=== PATIENT | female | born 1945 | race Caucasian/White ===

== ENCOUNTER 2017-01-17 14:53 | Outpatient (CLI) | payer MEDICARE, MEDICAID ==
--- NOTE | 2017-01-18 09:22 | XRAY Report ---
THREE VIEW LEFT FIFTH FINGER: 01/17/2017 CLINICAL INDICATION: Pain. FINDINGS: AP, lateral, and oblique views of the left 5th finger demonstrate mild degenerative change s of the interphalangeal joints. There is no evidence of acute fracture or dislocation. No radiopaque foreign body is seen in the soft tissues. IMPRESSION: OSTEOARTHRITIS. NO EVIDENCE OF ACUTE FRACTURE. JOB #: [id number] EXT JOB #:[id number]
== END 2017-01-17 14:54 | disposition home or self-care (01) ==
LOC: DI.S 14:53
PROVIDERS: ATTEND Nurse Practitioner Family
DX: M79.645 Pain in left finger(s) (principal); S69.92XA Unspecified injury of left wrist, hand and finger(s), initial encounter; M19.042 Primary osteoarthritis, left hand
CPT/HCPCS: 73140

== ENCOUNTER 2017-01-29 13:33 | Outpatient (CLI) | payer MEDICARE, MEDICAID ==
[2017-01-29 18:28] LABS: BASOPHILS # (AUTO) 0.1 10^3/uL (0.0-0.1); BASOPHILS % (AUTO) 0.8 %; EOSINOPHILS # (AUTO) 0.1 10^3/uL (0.0-0.7); EOSINOPHILS % (AUTO) 0.9 %; HCT - HEMATOCRIT 42.6 % (37.0-47.0); HGB - HEMOGLOBIN 14.2 g/dL (12.0-16.0); LYMPHOCYTES # (AUTO) 1.7 10^3/uL (1.5-3.5); LYMPHOCYTES % (AUTO) 27.4 %; MEAN CORPUSCULAR HEMOGLOBIN 30.2 pg (27.0-31.0); MEAN CORPUSCULAR HGB CONC 33.3 g/dL (32.0-36.0); MEAN CORPUSCULAR VOLUME 90.5 fL (81.0-99.0); MEAN PLATELET VOLUME 9.9 fL (7.9-10.8); MONOCYTES # (AUTO) 0.4 10^3/uL (0.0-1.0); MONOCYTES % (AUTO) 6.4 %; NEUTROPHILS % (AUTO) 64.5 %; RED CELL DISTRIBUTION WIDTH 14.2 % (12.0-15.0); UNCORRECTED WHITE BLOOD COUNT 6.2 x10^3/uL; WHITE BLOOD COUNT 6.2 x10^3/uL (4.8-10.8)
[2017-01-29 19:02] LABS: ALBUMIN/GLOBULIN RATIO 1.3 (1.0-2.2); BILIRUBIN,TOTAL 0.6 mg/dL (0.2-1.0); BUN - BLOOD UREA NITROGEN 26 mg/dL (6-20); CARBON DIOXIDE - CO2 26 mmol/L (21-32); CHLORIDE 105 mmol/L (101-111); GFR - MDRD 55 (>89); GLUCOSE 69 mg/dL (70-100); POTASSIUM 4.3 mmol/L (3.5-5.0); SODIUM 138 mmol/L (135-145); TOTAL PROTEIN 7.4 g/dL (6.7-8.2); URIC ACID 4.6 mg/dL (2.6-7.2)
[2017-01-31 14:32] LABS: ANA SCREEN NEGATIVE (NEGATIVE)
== END 2017-01-29 13:34 | disposition home or self-care (01) ==
LOC: LAB.S 13:33
PROVIDERS: ATTEND Nurse Practitioner Family
DX: M19.90 Unspecified osteoarthritis, unspecified site (principal); I10 Essential (primary) hypertension
CPT/HCPCS: 36415; 80053; 84550; 85025; 85651; 86038; 86140; 86200; 86430

== ENCOUNTER 2017-02-09 11:31 | Outpatient (CLI) | payer MEDICARE, MEDICAID ==
--- NOTE | 2017-02-09 15:13 | XRAY Report ---
LEFT HIP AND PELVIS: 02/09/2017 CLINICAL INDICATION: Leg pain. FINDINGS: Frontal view of the hips and pelvis and frogleg lateral view of the left hip demonstrate m inimal osteoarthritis. There is no evidence of fracture or dislocation. No foreign body is seen in the soft tissues. IMPRESSION: MINIMAL OSTEOARTHRITIS. JOB #: [id number] EXT JOB #:[id number]
--- NOTE | 2017-02-09 16:15 | XRAY Report ---
THREE-VIEW LEFT KNEE: 02/09/2017 CLINICAL INDICATION: Leg pain. FINDINGS: AP, lateral, sunrise views of the left knee demonstrate no evidence of fracture or disloca tion. The joint spaces are preserved. No effusion is present. IMPRESSION: NORMAL LEFT KNEE. JOB #: [id number] EXT JOB #:[id number]
== END 2017-02-09 11:32 | disposition home or self-care (01) ==
LOC: DI.S 11:31
PROVIDERS: ATTEND Nurse Practitioner Family
DX: M16.12 Unilateral primary osteoarthritis, left hip (principal)

== ENCOUNTER 2018-01-14 16:21 | Outpatient (CLI) | payer MEDICARE, MEDICAID ==
--- NOTE | 2018-01-15 09:55 | XRAY Report ---
Reason: EVAL FOR DJD AND LUMBAR RADICULOPATHY Procedure Date: 01/14/2018 Accession Number: [id number] / [id number] Procedure: XRS - Lumbar Spine 2 View CPT Code: FULL RESULT: EXAM: LUMBOSACRAL SPINE RADIOGRAPHY EXAM DATE: 01/14/2018 04:43 PM. CLINICAL HISTORY: EVAL FOR DJD AND LUMBAR RADICULOPATHY. COMPARISONS: 09/18/2006. TECHNIQUE: 5 views. FINDINGS: Alignment: There is minimal grade 1 degenerative spondylolisthesis of L3 on L4. The remaining lumbar segments are normally aligned. Bones: Five [id number] lumbar vertebral bodies are present. No fractures or bone lesions. Disks: There is slight loss of intervertebral disk space height at L2-L3. Minimal anterior marginal spurring is seen at this level as well as L3-L4 and L4-L5. Facets: Facet arthropathy is seen bilaterally at L3-L4 and L4-L5. Sacroiliac Joints: Unremarkable. Soft Tissues: Moderate colonic stool burden is present suggesting constipation. IMPRESSION: 1. Minimal grade 1 degenerative spondylolisthesis of L3 on L4 without significant change. 2. Mild multilevel lumbar spondylosis. 3. No evidence of acute osseous abnormality in the lumbar spine. 4. Possible constipation. RADIA
== END 2018-01-14 16:22 | disposition home or self-care (01) ==
LOC: DI.S 16:21
PROVIDERS: ATTEND Physical Medicine & Rehabilitation Hospice and Palliative Medicine
DX: Z51.5 Encounter for palliative care (principal); G89.4 Chronic pain syndrome; M43.16 Spondylolisthesis, lumbar region; M47.816 Spondylosis without myelopathy or radiculopathy, lumbar region
CPT/HCPCS: 72110

== ENCOUNTER 2018-05-20 08:00 | Outpatient (CLI) | payer MEDICARE, MEDICAID ==
[2018-05-20 18:11] LABS: BASOPHILS # (AUTO) 0.1 10^3/uL (0.0-0.1); EOSINOPHILS # (AUTO) 0.1 10^3/uL (0.0-0.7); EOSINOPHILS % (AUTO) 2.6 %; HGB - HEMOGLOBIN 14.7 g/dL (12.0-16.0); LYMPHOCYTES # (AUTO) 1.7 10^3/uL (1.5-3.5); LYMPHOCYTES % (AUTO) 29.9 %; MEAN CORPUSCULAR HEMOGLOBIN 29.5 pg (27.0-31.0); MEAN CORPUSCULAR HGB CONC 32.4 g/dL (32.0-36.0); MEAN CORPUSCULAR VOLUME 90.9 fL (81.0-99.0); MEAN PLATELET VOLUME 10.2 fL (7.9-10.8); MONOCYTES # (AUTO) 0.4 10^3/uL (0.0-1.0); MONOCYTES % (AUTO) 7.1 %; NEUTROPHILS # (AUTO) 3.3 10^3/uL (1.5-6.6); NEUTROPHILS % (AUTO) 59.4 %; PLT - PLATELET COUNT 235 10^3/uL (130-450); WHITE BLOOD COUNT 5.6 x10^3/uL (4.8-10.8)
[2018-05-20 18:27] LABS: HB2 TOTAL 15.5 g/dL; HEMOGLOBIN A1C 0.53 g/dL; HEMOGLOBIN A1C % 5.3 % (4.6-6.2)
[2018-05-20 18:55] LABS: ALBUMIN 4.2 g/dL (3.2-5.5); ALBUMIN/GLOBULIN RATIO 1.5 (1.0-2.2); ALKALINE PHOSPHATASE 61 IU/L (42-121); ALT ALANINE AMINOTRANSFERASE 22 IU/L (10-60); AST ASPARTATE AMINOTRANSFERASE 23 IU/L (10-42); BILIRUBIN,TOTAL 0.6 mg/dL (0.2-1.0); BUN - BLOOD UREA NITROGEN 14 mg/dL (6-20); CALCIUM 9.9 mg/dL (8.5-10.3); CARBON DIOXIDE - CO2 27 mmol/L (21-32); CHLORIDE 107 mmol/L (101-111); CHOL/HDL RATIO 6.8 (<4.4); CHOLESTEROL 314 mg/dL; CREATININE 0.9 mg/dL (0.4-1.0); GFR - MDRD 62 (>89); GLUCOSE 91 mg/dL (70-100); HDL CHOLESTEROL 46 mg/dL; LDL CHOLESTEROL,CALCULATED 227 mg/dL; LDL/HDL RATIO 4.9 (<4.4); SODIUM 140 mmol/L (135-145); VLDL CHOLESTEROL 41 mg/dL
== END 2018-05-20 23:59 | disposition home or self-care (01) ==
LOC: LAB.S 08:00
PROVIDERS: ATTEND Nurse Practitioner
DX: I10 Essential (primary) hypertension (principal); Z13.9 Encounter for screening, unspecified
CPT/HCPCS: 36415; 80053; 80061; 83036; 83721; 84443; 85025

== ENCOUNTER 2018-11-08 13:30 | Outpatient (CLI) | payer MEDICARE, MEDICAID ==
--- NOTE | 2018-11-08 16:56 | Ultrasound Report ---
Reason: UNSPECIFIED OVARIAN CYST,LEFT SIDE,ABDOMINAL PAIN, Procedure Date: 11/08/2018 Accession Number: [id number] / [id number] Procedure: US - Pelvic w/Transvaginal CPT Code: FULL RESULT: EXAM: PELVIC ULTRASOUND EXAM DATE: 11/08/2018 03:21 PM. CLINICAL HISTORY: Follow-up OVARIAN Cyst, left Side, abdominal PAIN. COMPARISON: None available. TECHNIQUE: Realtime transabdominal pelvic scan performed to identify the uterus and adnexa and as an overview of other pelvic structures, followed by transvaginal scan to provide greater detail of the uterus and adnexa, with static image documentation. FINDINGS: Uterus: 4.7 x 1.4 x 2.9 cm, volume 10 cc. Anteverted position. Normal overall size and echotexture. Masses: None. Endometrium: 1.8 mm. Normal. Cervix: Small nabothian cyst.. Right Ovary: Not seen. No adnexal masses. Left Ovary: 3.9 x 2.4 x 2.7 cm, volume 13.2 cc. 2.2 x 2.1 x 2.1 cm simple left ovarian cyst with an adjacent smaller 1.8 x 1.6 x 1.5 cm cyst. cc. Normal echotexture and blood flow. Free Fluid: None. Other: None. IMPRESSION: Two simple left ovarian cysts, the larger 2.2 x 2.1 x 2.1 cm. Otherwise negative postmenopausal pelvic ultrasound. Consider follow-up pelvic ultrasound 10-12 weeks to assess for cyst resolution.. RADIA
== END 2018-11-08 13:31 | disposition home or self-care (01) ==
LOC: DI 13:30
PROVIDERS: ATTEND Nurse Practitioner
DX: N83.292 Other ovarian cyst, left side (principal); N88.8 Other specified noninflammatory disorders of cervix uteri
CPT/HCPCS: 76830; 76856

== ENCOUNTER 2018-12-11 15:15 | Emergency (ER) | payer MEDICARE, MEDICAID ==
[2018-12-11] MEDS ORDERED: TETANUS/DIPHTHERIA/PERTUSSIS 0.5 ML SYRINGE IM ONE (16:25)
[2018-12-11] MEDS ORDERED: ROPIVACAINE 0.5% PF 20 ML VIAL SUBQ STA (16:48)
[2018-12-11] MEDS ORDERED: LIDOCAINE 1% 2 ML VIAL ONE (17:14)
--- NOTE | 2018-12-11 17:14 | ED Physician Documentation ---
PD HPI UPPER EXT INJURY - Stated complaint Stated Complaint: R MID FINGER LAC - Chief complaint Chief Complaint: Laceration - History obtained from History obtained from: Patient - History of Present Illness Location: Right, Finger (mid) Where injury occurred: Home Timing - onset: Today Timing - duration: Days (1) Timing - details: Abrupt onset Pain level max: 4 Pain level now: 3 Improved by: Rest Worsened by: Moving, Palpating Associated symptoms: No: Weakness, Numbness, Tingling, Swelling Contributing factors: No: Anticoagulated Recently seen: Not recently seen - Additonal information Additional information: cut R mid finger on broken glass. unknown last td Review of Systems Neurologic: denies: Focal weakness, Numbness PD PAST MEDICAL HISTORY - Past Medical History Cardiovascular: Hypertension, High cholesterol Respiratory: None Endocrine/Autoimmune: None GI: GERD, Chronic constipation, Other : None HEENT: Other Psych: None Musculoskeletal: Other Derm: None - Past Surgical History General: Appendectomy, Colonoscopy HEENT: Other - Present Medications Home Medications: Ambulatory Orders Medication Instructions Recorded Confirmed Ascorbic Acid [Vitamin C] 1 tab PO DAILY 12/21/15 05/29/18 Calcium Carbonate 1 tab PO DAILY 12/21/15 12/21/15 Multivitamin [Multivitamins] 1 tab PO DAILY 12/21/15 05/29/18 Niacin 1 tab PO DAILY 12/21/15 12/21/15 Zolpidem [Ambien] 2.5 mg PO DAILY 12/21/15 05/29/18 Aspirin [Aspirin EC] 1 each PO DAILY 05/29/18 05/29/18 B-Complex with Vitamin C [Super B 1 each PO DAILY 05/29/18 05/29/18 Complex-Vitamin C] Cholecalciferol (Vitamin D3) 1 cap PO DAILY 05/29/18 05/29/18 [Vitamin D3] Digestive 8/L.acidoph/Pectin 1 each PO BID 05/29/18 05/29/18 [Digestive Enzymes Tablet] Janessa Root 1 cap PO DAILY 05/29/18 05/29/18 Glycerin Adult Supp 1 supp.rect VT ONCE 05/29/18 05/29/18 L.acid/L.casei/B.bif/B.wicho/Fos 1 cap PO BID 05/29/18 05/29/18 [Probiotic Blend Capsule] Malic Acid 1 each PO DAILY 05/29/18 Melatonin/5Htp/Valer/FA/Diet28 1 each PO BID 05/29/18 05/29/18 [Hypnosom Tablet] Nutmeg 1 applic PO DAILY 05/29/18 [place]-3/Dha/Epa/Fish Oil [Fish Oil 1 cap PO DAILY 05/29/18 05/29/18 500 mg Softgel] Turmeric Root Extract [Turmeric] 500 mg PO BID 05/29/18 05/29/18 Whole Plant Cannibis 1 applic PO DAILY PM 05/29/18 05/29/18 - Allergies Allergies/Adverse Reactions: Allergies Allergy/AdvReac Type Severity Reaction Status Date / Time Penicillins Allergy Unknown Verified 12/11/18 15:30 - Social History Does the pt smoke?: No Smoking Status: Never smoker PD ED PE NORMAL - Vitals Vital signs reviewed: Yes - General General: Alert and oriented X 3, No acute distress - Derm Derm: Warm and dry - Extremities Extremities: Other (R middle finger - 1cm linear laceration distal tip. NVI. Subcutaneous) - Neuro Neuro: Alert and oriented X 3 - Psych Psych: Normal mood, Normal affect Results - Vitals Vitals: Oxygen O2 Source Room air Procedures - Laceration (location) R 3rd finger Length in cm: 1 Wound type: Linear, Into subcut fat, Clean Neurovascular status: Sensory intact, Motor intact, Vascular intact Tendon involvement: Tendon intact Anesthesia: Lidocaine 1% (transthecal block) Wound Preparation: Irrigated copiously NS Skin layer closure: Dermabond Other: Patient tolerated well, No complications, Neurovascular intact, Dressing applied (finger cage), Tetanus booster given (tdap) Complexity: Simple PD MEDICAL DECISION MAKING - ED course Complexity details: re-evaluated patient, considered differential, d/w patient ED course: Fingertip laceration repaired with Dermabond. Neurovascularly intact. No indication for x-ray. Discussed closure options including sutures versus Dermabond. Patient is comfortable with Dermabond. Finger splint applied to protect the area. Warnings of infection and instructions on wound care given at bedside. Also counseled on how to minimize scarring. Patient counseled regarding signs and symptoms for which I believe and urgent re-evaluation would be necessary. Patient with good understanding of and agreement to plan and is comfortable going home at this time This document was made in part using voice recognition software. While efforts are made to proofread this document, sound alike and grammatical errors may occur. Departure - Departure Disposition: 01 Home, Self Care Clinical Impression: Finger laceration Qualifiers: Encounter type: initial encounter Finger: middle finger Damage to nail status: without damage Foreign body presence: without foreign body Laterality: right Qualified Code(s): S61.212A - Laceration without foreign body of right middle finger without damage to nail, initial encounter Condition: Good Instructions: ED Laceration Ext Skin Glue Follow-Up: your,doctor in 1 week [Other] Comments: Return if you worsen. keep the wound clean. Return if you notice redness, swelling, or drainage from wound Discharge Date/Time: 12/11/18 17:48
[2018-12-11 17:49] VITALS: BP 161/72
== END 2018-12-11 17:48 | disposition home or self-care (01) ==
LOC: ED 15:15
DX: S61.212A Laceration without foreign body of right middle finger without damage to nail, initial encounter (principal); W25.XXXA Contact with sharp glass, initial encounter; Y92.009 Unspecified place in unspecified non-institutional (private) residence as the place of occurrence of the external cause; I10 Essential (primary) hypertension
CPT/HCPCS: 12001; 90471

== ENCOUNTER 2019-01-17 13:11 | Outpatient (CLI) | payer MEDICARE, MEDICAID ==
--- NOTE | 2019-01-20 10:17 | Ultrasound Report ---
Reason: UNSPECIFIED OVARIAN CYST, LEFT SIDE Procedure Date: 01/17/2019 Accession Number: [id number] / [id number] Procedure: US - Pelvic w/Transvaginal CPT Code: FULL RESULT: EXAM: PELVIC ULTRASOUND EXAM DATE: 01/17/2019 03:04 PM. CLINICAL HISTORY: UNSPECIFIED OVARIAN CYST, LEFT SIDE. COMPARISON: PELVIC W/TRANSVAGINAL 11/08/2018 2:14 PM. TECHNIQUE: Realtime transabdominal pelvic scan performed to identify the uterus and adnexa and as an overview of other pelvic structures, followed by transvaginal scan to provide greater detail of the uterus and adnexa, with static image documentation. FINDINGS: Uterus: 4.7 x 1.3 x 2.5 cm, volume 7.8 cc. Anteverted position. Normal overall size and echotexture. Masses: None. Endometrium: 2.4 mm. Normal. Cervix: Small nabothian cyst 5 x 6 x 4 mm. Right Ovary: Not seen. No adnexal mass. Left Ovary: 3.7 x 2.7 x 3.4 cm, volume 17.7 cc. Persistent septated cyst versus 2 adjacent cysts, composite measurement 3.3 x 2.6 x 3.2 cm. Individual measurements 2.4 x 1.8 x 1.7 cm, previously 2.2 x 2.1 x 2.1 cm and 1.9 x 1.4 x 1.2 cm, previously 1.8 x 1.6 x 1.5 cm. Free Fluid: None. Other: None. IMPRESSION: 2 simple adjacent versus one septated left ovarian cyst, stable in appearance compared with 11/08/2018. Otherwise negative pelvic ultrasound. Suggest follow-up pelvic ultrasound in 1 year. RADIA
== END 2019-01-17 13:12 | disposition home or self-care (01) ==
LOC: DI 13:11
PROVIDERS: ATTEND Family Medicine
DX: N83.202 Unspecified ovarian cyst, left side (principal)
CPT/HCPCS: 76830; 76856

== ENCOUNTER 2019-05-06 14:00 | Outpatient (CLI) | payer MEDICARE, MEDICAID ==
--- NOTE | 2019-05-06 16:00 | XRAY Report ---
Reason: COUGH Procedure Date: 05/06/2019 Accession Number: [id number] / [id number] Procedure: XRS - Chest 2 View X-Ray CPT Code: 53144 Final Report FULL RESULT: EXAM: CHEST RADIOGRAPHY. EXAM DATE: 05/06/2019 02:12 PM. CLINICAL HISTORY: Cough. COMPARISON: 10/23/2007 11:26 AM. TECHNIQUE: 2 views. FINDINGS: Lungs/Pleura: No focal opacities evident. No pleural effusion. No pneumothorax. Normal volumes. Mediastinum: Heart and mediastinal contours are unremarkable. Other: None. IMPRESSION: No acute cardiopulmonary abnormality. RADIA
== END 2019-05-06 14:01 | disposition home or self-care (01) ==
LOC: DI.S 14:00
PROVIDERS: ATTEND Registered Nurse
DX: R05 Cough (principal)
CPT/HCPCS: 71046

== ENCOUNTER 2020-09-12 08:32 | Outpatient (CLI) | payer MEDICARE, MEDICAID | END 2020-09-12 08:33 | disposition critical access hospital (66) | LOC: EMS 08:32 | DX: R42 Dizziness and giddiness (principal) | CPT/HCPCS: A0425; A0429 ==

== ENCOUNTER 2020-09-12 09:07 | Observation (INO) | payer MEDICARE, MEDICAID ==
[2020-09-12] MEDS ORDERED: MECLIZINE 12.5 MG TABLET PO STA (09:27)
[2020-09-12] MEDS ORDERED: SODIUM CHLORIDE 0.9% 1,000 ML IV STA (09:28)
[2020-09-12] MEDS ORDERED: IOPAMIDOL-300 100 ML VIAL ONE (09:32)
[2020-09-12 09:38] LABS: MUDS CUTOFF CONCENTRATIONS CUTOFF CONC BELOW:
[2020-09-12 09:39] LABS: BASOPHILS # (AUTO) 0.1 10^3/uL (0.0-0.1); BASOPHILS % (AUTO) 0.7 %; EOSINOPHILS # (AUTO) 0.1 10^3/uL (0.0-0.7); EOSINOPHILS % (AUTO) 0.6 %; HCT - HEMATOCRIT 49.6 % (37.0-47.0); LYMPHOCYTES # (AUTO) 2.1 10^3/uL (1.5-3.5); LYMPHOCYTES % (AUTO) 26.3 %; MEAN CORPUSCULAR HEMOGLOBIN 29.5 pg (27.0-31.0); MEAN CORPUSCULAR HGB CONC 32.3 g/dL (32.0-36.0); MEAN CORPUSCULAR VOLUME 91.5 fL (81.0-99.0); MEAN PLATELET VOLUME 10.6 fL (7.9-10.8); MONOCYTES # (AUTO) 0.4 10^3/uL (0.0-1.0); MONOCYTES % (AUTO) 4.8 %; NEUTROPHILS # (AUTO) 5.5 10^3/uL (1.5-6.6); NEUTROPHILS % (AUTO) 67.2 %; PLT - PLATELET COUNT 238 10^3/uL (130-450); RED BLOOD COUNT 5.42 10^6/uL (4.20-5.40); RED CELL DISTRIBUTION WIDTH 13.5 % (12.0-15.0); WHITE BLOOD COUNT 8.1 x10^3/uL (4.8-10.8)
[2020-09-12 09:40] LABS: BILIRUBIN,URINE NEGATIVE (NEGATIVE); GLUCOSE, URINE (UA) NEGATIVE (NEGATIVE); KETONES,URINE (UA) NEGATIVE (NEGATIVE); LEUKOCYTE ESTERASE, URINE MODERATE (NEGATIVE); NITRITE,URINE NEGATIVE (NEGATIVE); OCCULT BLOOD,URINE TRACE-INTA (NEGATIVE); PH,URINE 5.5 PH (5.0-7.5); PROTEIN,URINE NEGATIVE (NEGATIVE); UROBILINOGEN,URINE 0.2 (NORMAL) E.U./dL (NORMAL)
[2020-09-12 09:44] LABS: CLARITY,URINE HAZY (CLEAR)
[2020-09-12 09:52] LABS: AMPHETAMINE SCREEN,URINE NEGATIVE (NEGATIVE); BARBITURATE SCREEN,UR NEGATIVE (NEGATIVE); BENZODIAZEPINES SCREEN, URINE NEGATIVE (NEGATIVE); COCAINE SCREEN URINE NEGATIVE (NEGATIVE); METHADONE SCREEN, URINE NEGATIVE (NEGATIVE); METHAMPHETAMINES SCREEN, URINE NEGATIVE (NEGATIVE); OPIATE SCREEN, URINE NEGATIVE (NEGATIVE); OXYCODONE SCREEN, URINE NEGATIVE (NEGATIVE); PROPOXYPHENE SCREEN, URINE NEGATIVE (NEGATIVE); THC CANNABINOID SCREEN, URINE NEGATIVE (NEGATIVE); TRICYCLIC ANTIDEPRESSANT,URINE NEGATIVE (NEGATIVE)
[2020-09-12 09:53] LABS: ALBUMIN 4.9 g/dL (3.2-5.5); ALBUMIN/GLOBULIN RATIO 1.5 (1.0-2.2); ALKALINE PHOSPHATASE 70 IU/L (42-121); ALT ALANINE AMINOTRANSFERASE 26 IU/L (10-60); AST ASPARTATE AMINOTRANSFERASE 26 IU/L (10-42); BILIRUBIN,TOTAL 0.7 mg/dL (0.2-1.0); BUN - BLOOD UREA NITROGEN 17 mg/dL (6-20); CALCIUM 10.1 mg/dL (8.5-10.3); CARBON DIOXIDE - CO2 27 mmol/L (21-32); CHLORIDE 103 mmol/L (101-111); CREATININE 0.8 mg/dL (0.4-1.0); ETOH - ETHANOL < 5.0 mg/dL; GFR - MDRD 71 (>89); GLUCOSE 119 mg/dL (70-100); LIPASE 22 U/L (22-51); SODIUM 141 mmol/L (135-145); TOTAL PROTEIN 8.1 g/dL (6.7-8.2)
[2020-09-12 09:57] LABS: BACTERIA,URINE Few /HPF (None Seen); RBC,URINE 0-5 /HPF (0-5); SQUAMOUS EPITHELIAL CELL,UR MOD Squamous (<= Few)
--- NOTE | 2020-09-12 10:44 | XRAY Report ---
PROCEDURE: Chest 1 View X-Ray INDICATIONS: Chest pain TECHNIQUE: One view of the chest was acquired. COMPARISON: None FINDINGS: Surgical changes and devices: None. Lungs and pleura: No pleural effusions or pneumothorax. Lungs are clear. Mediastinum: Mediastinal contours appear normal. Heart size is normal. Bones and chest wall: No suspicious bony lesions. Overlying soft tissues appear unremarkable. IMPRESSION: No acute cardiopulmonary process demonstrated radiographically. Reviewed by: David Blakely MD on 09/12/2020 10:43 AM PDT Approved by: David Blakely MD on 09/12/2020 10:43 AM PDT Station ID: [id number]
--- NOTE | 2020-09-12 10:48 | CT Report ---
PROCEDURE: ANGIO NECK W INDICATIONS: Dizziness upon waking this morning CONTRAST: IV CONTRAST: Isovue 300 ml: 80 PO CONTRAST: *NO PO CONTRAST TECHNIQUE: After the administration of intravenous contrast, 1.5 mm axial sections acquired from the aortic arch to the [place] of [place]. Coronal 3-D maximum intensity projection (MIP) and/or volume rendering ref ormats were then performed. For radiation dose reduction, the following was used: automated exposur e control, adjustment of mA and/or kV according to patient size. COMPARISON: None. FINDINGS: Image quality: Excellent. Carotid system: The great vessels demonstrate a conventional anatomy as they arise from the aortic a [facility]. The origins of the common carotid arteries appear patent. The common carotid arteries demonstr ate normal calibers and courses. The bifurcation regions appear normal bilaterally. The internal ca rotid arteries demonstrate normal caliber and course. Posterior circulation: The origins of the vertebral arteries appear patent. The more superior porti ons of the vertebral arteries demonstrate normal course and caliber. They join to form a normal appe aring basilar artery. Soft tissues: Visualized neck soft tissues demonstrate no suspicious abnormalities. The thyroid gla nd is normal in size. Bones: No suspicious bony lesions. Visualized cervical spine appears normally aligned. IMPRESSION: No hemodynamically significant stenosis of the major extracranial arterial circulation. The estimate of stenosis included in the report of the imaging study was calculated using the NASCET method Reviewed by: David Blakely MD on 09/12/2020 10:47 AM PDT Approved by: David Blakely MD on 09/12/2020 10:47 AM PDT Station ID: [id number]
[2020-09-12 10:52] LABS: B. PARAPERTUSSIS- RESP PCR PAN NOT DETECTED; B. PERTUSSIS- RESP PCR PANEL NOT DETECTED; C. PNEUMONIAE- RESP PCR PANEL NOT DETECTED; CORONAVIRUS 229E-RESP PCR NOT DETECTED; CORONAVIRUS HKU1-RESP PCR NOT DETECTED; CORONAVIRUS NL63-RESP PCR NOT DETECTED; CORONAVIRUS OC43-RESP PCR NOT DETECTED; HUMAN METAPNEUMOVIRUS NOT DETECTED; INFLUENZA A- RESP PCR PANEL NOT DETECTED; INFLUENZA B - RESP PCR PANEL NOT DETECTED; M. PNEUMONIAE- RESP PCR PANEL NOT DETECTED; PARAINFLUENZA VIRUS 1 NOT DETECTED; PARAINFLUENZA VIRUS 2 NOT DETECTED; PARAINFLUENZA VIRUS 3 NOT DETECTED; PARAINFLUENZA VIRUS 4 NOT DETECTED; RHINOVIRUS/ENTEROVIRUS NOT DETECTED; RSV- RESP PCR PANEL NOT DETECTED; SARS-CoV-2 -RESP PCR PANEL NOT DETECTED
--- NOTE | 2020-09-12 10:52 | CT Report ---
PROCEDURE: ANGIO HEAD W/WO INDICATIONS: Dizziness upon waking this morning CONTRAST: IV CONTRAST: Isovue 300 ml: 80 PO CONTRAST: *NO PO CONTRAST TECHNIQUE: Precontrast 4.5 mm thick angled axial sections acquired from the foramen magnum to the vertex. Afte r the administration of intravenous contrast, 1 mm thick sections acquired through the [place] of [place] is. Postcontrast 4.5 mm thick sections then re-acquired from the foramen magnum to the vertex. 3-di mensional qysntfw-mezwelmjd-yhozwiikna (MIP) and/or volume rendering reformats were acquired of the c entral intracranial vasculature. For radiation dose reduction, the following was used: automated ex posure control, adjustment of mA and/or kV according to patient size. COMPARISON: None. FINDINGS: Image quality: Excellent. Anterior circulation: Intracranial internal carotid arteries are normal in size and flow. The flow within the paired anterior cerebral arteries is normal and symmetric. The flow within the middle cer ebral arteries is normal and symmetric. The anterior communicating artery is seen. No aneurysms are seen. Posterior circulation: Visualized portions of the vertebral arteries demonstrate normal caliber, and join to form a normal appearing basilar artery. Flow within the posterior cerebral arteries is norm al and symmetric. No aneurysms are seen. CSF spaces: Ventricles are normal in size and shape. Basal cisterns are patent. No extra-axial flu id collections. Brain: No midline shift. No intracranial bleeds or masses. Walsh-white matter interface appears int act. Skull and face: Calvarium and facial bones appear intact, without suspicious lesions. Sinuses: Visualized sinuses and mastoids are clear. IMPRESSION: No branch occlusion or hemodynamically significant stenosis of the major intracranial arterial circul ation. Reviewed by: David Blakely MD on 09/12/2020 10:50 AM PDT Approved by: David Blakely MD on 09/12/2020 10:50 AM PDT Station ID: [id number]
--- NOTE | 2020-09-12 10:59 | ED Physician Documentation ---
History of Present Illness - Stated complaint Stated Complaint: DIZZINESS - Chief complaint Chief Complaint: Neuro - History obtained from History obtained from: Patient - Additonal information Additional information: 74-year-old woman with past medical history of anxiety, insomnia, intermittent high blood pressure not on medications presents with sensation of dizziness waking her from sleep this morning. She called a neighbor for help and they called 911. Patient states that she tried to get out of bed but had a drunken feeling and was extremely dizzy. The dizziness comes in waves and is worse when she tries to move. Patient notes that she had her Covid vaccine 2 weeks ago and is concerned that this is related. She denies nausea or vomiting, no other focal neurological deficits. No focal weakness or numbness. NIHSS 0. Woke with symptoms therefore no stroke code was called. Review of Systems Ten Systems: 10 systems reviewed and negative Constitutional: denies: Fever, Chills Cardiac: denies: Chest pain / pressure Respiratory: denies: Dyspnea Neurologic: reports: Generalized weakness, Other (dizziness) PD PAST MEDICAL HISTORY - Past Medical History Past Medical History: Yes Cardiovascular: Hypertension, High cholesterol Respiratory: None Endocrine/Autoimmune: None GI: GERD, Chronic constipation, Other : None HEENT: Other Psych: None Musculoskeletal: Other Derm: None Other Past Medical History: HCL marker - Past Surgical History Past Surgical History: Yes General: Appendectomy, Colonoscopy HEENT: Other - Present Medications Home Medications: Ambulatory Orders Medication Instructions Recorded Confirmed Ascorbic Acid [Vitamin C] 1 tab PO DAILY 12/21/15 09/12/20 Calcium Carbonate 1 tab PO DAILY 12/21/15 09/12/20 Multivitamin [Multivitamins] 1 tab PO DAILY 12/21/15 09/12/20 Zolpidem [Ambien] 2.5 mg PO DAILY 12/21/15 09/12/20 B-Complex with Vitamin C [Super B 1 each PO DAILY 05/29/18 09/12/20 Complex-Vitamin C] Cholecalciferol (Vitamin D3) 1 cap PO DAILY 05/29/18 09/12/20 [Vitamin D3] Digestive 8/L.acidoph/Pectin 1 each PO BID 05/29/18 09/12/20 [Digestive Enzymes Tablet] L.acid/L.casei/B.bif/B.wicho/Fos 1 cap PO BID 05/29/18 09/12/20 [Probiotic Blend Capsule] Malic Acid 1 each PO DAILY 05/29/18 09/12/20 Melatonin/5Htp/Valer/FA/Diet28 1 each PO BID 05/29/18 09/12/20 [Hypnosom Tablet] [place]-3/Dha/Epa/Fish Oil [Fish Oil 1 cap PO DAILY 05/29/18 09/12/20 500 mg Softgel] Turmeric Root Extract [Turmeric] 500 mg PO DAILY 05/29/18 09/12/20 - Allergies Allergies/Adverse Reactions: Allergies Allergy/AdvReac Type Severity Reaction Status Date / Time Penicillins Allergy Unknown Verified 09/12/20 09:16 - Social History Does the pt smoke?: No Smoking Status: Never smoker Does the pt drink ETOH?: No Does the pt have substance abuse?: No - Immunizations Immunizations are current?: Yes - POLST Patient has POLST: No PD ED PE NORMAL - Vitals Vital signs reviewed: Yes - General General: Alert and oriented X 3, No acute distress, Well developed/nourished - HEENT HEENT: Atraumatic, PERRL, EOMI - Neck Neck: Supple, no meningeal sign - Cardiac Cardiac: RRR - Respiratory Respiratory: No respiratory distress, Clear bilaterally - Abdomen Abdomen: Non tender, Non distended - Derm Derm: Normal color - Extremities Extremities: No deformity - Neuro Neuro: Alert and oriented X 3, finisher polisher 2-12 intact, No motor deficit, No sensory deficit, Normal speech, Other (unable to sit up in bed without severe dizziness. ) - Psych Psych: Normal mood, Normal affect Results - Vitals Vitals: Vital Signs - 24 hr 09/12/20 09/12/20 09/12/20 09:13 09:36 10:00 Temperature 36.8 C Heart Rate 66 60 64 Respiratory 20 18 17 Rate Blood Pressure 191/81 H 176/71 H 154/82 H O2 Saturation 99 98 97 09/12/20 10:48 Temperature Heart Rate 68 Respiratory 17 Rate Blood Pressure 176/74 H O2 Saturation 97 Oxygen O2 Source Room air - Labs Labs: Laboratory Tests 09/12/20 09/12/20 09/12/20 09:33 09:33 09:33 WBC 8.1 RBC 5.42 H Hgb 16.0 Hct 49.6 H MCV 91.5 MCH 29.5 MCHC 32.3 RDW 13.5 Plt Count 238 MPV 10.6 Neut # (Auto) 5.5 Lymph # (Auto) 2.1 Sharp # (Auto) 0.4 Eos # (Auto) 0.1 Baso # (Auto) 0.1 Absolute Nucleated RBC 0.00 Nucleated RBC % 0.0 Sodium 141 Potassium 4.0 Chloride 103 Carbon Dioxide 27 Anion Gap 11.0 BUN 17 Creatinine 0.8 Estimated GFR (MDRD) 71 L Glucose 119 H Calcium 10.1 Total Bilirubin 0.7 AST 26 ALT 26 Alkaline Phosphatase 70 Troponin I High Sens 6.0 Total Protein 8.1 Albumin 4.9 Globulin 3.2 Albumin/Globulin Ratio 1.5 Lipase 22 Urine Color Urine Clarity Urine pH Ur Specific [place] Urine Protein Urine Glucose (UA) Urine Ketones Urine Occult Blood Urine Nitrite Urine Bilirubin Urine Urobilinogen Ur Leukocyte Esterase Urine RBC Urine WBC Ur Squamous Epith Cells Urine Bacteria Ur Microscopic Review Urine Culture Comments Nasal Adenovirus (PCR) Nasal B. parapertussis DNA (PCR) Nasal Coronavir 229E PCR Nasal Coronavir HKU1 PCR Nasal Coronavir NL63 PCR Nasal Coronavir OC43 PCR Nasal Enterovir/Rhinovir PCR Nasal Influenza B PCR Nasal Influenza A PCR Nasal Parainfluen 1 PCR Nasal Parainfluen 2 PCR Nasal Parainfluen 3 PCR Nasal Parainfluen 4 PCR Nasal RSV (PCR) Nasal B.pertussis DNA PCR Nasal C.pneumoniae (PCR) Eros Human Metapneumo PCR Nasal M.pneumoniae (PCR) Nasal SARS-CoV-2 (PCR) Urine Opiates Screen Ur Oxycodone Screen Urine Methadone Screen Ur Propoxyphene Screen Ur Barbiturates Screen Ur Tricyclics Screen Ur Phencyclidine Scrn Ur Amphetamine Screen U Methamphetamines Scrn U Benzodiazepines Scrn Urine Cocaine Screen U Cannabinoids Screen Ethyl Alcohol < 5.0 09/12/20 09/12/20 09:33 09:56 WBC RBC Hgb Hct MCV MCH MCHC RDW Plt Count MPV Neut # (Auto) Lymph # (Auto) Sharp # (Auto) Eos # (Auto) Baso # (Auto) Absolute Nucleated RBC Nucleated RBC % Sodium Potassium Chloride Carbon Dioxide Anion Gap BUN Creatinine Estimated GFR (MDRD) Glucose Calcium Total Bilirubin AST ALT Alkaline Phosphatase Troponin I High Sens Total Protein Albumin Globulin Albumin/Globulin Ratio Lipase Urine Color YELLOW Urine Clarity HAZY Urine pH 5.5 Ur Specific [place] 1.025 Urine Protein NEGATIVE Urine Glucose (UA) NEGATIVE Urine Ketones NEGATIVE Urine Occult Blood TRACE-INTA Urine Nitrite NEGATIVE Urine Bilirubin NEGATIVE Urine Urobilinogen 0.2 (NORMAL) Ur Leukocyte Esterase MODERATE H Urine RBC 0-5 Urine WBC 11-25 H Ur Squamous Epith Cells MOD Squamous H Urine Bacteria Few Ur Microscopic Review INDICATED Urine Culture Comments NOT INDICATED Nasal Adenovirus (PCR) NOT DETECTED Nasal B. parapertussis DNA (PCR) NOT DETECTED Nasal Coronavir 229E PCR NOT DETECTED Nasal Coronavir HKU1 PCR NOT DETECTED Nasal Coronavir NL63 PCR NOT DETECTED Nasal Coronavir OC43 PCR NOT DETECTED Nasal Enterovir/Rhinovir PCR NOT DETECTED Nasal Influenza B PCR NOT DETECTED Nasal Influenza A PCR NOT DETECTED Nasal Parainfluen 1 PCR NOT DETECTED Nasal Parainfluen 2 PCR NOT DETECTED Nasal Parainfluen 3 PCR NOT DETECTED Nasal Parainfluen 4 PCR NOT DETECTED Nasal RSV (PCR) NOT DETECTED Nasal B.pertussis DNA PCR NOT DETECTED Nasal C.pneumoniae (PCR) NOT DETECTED Eros Human Metapneumo PCR NOT DETECTED Nasal M.pneumoniae (PCR) NOT DETECTED Nasal SARS-CoV-2 (PCR) NOT DETECTED Urine Opiates Screen NEGATIVE Ur Oxycodone Screen NEGATIVE Urine Methadone Screen NEGATIVE Ur Propoxyphene Screen NEGATIVE Ur Barbiturates Screen NEGATIVE Ur Tricyclics Screen NEGATIVE Ur Phencyclidine Scrn NEGATIVE Ur Amphetamine Screen NEGATIVE U Methamphetamines Scrn NEGATIVE U Benzodiazepines Scrn NEGATIVE Urine Cocaine Screen NEGATIVE U Cannabinoids Screen NEGATIVE Ethyl Alcohol PD MEDICAL DECISION MAKING - ED course ED course: 74-year-old woman presented with acute onset dizziness waking her from sleep this morning. CTA head and neck noncontributory. Will admit to observation for MRI tomorrow. Departure - Departure Disposition: ED Place in Observation Clinical Impression: Dizziness, Hypertension Condition: Stable
[2020-09-12] MEDS ORDERED: ASPIRIN 325 MG TABLET PO STA (11:11)
[2020-09-12] MEDS ORDERED: SODIUM CHLORIDE FLUSH 0.9% 10 ML SYRINGE IVP PRN (11:11)
[2020-09-12] MEDS ORDERED: IOPAMIDOL-300 100 ML VIAL IVP ONE (11:12)
--- NOTE | 2020-09-12 11:15 | HISTORY & PHYSICAL EXAMINATION ---
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 She attempted to sit up and then started to blackout. She describes that her whole body went limp/numb and she fell back on the bed. She called her neighbor who then called 911. The symptoms happened again when EMS tried to get her up and again in the emergency department. She denied headaches, vision change, slurred speech or weakness in any of her extremities. She also denied chest pain, dyspnea, nausea, vomiting, abdominal pain, fever or chills. On a separate note the patient expresses concern that her symptoms may be related to the Covid vaccine she received 2-1/2 weeks ago. She was presented for admission for further work-up and treatment. History - Past Medical History Cardiovascular: reports: Hypertension, High cholesterol Respiratory: reports: None Endocrine/Autoimmune: reports: None GI: reports: GERD, Chronic constipation, Other : reports: None HEENT: reports: Other Psych: reports: None Musculoskeletal: reports: Other (Chronic Pain, Cervical Impinged nerve,) Derm: reports: None MRSA Hx?: No Other Past Medical History: HCL marker - Past Surgical History General: reports: Appendectomy, Colonoscopy HEENT: reports: Other (postnasal polyp removal) - Family & Social History Family History Comment/Other: Father: Hyperlipidemia, Alcoholism, COPD Social History Notes: She lives alone and is independent of activities of daily living. She does not use tobacco products, consume alcohol or use recreational substances - POLST Patient has POLST: No POLST Status: Full Code Meds/Allgy - Home Medications Home Medications: Ambulatory Orders Medication Instructions Recorded Confirmed Ascorbic Acid [Vitamin C] 1 tab PO DAILY 12/21/15 09/12/20 Calcium Carbonate 1 tab PO DAILY 12/21/15 09/12/20 Multivitamin [Multivitamins] 1 tab PO DAILY 12/21/15 09/12/20 Zolpidem [Ambien] 2.5 mg PO DAILY 12/21/15 09/12/20 B-Complex with Vitamin C [Super B 1 each PO DAILY 05/29/18 09/12/20 Complex-Vitamin C] Cholecalciferol (Vitamin D3) 1 cap PO DAILY 05/29/18 09/12/20 [Vitamin D3] Digestive 8/L.acidoph/Pectin 1 each PO BID 05/29/18 09/12/20 [Digestive Enzymes Tablet] L.acid/L.casei/B.bif/B.wicho/Fos 1 cap PO BID 05/29/18 09/12/20 [Probiotic Blend Capsule] Malic Acid 1 each PO DAILY 05/29/18 09/12/20 Melatonin/5Htp/Valer/FA/Diet28 1 each PO BID 05/29/18 09/12/20 [Hypnosom Tablet] [place]-3/Dha/Epa/Fish Oil [Fish Oil 1 cap PO DAILY 05/29/18 09/12/20 500 mg Softgel] Turmeric Root Extract [Turmeric] 500 mg PO DAILY 05/29/18 09/12/20 - Allergies Allergies/Adverse Reactions: Allergies Allergy/AdvReac Type Severity Reaction Status Date / Time Penicillins Allergy Unknown Verified 09/12/20 09:16 Review of Systems - Constitutional Constitutional: denies: Fatigue, Fever, Chills, Weakness, Poor appetite, Diaphoresis - Eyes Eyes: denies: Pain, Blurred vision, Field loss, Vision loss, Dipolpia - Ears, Nose & Throat Ears, Nose & Throat: reports: Vertigo. denies: Nasal pain, Nasal discharge, Sore throat - Cardiovascular Cariovascular: reports: Lightheadedness. denies: Irregular heart rate, Palpitations, Chest pain, Edema, Syncope, Exertional dyspnea, Decr. exercise tolerance - Respiratory Respiratory: denies: Cough, Sputum production, Wheezing, SOB at rest, SOB with exertion - Gastrointestinal Gastrointestinal: denies: Abdominal pain, Abdominal distention, Constipation, Diarrhea, Nausea, Vomiting, Coffee grounds emesis - Genitourinary Genitourinary: denies: Dysuria, Frequency, Urgency, Hematuria, Incontinence, Flank pain - Musculoskeletal Musculoskeletal: denies: Muscle pain, Back pain, Muscle aches, Limited range of motion, Muscle weakness - Integumentary Integumentary: denies: Rash, Pruritis, Lesions - Neurological Neurological: reports: Headache, Dizziness. denies: General weakness, Focal weakness, Numbness - Psychiatric Psychiatric: denies: Depression, Anxiety - Endocrine Endocrine: denies: Polyuria, Polydypsia - Hematologic/Lymphatic Hematologic/Lymphatic: denies: Anemia, Bruising Prior Level of Functionality: She lives alone and is independent of activities of daily living Exam - Vital Signs Vital Signs: Vital Signs x48h Temp Pulse Resp BP Pulse Ox 09/12/20 10:48 68 17 176/74 H 97 09/12/20 10:00 64 17 154/82 H 97 09/12/20 09:36 60 18 176/71 H 98 09/12/20 09:13 36.8 C 66 20 191/81 H 99 - Physical Exam General Appearance: positive: No acute distress, Alert, Anxious Eyes Bilateral: positive: PERRL, EOMI ENT: positive: No signs of dehydration Neck: positive: No JVD, Trachea midline Respiratory: positive: Chest non-tender, No respiratory distress, Breath sounds nml. negative: Wheezes, Rales, Rhonchi Cardiovascular: positive: Regular rate & rhythm, No murmur Abdomen: positive: Non-tender, No organomegaly, Nml bowel sounds, No distention. negative: Guarding, Rebound Back: positive: Nml inspection Skin: positive: Color nml, No rash, Warm, Dry Extremities: positive: Non-tender, Full ROM, Nml appearance, No pedal edema Neurologic/Psychiatric: positive: Oriented x3, CN's nml (2-12), Motor nml. negative: Weakness, Facial droop, Slurred/abnml speech Conclusion/Plan - Problem List (1) Benign paroxysmal positional vertigo Conclusion/Plan: Patient symptoms worsen with movement of her head from left to right. CT brain, CT angio head and neck were negative for any acute findings. Patient declined taking meclizine. MRI brain ordered for the morning to rule out any severe processes to include CVA Patient's orthostatics are positive. We will continue gentle IV hydration with normal saline at 100ml/hr - Lab Results Fish Bones: 09/13/20 05:35 09/13/20 05:35 Core Measures - Anticipated LOS I expect patient to be DC'd or transferred within 96 hours.: Yes - DVT/VTE - Prophylaxis VTE/DVT Device ordered at admit?: Yes VTE/DVT Prophylaxis med ordered at admit?: Yes
[2020-09-12] MEDS: SODIUM CHLORIDE 0.9% 1,000 ML IV SCH ×2 (12:17→21:09)
[2020-09-12] MEDS: SODIUM CHLORIDE FLUSH 0.9% 10 ML SYRINGE IVP SCH (16:00)
[2020-09-12] MEDS: ACETAMINOPHEN 325 MG TABLET PO PRN (17:45)
[2020-09-13] MEDS: SODIUM CHLORIDE FLUSH 0.9% 10 ML SYRINGE IVP SCH ×3 (00:14→17:55)
[2020-09-13] MEDS ORDERED: PROMETHAZINE INJ 25 MG in SODIUM CHLORIDE 0.9% 50 ML IV PRN (00:51)
[2020-09-13] MEDS ORDERED: diphenhydrAMINE 25 MG CAPSULE PO PRN (00:52)
[2020-09-13] MEDS: KETOROLAC 30 MG/ML VIAL IVP PRN ×2 (01:11→07:06)
[2020-09-13] MEDS: ACETAMINOPHEN 325 MG TABLET PO PRN (04:59)
[2020-09-13 05:49] LABS: BASOPHILS % (AUTO) 0.6 %; EOSINOPHILS # (AUTO) 0.1 10^3/uL (0.0-0.7); HCT - HEMATOCRIT 44.3 % (37.0-47.0); HGB - HEMOGLOBIN 14.2 g/dL (12.0-16.0); LYMPHOCYTES # (AUTO) 2.1 10^3/uL (1.5-3.5); LYMPHOCYTES % (AUTO) 29.3 %; MEAN CORPUSCULAR HEMOGLOBIN 29.3 pg (27.0-31.0); MEAN CORPUSCULAR HGB CONC 32.1 g/dL (32.0-36.0); MEAN CORPUSCULAR VOLUME 91.3 fL (81.0-99.0); MEAN PLATELET VOLUME 10.8 fL (7.9-10.8); MONOCYTES # (AUTO) 0.5 10^3/uL (0.0-1.0); NEUTROPHILS # (AUTO) 4.4 10^3/uL (1.5-6.6); NEUTROPHILS % (AUTO) 61.5 %; PLT - PLATELET COUNT 225 10^3/uL (130-450); RED BLOOD COUNT 4.85 10^6/uL (4.20-5.40); RED CELL DISTRIBUTION WIDTH 13.3 % (12.0-15.0); WHITE BLOOD COUNT 7.1 x10^3/uL (4.8-10.8)
[2020-09-13 05:55] LABS: CALCIUM 9.3 mg/dL (8.5-10.3); CREATININE 0.7 mg/dL (0.4-1.0); POTASSIUM 3.9 mmol/L (3.5-5.0)
[2020-09-13] MEDS: SODIUM CHLORIDE 0.9% 1,000 ML IV SCH ×2 (07:06→17:54)
--- NOTE | 2020-09-13 12:40 | MRI Report ---
PROCEDURE: Brain W/O INDICATIONS: dizziness, unsteady gait TECHNIQUE: Noncontrast axial T1 spin echo, axial T2 fast spin echo, sagittal and axial FLAIR, coronal T2 fast sp in echo, axial gradient echo, axial diffusion and ADC through the brain. COMPARISON: CT angiography examination dated 09/12/2020 FINDINGS: Image quality: Excellent. CSF Spaces: Basal cisterns are patent. No extra-axial fluid collections. Ventricles are normal in size and shape. Brain: No intracranial masses or hemorrhage. Mild diffuse cerebral volume loss. Mild degree of patch y high FLAIR signal within the periventricular and subcortical white matter. Small chronic infarct wi thin the left frontal periventricular white matter. Walsh/white matter interface is normal. Brainstem appears normal. Diffusion-weighted images demonstrate no acute ischemic insult. No chronic ischemi c insults. Normal intravascular flow voids are present. Skull and face: Calvarium has normal marrow signal. Orbits appear normal. Sinuses: Sinuses and mastoids are clear. IMPRESSION: 1. Volume loss and small vessel disease. 2. Small chronic left frontal lobe infarct. 3. No acute process. No recent infarct. Reviewed by: Everton Zamarripa MD on 09/13/2020 12:38 PM PDT Approved by: Everton Zamarripa MD on 09/13/2020 12:38 PM PDT Station ID: [id number]
[2020-09-13] MEDS ORDERED: HYDROcod/ACETAM 5/325 MG TABLET PO PRN (14:45)
--- NOTE | 2020-09-13 14:46 | PROVIDER PROGRESS NOTE ---
Assessment/Plan - Problem List (1) Benign paroxysmal positional vertigo Assessment/Plan: MRI of the brain was negative for any acute infarct. It showed a small old frontal infarct IV fluids were discontinued. We will get a 2D echocardiogram tomorrow to rule out the chance that patient's symptom is cardiac related. If this is negative, no further work-up would be warranted. Patient was advised that vertigo symptoms resolve over time. She declined taking meclizine to see if it would help with her symptoms She has also raised the concern for temporal arteritis. Patient's ESR is normal. The patient is not experiencing any vision loss or temporal pain (2) Hypertension Assessment/Plan: Will order hydralazine 10 mg IV every 4 hours as needed for systolic greater than 160 - Current Meds Current Meds: Current Medications Generic Name Dose Route Start Last Admin Trade Name Freq PRN Reason Stop Dose Admin Acetaminophen 650 mg 09/12/20 17:17 09/13/20 04:59 Acetaminophen 325 Mg Tablet PO 650 mg Q6HR PRN Administration Pain or Fever > 38C (100.4F) Sodium Chloride 1,000 mls @ 100 mls/hr 09/12/20 12:00 09/13/20 07:06 Normal Saline 0.9% IV 100 mls/hr .Q10H GLEN Administration Ketorolac Tromethamine 30 mg 09/13/20 00:48 09/13/20 07:06 Ketorolac 30 Mg/Ml Vial IVP 09/18/20 00:47 30 mg Q6HR PRN Administration HEADACHE Sodium Chloride 10 ml 09/12/20 11:11 09/12/20 12:17 Sodium Chloride Flush 0.9% 10 Ml Syringe IVP 10 ml PRN PRN Administration NEEDED PER PROVIDER ORDERS Sodium Chloride 10 ml 09/12/20 17:00 09/13/20 09:22 Sodium Chloride Flush 0.9% 10 Ml Syringe IVP Not Given 0100,0900,1700 GLEN - Lab Result Fish Bone Diagrams: 09/13/20 05:35 09/13/20 05:35 - Additional Planning My Orders: My Active Orders 09/12/20 17:00 Sodium Chloride Flush 0.9% [Normal Saline Flush 0.9%] 10 ml IVP 0100,0900,1700 09/12/20 17:17 Acetaminophen [Tylenol] 650 mg PO Q6HR PRN 05/10/21 07:00 Evaluate and Treat PT [PT] Routine 09/13/20 14:45 HYDROcod/ACETAM 5/325 [[place] 5/325] 1 tab PO Q4HR PRN 09/14/20 05:00 BMP - BASIC METABOLIC PANEL [CHEM] DAILYLAB CBC - COMP BLD CT W/AUTO DIFF [HEME] DAILYLAB 09/15/20 05:00 BMP - BASIC METABOLIC PANEL [CHEM] DAILYLAB CBC - COMP BLD CT W/AUTO DIFF [HEME] DAILYLAB Subjective - Subjective Patient Reports: Other (Patient is very anxious and would not get out of bed for concern of being dizzy or passing out. She also complains of headaches She does not have any chest pain, dyspnea, abdominal pain, nausea or vomiting) Objective Vital Signs: Vital Signs - 24 hr 09/12/20 09/12/20 09/12/20 15:44 20:04 23:24 Temperature 36.9 C 36.3 C L 36.9 C Heart Rate [ 70 68 64 Brachial] Respiratory 18 20 20 Rate Blood Pressure 152/60 H 152/67 H 154/69 H [Left Brachial artery] O2 Saturation 96 97 96 09/13/20 09/13/20 09/13/20 04:47 09:00 12:54 Temperature 36.5 C 37.0 C 37.1 C Heart Rate [ 58 L 56 L 58 L Brachial] Respiratory 17 16 18 Rate Blood Pressure 160/53 H 159/61 H 139/67 H [Left Brachial artery] O2 Saturation 96 98 96 Oxygen O2 Source Room air I&O (Last 24 Hrs): Intake and Output Totals x24h 09/11/20 09/12/20 09/13/20 23:59 23:59 23:59 Intake Total 2186.667 1475 Output Total 1100 1350 Balance 1086.667 125 General: Alert, Oriented x3, No acute distress HEENT: Atraumatic, PERRLA, EOMI Neck: Supple, No JVD Neuro: Alert, Non Focal, Oriented Times 3 Cardiovascular: Regular rate Respiratory: Chest non-tender, No respiratory distress, Breath sounds nml Abdomen: Normal bowel sounds, Soft Extremities: No clubbing, No cyanosis, No edema, No tenderness/swelling - Results Results: Laboratory Results WBC 7.1 x10^3/uL (4.8-10.8) 09/13/20 05:35 RBC 4.85 10^6/uL (4.20-5.40) 09/13/20 05:35 Hgb 14.2 g/dL (12.0-16.0) 09/13/20 05:35 Hct 44.3 % (37.0-47.0) 09/13/20 05:35 MCV 91.3 fL (81.0-99.0) 09/13/20 05:35 MCH 29.3 pg (27.0-31.0) 09/13/20 05:35 MCHC 32.1 g/dL (32.0-36.0) 09/13/20 05:35 RDW 13.3 % (12.0-15.0) 09/13/20 05:35 Plt Count 225 10^3/uL (130-450) 09/13/20 05:35 MPV 10.8 fL (7.9-10.8) 09/13/20 05:35 Neut # (Auto) 4.4 10^3/uL (1.5-6.6) 09/13/20 05:35 Lymph # (Auto) 2.1 10^3/uL (1.5-3.5) 09/13/20 05:35 [place] # (Auto) 0.5 10^3/uL (0.0-1.0) 09/13/20 05:35 Eos # (Auto) 0.1 10^3/uL (0.0-0.7) 09/13/20 05:35 Baso # (Auto) 0.0 10^3/uL (0.0-0.1) 09/13/20 05:35 Absolute Nucleated RBC 0.00 x10^3/uL 09/13/20 05:35 Nucleated RBC % 0.0 /100WBC 09/13/20 05:35 ESR 9 mm/Hr (0-30) 09/13/20 05:35 Sodium 141 mmol/L (135-145) 09/13/20 05:35 Potassium 3.9 mmol/L (3.5-5.0) 09/13/20 05:35 Chloride 107 mmol/L (101-111) 09/13/20 05:35 Carbon Dioxide 25 mmol/L (21-32) 09/13/20 05:35 Anion Gap 9.0 (6-13) 09/13/20 05:35 BUN 13 mg/dL (6-20) 09/13/20 05:35 Creatinine 0.7 mg/dL (0.4-1.0) 09/13/20 05:35 Estimated GFR (MDRD) 82 (>89) L 09/13/20 05:35 Glucose 91 mg/dL (70-100) 09/13/20 05:35 Calcium 9.3 mg/dL (8.5-10.3) 09/13/20 05:35 Total Bilirubin 0.7 mg/dL (0.2-1.0) 09/12/20 09:33 AST 26 IU/L (10-42) 09/12/20 09:33 ALT 26 IU/L (10-60) 09/12/20 09:33 Alkaline Phosphatase 70 IU/L (42-121) 09/12/20 09:33 Troponin I High Sens 6.0 ng/L (2.3-14.8) 09/12/20 09:33 C-Reactive Protein < 1.0 mg/dL (0-1.0) 09/13/20 05:35 Total Protein 8.1 g/dL (6.7-8.2) 09/12/20 09:33 Albumin 4.9 g/dL (3.2-5.5) 09/12/20 09:33 Globulin 3.2 g/dL (2.1-4.2) 09/12/20 09:33 Albumin/Globulin Ratio 1.5 (1.0-2.2) 09/12/20 09:33 Lipase 22 U/L (22-51) 09/12/20 09:33 Urine Color YELLOW 09/12/20 09:33 Urine Clarity HAZY (CLEAR) 09/12/20 09:33 Urine pH 5.5 PH (5.0-7.5) 09/12/20 09:33 Ur Specific [place] 1.025 (1.002-1.030) 09/12/20 09:33 Urine Protein NEGATIVE mg/dL (NEGATIVE) 09/12/20 09:33 Urine Glucose (UA) NEGATIVE mg/dL (NEGATIVE) 09/12/20 09:33 Urine Ketones NEGATIVE mg/dL (NEGATIVE) 09/12/20 09:33 Urine Occult Blood TRACE-INTA (NEGATIVE) 09/12/20 09:33 Urine Nitrite NEGATIVE (NEGATIVE) 09/12/20 09:33 Urine Bilirubin NEGATIVE (NEGATIVE) 09/12/20 09:33 Urine Urobilinogen 0.2 (NORMAL) E.U./dL (NORMAL) 09/12/20 09:33 Ur Leukocyte Esterase MODERATE (NEGATIVE) H 09/12/20 09:33 Urine RBC 0-5 /HPF (0-5) 09/12/20 09:33 Urine WBC 11-25 /HPF (0-5) H 09/12/20 09:33 Ur Squamous Epith Cells MOD Squamous (<= Few) H 09/12/20 09:33 Urine Bacteria Few /HPF (None Seen) 09/12/20 09:33 Ur Microscopic Review INDICATED 09/12/20 09:33 Urine Culture Comments NOT INDICATED 09/12/20 09:33 Nasal Adenovirus (PCR) NOT DETECTED 09/12/20 09:56 Nasal B. parapertussis DNA (PCR) NOT DETECTED 09/12/20 09:56 Nasal Coronavir 229E PCR NOT DETECTED 09/12/20 09:56 Nasal Coronavir HKU1 PCR NOT DETECTED 09/12/20 09:56 Nasal Coronavir NL63 PCR NOT DETECTED 09/12/20 09:56 Nasal Coronavir OC43 PCR NOT DETECTED 09/12/20 09:56 Nasal Enterovir/Rhinovir PCR NOT DETECTED 09/12/20 09:56 Nasal Influenza B PCR NOT DETECTED 09/12/20 09:56 Nasal Influenza A PCR NOT DETECTED 09/12/20 09:56 Nasal Parainfluen 1 PCR NOT DETECTED 09/12/20 09:56 Nasal Parainfluen 2 PCR NOT DETECTED 09/12/20 09:56 Nasal Parainfluen 3 PCR NOT DETECTED 09/12/20 09:56 Nasal Parainfluen 4 PCR NOT DETECTED 09/12/20 09:56 Nasal RSV (PCR) NOT DETECTED 09/12/20 09:56 Nasal B.pertussis DNA PCR NOT DETECTED 09/12/20 09:56 Nasal C.pneumoniae (PCR) NOT DETECTED 09/12/20 09:56 Eros Human Metapneumo PCR NOT DETECTED 09/12/20 09:56 Nasal M.pneumoniae (PCR) NOT DETECTED 09/12/20 09:56 Nasal SARS-CoV-2 (PCR) NOT DETECTED 09/12/20 09:56 Urine Opiates Screen NEGATIVE (NEGATIVE) 09/12/20 09:33 Ur Oxycodone Screen NEGATIVE (NEGATIVE) 09/12/20 09:33 Urine Methadone Screen NEGATIVE (NEGATIVE) 09/12/20 09:33 Ur Propoxyphene Screen NEGATIVE (NEGATIVE) 09/12/20 09:33 Ur Barbiturates Screen NEGATIVE (NEGATIVE) 09/12/20 09:33 Ur Tricyclics Screen NEGATIVE (NEGATIVE) 09/12/20 09:33 Ur Phencyclidine Scrn NEGATIVE (NEGATIVE) 09/12/20 09:33 Ur Amphetamine Screen NEGATIVE (NEGATIVE) 09/12/20 09:33 U Methamphetamines Scrn NEGATIVE (NEGATIVE) 09/12/20 09:33 U Benzodiazepines Scrn NEGATIVE (NEGATIVE) 09/12/20 09:33 Urine Cocaine Screen NEGATIVE (NEGATIVE) 09/12/20 09:33 U Cannabinoids Screen NEGATIVE (NEGATIVE) 09/12/20 09:33 Ethyl Alcohol < 5.0 mg/dL 09/12/20 09:33 - Procedures Procedures: Procedures EXCISION OF CECUM, ENDO (12/22/15) ABX Reporting Has patient been on IV antibiotics over the past 48 hours?: No
[2020-09-14] MEDS: SODIUM CHLORIDE FLUSH 0.9% 10 ML SYRINGE IVP SCH ×4 (00:22→23:32)
[2020-09-14 05:43] LABS: BASOPHILS # (AUTO) 0.1 10^3/uL (0.0-0.1); BASOPHILS % (AUTO) 0.8 %; EOSINOPHILS # (AUTO) 0.1 10^3/uL (0.0-0.7); EOSINOPHILS % (AUTO) 1.4 %; HCT - HEMATOCRIT 45.1 % (37.0-47.0); HGB - HEMOGLOBIN 14.8 g/dL (12.0-16.0); LYMPHOCYTES # (AUTO) 2.2 10^3/uL (1.5-3.5); LYMPHOCYTES % (AUTO) 34.4 %; MEAN CORPUSCULAR HEMOGLOBIN 29.7 pg (27.0-31.0); MEAN CORPUSCULAR HGB CONC 32.8 g/dL (32.0-36.0); MEAN CORPUSCULAR VOLUME 90.6 fL (81.0-99.0); MEAN PLATELET VOLUME 10.8 fL (7.9-10.8); MONOCYTES # (AUTO) 0.5 10^3/uL (0.0-1.0); MONOCYTES % (AUTO) 7.4 %; NEUTROPHILS # (AUTO) 3.5 10^3/uL (1.5-6.6); NEUTROPHILS % (AUTO) 55.7 %; PLT - PLATELET COUNT 214 10^3/uL (130-450); RED BLOOD COUNT 4.98 10^6/uL (4.20-5.40); RED CELL DISTRIBUTION WIDTH 13.2 % (12.0-15.0); WHITE BLOOD COUNT 6.3 x10^3/uL (4.8-10.8)
[2020-09-14 05:53] LABS: CALCIUM 9.4 mg/dL (8.5-10.3); CREATININE 0.9 mg/dL (0.4-1.0); POTASSIUM 3.9 mmol/L (3.5-5.0)
[2020-09-14] MEDS ORDERED: amLODIPine 5 MG TABLET PO SCH (09:00)
[2020-09-14 09:48] LABS: CORTISOL 11.4 ug/dL; THYROID STIMULATING HORMONE 2.77 uIU/mL (0.34-5.60)
[2020-09-14] MEDS ORDERED: MECLIZINE 12.5 MG TABLET PO STA ×2 (10:29→12:51)
--- NOTE | 2020-09-14 15:30 | PROVIDER PROGRESS NOTE ---
Subjective - Prog Note Date Prog Note Date: 09/14/20 - Subjective Subjective: She continues to complain of feeling dizzy. She did not feel comfortable getting out of bed this morning. Any little movement to side or leaning forward brings on her symptoms. She denies any focal deficits. She initially was hesitant to take meclizine due to an adverse reaction to Benadryl many years ago. Current Medications - Current Medications Current Medications: Active Medications Acetaminophen (Acetaminophen 325 Mg Tablet) 650 mg PO Q6HR PRN PRN Reason: Pain or Fever > 38C (100.4F) Last Admin: 09/13/20 04:59 Dose: 650 mg Documented by: Hydrocodone Bitart/Acetaminophen (Hydrocod/Acetam 5/325 Mg Tablet) 1 tab PO Q4HR PRN PRN Reason: PAIN Diphenhydramine HCl (Diphenhydramine 25 Mg Capsule) 25 mg PO QPM PRN PRN Reason: Insomnia Promethazine HCl 25 mg/ Sodium (Chloride) 51 mls @ 100 mls/hr IV Q6H PRN PRN Reason: MIGRAINE Ketorolac Tromethamine (Ketorolac 30 Mg/Ml Vial) 30 mg IVP Q6HR PRN PRN Reason: HEADACHE Stop: 09/18/20 00:47 Last Admin: 09/13/20 07:06 Dose: 30 mg Documented by: Sodium Chloride (Sodium Chloride Flush 0.9% 10 Ml Syringe) 10 ml IVP PRN PRN PRN Reason: NEEDED PER PROVIDER ORDERS Last Admin: 09/12/20 12:17 Dose: 10 ml Documented by: Sodium Chloride (Sodium Chloride Flush 0.9% 10 Ml Syringe) 10 ml IVP 0100,0900,1700 GLEN Last Admin: 09/14/20 10:38 Dose: 10 ml Documented by: Ascorbic Acid [Vitamin C] 1 tab PO DAILY 12/21/15 Calcium Carbonate 1 tab PO DAILY 12/21/15 Multivitamin [Multivitamins] 1 tab PO DAILY 12/21/15 Zolpidem [Ambien] 2.5 mg PO DAILY 12/21/15 B-Complex with Vitamin C [Super B Complex-Vitamin C] 1 each PO DAILY 05/29/18 Cholecalciferol (Vitamin D3) [Vitamin D3] 1 cap PO DAILY 05/29/18 Digestive 8/L.acidoph/Pectin [Digestive Enzymes Tablet] 1 each PO BID 05/29/18 L.acid/L.casei/B.bif/B.wicho/Fos [Probiotic Blend Capsule] 1 cap PO BID 05/29/18 Malic Acid 1 each PO DAILY 05/29/18 Melatonin/5Htp/Valer/FA/Diet28 [Hypnosom Tablet] 1 each PO BID 05/29/18 Plain-3/Dha/Epa/Fish Oil [Fish Oil 500 mg Softgel] 1 cap PO DAILY 05/29/18 Turmeric Root Extract [Turmeric] 500 mg PO DAILY 05/29/18 Objective - Vital Signs/Intake & Output Reviewed Vital Signs: Yes Vital Signs: Vital Signs x48h Temp Pulse Resp BP Pulse Ox 09/14/20 13:00 36.9 C 62 20 157/65 H 96 09/14/20 08:15 36.9 C 63 23 174/62 H 98 Intake & Output: Intake & Output 09/11/20 09/12/20 09/13/20 09/14/20 23:59 23:59 23:59 23:59 Intake Total 2186.667 3625 200 Output Total 1100 1940 1100 Balance 2692.050 8899 -900 - Objective General Appearance: positive: No acute distress, Alert Eyes Bilateral: positive: Normal inspection, EOMI, Conjunctivae nml, Other (No nystagmus.) ENT: positive: ENT inspection nml Neck: positive: Nml inspection Respiratory: positive: No respiratory distress. negative: Wheezes, Rales Cardiovascular: positive: Regular rate & rhythm, No murmur. negative: Tachycardia Abdomen: positive: Non-tender, No distention. negative: Tenderness, Guarding, Rebound Skin: positive: Warm, Dry Extremities: positive: Full ROM, No pedal edema Neurologic/Psychiatric: positive: Oriented x3, Motor nml, Sensation nml. negative: Disoriented to person, Disoriented to place, Disoriented to time, Weakness, Facial droop, Slurred/abnml speech - Lab Results Fish Bones: 09/14/20 05:36 09/14/20 05:36 Other Labs: Lab Results x24hrs 09/14/20 09/14/20 09/14/20 Range/Units 05:36 05:36 05:36 WBC 6.3 (4.8-10.8) x10^3/uL RBC 4.98 (4.20-5.40) 10^6/uL Hgb 14.8 (12.0-16.0) g/dL Hct 45.1 (37.0-47.0) % MCV 90.6 (81.0-99.0) fL MCH 29.7 (27.0-31.0) pg MCHC 32.8 (32.0-36.0) g/dL RDW 13.2 (12.0-15.0) % Plt Count 214 (130-450) 10^3/uL MPV 10.8 (7.9-10.8) fL Neut # (Auto) 3.5 (1.5-6.6) 10^3/uL Lymph # (Auto) 2.2 (1.5-3.5) 10^3/uL [place] # (Auto) 0.5 (0.0-1.0) 10^3/uL Eos # (Auto) 0.1 (0.0-0.7) 10^3/uL Baso # (Auto) 0.1 (0.0-0.1) 10^3/uL Absolute Nucleated RBC 0.00 x10^3/uL Nucleated RBC % 0.0 /100WBC Sodium 140 (135-145) mmol/L Potassium 3.9 (3.5-5.0) mmol/L Chloride 108 (101-111) mmol/L Carbon Dioxide 24 (21-32) mmol/L Anion Gap 8.0 (6-13) BUN 23 H (6-20) mg/dL Creatinine 0.9 (0.4-1.0) mg/dL Estimated GFR (MDRD) 62 L (>89) Glucose 89 (70-100) mg/dL Calcium 9.4 (8.5-10.3) mg/dL TSH 2.77 (0.34-5.60) uIU/mL Cortisol 11.4 ug/dL ABX Reporting Has patient been on IV antibiotics over the past 48 hours?: No Assessment/Plan - Problem List (1) Benign paroxysmal positional vertigo Impression: MRI head revealed no acute infarct. She has evidence of a small chronic left frontal lobe infarct. She continues to have ongoing symptoms and after initially declining meclizine, she was finally agreeable to this. She does have improvement in her symptoms after meclizine. She was able to ambulate slightly with a walker today while working with physical therapy which was a significant improvement compared to before. She still does not feel close to her baseline and we are still concerned she might not be a safe discharge home given she lives alone but I am hopeful that she will continue make progress and will be ready for discharge tomorrow with a front wheel walker. We will continue meclizine as needed. Appreciate PT input. She will need outpatient follow-up with physical therapy. (2) Orthostatic hypotension Impression: Her orthostatics were positive today. I do not believe that this is contributing to her symptoms as she had the symptoms just with moving her head left and right and not going from lying to seated or standing position. We did check a TSH and cortisol which within normal limits. We will continue to monitor orthostatics every shift. If her vertigo symptoms improve despite her being orthostatic then we will not treat her orthostasis as she would be asymptomatic. (3) Hypertension Impression: We will hold off on starting antihypertensives for the time being given the orthostasis. She reports her blood pressure has been quite labile in the past but she did have a blood pressure cuff at home and she is agreeable to checking her blood pressure once discharged. We have agreed to holding off on antihypertensive for the time being and to have her follow-up with her primary care provider once discharged if her blood pressure remains elevated at home.
[2020-09-14] MEDS: MECLIZINE 12.5 MG TABLET PO PRN (21:21)
[2020-09-15 05:10] LABS: BASOPHILS % (AUTO) 0.7 %; EOSINOPHILS # (AUTO) 0.1 10^3/uL (0.0-0.7); EOSINOPHILS % (AUTO) 1.7 %; HCT - HEMATOCRIT 43.7 % (37.0-47.0); HGB - HEMOGLOBIN 14.3 g/dL (12.0-16.0); LYMPHOCYTES % (AUTO) 34.2 %; MEAN CORPUSCULAR HEMOGLOBIN 29.5 pg (27.0-31.0); MEAN CORPUSCULAR HGB CONC 32.7 g/dL (32.0-36.0); MEAN CORPUSCULAR VOLUME 90.1 fL (81.0-99.0); MEAN PLATELET VOLUME 11.1 fL (7.9-10.8); MONOCYTES # (AUTO) 0.5 10^3/uL (0.0-1.0); MONOCYTES % (AUTO) 8.4 %; NEUTROPHILS # (AUTO) 3.2 10^3/uL (1.5-6.6); NEUTROPHILS % (AUTO) 54.7 %; PLT - PLATELET COUNT 224 10^3/uL (130-450); RED BLOOD COUNT 4.85 10^6/uL (4.20-5.40); RED CELL DISTRIBUTION WIDTH 13.3 % (12.0-15.0); WHITE BLOOD COUNT 5.8 x10^3/uL (4.8-10.8)
[2020-09-15 05:12] LABS: CALCIUM 9.5 mg/dL (8.5-10.3); CREATININE 0.9 mg/dL (0.4-1.0)
[2020-09-15] MEDS: MECLIZINE 12.5 MG TABLET PO PRN ×2 (07:41→14:50)
[2020-09-15] MEDS: SODIUM CHLORIDE FLUSH 0.9% 10 ML SYRINGE IVP SCH (07:42)
--- NOTE | 2020-09-15 07:53 | Discharge Plan ---
Discharge Plan Problem Reviewed?: Yes Disposition: Home, Self Care Condition: Stable Prescriptions: Meclizine HCl [Antivert] 1 tablet PO Q6H PRN #30 tab PRN Reason: Vertigo Diet: Regular Activity Restrictions: Activity as Tolerated Driving Restrictions: Yes (Do not drive while taking meclizine.) Assistance Devices: Walker Instruction Topics: Meclizine tablets or capsules, Vertigo Paroxysmal Positional Health Concerns: You were seen in the hospital because of dizziness which is felt to be likely due to vertigo. You had MRI of your brain which showed no stroke although there was evidence of an old stroke in the past. This would not explain your symptoms. You were given meclizine to help treat your symptoms with improvement. You were seen by physical therapy and they recommend a front wheel walker for the time being as your symptoms improve. It is also recommended that you see physical therapy on an outpatient basis for the possible need for vestibular therapy if your symptoms persist. Plan of Treatment: You may take meclizine 25 mg every 6 hours as needed. This is to help treat your symptoms of dizziness. Please take aspirin 81 mg once a day. Please follow-up with your primary care provider to discuss the use of statin in the future as well as the potential need for blood pressure medications. Please follow-up with physical therapy on an outpatient basis. Please do not drive for the time being while you are taking meclizine. Care Goals: The goal is to treat the underlying symptoms and cause of your vertigo. Assessment: The patient expressed understanding of the treatment plan. Additional Instructions or Follow Up instructions: Please follow-up with your primary care provider in 1 week. Please return to the emergency department if you develop worsening symptoms, weakness or any neurologic deficits. Follow-Up Care: Outpatient Rehab - PT No Smoking: If you smoke, Please STOP! Call for help. Follow-up with: Mansi Krause MD [Primary Care Provider] -
--- NOTE | 2020-09-15 10:56 | DISCHARGE SUMMARY ---
"Discharge Summary Admit Date: 09/12/20 Discharge Date: 09/15/20 Discharging Provider: Derek Baig Primary Care Provider: Mansi Krause Code Status: Attempt Resuscitation Condition at Discharge: Stable Discharge Disposition: 01 Home, Self Care - DIAGNOSES Admission Diagnoses: Benign paroxysmal positional vertigo Discharge Diagnoses with Status of Each Condition: Benign paroxysmal positional vertigo - improved. Hypertension - stable. Orthostatic hypotension - resolved. - HPI History of Present Illness: H&P per Dr. 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 She attempted to sit up and then started to blackout. She describes that her whole body went limp/numb and she fell back on the bed. She called her neighbor who then called 911. The symptoms happened again when EMS tried to get her up and again in the emergency department. She denied headaches, vision change, slurred speech or weakness in any of her extremities. She also denied chest pain, dyspnea, nausea, vomiting, abdominal pain, fever or chills. On a separate note the patient expresses concern that her symptoms may be related to the Covid vaccine she received 2-1/2 weeks ago. She was presented for admission for further work-up and treatment. - CONSULTS | PROCEDURES Consultations: PT Procedures: Preliminary echocardiogram report reveals an ejection fraction of 70 to 75%. Normal diastology. No regional wall motion of normalities. No significant valvular disease. - HOSPITAL COURSE Hospital Course: She was placed in observation for suspected BPPV. CT of the head as well as CT angiogram were unremarkable. She initially declined meclizine due to concern with a reaction she had when she took Benadryl many years ago. She continued to have symptoms with minimal movement and so she had MRI of the brain which showed no acute stroke. 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 Her orthostatics were positive but it was felt that this was likely not contributing to her symptoms. She was treated with IV fluids with resolution of the orthostasis. Cortisol and TSH were checked and these were within normal limits. After further discussion, she was finally agreeable to meclizine. After missing the first dose, she did have improvement in her symptoms although they were still present. She was seen by physical therapy and a front wheel walker was recommended. It was felt that she was still not quite safe to be discharged home due to the severity of her symptoms and she was observed another night. She continued to have improvement in her symptoms and she was able to ambulate with a walker. She will be seeing physical therapy on an outpatient basis the following day for vestibular therapy. She is provided with a prescription for meclizine to take as needed. She has a close friend visiting from [facility] who will be staying with her for a few days. We did discuss antihypertensive treatment for her blood pressure but she prefers to hold off on this for the time being as her blood pressures have been quite labile in the past. I have encouraged her to follow-up with her primary care provider to monitor her blood pressure. We also discussed the potential use of aspirin and statin given her MRI showed an old infarct. She is agreeable to aspirin at this time but will prefer to hold off on a statin until she follows up with her primary care provider. - ALLERGIES Allergies/Adverse Reactions: Allergies Allergy/AdvReac Type Severity Reaction Status Date / Time Penicillins Allergy Unknown Verified 09/12/20 09:16 - MEDICATIONS Home Medications: Ambulatory Orders Medication Instructions Recorded Confirmed Ascorbic Acid [Vitamin C] 1 tab PO DAILY 12/21/15 09/12/20 Calcium Carbonate 1 tab PO DAILY 12/21/15 09/12/20 Multivitamin [Multivitamins] 1 tab PO DAILY 12/21/15 09/12/20 Zolpidem [Ambien] 2.5 mg PO DAILY 12/21/15 09/12/20 B-Complex with Vitamin C [Super B 1 each PO DAILY 05/29/18 09/12/20 Complex-Vitamin C] Cholecalciferol (Vitamin D3) 1 cap PO DAILY 05/29/18 09/12/20 [Vitamin D3] Digestive 8/L.acidoph/Pectin 1 each PO BID 05/29/18 09/12/20 [Digestive Enzymes Tablet] L.acid/L.casei/B.bif/B.wicho/Fos 1 cap PO BID 05/29/18 09/12/20 [Probiotic Blend Capsule] Malic Acid 1 each PO DAILY 05/29/18 09/12/20 Melatonin/5Htp/Valer/FA/Diet28 1 each PO BID 05/29/18 09/12/20 [Hypnosom Tablet] [place]-3/Dha/Epa/Fish Oil [Fish Oil 1 cap PO DAILY 05/29/18 09/12/20 500 mg Softgel] Turmeric Root Extract [Turmeric] 500 mg PO DAILY 05/29/18 09/12/20 Meclizine HCl [Antivert] 1 tablet PO Q6H PRN #30 tab 09/15/20 - PHYSICAL EXAM AT DISCHARGE General Appearance: positive: No acute distress, Alert Eyes Bilateral: positive: Normal inspection, Conjunctivae nml ENT: positive: ENT inspection nml Neck: positive: Nml inspection Respiratory: positive: No respiratory distress. negative: Wheezes, Rales Cardiovascular: positive: Regular rate & rhythm, No murmur. negative: Tachycardia, Systolic murmur Abdomen: positive: Non-tender, No distention. negative: Tenderness Skin: positive: Warm, Dry Extremities: positive: Full ROM, No pedal edema Neurologic/Psychiatric: positive: Motor nml, Sensation nml. negative: Disoriented to person, Disoriented to place, Facial droop, Slurred/abnml speech Physical Exam Other/Comments: Vital Signs - 24 hr 09/14/20 09/14/20 09/15/20 21:00 23:31 04:49 Temperature 36.9 C 36.8 C 36.8 C Heart Rate [ 64 57 L 63 Brachial] Respiratory 18 18 16 Rate Blood Pressure 148/65 H 132/68 H 156/54 H [Left Brachial artery] O2 Saturation 95 95 97 09/15/20 09/15/20 07:37 15:22 Temperature 36.9 C 36.8 C Heart Rate [ 63 61 Brachial] Respiratory 17 18 Rate Blood Pressure 147/63 H 164/63 H [Left Brachial artery] O2 Saturation 94 99 Oxygen O2 Source Room air - LABS Result Diagrams: 09/15/20 04:40 09/15/20 04:40 - DIAGNOSTIC IMAGING Diagnostic Imaging Results: Final report reviewed Diagnostic Imaging Results Comments: Brain MRI without contrast on September 13 showed volume loss and small vessel disease. Small chronic left frontal lobe infarct. No acute process. No recent infarct. - FOLLOW UP Follow Up: She will be following up with physical therapy tomorrow. I have asked her to follow-up with her primary care provider in 1 week. - TIME SPENT Time Spent in Discharge (Minutes): 32"
[2020-09-15 15:23] VITALS: BP 164/63
== END 2020-09-15 16:15 | disposition home or self-care (01) ==
LOC: EDUNIT# → ED 09:07 → MS2 11:11
PROVIDERS: ADMIT Internal Medicine; ATTEND Internal Medicine
DX: H81.10 Benign paroxysmal vertigo, unspecified ear (principal); I95.1 Orthostatic hypotension; I10 Essential (primary) hypertension; E78.5 Hyperlipidemia, unspecified; G47.00 Insomnia, unspecified; G89.29 Other chronic pain; G58.8 Other specified mononeuropathies; K21.9 Gastro-esophageal reflux disease without esophagitis; K59.09 Other constipation; Z20.822 Contact with and (suspected) exposure to COVID-19; Z79.899 Other long term (current) drug therapy; Z86.73 Personal history of transient ischemic attack (TIA), and cerebral infarction without residual deficits; Z91.81 History of falling
CPT/HCPCS: 36415; 70496; 70498; 70551; 71045; 80048; 80053; 80306; 81001; 82533; 83690; 84443; 84484; 85025; 85651; 86140; 87631; 93005; 93306; 96374; 96376; 97116; 97163; 97530; 99284; 99285; A9270; G0378; G0480; Q9967; 0202U; 80320; 81003; 87086

== ENCOUNTER 2020-10-15 10:46 | Outpatient (CLI) | payer MEDICARE, MEDICAID ==
[2020-10-15 15:25] LABS: CHOLESTEROL 346 mg/dL; HDL CHOLESTEROL 58 mg/dL; LDL CHOLESTEROL,CALCULATED 250 mg/dL; LDL/HDL RATIO 4.3 (<4.4); TRIGLYCERIDES 192 mg/dL; VLDL CHOLESTEROL 38 mg/dL
== END 2020-10-15 10:47 | disposition home or self-care (01) ==
LOC: LAB.S 10:46
PROVIDERS: ATTEND Internal Medicine
DX: Z01.84 Encounter for antibody response examination (principal); I63.9 Cerebral infarction, unspecified; Z79.899 Other long term (current) drug therapy; H81.10 Benign paroxysmal vertigo, unspecified ear; I10 Essential (primary) hypertension; I95.1 Orthostatic hypotension
CPT/HCPCS: 36415; 80061; 83721; 84443; 86769

== ENCOUNTER 2020-11-19 12:28 | Outpatient (CLI) | payer MEDICARE, MEDICAID ==
[2020-11-19 14:27] LABS: BILIRUBIN,URINE NEGATIVE (NEGATIVE); GLUCOSE, URINE (UA) NEGATIVE (NEGATIVE); KETONES,URINE (UA) NEGATIVE (NEGATIVE); LEUKOCYTE ESTERASE, URINE MODERATE (NEGATIVE); NITRITE,URINE POSITIVE (NEGATIVE); OCCULT BLOOD,URINE LARGE (NEGATIVE); PROTEIN,URINE 100 mg/dL (NEGATIVE); UROBILINOGEN,URINE 0.2 (NORMAL) E.U./dL (NORMAL)
[2020-11-19 14:29] LABS: CLARITY,URINE CLOUDY (CLEAR)
[2020-11-19 14:37] LABS: SQUAMOUS EPITHELIAL CELL,UR RARE Squamous (<= Few); WBC,URINE >25 /HPF (0-5)
[2020-11-19 14:38] LABS: BACTERIA,URINE Moderate /HPF (None Seen)
== END 2020-11-19 12:29 | disposition home or self-care (01) ==
LOC: LAB.S 12:28
PROVIDERS: ATTEND Internal Medicine
DX: R35.0 Frequency of micturition (principal)
CPT/HCPCS: 81001; 81003; 87086; 87181

== ENCOUNTER 2020-11-28 08:00 | Outpatient (CLI) | payer MEDICARE, MEDICAID ==
--- NOTE | 2020-11-28 13:13 | XRAY Report ---
PROCEDURE: Hand 3 View RT INDICATIONS: PAIN IN RIGHT HAND TECHNIQUE: 3 views of the hand(s) acquired. COMPARISON: None FINDINGS: Bones: No fractures or dislocations. No suspicious bony lesions. Age-appropriate degenerative jauregui ges are seen, which are worst involving the first carpometacarpal joint. Note is made of negative ul rachel variance. Soft tissues: There is mild generalized soft tissue swelling seen. IMPRESSION: Generalized soft tissue swelling and age-appropriate degenerative change, without an acute, focal abn ormality seen by plain film. Reviewed by: Francisco Rose MD on 11/28/2020 12:12 PM LINO Approved by: Francisco Rose MD on 11/28/2020 12:12 PM LINO Station ID: [id number]
== END 2020-11-28 23:59 | disposition home or self-care (01) ==
LOC: DI.S 08:00
PROVIDERS: ATTEND Physician Assistant Medical
DX: M79.641 Pain in right hand (principal); M19.041 Primary osteoarthritis, right hand

== ENCOUNTER 2020-11-28 08:00 | Outpatient (CLI) | payer MEDICARE, MEDICAID ==
[2020-11-28 19:30] LABS: BASOPHILS % (AUTO) 0.2 %; HCT - HEMATOCRIT 42.5 % (37.0-47.0); HGB - HEMOGLOBIN 13.2 g/dL (12.0-16.0); LYMPHOCYTES # (AUTO) 0.7 10^3/uL (1.5-3.5); MEAN CORPUSCULAR HEMOGLOBIN 29.7 pg (27.0-31.0); MEAN CORPUSCULAR HGB CONC 31.1 g/dL (32.0-36.0); MEAN CORPUSCULAR VOLUME 95.5 fL (81.0-99.0); MEAN PLATELET VOLUME 10.8 fL (7.9-10.8); MONOCYTES # (AUTO) 0.2 10^3/uL (0.0-1.0); MONOCYTES % (AUTO) 1.4 %; NEUTROPHILS # (AUTO) 12.4 10^3/uL (1.5-6.6); NEUTROPHILS % (AUTO) 92.8 %; PLT - PLATELET COUNT 331 10^3/uL (130-450); RED BLOOD COUNT 4.45 10^6/uL (4.20-5.40); RED CELL DISTRIBUTION WIDTH 13.5 % (12.0-15.0); WHITE BLOOD COUNT 13.3 x10^3/uL (4.8-10.8)
== END 2020-11-28 23:59 | disposition home or self-care (01) ==
LOC: LAB.S 08:00
PROVIDERS: ATTEND Physician Assistant Medical
DX: M02.9 Reactive arthropathy, unspecified (principal)
CPT/HCPCS: 36415; 85025; 85651; 86140

== ENCOUNTER 2020-11-30 21:15 | Emergency (ER) | payer MEDICARE, MEDICAID ==
[2020-11-30] MEDS ORDERED: oxyCODONE/ACET 5/325 Prepack 4 PO STA (22:17)
--- NOTE | 2020-11-30 22:17 | ED Physician Documentation ---
History of Present Illness - Stated complaint Stated Complaint: R HAND SWELLING - Chief complaint Chief Complaint: Ext Problem - History obtained from History obtained from: Patient - Additonal information Additional information: 75-year-old woman with history of rheumatologic autoimmune disease with migratory arthritides presents with right hand and wrist swelling for the past week, currently on steroids, Percocet, and meloxicam with some improvement. Patient has been seen at multiple walk-in clinics over the past week and has an appoint with a grain manager at the end of December. She presents today because she was called by her doctor who did blood work on Sunday and told to come to the emergency department for evaluation for infection since she had elevated inflammatory markers. Patient denies fever and states that her pain right now is a 5 out of 10 after meloxicam, improved from 10 out of 10. Her swelling is reduced at the moment but she says that "it will come back". Review of Systems Constitutional: denies: Fever, Chills Skin: denies: Lesions, Abrasion (s) Musculoskeletal: reports: Extremity pain, Joint pain Neurologic: denies: Focal weakness, Numbness PD PAST MEDICAL HISTORY - Past Medical History Past Medical History: Yes Cardiovascular: Hypertension, High cholesterol Respiratory: None Endocrine/Autoimmune: None GI: GERD, Chronic constipation, Other : None HEENT: Other Psych: None Musculoskeletal: Other Derm: None - Past Surgical History Past Surgical History: Yes General: Appendectomy, Colonoscopy HEENT: Other - Present Medications Home Medications: Ambulatory Orders Medication Instructions Recorded Confirmed Ascorbic Acid [Vitamin C] 1 tab PO DAILY 12/21/15 09/12/20 Calcium Carbonate 1 tab PO DAILY 12/21/15 09/12/20 Multivitamin [Multivitamins] 1 tab PO DAILY 12/21/15 09/12/20 Zolpidem [Ambien] 2.5 mg PO DAILY 12/21/15 09/12/20 B-Complex with Vitamin C [Super B 1 each PO DAILY 05/29/18 09/12/20 Complex-Vitamin C] Cholecalciferol (Vitamin D3) 1 cap PO DAILY 05/29/18 09/12/20 [Vitamin D3] Digestive 8/L.acidoph/Pectin 1 each PO BID 05/29/18 09/12/20 [Digestive Enzymes Tablet] L.acid/L.casei/B.bif/B.wicho/Fos 1 cap PO BID 05/29/18 09/12/20 [Probiotic Blend Capsule] Malic Acid 1 each PO DAILY 05/29/18 09/12/20 Melatonin/5Htp/Valer/FA/Diet28 1 each PO BID 05/29/18 09/12/20 [Hypnosom Tablet] [place]-3/Dha/Epa/Fish Oil [Fish Oil 1 cap PO DAILY 05/29/18 09/12/20 500 mg Softgel] Turmeric Root Extract [Turmeric] 500 mg PO DAILY 05/29/18 09/12/20 Meclizine HCl [Antivert] 1 tablet PO Q6H PRN #30 tab 09/15/20 Oxycodone HCl/Acetaminophen 1 each PO Q4H PRN #10 tablet 11/30/20 [Percocet 10-325 mg Tablet] - Allergies Allergies/Adverse Reactions: Allergies Allergy/AdvReac Type Severity Reaction Status Date / Time Penicillins Allergy Unknown Verified 11/30/20 21:22 - Social History Does the pt smoke?: No Smoking Status: Never smoker Does the pt drink ETOH?: No Does the pt have substance abuse?: No - Immunizations Immunizations are current?: Yes - POLST Patient has POLST: No POLST Status: Full Code PD ED PE NORMAL - Vitals Vital signs reviewed: Yes - General General: Alert and oriented X 3, No acute distress, Well developed/nourished - HEENT HEENT: Atraumatic, PERRL, EOMI - Derm Derm: Normal color, Warm and dry - Extremities Extremities: No deformity, No tenderness to palpate, Other (discomfort but with FROM of R wrist. 2+ radial pulse, good cap refill and sensation. minimal swelling to dorsum of hand. no calor or rubor) Results - Vitals Vitals: Vital Signs - 24 hr 11/30/20 11/30/20 21:22 22:23 Temperature 36.5 C 36.9 C Heart Rate 65 60 Respiratory 16 Rate Blood Pressure 159/77 H 149/69 H O2 Saturation 96 100 Oxygen O2 Source Room air PD MEDICAL DECISION MAKING - ED course ED course: 75-year-old woman presents for evaluation after being found to have elevated white blood cell count and ESR and CRP from lab work on Sunday. I have low suspicion for a joint space infection at this time. Strict return precautions discussed with the patient. She stated that she is almost out of her pain medication and I agreed to give her a brief refill. Advised her to take MiraLAX and senna/docusate daily, not to operate heavy machinery and to dispose of unused pills at the [facility]'s office. Patient will follow up outpatient rheumatology. Departure - Departure Disposition: Home, Self Care Clinical Impression: Wrist pain Condition: Good Instructions: ED RICE Prescriptions: Oxycodone HCl/Acetaminophen [Percocet 10-325 mg Tablet] 1 each PO Q4H PRN #10 tablet PRN Reason: Pain Comments: You are seen in the emergency department for evaluation for wrist infection. I have low suspicion for infection at this time given your physical exam and history of rheumatologic disease. Please return to the emergency department if you have any new or worsening symptoms or any of the red flags we discussed or other concerns. Please follow-up with your grain manager. Discharge Date/Time: 11/30/20 22:34
[2020-11-30 22:24] VITALS: BP 149/69
== END 2020-11-30 22:34 | disposition home or self-care (01) ==
LOC: ED 21:15
DX: M25.531 Pain in right wrist (principal); M79.641 Pain in right hand; M35.89 Other specified systemic involvement of connective tissue; Z79.52 Long term (current) use of systemic steroids; I10 Essential (primary) hypertension
CPT/HCPCS: 99282; 99283

== ENCOUNTER 2020-12-06 13:44 | Outpatient (CLI) | payer MEDICARE, MEDICAID ==
[2020-12-06 14:12] LABS: BASOPHILS % (AUTO) 0.2 %; HGB - HEMOGLOBIN 13.6 g/dL (12.0-16.0); LYMPHOCYTES % (AUTO) 7.9 %; MEAN CORPUSCULAR HEMOGLOBIN 28.7 pg (27.0-31.0); MEAN CORPUSCULAR HGB CONC 30.9 g/dL (32.0-36.0); MEAN CORPUSCULAR VOLUME 92.8 fL (81.0-99.0); MONOCYTES # (AUTO) 0.4 10^3/uL (0.0-1.0); MONOCYTES % (AUTO) 3.3 %; NEUTROPHILS % (AUTO) 87.6 %; PLT - PLATELET COUNT 395 10^3/uL (130-450); RED BLOOD COUNT 4.74 10^6/uL (4.20-5.40); RED CELL DISTRIBUTION WIDTH 13.2 % (12.0-15.0); WHITE BLOOD COUNT 12.5 x10^3/uL (4.8-10.8)
[2020-12-06 14:14] LABS: BILIRUBIN,URINE NEGATIVE (NEGATIVE); GLUCOSE, URINE (UA) NEGATIVE (NEGATIVE); KETONES,URINE (UA) NEGATIVE (NEGATIVE); LEUKOCYTE ESTERASE, URINE SMALL (NEGATIVE); NITRITE,URINE NEGATIVE (NEGATIVE); OCCULT BLOOD,URINE TRACE-INTA (NEGATIVE); PH,URINE 6.5 PH (5.0-7.5); PROTEIN,URINE NEGATIVE (NEGATIVE); UROBILINOGEN,URINE 0.2 (NORMAL) E.U./dL (NORMAL)
[2020-12-06 14:17] LABS: CLARITY,URINE CLEAR (CLEAR)
[2020-12-06 14:28] LABS: ALBUMIN 4.2 g/dL (3.2-5.5); ALBUMIN/GLOBULIN RATIO 1.1 (1.0-2.2); BILIRUBIN,TOTAL 0.8 mg/dL (0.2-1.0); CALCIUM 9.9 mg/dL (8.5-10.3); CREATININE 1.1 mg/dL (0.4-1.0); CRP - C-REACTIVE PROTEIN 4.3 mg/dL (0-1.0); POTASSIUM 4.5 mmol/L (3.5-5.0); TOTAL PROTEIN 7.9 g/dL (6.7-8.2)
[2020-12-06 14:29] LABS: RHEUMATOID FACTOR NEGATIVE (Negative)
[2020-12-06 14:36] LABS: BACTERIA,URINE Few /HPF (None Seen); RBC,URINE 0-5 /HPF (0-5); SQUAMOUS EPITHELIAL CELL,UR FEW Squamous (<= Few)
[2020-12-08 12:47] LABS: ANA SCREEN NEGATIVE (NEGATIVE)
== END 2020-12-06 13:45 | disposition home or self-care (01) ==
LOC: LAB 13:44
PROVIDERS: ATTEND Internal Medicine
DX: M25.539 Pain in unspecified wrist (principal); M25.439 Effusion, unspecified wrist; G89.29 Other chronic pain
CPT/HCPCS: 36415; 80053; 81001; 85025; 85651; 86038; 86140; 86430; 87086

== ENCOUNTER 2020-12-06 13:53 | Outpatient (CLI) | payer MEDICARE, MEDICAID ==
[2020-12-06] MEDS ORDERED: IOPAMIDOL-300 100 ML VIAL ONE (14:39)
[2020-12-06] MEDS ORDERED: IOPAMIDOL-300 100 ML VIAL IVP ONE (15:38)
--- NOTE | 2020-12-06 16:47 | CT Report ---
PROCEDURE: UPPER EXTREMITY W - RT INDICATIONS: R/O SPETIC JOINT-right wrist/hand CONTRAST: IV CONTRAST: Isovue 300: 100ml; PO CONTRAST: *NO PO CONTRAST TECHNIQUE: After the administration of intravenous contrast, 1 mm axial sections acquired of the right wrist and hand, with coronal and sagittal reformats. COMPARISON: 3 view hand x-ray 11/28/2020. FINDINGS: Image quality: Excellent. Bones: No osseous erosive changes. No periosteal reaction identified. No fracture or dislocation. No suspicious osseous lesions. And celebrator first [facility] joint osteoarthritis. Soft tissues: Stranding is noted in the subcutaneous fat of the dorsal-lateral distal forearm and wr ist. There is heterogeneous postcontrast enhancement surrounding the distal ulna and in the distal ra dioulnar joint. There is a small peripherally enhancing fluid collection in the anterior lateral soft tissues of the wrist that measures approximately 6 x 9 mm and appears to communicate with the trique tral-pisiform joint. Peripherally enhancing curvilinear fluid collection noted dorsal to the proximal and distal carpal bones. IMPRESSION: 1. No radha evidence of osteomyelitis. Please note CT imaging can be insensitive to changes of osteom yelitis in the initial 15 days of the disease process and if there is clinical concern for osteomyeli tis MRI with and without contrast or three-phase nuclear bone scan should be considered for further e valuation. 2. Enhancement adjacent to the distal ulna extending into the distal radioulnar joint. Septic joint i s not excluded. 3. Small peripherally enhancing fluid collection in the anterolateral soft tissues of the wrist which appears to communicate with the triquetral pisiform joint. Lesion could represent small abscess/sept ic joint or ganglion cyst. 4. Peripherally enhancing fluid collection tracking along the dorsal margin of the proximal and dista l carpal bones which could represent abscess or septic intercarpal joints. Reviewed by: Sangeetha Lamar MD, PhD on 12/06/2020 4:46 PM PDT Approved by: Sangeetha Lamar MD, PhD on 12/06/2020 4:46 PM PDT Station ID: [id number]
== END 2020-12-06 13:54 | disposition home or self-care (01) ==
LOC: DI 13:53
PROVIDERS: ATTEND Physician Assistant
DX: R93.6 Abnormal findings on diagnostic imaging of limbs (principal); R93.89 Abnormal findings on diagnostic imaging of other specified body structures
CPT/HCPCS: 73201; Q9967

== ENCOUNTER 2020-12-06 18:34 | Inpatient (IN) | payer MEDICARE, MEDICAID ==
[2020-12-06 19:58] LABS: BASOPHILS % (AUTO) 0.2 %; EOSINOPHILS % (AUTO) 0.1 %; HCT - HEMATOCRIT 40.7 % (37.0-47.0); HGB - HEMOGLOBIN 12.8 g/dL (12.0-16.0); LYMPHOCYTES # (AUTO) 2.2 10^3/uL (1.5-3.5); LYMPHOCYTES % (AUTO) 15.6 %; MEAN CORPUSCULAR HEMOGLOBIN 29.3 pg (27.0-31.0); MEAN CORPUSCULAR HGB CONC 31.4 g/dL (32.0-36.0); MEAN CORPUSCULAR VOLUME 93.1 fL (81.0-99.0); MEAN PLATELET VOLUME 9.9 fL (7.9-10.8); MONOCYTES # (AUTO) 0.9 10^3/uL (0.0-1.0); MONOCYTES % (AUTO) 6.6 %; NEUTROPHILS # (AUTO) 10.7 10^3/uL (1.5-6.6); NEUTROPHILS % (AUTO) 76.5 %; PLT - PLATELET COUNT 352 10^3/uL (130-450); RED BLOOD COUNT 4.37 10^6/uL (4.20-5.40); RED CELL DISTRIBUTION WIDTH 13.2 % (12.0-15.0)
[2020-12-06 20:15] LABS: ALBUMIN 3.6 g/dL (3.2-5.5); ALBUMIN/GLOBULIN RATIO 0.9 (1.0-2.2); BILIRUBIN,TOTAL 0.5 mg/dL (0.2-1.0); CALCIUM 9.1 mg/dL (8.5-10.3); CREATININE 1.2 mg/dL (0.4-1.0); CRP - C-REACTIVE PROTEIN 4.2 mg/dL (0-1.0); POTASSIUM 4.1 mmol/L (3.5-5.0); TOTAL PROTEIN 7.4 g/dL (6.7-8.2)
[2020-12-06] MEDS ORDERED: HYDROmorphone 1 MG/ML CARPUJECT IVP STA (22:01)
[2020-12-06] MEDS ORDERED: KETOROLAC 15 MG/ML VIAL IVP STA (22:01)
--- NOTE | 2020-12-06 22:03 | ED Physician Documentation ---
History of Present Illness - Stated complaint Stated Complaint: ABNORMAL CT - Chief complaint Chief Complaint: Ext Problem - History obtained from History obtained from: Patient - Additonal information Additional information: 75-year-old woman with history of autoimmune disease presents with right wrist pain over the past 2 half weeks, progressively worsening, intermittently erythematous, painful to move. She has been seen by multiple doctors including myself and JOE Montoya today in clinic did a CT of the hand that showed possible septic arthritis. Patient is currently on a prednisone taper, day 14. today is last 20mg pill. also taking percoset and meloxicam at home with some relief. has appointment with rheumatology at end of the month and they called her today with last minute opening but she couldn't get there in time. denies fevers. Review of Systems Constitutional: denies: Fever Skin: denies: Rash, Lesions, Abrasion (s), Laceration (s) Musculoskeletal: reports: Joint pain PD PAST MEDICAL HISTORY - Past Medical History Past Medical History: Yes Cardiovascular: Hypertension, High cholesterol Respiratory: None Endocrine/Autoimmune: None GI: GERD, Chronic constipation, Other : None HEENT: Other Psych: None Musculoskeletal: Other Derm: None - Past Surgical History Past Surgical History: Yes General: Appendectomy, Colonoscopy HEENT: Other - Present Medications Home Medications: Ambulatory Orders Medication Instructions Recorded Confirmed Ascorbic Acid [Vitamin C] 1 tab PO DAILY 12/21/15 09/12/20 Calcium Carbonate 1 tab PO DAILY 12/21/15 09/12/20 Multivitamin [Multivitamins] 1 tab PO DAILY 12/21/15 09/12/20 Zolpidem [Ambien] 2.5 mg PO DAILY 12/21/15 09/12/20 B-Complex with Vitamin C [Super B 1 each PO DAILY 05/29/18 09/12/20 Complex-Vitamin C] Cholecalciferol (Vitamin D3) 1 cap PO DAILY 05/29/18 09/12/20 [Vitamin D3] Digestive 8/L.acidoph/Pectin 1 each PO BID 05/29/18 09/12/20 [Digestive Enzymes Tablet] L.acid/L.casei/B.bif/B.wicho/Fos 1 cap PO BID 05/29/18 09/12/20 [Probiotic Blend Capsule] Malic Acid 1 each PO DAILY 05/29/18 09/12/20 Melatonin/5Htp/Valer/FA/Diet28 1 each PO BID 05/29/18 09/12/20 [Hypnosom Tablet] [place]-3/Dha/Epa/Fish Oil [Fish Oil 1 cap PO DAILY 05/29/18 09/12/20 500 mg Softgel] Turmeric Root Extract [Turmeric] 500 mg PO DAILY 05/29/18 09/12/20 Meclizine HCl [Antivert] 1 tablet PO Q6H PRN #30 tab 09/15/20 Oxycodone HCl/Acetaminophen 1 each PO Q4H PRN #10 tablet 11/30/20 [Percocet 10-325 mg Tablet] - Allergies Allergies/Adverse Reactions: Allergies Allergy/AdvReac Type Severity Reaction Status Date / Time Penicillins Allergy Unknown Verified 12/06/20 18:45 - Social History Does the pt smoke?: No Smoking Status: Never smoker Does the pt drink ETOH?: No Does the pt have substance abuse?: No - Immunizations Immunizations are current?: Yes - POLST Patient has POLST: No POLST Status: Full Code PD ED PE NORMAL - Vitals Vital signs reviewed: Yes - General General: Alert and oriented X 3, No acute distress, Well developed/nourished - HEENT HEENT: Atraumatic, PERRL, EOMI - Derm Derm: Normal color, Warm and dry - Extremities Extremities: No deformity, Other (patient with 10/10 pain when wrist is gently touched. extremely tender with any rom. 2+ radial pulse to RUE. normal capillary refill, sensation and movement) - Neuro Neuro: No motor deficit, No sensory deficit Results - Vitals Vitals: Vital Signs - 24 hr 12/06/20 12/06/20 18:45 20:40 Temperature 36.5 C 36.5 C Heart Rate 90 90 Respiratory 16 16 Rate Blood Pressure 149/71 H 149/71 H O2 Saturation 94 94 Oxygen O2 Source Room air - Labs Labs: Laboratory Tests 12/06/20 12/06/20 12/06/20 19:52 19:52 19:52 WBC 14.0 H RBC 4.37 Hgb 12.8 Hct 40.7 MCV 93.1 MCH 29.3 MCHC 31.4 L RDW 13.2 Plt Count 352 MPV 9.9 Neut # (Auto) 10.7 H Lymph # (Auto) 2.2 [place] # (Auto) 0.9 Eos # (Auto) 0.0 Baso # (Auto) 0.0 Absolute Nucleated RBC 0.00 Nucleated RBC % 0.0 ESR 64 H Sodium 137 Potassium 4.1 Chloride 99 L Carbon Dioxide 29 Anion Gap 9.0 BUN 31 H Creatinine 1.2 H Estimated GFR (MDRD) 44 L Glucose 159 H Calcium 9.1 Total Bilirubin 0.5 AST 14 ALT 20 Alkaline Phosphatase 66 C-Reactive Protein 4.2 H Total Protein 7.4 Albumin 3.6 Globulin 3.8 Albumin/Globulin Ratio 0.9 L PD MEDICAL DECISION MAKING - ED course ED course: Patient without erythema, warmth in wrist on exam. difficult to examine because she experiences intense 10/10 pain even when wrist is gently touched. Requested Dr. Farmer come to the ED to evaluate and he is recommending she be admitted for medical management and he will consult in the morning. d/w Dr. El who will admit. Patient agreeable. Departure - Departure Disposition: [facility] DC/Xfer Clinical Impression: Wrist effusion, Wrist pain Condition: Good
[2020-12-06] MEDS ORDERED: ZOLPIDEM 5 MG TABLET PO PRN (22:16)
[2020-12-06] MEDS ORDERED: ACETAMINOPHEN 325 MG TABLET PO PRN (22:16)
[2020-12-06] MEDS ORDERED: SODIUM CHLORIDE FLUSH 0.9% 10 ML SYRINGE IVP PRN (22:16)
[2020-12-06] MEDS ORDERED: ONDANSETRON 4 MG/2 ML VIAL IVP PRN (22:16)
--- NOTE | 2020-12-06 22:29 | HISTORY & PHYSICAL EXAMINATION ---
Chief Complaint - Chief Complaint Chief Complaint: R wrist pain and swelling History of Present Illness - Admitted From Admitted From:: ED - History Obtained From Records Reviewed: yes History obtained from: ED provider and patient - History of Present Illness HPI Comment/Other: This is a 75-year-old white female who was admitted here 3 months ago for dizziness and found to have benign positional vertigo. Head CT then showed an old stroke. She was advised to have better blood pressure and lipid control. She was taking essentially no prescription medicines, except prn Meclizine and prn Ambien but is on many vitamins and supplements. Two and half weeks ago she started to get right wrist pain, and has been to several clinics and seen many providers including the ED for the pain. She has an appointment with Rheumatology at the end of Dec. She has had elevated sed rate and CRP. She is now on a prednisone tapering down schedule (today is day 14 and her last day of 20 mg, tomorrow 10 mg daily would begin). She also takes Percocet and meloxicam for pain. Since on Prednisone, her wrist redness and pain improved and ESR went from 43 down to 31, CRP also slightly improved and white count went from 13 to 12. Today she was seen by a provider and also had CT w/ contrast of the wrist which was read as having possible septic arthritis, fluid in the joint, cannot R/O abscess or osteomyelitis. The fluid collection is also seen spreading to her proximal and distal carpal joints. She was sent to the ED. Today in the ED, labs show worsening sed rate, rising up to 64, CRP back up to 4.2, white count increased up to 14. The ED provider called the on- call Orthopedist who advised that the patient be admitted for IV antibiotics, pain control and an orthopedic consult will be done tomorrow. History - Past Medical History Cardiovascular: reports: Hypertension, High cholesterol Respiratory: reports: None Endocrine/Autoimmune: reports: None GI: reports: GERD, Chronic constipation, Other : reports: None HEENT: reports: Other Psych: reports: None Musculoskeletal: reports: Other Derm: reports: None MRSA Hx?: No - Past Surgical History General: reports: Appendectomy, Colonoscopy HEENT: reports: Other - Family & Social History Family History Comment/Other: Father: Hyperlipidemia, Alcoholism, COPD Living arrangement: At home Social History Notes: She lives alone and is independent of activities of daily living. She does not use tobacco products, consume alcohol or use recreational substances - Substance History Abuse: Recurrent use of substance despite neg consequences: Opioid (The records indicate she had a Controlled Substance Agreemantfor narcotic use, signed in 2015.) - POLST Patient has POLST: No POLST Status: Full Code Meds/Allgy - Home Medications Home Medications: Ambulatory Orders Medication Instructions Recorded Confirmed Ascorbic Acid [Vitamin C] 1 tab PO DAILY 12/21/15 12/06/20 Calcium Carbonate 1 tab PO DAILY 12/21/15 12/06/20 Multivitamin [Multivitamins] 1 tab PO DAILY 12/21/15 12/06/20 Zolpidem [Ambien] 2.5 mg PO DAILY 12/21/15 12/06/20 B-Complex with Vitamin C [Super B 1 each PO DAILY 05/29/18 12/06/20 Complex-Vitamin C] Cholecalciferol (Vitamin D3) 1 cap PO DAILY 05/29/18 12/06/20 [Vitamin D3] Digestive 8/L.acidoph/Pectin 1 each PO BID 05/29/18 12/06/20 [Digestive Enzymes Tablet] L.acid/L.casei/B.bif/B.wicho/Fos 1 cap PO BID 05/29/18 12/06/20 [Probiotic Blend Capsule] Malic Acid 1 each PO DAILY 05/29/18 12/06/20 Melatonin/5Htp/Valer/FA/Diet28 1 each PO BID 05/29/18 12/06/20 [Hypnosom Tablet] [place]-3/Dha/Epa/Fish Oil [Fish Oil 1 cap PO DAILY 05/29/18 12/06/20 500 mg Softgel] Turmeric Root Extract [Turmeric] 500 mg PO DAILY 05/29/18 12/06/20 Meclizine HCl [Antivert] 1 tablet PO Q6H PRN #30 tab 09/15/20 12/06/20 Oxycodone HCl/Acetaminophen 1 each PO Q4H PRN #10 tablet 11/30/20 12/06/20 [Percocet 10-325 mg Tablet] - Allergies Allergies/Adverse Reactions: Allergies Allergy/AdvReac Type Severity Reaction Status Date / Time Penicillins Allergy Unknown Verified 12/06/20 18:45 Review of Systems - Musculoskeletal Musculoskeletal: reports: Limited range of motion, Joint pain, Joint swelling - All Other Systems All Other Systems: reports: Reviewed and negative Exam - Vital Signs Vital Signs: Vital Signs x48h Temp Pulse Resp BP Pulse Ox 12/06/20 20:40 36.5 C 90 16 149/71 H 94 12/06/20 18:45 36.5 C 90 16 149/71 H 94 - Physical Exam General Appearance: positive: No acute distress Eyes Bilateral: positive: Normal inspection, EOMI ENT: positive: ENT inspection nml, No signs of dehydration Neck: positive: Nml inspection, No JVD Respiratory: positive: No respiratory distress, Breath sounds nml Cardiovascular: positive: Regular rate & rhythm, No murmur Abdomen: positive: Non-tender, Nml bowel sounds, No distention Extremities: positive: No pedal edema, Joint swelling (mild of R wrist, with limited ROM. Slightly warm, not red.) Neurologic/Psychiatric: positive: Oriented x3 (Non-focal) Conclusion/Plan - Problem List (1) Septic arthritis Conclusion/Plan: Blood cultures were drawn in the ED. Await results. We will continue her Prednisone at the current 20 mg dose and await further recommendations for management and for steroid dosing from orthopedics. Orthopedic consult will be ordered officially. Continue with Dilaudid iv and Ketolorac iv for pain control. Will not begin empiric IV antibiotics tonight, until Orthopedics examines her wrist and probably aspirates the wrist fluid, in order to have a positive culture to tailor antibiotics to. Follow CBC, ESR and CRP daily Qualifiers: Septic arthritis location: wrist Laterality: right (2) FELIPE (acute kidney injury) Conclusion/Plan: Today her BUN/creatinine is 31/1.2. Her usual is creat of 1.0. We will begin gentle IV hydration. Avoid nephrotoxins. Follow BMP daily (3) Hyperlipidemia Conclusion/Plan: After her September 2020 hospitalization, she had outpatient labs done on 10/15/2020 that showed total cholesterol 346, LDL 250, triglycerides 192. It is unclear if she is on any cholesterol medicines. Will await for a reconciled med list. - Lab Results Lab results reviewed: Yes Fish Bones: 12/06/20 19:52 12/06/20 19:52
[2020-12-06] MEDS ORDERED: SODIUM CHLORIDE 0.9% 1,000 ML IV SCH ×2 (23:00)
[2020-12-07 00:14] LABS: B. PARAPERTUSSIS- RESP PCR PAN NOT DETECTED; B. PERTUSSIS- RESP PCR PANEL NOT DETECTED; C. PNEUMONIAE- RESP PCR PANEL NOT DETECTED; CORONAVIRUS 229E-RESP PCR NOT DETECTED; CORONAVIRUS HKU1-RESP PCR NOT DETECTED; CORONAVIRUS NL63-RESP PCR NOT DETECTED; CORONAVIRUS OC43-RESP PCR NOT DETECTED; HUMAN METAPNEUMOVIRUS NOT DETECTED; INFLUENZA A- RESP PCR PANEL NOT DETECTED; INFLUENZA B - RESP PCR PANEL NOT DETECTED; M. PNEUMONIAE- RESP PCR PANEL NOT DETECTED; PARAINFLUENZA VIRUS 1 NOT DETECTED; PARAINFLUENZA VIRUS 2 NOT DETECTED; PARAINFLUENZA VIRUS 3 NOT DETECTED; PARAINFLUENZA VIRUS 4 NOT DETECTED; RHINOVIRUS/ENTEROVIRUS NOT DETECTED; RSV- RESP PCR PANEL NOT DETECTED; SARS-CoV-2 -RESP PCR PANEL NOT DETECTED
[2020-12-07] MEDS ORDERED: KETOROLAC 30 MG/ML VIAL IVP PRN ×2 (00:19→03:06)
[2020-12-07] MEDS ORDERED: FAMOTIDINE 20 MG TABLET PO PRN (00:23)
[2020-12-07] MEDS: SODIUM CHLORIDE FLUSH 0.9% 10 ML SYRINGE IVP SCH ×3 (00:58→17:30)
[2020-12-07] MEDS: HYDROmorphone 0.5 MG/0.5 ML SYRINGE IVP PRN ×3 (05:14→16:53)
[2020-12-07 05:25] LABS: BASOPHILS # (AUTO) 0.1 10^3/uL (0.0-0.1); BASOPHILS % (AUTO) 0.4 %; EOSINOPHILS # (AUTO) 0.1 10^3/uL (0.0-0.7); EOSINOPHILS % (AUTO) 0.8 %; HCT - HEMATOCRIT 37.2 % (37.0-47.0); HGB - HEMOGLOBIN 11.8 g/dL (12.0-16.0); LYMPHOCYTES # (AUTO) 2.6 10^3/uL (1.5-3.5); LYMPHOCYTES % (AUTO) 20.8 %; MEAN CORPUSCULAR HEMOGLOBIN 29.3 pg (27.0-31.0); MEAN CORPUSCULAR HGB CONC 31.7 g/dL (32.0-36.0); MEAN CORPUSCULAR VOLUME 92.3 fL (81.0-99.0); MEAN PLATELET VOLUME 9.7 fL (7.9-10.8); MONOCYTES # (AUTO) 0.9 10^3/uL (0.0-1.0); MONOCYTES % (AUTO) 6.8 %; NEUTROPHILS # (AUTO) 8.9 10^3/uL (1.5-6.6); NEUTROPHILS % (AUTO) 70.3 %; PLT - PLATELET COUNT 309 10^3/uL (130-450); RED BLOOD COUNT 4.03 10^6/uL (4.20-5.40); RED CELL DISTRIBUTION WIDTH 13.2 % (12.0-15.0); WHITE BLOOD COUNT 12.6 x10^3/uL (4.8-10.8)
[2020-12-07 05:43] LABS: CALCIUM 9.1 mg/dL (8.5-10.3); CREATININE 0.9 mg/dL (0.4-1.0); CRP - C-REACTIVE PROTEIN 3.1 mg/dL (0-1.0); POTASSIUM 4.1 mmol/L (3.5-5.0)
[2020-12-07] MEDS ORDERED: predniSONE 20 MG TABLET PO SCH (08:00)
[2020-12-07] MEDS: OMEGA-3 ACID ETHYL ESTERS 1 GM CAPSULE PO SCH (08:45)
[2020-12-07] MEDS: ASCORBIC ACID 500 MG TABLET PO SCH (08:45)
[2020-12-07] MEDS: MULTIVITAMIN TABLET PO SCH (08:45)
[2020-12-07] MEDS: CHOLECALCIFEROL 25 MCG TABLET PO SCH (08:46)
[2020-12-07] MEDS ORDERED: [UNRECOGNIZED DRUG - OTHER] PO SCH (09:00)
[2020-12-07] MEDS ORDERED: ZOLPIDEM 5 MG TABLET PO SCH (09:00)
[2020-12-07] MEDS ORDERED: DIGESTIVE PO SCH (09:00)
[2020-12-07] MEDS ORDERED: CALCIUM CARBONATE 300 MG PO SCH (09:00)
[2020-12-07] MEDS ORDERED: B COMPLEX WITH VITAMIN C PO SCH (09:00)
--- NOTE | 2020-12-07 12:50 | CONSULTATION NOTE ---
Referring Provider Name of Referring Provider:: Jovanni Harrington Consult Date: 12/07/20 Chief Complaint - Chief Complaint Chief Complaint: Pain and swelling right wrist History of Present Illness - Admitted From Admitted From:: Emergency room - History Obtained From History obtained from: Patient - History of Present Illness HPI Comment/Other: This is a 75-year-old woman who is admitted under observation because of a 2- week history of right wrist pain and swelling that spontaneously occurred. She noted the onset of symptoms just after the last day of antibiotic treatment of a urinary tract infection. She denies previous problems the right wrist. She had an episode of pain and swelling to her left foot in 2016 That was felt to be a reactive arthritis. She was positively tested for the HLA-B27 antigen. She has been seen by primary care, initially felt to have a reactive arthritis and was placed on tapering dose of prednisone, meloxicam and an oral narcotic but no wrist brace. She denies any injury or precipitating activity. She denies numbness or tingling. She states over the past 2 weeks her symptoms have not changed. However, this morning she tells me she is not having any pain but she did earlier this morning. Now her pain is much improved but she states the pain does fluctuate being the worst in the morning. She denies fever or chills. She denies red streaks. She denies any insect bites or tick bites. She had an appointment to see a legal paraprofessional end of this month. Besides the walk-in clinic in [place], she went to the walk-in clinic off [facility] because she thought she could see her legal paraprofessional quicker but there was no legal paraprofessional [employer] for the [place] walk-in clinic. She now feels that hospital to hospital transfer might help her see a legal paraprofessional quicker. She feels that between now and her rheumatologic appointment end of the month, that she will worsen considerably and does not want to wait until the end of the month but cannot get a earlier appointment. She was sent to the emergency room yesterday by her primary care physician who had ordered a CT scan of the right wrist.After the results of the CT scan were obtained by the primary care physician, patient was instructed to go to the emergency room. The CT report suggested the possibility in the differential diagnosis of septic joint ,abscess or ganglion cyst. The patient's pain to her right wrist is generalized from radial to ulnar across the dorsum of the wrist. She is able to move her fingers well.Aspiration of the right wrist Was postponed per [place] until she discussed possible transfer availability.After she learned, transfer eligibility Not available, she is in agreement to wrist arthrocentesis right wrist History - Past Medical History Cardiovascular: reports: Hypertension, High cholesterol Respiratory: reports: None Neuro: reports: Other Endocrine/Autoimmune: reports: None GI: reports: GERD, Chronic constipation, Other : reports: None HEENT: reports: Other Psych: reports: None Musculoskeletal: reports: Other Derm: reports: None MRSA Hx?: No Other Past Medical History: vertigo, blepharitis - Past Surgical History General: reports: Appendectomy, Colonoscopy HEENT: reports: Other - Family & Social History Family History Comment/Other: Father: Hyperlipidemia, Alcoholism, COPD Living arrangement: At home Social History Notes: She lives alone and is independent of activities of daily living. She does not use tobacco products, consume alcohol or use recreational substances - Substance History Abuse: Recurrent use of substance despite neg consequences: Opioid (The records indicate she had a Controlled Substance Agreemantfor narcotic use, signed in 2015.) - POLST Patient has POLST: No POLST Status: Full Code Meds/Allgy - Home Medications Home Medications: Ambulatory Orders Medication Instructions Recorded Confirmed Ascorbic Acid [Vitamin C] 1 tab PO DAILY 12/21/15 12/06/20 Multivitamin [Multivitamins] 1 tab PO DAILY 12/21/15 12/06/20 Zolpidem [Ambien] 5 mg PO QPM PRN 12/21/15 12/07/20 B-Complex with Vitamin C [Super B 1 each PO DAILY 05/29/18 12/06/20 Complex-Vitamin C] Cholecalciferol (Vitamin D3) 1 cap PO DAILY 05/29/18 12/06/20 [Vitamin D3] Digestive 8/L.acidoph/Pectin 1 each PO BID 05/29/18 12/06/20 [Digestive Enzymes Tablet] L.acid/L.casei/B.bif/B.wicho/Fos 1 cap PO BID 05/29/18 12/06/20 [Probiotic Blend Capsule] Malic Acid 1 each PO DAILY 05/29/18 12/06/20 [place]-3/Dha/Epa/Fish Oil [Fish Oil 1 cap PO DAILY 05/29/18 12/06/20 500 mg Softgel] Turmeric Root Extract [Turmeric] 500 mg PO DAILY 05/29/18 12/06/20 Oxycodone HCl/Acetaminophen 1 each PO Q4H PRN #10 tablet 11/30/20 12/06/20 [Percocet 10-325 mg Tablet] Aspirin [Aspirin EC] 81 mg PO DAILY 12/07/20 12/07/20 Atorvastatin [Lipitor] 10 mg PO DAILY 12/07/20 12/07/20 Meloxicam [Mobic] 15 mg PO DAILY PRN 12/07/20 12/07/20 - Allergies Allergies/Adverse Reactions: Allergies Allergy/AdvReac Type Severity Reaction Status Date / Time Penicillins Allergy Unknown Verified 12/06/20 18:45 Exam - Vital Signs Vital Signs: Vital Signs x48h Temp Pulse Resp BP Pulse Ox 12/07/20 07:49 36.9 C 64 18 146/84 H 96 - Physical Exam General Appearance: positive: No acute distress Respiratory: positive: No respiratory distress Peripheral Pulses: positive: 2+ Skin: positive: Color nml, No rash, Warm, Dry Neurologic/Psychiatric: positive: Oriented x3, Motor nml, Sensation nml Comments/Other: Extremities: Right wrist has minimal pain with 40 degrees dorsiflexion, 30 degrees of palmar flexion, full supination and pronation. Color, motion sensation intact to fingers right hand. Tendon function intact right hand. There is mild swelling over the dorsum of the wrist and dorsum of right hand.There is mild generalized tenderness about the wrist and hand, no focal tenderness and no focal pockets of fluid collection. Conclusion and Plan - Lab Results Laboratory Results 12/07/20 05:05: Sodium 142, Potassium 4.1, Chloride 106, Carbon Dioxide 27, Anion Gap 9.0, BUN 27 H, Creatinine 0.9, Estimated GFR (MDRD) 61 L, Glucose 82, Calcium 9.1, C-Reactive Protein 3.1 H 12/07/20 05:05: ESR 30 12/07/20 05:05: WBC 12.6 H, RBC 4.03 L, Hgb 11.8 L, Hct 37.2, MCV 92.3, MCH 29.3, MCHC 31.7 L, RDW 13.2, Plt Count 309, MPV 9.7, Neut # (Auto) 8.9 H, Lymph # (Auto) 2.6, [place] # (Auto) 0.9, Eos # (Auto) 0.1, Baso # (Auto) 0.1, Absolute Nucleated RBC 0.00, Nucleated RBC % 0.0 12/07/20 02:31: Lactic Acid 0.6 12/06/20 23:29: Nasal Adenovirus (PCR) NOT DETECTED, Nasal B. parapertussis DNA (PCR) NOT DETECTED, Nasal Coronavir 229E PCR NOT DETECTED, Nasal Coronavir HKU1 PCR NOT DETECTED, Nasal Coronavir NL63 PCR NOT DETECTED, Nasal Coronavir OC43 PCR NOT DETECTED, Nasal Enterovir/Rhinovir PCR NOT DETECTED, Nasal Influenza B PCR NOT DETECTED, Nasal Influenza A PCR NOT DETECTED, Nasal Parainfluen 1 PCR NOT DETECTED, Nasal Parainfluen 2 PCR NOT DETECTED, Nasal Parainfluen 3 PCR NOT DETECTED, Nasal Parainfluen 4 PCR NOT DETECTED, Nasal RSV (PCR) NOT DETECTED, Nasal B.pertussis DNA PCR NOT DETECTED, Nasal C.pneumoniae (PCR) NOT DETECTED, Eros Human Metapneumo PCR NOT DETECTED, Nasal M.pneumoniae (PCR) NOT DETECTED, Nasal SARS-CoV-2 (PCR) NOT DETECTED 12/06/20 19:52: Sodium 137, Potassium 4.1, Chloride 99 L, Carbon Dioxide 29, Anion Gap 9.0, BUN 31 H, Creatinine 1.2 H, Estimated GFR (MDRD) 44 L, Glucose 159 H, Calcium 9.1, Total Bilirubin 0.5, AST 14, ALT 20, Alkaline Phosphatase 66, C-Reactive Protein 4.2 H, Total Protein 7.4, Albumin 3.6, Globulin 3.8, Albumin/Globulin Ratio 0.9 L 12/06/20 19:52: ESR 64 H 12/06/20 19:52: WBC 14.0 H, RBC 4.37, Hgb 12.8, Hct 40.7, MCV 93.1, MCH 29.3, MCHC 31.4 L, RDW 13.2, Plt Count 352, MPV 9.9, Neut # (Auto) 10.7 H, Lymph # (Auto) 2.2, [place] # (Auto) 0.9, Eos # (Auto) 0.0, Baso # (Auto) 0.0, Absolute Nucleated RBC 0.00, Nucleated RBC % 0.0 - Diagnostic Imaging Results Diagnostic Imaging Results: positive: Read independently - Diagnosis Diagnosis: Reactive arthritis right wrist - Plan Plan: Recommended an arthrocentesis of the right wrist to help exclude septic arthritis. My suspicion for septic arthritis is low for her right wrist. Patient refused to have the aspiration done because she wanted to see if she could be transferred to [facility] where a legal paraprofessional would be [employer]. She had a rheumatologic consultation at 2:45 PM today and she has a rheumatologic appointment on December 31. She feels that she cannot wait until December 31. Because I had clinic I could not wait for her decision but I did talk to Dr. Baig who indicates the patient is not a transferable patient to [facility]. Therefore, patient is in agreement to the aspiration which will be done after clinic today since she passed up the opportunity earlier. I returned at approximately 5:00, again, patient reports similar complaints as documented and is now giving verbal consent to have right wrist arthrocentesis. Using aseptic technique, a alcohol prep, radiocarpal joint entered between 2 and 4 extensor compartments. There was no fluid encountered in the joint, dry tap. She tolerated the procedure well. Sterile dressing applied. She was given half a milligram of Dilaudid by her nurse prior to the aspiration. Is my opinion that symptoms and signs are most consistent with a reactive arthritis which can be treated with anti-inflammatory medication, ice, elevation and a removable wrist brace until she has time to see rheumatology. A cortisone injection to the wrist joint could be entertained if she does not improve and this could be given as outpatient in the orthopedic clinic later this week or next week.I discussed my findings with Dr. Baig
--- NOTE | 2020-12-07 12:59 | PHARMACY PROGRESS NOTE ---
- Best Possible Medication History Admit Date and Time: 12/06/20 6203 Processed by: Pharmacy Medication History completed: Yes Patient Interview: Completed Secondary Source(s): Pharmacy records, Insurance records Patient interview completed by sterile instrument technician. As the person ultimately responsible for medication therapy, providers are able to order a medication from an existing home medication list in [facility] via the "Reconcile Routine" prior to Confirmation of that medication by end user support specialist. Such practice is discouraged except when the physician, in their clinical judgment, deems that a medical need exists for a medication without regard to previous use.
--- NOTE | 2020-12-07 16:01 | PROVIDER PROGRESS NOTE ---
Subjective - Prog Note Date Prog Note Date: 12/07/20 - Subjective Subjective: She still reports significant pain in her right wrist which is about a 6 out of 10. She is concerned about going home and that her pain is not adequately controlled. The pain is present at all times and is not made worse with activity. She finds the most relief with the prednisone. Current Medications - Current Medications Current Medications: Active Medications Acetaminophen (Acetaminophen 500 Mg Tablet) 1,000 mg PO TID [facility] Ascorbic Acid (Ascorbic Acid 500 Mg Tablet) 500 mg PO DAILY [facility] Last Admin: 12/07/20 08:45 Dose: 500 mg Documented by: Cholecalciferol (Cholecalciferol 25 Mcg Tablet) 25 mcg PO DAILY [facility] Last Admin: 12/07/20 08:46 Dose: 25 mcg Documented by: Famotidine (Famotidine 20 Mg Tablet) 20 mg PO BID PRN PRN Reason: Heartburn Hydromorphone HCl (Hydromorphone 0.5 Mg/0.5 Ml Syringe) 0.5 mg IVP Q2H PRN PRN Reason: Pain 8 to 10 Last Admin: 12/07/20 16:53 Dose: 0.5 mg Documented by: Ibuprofen (Ibuprofen 800 Mg Tablet) 800 mg PO BID PRN PRN Reason: PAIN Last Admin: 12/07/20 17:30 Dose: 800 mg Documented by: Multivitamins (Multivitamin Tablet) 1 tab PO DAILYWM [facility] Last Admin: 12/07/20 08:45 Dose: 1 tab Documented by: Aehob-[id number]-Hugu Ethyl Esters ([place]-3 Acid Ethyl Esters 1 Gm Capsule) 1 gm PO DAILY [facility] Last Admin: 12/07/20 08:45 Dose: 1 gm Documented by: Ondansetron HCl (Ondansetron 4 Mg/2 Ml Vial) 4 mg IVP Q6HR PRN PRN Reason: Nausea / Vomiting Oxycodone HCl (Oxycodone 5 Mg Tablet) 5 mg PO Q4HR PRN PRN Reason: PAIN Prednisone (Prednisone 20 Mg Tablet) 20 mg PO DAILYWM [facility] Last Admin: 12/07/20 08:45 Dose: 20 mg Documented by: Saccharomyces Boulardii (Saccharomyces Boulardii 250 Mg Capsule) 250 mg PO BIDWM [facility] Last Admin: 12/07/20 17:30 Dose: 250 mg Documented by: Sodium Chloride (Sodium Chloride Flush 0.9% 10 Ml Syringe) 10 ml IVP PRN PRN PRN Reason: NEEDED PER PROVIDER ORDERS Sodium Chloride (Sodium Chloride Flush 0.9% 10 Ml Syringe) 10 ml IVP 0100,0900,1700 GLEN Last Admin: 12/07/20 17:30 Dose: 10 ml Documented by: Zolpidem Tartrate (Zolpidem 5 Mg Tablet) 5 mg PO QPM PRN PRN Reason: Insomnia Ascorbic Acid [Vitamin C] 1 tab PO DAILY 12/21/15 Multivitamin [Multivitamins] 1 tab PO DAILY 12/21/15 Zolpidem [Ambien] 5 mg PO QPM PRN 12/21/15 B-Complex with Vitamin C [Super B Complex-Vitamin C] 1 each PO DAILY 05/29/18 Cholecalciferol (Vitamin D3) [Vitamin D3] 1 cap PO DAILY 05/29/18 Digestive 8/L.acidoph/Pectin [Digestive Enzymes Tablet] 1 each PO BID 05/29/18 L.acid/L.casei/B.bif/B.wicho/Fos [Probiotic Blend Capsule] 1 cap PO BID 05/29/18 Malic Acid 1 each PO DAILY 05/29/18 [place]-3/Dha/Epa/Fish Oil [Fish Oil 500 mg Softgel] 1 cap PO DAILY 05/29/18 Turmeric Root Extract [Turmeric] 500 mg PO DAILY 05/29/18 Aspirin [Aspirin EC] 81 mg PO DAILY 12/07/20 Atorvastatin [Lipitor] 10 mg PO DAILY 12/07/20 Meloxicam [Mobic] 15 mg PO DAILY PRN 12/07/20 Objective - Vital Signs/Intake & Output Reviewed Vital Signs: Yes Intake & Output: Intake & Output 12/04/20 12/05/20 12/06/20 12/07/20 23:59 23:59 23:59 23:59 Intake Total 640 Balance 640 - Objective General Appearance: positive: No acute distress, Alert Eyes Bilateral: positive: Normal inspection, Conjunctivae nml ENT: positive: ENT inspection nml Neck: positive: Nml inspection Respiratory: positive: No respiratory distress Extremities: positive: Other (The right wrist is without erythema or warmth. There is mild edema over the dorsum of the wrist and right hand. Sensation is intact throughout. There is no obvious effusion.) - Lab Results Fish Bones: 12/07/20 05:05 12/07/20 05:05 Other Labs: Lab Results x24hrs 12/07/20 12/07/20 12/07/20 Range/Units 05:05 05:05 05:05 WBC 12.6 H (4.8-10.8) x10^3/uL RBC 4.03 L (4.20-5.40) 10^6/uL Hgb 11.8 L (12.0-16.0) g/dL Hct 37.2 (37.0-47.0) % MCV 92.3 (81.0-99.0) fL MCH 29.3 (27.0-31.0) pg MCHC 31.7 L (32.0-36.0) g/dL RDW 13.2 (12.0-15.0) % Plt Count 309 (130-450) 10^3/uL MPV 9.7 (7.9-10.8) fL Neut # (Auto) 8.9 H (1.5-6.6) 10^3/uL Lymph # (Auto) 2.6 (1.5-3.5) 10^3/uL [place] # (Auto) 0.9 (0.0-1.0) 10^3/uL Eos # (Auto) 0.1 (0.0-0.7) 10^3/uL Baso # (Auto) 0.1 (0.0-0.1) 10^3/uL Absolute Nucleated RBC 0.00 x10^3/uL Nucleated RBC % 0.0 /100WBC ESR 30 (0-30) mm/Hr Sodium 142 (135-145) mmol/L Potassium 4.1 (3.5-5.0) mmol/L Chloride 106 (101-111) mmol/L Carbon Dioxide 27 (21-32) mmol/L Anion Gap 9.0 (6-13) BUN 27 H (6-20) mg/dL Creatinine 0.9 (0.4-1.0) mg/dL Estimated GFR (MDRD) 61 L (>89) Glucose 82 (70-100) mg/dL Lactic Acid (0.5-2.2) mmol/L Calcium 9.1 (8.5-10.3) mg/dL Total Bilirubin (0.2-1.0) mg/dL AST (10-42) IU/L ALT (10-60) IU/L Alkaline Phosphatase (42-121) IU/L C-Reactive Protein 3.1 H (0-1.0) mg/dL Total Protein (6.7-8.2) g/dL Albumin (3.2-5.5) g/dL Globulin (2.1-4.2) g/dL Albumin/Globulin Ratio (1.0-2.2) Nasal Adenovirus (PCR) Nasal B. parapertussis DNA (PCR) Nasal Coronavir 229E PCR Nasal Coronavir HKU1 PCR Nasal Coronavir NL63 PCR Nasal Coronavir OC43 PCR Nasal Enterovir/Rhinovir PCR Nasal Influenza B PCR Nasal Influenza A PCR Nasal Parainfluen 1 PCR Nasal Parainfluen 2 PCR Nasal Parainfluen 3 PCR Nasal Parainfluen 4 PCR Nasal RSV (PCR) Nasal B.pertussis DNA PCR Nasal C.pneumoniae (PCR) Eros Human Metapneumo PCR Nasal M.pneumoniae (PCR) Nasal SARS-CoV-2 (PCR) 12/07/20 12/06/20 12/06/20 Range/Units 02:31 23:29 19:52 WBC (4.8-10.8) x10^3/uL RBC (4.20-5.40) 10^6/uL Hgb (12.0-16.0) g/dL Hct (37.0-47.0) % MCV (81.0-99.0) fL MCH (27.0-31.0) pg MCHC (32.0-36.0) g/dL RDW (12.0-15.0) % Plt Count (130-450) 10^3/uL MPV (7.9-10.8) fL Neut # (Auto) (1.5-6.6) 10^3/uL Lymph # (Auto) (1.5-3.5) 10^3/uL [place] # (Auto) (0.0-1.0) 10^3/uL Eos # (Auto) (0.0-0.7) 10^3/uL Baso # (Auto) (0.0-0.1) 10^3/uL Absolute Nucleated RBC x10^3/uL Nucleated RBC % /100WBC ESR (0-30) mm/Hr Sodium 137 (135-145) mmol/L Potassium 4.1 (3.5-5.0) mmol/L Chloride 99 L (101-111) mmol/L Carbon Dioxide 29 (21-32) mmol/L Anion Gap 9.0 (6-13) BUN 31 H (6-20) mg/dL Creatinine 1.2 H (0.4-1.0) mg/dL Estimated GFR (MDRD) 44 L (>89) Glucose 159 H (70-100) mg/dL Lactic Acid 0.6 (0.5-2.2) mmol/L Calcium 9.1 (8.5-10.3) mg/dL Total Bilirubin 0.5 (0.2-1.0) mg/dL AST 14 (10-42) IU/L ALT 20 (10-60) IU/L Alkaline Phosphatase 66 (42-121) IU/L C-Reactive Protein 4.2 H (0-1.0) mg/dL Total Protein 7.4 (6.7-8.2) g/dL Albumin 3.6 (3.2-5.5) g/dL Globulin 3.8 (2.1-4.2) g/dL Albumin/Globulin Ratio 0.9 L (1.0-2.2) Nasal Adenovirus (PCR) NOT DETECTED Nasal B. parapertussis DNA (PCR) NOT DETECTED Nasal Coronavir 229E PCR NOT DETECTED Nasal Coronavir HKU1 PCR NOT DETECTED Nasal Coronavir NL63 PCR NOT DETECTED Nasal Coronavir OC43 PCR NOT DETECTED Nasal Enterovir/Rhinovir PCR NOT DETECTED Nasal Influenza B PCR NOT DETECTED Nasal Influenza A PCR NOT DETECTED Nasal Parainfluen 1 PCR NOT DETECTED Nasal Parainfluen 2 PCR NOT DETECTED Nasal Parainfluen 3 PCR NOT DETECTED Nasal Parainfluen 4 PCR NOT DETECTED Nasal RSV (PCR) NOT DETECTED Nasal B.pertussis DNA PCR NOT DETECTED Nasal C.pneumoniae (PCR) NOT DETECTED Eros Human Metapneumo PCR NOT DETECTED Nasal M.pneumoniae (PCR) NOT DETECTED Nasal SARS-CoV-2 (PCR) NOT DETECTED 12/06/20 12/06/20 Range/Units 19:52 19:52 WBC 14.0 H (4.8-10.8) x10^3/uL RBC 4.37 (4.20-5.40) 10^6/uL Hgb 12.8 (12.0-16.0) g/dL Hct 40.7 (37.0-47.0) % MCV 93.1 (81.0-99.0) fL MCH 29.3 (27.0-31.0) pg MCHC 31.4 L (32.0-36.0) g/dL RDW 13.2 (12.0-15.0) % Plt Count 352 (130-450) 10^3/uL MPV 9.9 (7.9-10.8) fL Neut # (Auto) 10.7 H (1.5-6.6) 10^3/uL Lymph # (Auto) 2.2 (1.5-3.5) 10^3/uL [place] # (Auto) 0.9 (0.0-1.0) 10^3/uL Eos # (Auto) 0.0 (0.0-0.7) 10^3/uL Baso # (Auto) 0.0 (0.0-0.1) 10^3/uL Absolute Nucleated RBC 0.00 x10^3/uL Nucleated RBC % 0.0 /100WBC ESR 64 H (0-30) mm/Hr Sodium (135-145) mmol/L Potassium (3.5-5.0) mmol/L Chloride (101-111) mmol/L Carbon Dioxide (21-32) mmol/L Anion Gap (6-13) BUN (6-20) mg/dL Creatinine (0.4-1.0) mg/dL Estimated GFR (MDRD) (>89) Glucose (70-100) mg/dL Lactic Acid (0.5-2.2) mmol/L Calcium (8.5-10.3) mg/dL Total Bilirubin (0.2-1.0) mg/dL AST (10-42) IU/L ALT (10-60) IU/L Alkaline Phosphatase (42-121) IU/L C-Reactive Protein (0-1.0) mg/dL Total Protein (6.7-8.2) g/dL Albumin (3.2-5.5) g/dL Globulin (2.1-4.2) g/dL Albumin/Globulin Ratio (1.0-2.2) Nasal Adenovirus (PCR) Nasal B. parapertussis DNA (PCR) Nasal Coronavir 229E PCR Nasal Coronavir HKU1 PCR Nasal Coronavir NL63 PCR Nasal Coronavir OC43 PCR Nasal Enterovir/Rhinovir PCR Nasal Influenza B PCR Nasal Influenza A PCR Nasal Parainfluen 1 PCR Nasal Parainfluen 2 PCR Nasal Parainfluen 3 PCR Nasal Parainfluen 4 PCR Nasal RSV (PCR) Nasal B.pertussis DNA PCR Nasal C.pneumoniae (PCR) Eros Human Metapneumo PCR Nasal M.pneumoniae (PCR) Nasal SARS-CoV-2 (PCR) ABX Reporting Has patient been on IV antibiotics over the past 48 hours?: No Assessment/Plan - Problem List (1) Reactive arthritis of right wrist Impression: Clinically, there appear to be low suspicion for septic arthritis. CT performed on outpatient basis cannot rule out a septic joint or potential abscess and that is why she was admitted for orthopedics evaluation and potential need for IV antibiotics. She was seen by orthopedic surgery today and a joint aspiration was attempted but there was no fluid obtained which is not surprising given she had very minimal edema and no obvious effusion on exam. Her ESR and CRP are trending down without antibiotics. She finds most relief with prednisone and at this point in time, I do not believe she has septic arthritis and her pain is likely due to reactive arthritis which she has a history of it. Given she has found most relief with prednisone but feels that it wears off earlier on in the afternoon, we will switch it to 10 mg twice daily instead of 20 mg daily. We will also start her on Tylenol 1 g 3 times daily. Will also started on Ibuprofen 800mg PO BID. We'll continue with oxycodone as needed. We will look to limit the use of IV Dilaudid. The plan will be to discharge her tomorrow morning as we get her pain better controlled. She can follow-up with orthopedic surgery for consideration of a glucocorticoid injection. She will also be attempting to follow-up with rheumatology as soon as possible at the [facility]. (2) Hyperlipidemia Impression: Stable. We have continued her home atorvastatin.
[2020-12-07] MEDS: IBUPROFEN 800 MG TABLET PO PRN (17:30)
[2020-12-07] MEDS: SACCHAROMYCES BOULARDII 250 MG CAPSULE PO SCH (17:30)
[2020-12-07] MEDS: ACETAMINOPHEN 500 MG TABLET PO SCH (21:43)
[2020-12-07] MEDS: predniSONE 10 MG TABLET PO SCH (21:44)
[2020-12-08] MEDS: SODIUM CHLORIDE FLUSH 0.9% 10 ML SYRINGE IVP SCH ×2 (01:21→08:23)
[2020-12-08] MEDS: oxyCODONE 5 MG TABLET PO PRN ×2 (01:37→09:29)
[2020-12-08] MEDS: ACETAMINOPHEN 500 MG TABLET PO SCH ×2 (05:37→13:14)
[2020-12-08 06:07] LABS: BASOPHILS % (AUTO) 0.3 %; EOSINOPHILS % (AUTO) 0.1 %; HCT - HEMATOCRIT 40.5 % (37.0-47.0); HGB - HEMOGLOBIN 12.6 g/dL (12.0-16.0); LYMPHOCYTES # (AUTO) 1.1 10^3/uL (1.5-3.5); MEAN CORPUSCULAR HEMOGLOBIN 28.9 pg (27.0-31.0); MEAN CORPUSCULAR HGB CONC 31.1 g/dL (32.0-36.0); MEAN CORPUSCULAR VOLUME 92.9 fL (81.0-99.0); MEAN PLATELET VOLUME 10.3 fL (7.9-10.8); MONOCYTES # (AUTO) 0.5 10^3/uL (0.0-1.0); MONOCYTES % (AUTO) 3.4 %; NEUTROPHILS # (AUTO) 12.5 10^3/uL (1.5-6.6); NEUTROPHILS % (AUTO) 87.5 %; PLT - PLATELET COUNT 319 10^3/uL (130-450); RED BLOOD COUNT 4.36 10^6/uL (4.20-5.40); RED CELL DISTRIBUTION WIDTH 13.1 % (12.0-15.0); WHITE BLOOD COUNT 14.3 x10^3/uL (4.8-10.8)
[2020-12-08 06:19] LABS: CALCIUM 9.1 mg/dL (8.5-10.3); CREATININE 0.8 mg/dL (0.4-1.0); CRP - C-REACTIVE PROTEIN 4.7 mg/dL (0-1.0); POTASSIUM 4.7 mmol/L (3.5-5.0)
--- NOTE | 2020-12-08 07:22 | Discharge Plan ---
Discharge Plan Problem Reviewed?: Yes Disposition: Home, Self Care Condition: Good Prescriptions: predniSONE [Deltasone] 10 mg PO BID #20 tablet Ibuprofen [Motrin] 800 mg PO BID PRN #30 tablet PRN Reason: Pain Diet: Regular Activity Restrictions: Activity as Tolerated Health Concerns: You were admitted to the hospital because there was concern that your right wrist may have been infected. The surgeon attempted to aspirate fluid from the joint but there was minimal fluid present and we do not believe that this is infected. We suspect this is related to reactive arthritis. We recommend continuing the prednisone and following up with orthopedic surgery as well as rheumatology. Plan of Treatment: Please take prednisone 10 mg twice a day to help with the arthritis given you have found the most relief with this. If you find that the 10 mg twice daily does not work as well as the 20 mg once a day then you can go back to the once a day dosing. You may also take ibuprofen 800 mg twice a day. Please take 650 mg of Tylenol 3 times a day. You may continue to take the oxycodone as needed. You may follow-up with your orthopedic surgery clinic early next week for consideration of a steroid injection if you continue to have symptoms. It is encouraged that you follow-up with a sales support representative as soon as possible. Care Goals: The goal is to treat your underlying arthritis and to help control your pain. Assessment: The patient expressed understanding of the treatment plan. Additional Instructions or Follow Up instructions: Please follow-up with your primary care provider in 1 week. Please also see orthopedic surgery ([phone]) early next week for consideration of a steroid injection. Please also follow-up with rheumatology as soon as possible. No Smoking: If you smoke, Please STOP! Call for help. Follow-up with: Mansi Krause MD [Primary Care Provider] -
--- NOTE | 2020-12-08 07:27 | DISCHARGE SUMMARY ---
"Discharge Summary Admit Date: 12/06/20 Discharge Date: 12/08/20 Discharging Provider: Derek Baig Primary Care Provider: Mansi Krause Code Status: Attempt Resuscitation Condition at Discharge: Good Discharge Disposition: 01 Home, Self Care - DIAGNOSES Admission Diagnoses: Septic arthritis Acute kidney injury Hyperlipidemia Discharge Diagnoses with Status of Each Condition: Reactive arthritis - improved. Hyperlipidemia - stable. - HPI History of Present Illness: H&P per Dr. Love: This is a 75-year-old white female who was admitted here 3 months ago for dizziness and found to have benign positional vertigo. Head CT then showed an old stroke. She was advised to have better blood pressure and lipid control. She was taking essentially no prescription medicines, except prn Meclizine and prn Ambien but is on many vitamins and supplements. Two and half weeks ago she started to get right wrist pain, and has been to several clinics and seen many providers including the ED for the pain. She has an appointment with Rheumatology at the end of Dec. She has had elevated sed r ate and CRP. She is now on a prednisone tapering down schedule (today is day 14 and her last day of 20 mg, tomorrow 10 mg daily would begin). She also takes Percocet and meloxicam for pain. Since on Prednisone, her wrist redness and pain improved and ESR went from 43 down to 31, CRP also slightly improved and white count went from 13 to 12. Today she was seen by a provider and also had CT w/ contrast of the wrist which was read as having possible septic arthritis, fluid in the joint, cannot R/O abscess or osteomyelitis. The fluid collection is also seen spreading to her proximal and distal carpal joints. She was sent to the ED. Today in the ED, labs show worsening sed rate, rising up to 64, CRP back up to 4.2, white count increased up to 14. The ED provider called the on- call Orthopedist who advised that the patient be admitted for IV antibiotics, pain control and an orthopedic consult will be done tomorrow. - CONSULTS | PROCEDURES Consultations: Orthopedic Surgery Procedures: Joint aspiration was attempted by orthopedic surgery on December 07 - Using aseptic technique, a alcohol prep, radiocarpal joint entered between 2 and 4 extensor compartments. There was no fluid encountered in the joint, dry tap. She tolerated the procedure well. Sterile dressing applied. - HOSPITAL COURSE Hospital Course: She was admitted for suspected septic arthritis but was not started on antibiotics until she was evaluated by orthopedic surgeon. The following morn ing her ESR and CRP had decreased this by receiving the IV antibiotics. There was low suspicion for septic arthritis based off initial orthopedic surgery evaluation given she had decent range of motion and there is no obvious effusion. Nonetheless after discussion with the patient, joint aspiration was attempted but there was no fluid that was able to be aspirated. It was felt that this point to her pain is loculated to reactive arthritis rather than septic arthritis. Her pain was difficult to manage and so she remained hospitalized for more night to receive IV Dilaudid as we adjusted her p.o. medications. She is now improved and ready for discharge. I have asked her to take prednisone 10 mg twice daily but if she finds no relief with this then she can go back to 20 mg daily as she previously was taking them. I have also asked her to take ibuprofen 100 mg twice a day as needed as well as Tylenol 3 times a day and to continue the Percocet that was prescribed for her on an outpatient basis. We did ask her to use a wrist brace and to contact the orthopedic surgery clinic for evaluation early next week if she still has ongoing pain for consideration of a glucocorticoid injection. She will also be attempting to see rheumatology as soon as possible. - ALLERGIES Allergies/Adverse Reactions: Allergies Allergy/AdvReac Type Severity Reaction Status Date / Time Penicillins Allergy Unknown Verified 12/06/20 18:45 - MEDICATIONS Home Medications: Ambulatory Orders Medication Instructions Recorded Confirmed Ascorbic Acid [Vitamin C] 1 tab PO DAILY 12/21/15 12/06/20 Multivitamin [Multivitamins] 1 tab PO DAILY 12/21/15 12/06/20 Zolpidem [Ambien] 5 mg PO QPM PRN 12/21/15 12/07/20 B-Complex with Vitamin C [Super B 1 each PO DAILY 05/29/18 12/06/20 Complex-Vitamin C] Cholecalciferol (Vitamin D3) 1 cap PO DAILY 05/29/18 12/06/20 [Vitamin D3] Digestive 8/L.acidoph/Pectin 1 each PO BID 05/29/18 12/06/20 [Digestive Enzymes Tablet] L.acid/L.casei/B.bif/B.wicho/Fos 1 cap PO BID 05/29/18 12/06/20 [Probiotic Blend Capsule] Malic Acid 1 each PO DAILY 05/29/18 12/06/20 [place]-3/Dha/Epa/Fish Oil [Fish Oil 1 cap PO DAILY 05/29/18 12/06/20 500 mg Softgel] Turmeric Root Extract [Turmeric] 500 mg PO DAILY 05/29/18 12/06/20 Oxycodone HCl/Acetaminophen 1 each PO Q4H PRN #10 tablet 11/30/20 12/06/20 [Percocet 10-325 mg Tablet] Aspirin [Aspirin EC] 81 mg PO DAILY 12/07/20 12/07/20 Atorvastatin [Lipitor] 10 mg PO DAILY 12/07/20 12/07/20 predniSONE [Deltasone] 10 - 20 mg PO DAILY 12/07/20 12/07/20 Ibuprofen [Motrin] 800 mg PO BID PRN #30 tablet 12/08/20 predniSONE [Deltasone] 10 mg PO BID #20 tablet 12/08/20 - PHYSICAL EXAM AT DISCHARGE General Appearance: positive: No acute distress, Alert Eyes Bilateral: positive: Normal inspection, Conjunctivae nml ENT: positive: ENT inspection nml Neck: positive: Nml inspection Respiratory: positive: No respiratory distress. negative: Wheezes, Rales Cardiovascular: positive: Regular rate & rhythm, No murmur. negative: T achycardia Abdomen: positive: Non-tender, No distention. negative: Tenderness Skin: positive: Warm, Dry Extremities: positive: No pedal edema, Other (The right wrist is without erythema or warmth. There is mild edema over the dorsum of the wrist and right hand. Sensation is intact throughout. She is tender over the medial and lateral aspect of the wrist. No obvious effusion. Dorseiflexion and palmar flexion is possible with mild pain.) Physical Exam Other/Comments: Vital Signs - 24 hr 12/07/20 12/07/20 12/08/20 16:00 23:36 06:01 Temperature 37 C 36.7 C 36.5 C Heart Rate [ 69 63 51 L Brachial] Respiratory 18 18 16 Rate Blood Pressure 129/61 151/54 H 151/84 H [Left Brachial artery] O2 Saturation 96 97 96 12/08/20 08:00 Temperature 36.7 C Heart Rate [ 63 Brachial] Respiratory 18 Rate Blood Pressure 146/61 H [Left Brachial artery] O2 Saturation 95 Oxygen O2 Source Room air - LABS Result Diagrams: 12/08/20 05:34 12/08/20 05:34 - FOLLOW UP Follow Up: She was asked to follow-up with her primary care provider in 1 week. She was also asked to see orthopedic surgery next week for consideration of a glucocorticoid injection. She will also be seeing rheumatology as soon as possible. - TIME SPENT Time Spent in Discharge (Minutes): 32"
[2020-12-08] MEDS: predniSONE 10 MG TABLET PO SCH (08:17)
[2020-12-08] MEDS: IBUPROFEN 800 MG TABLET PO PRN (08:18)
[2020-12-08] MEDS: MULTIVITAMIN TABLET PO SCH (08:18)
[2020-12-08] MEDS: SACCHAROMYCES BOULARDII 250 MG CAPSULE PO SCH (08:18)
[2020-12-08] MEDS: ASCORBIC ACID 500 MG TABLET PO SCH (08:19)
[2020-12-08] MEDS: CHOLECALCIFEROL 25 MCG TABLET PO SCH (08:19)
[2020-12-08] MEDS: OMEGA-3 ACID ETHYL ESTERS 1 GM CAPSULE PO SCH (08:19)
[2020-12-08 08:34] VITALS: BP 146/61
[2020-12-08] MEDS ORDERED: ASPIRIN EC 81 MG TABLET PO SCH (09:00)
[2020-12-08] MEDS ORDERED: ATORVASTATIN 10 MG TABLET PO SCH (09:00)
[2020-12-08] MEDS ORDERED: DOCUSATE SODIUM 250 MG CAPSULE PO SCH (09:00)
== END 2020-12-08 14:46 | disposition home or self-care (01) | DRG 546 ==
LOC: ED 18:34 → MS3 22:16
PROVIDERS: ADMIT Internal Medicine; ATTEND Internal Medicine
DX: M25.531 Pain in right wrist (principal); M25.431 Effusion, right wrist; M02.331 Reiter's disease, right wrist; Z20.822 Contact with and (suspected) exposure to COVID-19; N17.9 Acute kidney failure, unspecified; E78.5 Hyperlipidemia, unspecified; I10 Essential (primary) hypertension; F11.10 Opioid abuse, uncomplicated; Z87.440 Personal history of urinary (tract) infections
CPT/HCPCS: 36415; 80048; 80053; 83605; 85025; 85651; 86140; 87040; 87631; 99284; 99285; A9270; J1170; J7512; 0202U

== ENCOUNTER 2020-12-27 09:32 | Outpatient (CLI) | payer MEDICARE, MEDICAID ==
[2020-12-27 14:49] LABS: BASOPHILS % (AUTO) 0.3 %; EOSINOPHILS % (AUTO) 0.1 %; HCT - HEMATOCRIT 33.9 % (37.0-47.0); HGB - HEMOGLOBIN 10.4 g/dL (12.0-16.0); LYMPHOCYTES # (AUTO) 1.5 10^3/uL (1.5-3.5); LYMPHOCYTES % (AUTO) 18.4 %; MEAN CORPUSCULAR HEMOGLOBIN 29.5 pg (27.0-31.0); MEAN CORPUSCULAR HGB CONC 30.7 g/dL (32.0-36.0); MEAN PLATELET VOLUME 10.3 fL (7.9-10.8); MONOCYTES # (AUTO) 0.5 10^3/uL (0.0-1.0); MONOCYTES % (AUTO) 6.1 %; NEUTROPHILS # (AUTO) 5.9 10^3/uL (1.5-6.6); NEUTROPHILS % (AUTO) 74.3 %; PLT - PLATELET COUNT 380 10^3/uL (130-450); RED BLOOD COUNT 3.53 10^6/uL (4.20-5.40); RED CELL DISTRIBUTION WIDTH 15.7 % (12.0-15.0); WHITE BLOOD COUNT 7.9 x10^3/uL (4.8-10.8)
[2020-12-27 15:34] LABS: ALBUMIN 3.8 g/dL (3.2-5.5); ALBUMIN/GLOBULIN RATIO 1.4 (1.0-2.2); ALKALINE PHOSPHATASE 56 IU/L (42-121); ALT ALANINE AMINOTRANSFERASE 27 IU/L (10-60); AST ASPARTATE AMINOTRANSFERASE 23 IU/L (10-42); BILIRUBIN,TOTAL 0.8 mg/dL (0.2-1.0); BUN - BLOOD UREA NITROGEN 31 mg/dL (6-20); CALCIUM 9.5 mg/dL (8.5-10.3); CARBON DIOXIDE - CO2 26 mmol/L (21-32); CHLORIDE 106 mmol/L (101-111); CHOL/HDL RATIO 2.7 (<4.4); CHOLESTEROL 214 mg/dL; CK- CREATINE KINASE 70 IU/L (22-269); CREATININE 0.9 mg/dL (0.4-1.0); GFR - MDRD 61 (>89); GLUCOSE 92 mg/dL (70-100); HDL CHOLESTEROL 78 mg/dL; LDL CHOLESTEROL,CALCULATED 115 mg/dL; LDL/HDL RATIO 1.5 (<4.4); SODIUM 141 mmol/L (135-145); TOTAL PROTEIN 6.6 g/dL (6.7-8.2); TRIGLYCERIDES 103 mg/dL; URIC ACID 4.6 mg/dL (2.6-7.2); VLDL CHOLESTEROL 21 mg/dL
[2020-12-27 15:48] LABS: RHEUMATOID FACTOR NEGATIVE (Negative)
[2020-12-27 15:50] LABS: CRP - C-REACTIVE PROTEIN < 1.0 mg/dL (0-1.0)
== END 2020-12-27 09:33 | disposition home or self-care (01) ==
LOC: LAB.S 09:32
PROVIDERS: ATTEND Internal Medicine
DX: E78.5 Hyperlipidemia, unspecified (principal); Z13.6 Encounter for screening for cardiovascular disorders; Z79.899 Other long term (current) drug therapy; R03.0 Elevated blood-pressure reading, without diagnosis of hypertension
CPT/HCPCS: 36415; 80053; 80061; 82550; 83721; 84443; 84550; 85025; 85651; 86140; 86200; 86430

== ENCOUNTER 2021-01-26 07:22 | Outpatient (CLI) | payer MEDICARE, MEDICAID ==
[2021-01-26 14:35] LABS: CORTISOL 16.2 ug/dL
[2021-01-26 14:39] LABS: THYROID STIMULATING HORMONE 3.18 uIU/mL (0.34-5.60)
== END 2021-01-26 07:23 | disposition home or self-care (01) ==
LOC: LAB.S 07:22
PROVIDERS: ATTEND Internal Medicine Rheumatology
DX: R42 Dizziness and giddiness (principal)
CPT/HCPCS: 36415; 82533; 84443

== ENCOUNTER 2021-01-30 12:03 | Outpatient (CLI) | payer MEDICARE, MEDICAID ==
[2021-01-30 19:37] LABS: BILIRUBIN,URINE NEGATIVE (NEGATIVE); GLUCOSE, URINE (UA) NEGATIVE (NEGATIVE); KETONES,URINE (UA) NEGATIVE (NEGATIVE); LEUKOCYTE ESTERASE, URINE NEGATIVE (NEGATIVE); NITRITE,URINE NEGATIVE (NEGATIVE); OCCULT BLOOD,URINE NEGATIVE (NEGATIVE); PROTEIN,URINE NEGATIVE (NEGATIVE); UROBILINOGEN,URINE 0.2 (NORMAL) E.U./dL (NORMAL)
[2021-01-30 19:38] LABS: CLARITY,URINE CLEAR (CLEAR)
== END 2021-01-30 12:04 | disposition home or self-care (01) ==
LOC: LAB.S 12:03
PROVIDERS: ATTEND Internal Medicine
DX: M02.30 Reiter's disease, unspecified site (principal)
CPT/HCPCS: 81001; 81003; 87086

== ENCOUNTER 2021-03-04 05:19 | Outpatient (CLI) | payer MEDICARE, MEDICAID | END 2021-03-04 05:20 | disposition critical access hospital (66) | LOC: EMS 05:19 | DX: I10 Essential (primary) hypertension (principal) | CPT/HCPCS: A0425; A0429 ==

== ENCOUNTER 2021-03-04 05:51 | Emergency (ER) | payer MEDICARE, MEDICAID ==
--- NOTE | 2021-03-04 06:08 | ED Physician Documentation ---
PD HPI CHEST PAIN - Stated complaint Stated Complaint: HIGH BP/ ELBOW PX - Chief complaint Chief Complaint: Cardiac - History obtained from History obtained from: Patient, EMS - History of Present Illness Timing - onset: How many days ago (she takes her BP every few days or so and it has been a bit higher the past few weeks. Some readings still good though. Today was feeling a pressure feeling frontal head and took BP, that was quite elevated. No chest pain. Has ongoing elbow pain and is being treated for it.) Timing - duration: Days Timing - details: Gradual onset Quality: No: Pressure, Tightness Worsened by: No: Exertion Associated symptoms: No: Shortness of air, Nausea, Feeling faint / dizzy, General Weakness, Palpitations Similar symptoms before: Diagnosis (history of HTN but not currently on meds for it.) Review of Systems Constitutional: reports: Myalgias (currently on steroids for immune condition, is taperd to 10 mg daily now.). denies: Fever, Chills Nose: denies: Rhinorrhea / runny nose, Congestion Throat: denies: Sore throat Respiratory: denies: Cough GI: denies: Abdominal Pain, Nausea, Vomiting, Diarrhea, Bloody / black stool Musculoskeletal: reports: Extremity swelling (mild edema in legs and some in hands for past few weeks.) Neurologic: denies: Generalized weakness, Focal weakness, Numbness PD PAST MEDICAL HISTORY - Past Medical History Cardiovascular: Hypertension, High cholesterol Respiratory: None Neuro: Other Endocrine/Autoimmune: None GI: GERD, Chronic constipation, Other : None HEENT: Other Psych: None Musculoskeletal: Other Derm: None - Past Surgical History Past Surgical History: Yes General: Appendectomy, Colonoscopy HEENT: Other - Present Medications Home Medications: Ambulatory Orders Medication Instructions Recorded Confirmed Ascorbic Acid [Vitamin C] 1 tab PO DAILY 12/21/15 12/06/20 Multivitamin [Multivitamins] 1 tab PO DAILY 12/21/15 12/06/20 Zolpidem [Ambien] 5 mg PO QPM PRN 12/21/15 12/07/20 B-Complex with Vitamin C [Super B 1 each PO DAILY 05/29/18 12/06/20 Complex-Vitamin C] Cholecalciferol (Vitamin D3) 1 cap PO DAILY 05/29/18 12/06/20 [Vitamin D3] Digestive 8/L.acidoph/Pectin 1 each PO BID 05/29/18 12/06/20 [Digestive Enzymes Tablet] L.acid/L.casei/B.bif/B.wicho/Fos 1 cap PO BID 05/29/18 12/06/20 [Probiotic Blend Capsule] Malic Acid 1 each PO DAILY 05/29/18 12/06/20 [place]-3/Dha/Epa/Fish Oil [Fish Oil 1 cap PO DAILY 05/29/18 12/06/20 500 mg Softgel] Turmeric Root Extract [Turmeric] 500 mg PO DAILY 05/29/18 12/06/20 Oxycodone HCl/Acetaminophen 1 each PO Q4H PRN #10 tablet 11/30/20 12/06/20 [Percocet 10-325 mg Tablet] Aspirin [Aspirin EC] 81 mg PO DAILY 12/07/20 12/07/20 Atorvastatin [Lipitor] 10 mg PO DAILY 12/07/20 12/07/20 predniSONE [Deltasone] 10 - 20 mg PO DAILY 12/07/20 12/07/20 Ibuprofen [Motrin] 800 mg PO BID PRN #30 tablet 12/08/20 predniSONE [Deltasone] 10 mg PO BID #20 tablet 12/08/20 hydroCHLOROthiazide [Hydrodiuril] 25 mg PO DAILY 30 Days #30 tablet 03/04/21 - Allergies Allergies/Adverse Reactions: Allergies Allergy/AdvReac Type Severity Reaction Status Date / Time Penicillins Allergy Unknown Verified 03/06/21 20:13 - Living Situation Living Situation: reports: Alone Living Arrangement: reports: At home - Social History Does the pt smoke?: No Smoking Status: Former smoker Does the pt drink ETOH?: No Does the pt have substance abuse?: No - Immunizations Immunizations are current?: Yes - POLST Patient has POLST: No POLST Status: Full Code PD ED PE NORMAL - Vitals Vital signs reviewed: Yes - General General: Alert and oriented X 3, Well developed/nourished - HEENT HEENT: Pharynx benign - Neck Neck: Supple, no meningeal sign, No adenopathy - Cardiac Cardiac: RRR, No murmur - Respiratory Respiratory: No respiratory distress, Clear bilaterally - Abdomen Abdomen: Normal bowel sounds, Soft, Non tender - Extremities Extremities: No calf tenderness / cord, Other (minimal edema both lower legs and ankles. ) Results - Vitals Vitals: Oxygen O2 Source Room air - EKG (time done) 06:40 Rhythm: NSR [place]: Normal Intervals: Normal DC, RBBB QRS: Normal Ischemia: Normal ST segments, ST elevation c/w repol. No: ST elevation c/w ischemia Compare to prior EKG: Unchanged from prior EKG (September 2020) - Labs Labs: Laboratory Tests 03/04/21 03/04/21 03/04/21 07:07 07:07 07:07 WBC 8.0 RBC 4.88 Hgb 14.5 Hct 45.1 MCV 92.4 MCH 29.7 MCHC 32.2 RDW 16.2 H Plt Count 242 MPV 10.6 Neut # (Auto) 5.4 Lymph # (Auto) 1.8 [place] # (Auto) 0.7 Eos # (Auto) 0.0 Baso # (Auto) 0.1 Absolute Nucleated RBC 0.00 Nucleated RBC % 0.0 Sodium 144 Potassium 3.6 Chloride 103 Carbon Dioxide 31 Anion Gap 10.0 BUN 18 Creatinine 0.9 Estimated GFR (MDRD) 61 L Glucose 85 Calcium 9.9 Total Bilirubin 0.7 AST 24 ALT 25 Alkaline Phosphatase 68 Troponin I High Sens 5.7 B-Natriuretic Peptide Total Protein 7.0 Albumin 4.3 Globulin 2.7 Albumin/Globulin Ratio 1.6 Lipase 31 03/04/21 07:07 WBC RBC Hgb Hct MCV MCH MCHC RDW Plt Count MPV Neut # (Auto) Lymph # (Auto) [place] # (Auto) Eos # (Auto) Baso # (Auto) Absolute Nucleated RBC Nucleated RBC % Sodium Potassium Chloride Carbon Dioxide Anion Gap BUN Creatinine Estimated GFR (MDRD) Glucose Calcium Total Bilirubin AST ALT Alkaline Phosphatase Troponin I High Sens B-Natriuretic Peptide 34 Total Protein Albumin Globulin Albumin/Globulin Ratio Lipase PD MEDICAL DECISION MAKING - ED course Complexity details: considered differential (she has been having some edema in legs, and noted BP elevated some recently, more today. So initial BP med could be HCTZ and is common initial BP med anyway. ), d/w patient Departure - Departure Disposition: 01 Home, Self Care Clinical Impression: Elevated blood pressure reading, Body fluid retention Condition: Stable Record reviewed to determine appropriate education?: Yes Instructions: ED Hypertension New Begin Tx Follow-Up: Mansi Krause MD [Primary Care Provider] - Symone Payton MD [Physician No Access] - Prescriptions: hydroCHLOROthiazide [Hydrodiuril] 25 mg PO DAILY 30 Days #30 tablet Comments: Your blood pressure was elevated at home and here but has improved to reasonably mildly elevated on its own. We typically do not treat these to aggressively as we do not wanted to go too low overall. However given the degree to which it was elevated coupled with your fluid retention presumed related to the steroids, it is reasonable to start a low-dose of a blood pressure medicine with the diuretic. Your EKG does not show any acute changes compared to your prior ones. Your blood count, electrolytes, blood sugar and kidney function are good. No signs of heart attack or heart failure based on your blood tests here. I wrote a prescription for hydrochlorothiazide 25 mg daily. Check your blood pressure once or twice daily for the next few days and then once daily over the next week or 2. Write down the numbers so you can present Dr. Krause with the trend of the numbers. Continue usual medicines otherwise and follow-up with Dr. Krause in the next week/week and a half. Call for an appointment. I transmitted your prescription to [facility] in [place]. Discharge Date/Time: 03/04/21 08:28
[2021-03-04] MEDS ORDERED: ACETAMINOPHEN 325 MG TABLET PO STA (06:30)
[2021-03-04 07:38] LABS: ALBUMIN 4.3 g/dL (3.2-5.5); ALBUMIN/GLOBULIN RATIO 1.6 (1.0-2.2); BILIRUBIN,TOTAL 0.7 mg/dL (0.2-1.0); CALCIUM 9.9 mg/dL (8.5-10.3); CREATININE 0.9 mg/dL (0.4-1.0); POTASSIUM 3.6 mmol/L (3.5-5.0)
[2021-03-04 07:47] VITALS: BP 161/77
[2021-03-04 07:50] LABS: BASOPHILS # (AUTO) 0.1 10^3/uL (0.0-0.1); BASOPHILS % (AUTO) 0.8 %; EOSINOPHILS % (AUTO) 0.5 %; HCT - HEMATOCRIT 45.1 % (37.0-47.0); HGB - HEMOGLOBIN 14.5 g/dL (12.0-16.0); LYMPHOCYTES # (AUTO) 1.8 10^3/uL (1.5-3.5); LYMPHOCYTES % (AUTO) 22.4 %; MEAN CORPUSCULAR HEMOGLOBIN 29.7 pg (27.0-31.0); MEAN CORPUSCULAR HGB CONC 32.2 g/dL (32.0-36.0); MEAN CORPUSCULAR VOLUME 92.4 fL (81.0-99.0); MEAN PLATELET VOLUME 10.6 fL (7.9-10.8); MONOCYTES # (AUTO) 0.7 10^3/uL (0.0-1.0); MONOCYTES % (AUTO) 8.3 %; NEUTROPHILS # (AUTO) 5.4 10^3/uL (1.5-6.6); NEUTROPHILS % (AUTO) 67.4 %; PLT - PLATELET COUNT 242 10^3/uL (130-450); RED BLOOD COUNT 4.88 10^6/uL (4.20-5.40); RED CELL DISTRIBUTION WIDTH 16.2 % (12.0-15.0)
[2021-03-04] MEDS ORDERED: hydroCHLOROthiazide 25 MG TABLET PO STA (08:01)
--- NOTE | 2021-03-04 08:39 | XRAY Report ---
PROCEDURE: Chest 1 View X-Ray INDICATIONS: Chest Pain TECHNIQUE: One view of the chest was acquired. COMPARISON: Chest x-ray 09/12/2020 FINDINGS: Surgical changes and devices: None. Lungs and pleura: No pleural effusions or pneumothorax. Lungs are clear. Mediastinum: Mediastinal contours appear normal. Heart size is normal. Bones and chest wall: No suspicious bony lesions. Overlying soft tissues appear unremarkable. IMPRESSION: No acute pulmonary process. The above findings are concordant with preliminary report. Reviewed by: Eloisa Grant MD on 03/04/2021 8:38 AM PDT Approved by: Eloisa Grant MD on 03/04/2021 8:38 AM PDT Station ID: [id number]
== END 2021-03-04 08:28 | disposition home or self-care (01) ==
LOC: EDUNIT# → SUPCPDRO 05:51 → ED 05:51
DX: I10 Essential (primary) hypertension (principal); R60.0 Localized edema; M25.529 Pain in unspecified elbow; I45.10 Unspecified right bundle-branch block; Z87.891 Personal history of nicotine dependence; Z79.82 Long term (current) use of aspirin
CPT/HCPCS: 36415; 71045; 80053; 83690; 83880; 84484; 85025; 93005; 99284; A9270

== ENCOUNTER 2021-03-06 19:26 | Outpatient (CLI) | payer MEDICARE, MEDICAID | END 2021-03-06 19:27 | disposition critical access hospital (66) | LOC: EMS 19:26 | DX: R42 Dizziness and giddiness (principal); I10 Essential (primary) hypertension; H53.8 Other visual disturbances | CPT/HCPCS: A0425; A0429 ==

== ENCOUNTER 2021-03-06 20:01 | Emergency (ER) | payer MEDICARE, MEDICAID ==
[2021-03-06] MEDS ORDERED: METOPROLOL TARTRATE 50 MG TABLET PO STA (20:31)
[2021-03-06] MEDS ORDERED: SODIUM CHLORIDE 0.9% 1,000 ML IV STA (20:31)
--- NOTE | 2021-03-06 20:37 | ED Physician Documentation ---
History of Present Illness - Stated complaint Stated Complaint: DIZZY/BLURRED VISION - Chief complaint Chief Complaint: Neuro - History obtained from History obtained from: Patient - Additonal information Additional information: Patient comes emergency department chief complaint of feeling "high". She states that the feeling began today and that she feels somewhat "dizzy" and has a vague sense of blurred vision. No focal deficits neurologically otherwise. Patient states that she has not been feeling "right" since being put on sulfasalazine by her metal mold dresser in the last couple of months. 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 Her metal mold dresser doubled the dose of the sulfasalazine. Patient states that 3 days ago, she came to the emergency department after feeling a throbbing sensation in her temples and her elbows. She took her blood pressure at home and found her systolic to be 221. Patient states that she had been told by her primary care physician that she most likely has hypertension and that her primary care physician was going to start her on an antihypertensive, but held off because of the rheumatology issues and the new medication addition to sulfasalazine. Patient states that she was started on hydrochlorothiazide 25 mg on her last visit here. She states the throbbing sensation did go away and has not come back since; however, she has continued to feel as though the sulfasalazine is affecting her negatively. She states she has had positional vertigo before and that it was very strong and the "dizzy" feeling was for more intense than what she is going to be out. She states again that she just feels "drugged". No other complaints at this time. No other medication adjustments. Patient is not on any sedating medication. Review of Systems Ten Systems: 10 systems reviewed and negative Constitutional: reports: Reviewed and negative Eyes: reports: Reviewed and negative Ears: reports: Reviewed and negative Nose: reports: Reviewed and negative Throat: reports: Reviewed and negative Cardiac: reports: Reviewed and negative Respiratory: reports: Reviewed and negative GI: reports: Reviewed and negative. denies: Nausea, Vomiting, Diarrhea : reports: Reviewed and negative Skin: reports: Reviewed and negative Musculoskeletal: reports: Reviewed and negative Neurologic: reports: Reviewed and negative Psychiatric: reports: Reviewed and negative Endocrine: reports: Reviewed and negative Immunocompromised: reports: Reviewed and negative PD PAST MEDICAL HISTORY - Past Medical History Past Medical History: Yes Cardiovascular: Hypertension, High cholesterol Respiratory: None Neuro: Other Endocrine/Autoimmune: None GI: GERD, Chronic constipation, Other : None HEENT: Other Psych: None Musculoskeletal: Other Derm: None - Past Surgical History Past Surgical History: Yes General: Appendectomy, Colonoscopy HEENT: Other - Present Medications Home Medications: Ambulatory Orders Medication Instructions Recorded Confirmed Ascorbic Acid [Vitamin C] 1 tab PO DAILY 12/21/15 12/06/20 Multivitamin [Multivitamins] 1 tab PO DAILY 12/21/15 12/06/20 Zolpidem [Ambien] 5 mg PO QPM PRN 12/21/15 12/07/20 B-Complex with Vitamin C [Super B 1 each PO DAILY 05/29/18 12/06/20 Complex-Vitamin C] Cholecalciferol (Vitamin D3) 1 cap PO DAILY 05/29/18 12/06/20 [Vitamin D3] Digestive 8/L.acidoph/Pectin 1 each PO BID 05/29/18 12/06/20 [Digestive Enzymes Tablet] L.acid/L.casei/B.bif/B.wicho/Fos 1 cap PO BID 05/29/18 12/06/20 [Probiotic Blend Capsule] Malic Acid 1 each PO DAILY 05/29/18 12/06/20 [place]-3/Dha/Epa/Fish Oil [Fish Oil 1 cap PO DAILY 05/29/18 12/06/20 500 mg Softgel] Turmeric Root Extract [Turmeric] 500 mg PO DAILY 05/29/18 12/06/20 Oxycodone HCl/Acetaminophen 1 each PO Q4H PRN #10 tablet 11/30/20 12/06/20 [Percocet 10-325 mg Tablet] Aspirin [Aspirin EC] 81 mg PO DAILY 12/07/20 12/07/20 Atorvastatin [Lipitor] 10 mg PO DAILY 12/07/20 12/07/20 predniSONE [Deltasone] 10 - 20 mg PO DAILY 12/07/20 12/07/20 Ibuprofen [Motrin] 800 mg PO BID PRN #30 tablet 12/08/20 predniSONE [Deltasone] 10 mg PO BID #20 tablet 12/08/20 hydroCHLOROthiazide [Hydrodiuril] 25 mg PO DAILY 30 Days #30 tablet 03/04/21 - Allergies Allergies/Adverse Reactions: Allergies Allergy/AdvReac Type Severity Reaction Status Date / Time Penicillins Allergy Unknown Verified 03/06/21 20:13 - Social History Does the pt smoke?: No Smoking Status: Never smoker Does the pt drink ETOH?: No Does the pt have substance abuse?: No - Immunizations Immunizations are current?: Yes - POLST Patient has POLST: No POLST Status: Full Code PD ED PE NORMAL - Vitals Vital signs reviewed: Yes - General General: Alert and oriented X 3, No acute distress, Well developed/nourished - HEENT HEENT: Atraumatic, PERRL, EOMI, Moist mucous membranes - Neck Neck: Supple, no meningeal sign - Cardiac Cardiac: RRR, No murmur, Strong equal pulses - Respiratory Respiratory: No respiratory distress, Clear bilaterally - Abdomen Abdomen: Soft, Non tender, Non distended - Derm Derm: Normal color, Warm and dry, No rash - Extremities Extremities: No deformity, No edema, No calf tenderness / cord - Neuro Neuro: Alert and oriented X 3 - Psych Psych: Normal mood, Normal affect Results - Vitals Vitals: Vital Signs - 24 hr 03/06/21 03/06/21 03/06/21 20:05 22:09 23:50 Temperature 36.2 C L 36.5 C 35.7 C L Heart Rate 62 58 L 53 L Respiratory 15 16 18 Rate Blood Pressure 206/72 H 166/72 H 173/79 H O2 Saturation 97 96 96 Oxygen O2 Source Room air - Labs Labs: Laboratory Tests 03/06/21 03/06/21 20:45 20:45 WBC 7.1 RBC 4.70 Hgb 13.1 Hct 42.7 MCV 90.9 MCH 27.9 MCHC 30.7 L RDW 15.9 H Plt Count 219 MPV 10.3 Neut # (Auto) 5.3 Lymph # (Auto) 1.2 L [place] # (Auto) 0.5 Eos # (Auto) 0.0 Baso # (Auto) 0.1 Absolute Nucleated RBC 0.00 Nucleated RBC % 0.0 Sodium 139 Potassium 3.9 Chloride 101 Carbon Dioxide 27 Anion Gap 11.0 BUN 22 H Creatinine 0.9 Estimated GFR (MDRD) 61 L Glucose 131 H Calcium 9.7 Total Bilirubin 0.9 AST 25 ALT 24 Alkaline Phosphatase 66 Total Protein 6.7 Albumin 4.4 Globulin 2.3 Albumin/Globulin Ratio 1.9 Lipase 28 PD MEDICAL DECISION MAKING - ED course Complexity details: reviewed results, re-evaluated patient, considered differential, d/w patient ED course: The patient's blood pressure here in the emergency department was 206/72 1 I examined her. The patient was not in hypertensive emergency, but given that she has been struggling to keep her blood pressure down and obviously had uncontrolled hypertension, I did feel that she would benefit from a dose of medication in the emergency department while she was awaiting her other aspects of treatment and work-up. She was given 1 L bolus point and normal saline. Laboratory studies were obtained. She was also given an oral dose of metoprolol. I discussed with her the importance of calling both her primary doctor's office and her metal mold dresser first thing tomorrow morning, as tonight is Sunday. She was told today by both her primary doctor's office and rheumatology to come to the emergency department; however I have explained to her that ultimately, her primary and her metal mold dresser are going to need to review her medications and figure out a good long-term plan for her comprehensive treatment of all of her medical issues. Work-up was unremarkable. The patient's blood pressure did come down to the 150s over 70s in the emergency department though it did pop up a bit to the 170s over 70s. At this point in time, it is very important that the patient talks to her primary doctor about getting on a plan to control her blood pressure. She also agrees to call her metal mold dresser first thing this morning to determine whether she should continue on sulfasalazine or not. We have discussed the usual indications for return. Departure - Departure Disposition: 01 Home, Self Care Clinical Impression: Poorly-controlled hypertension Adverse effects of medication Qualifiers: Encounter type: initial encounter Qualified Code(s): T50.905A - Adverse effect of unspecified drugs, medicaments and biological substances, initial encounter Condition: Stable Instructions: ED Drug React Adverse Other, ED Hypertension Conf Out Of Control Comments: Your labs, as well as your head CT, look good. There is no emergent cause found for your symptoms today. Your blood pressure is running high, but it sounds like you have already been suspected to have high blood pressure and have needed to be on medication for this for some time. While we have started you on medication from the emergency department, it is very important that you follow up with your primary doctor to determine whether the dose needs to be adjusted upward, or whether a different medication is preferable. It is also extremely important that you talk to your metal mold dresser about the sulfasalazine and whether you can should continue to be on this, considering that your symptoms of feeling "off" have been worsening since having the dose increased. Please call both of these offices first thing in the morning and let them know that you have been seen in the emergency department twice in the last week and need to follow up urgently. You may continue to take the hydrochlorothiazide for now. As for the sulfasalazine, it is up to you whether you want to continue taking this medication or not. You may make your own decision or discuss with the metal mold dresser the pros and cons first. If you develop chest pain or shortness of breath, please return to the emergency department Discharge Date/Time: 03/06/21 23:55
[2021-03-06 20:53] LABS: BASOPHILS # (AUTO) 0.1 10^3/uL (0.0-0.1); BASOPHILS % (AUTO) 0.7 %; EOSINOPHILS % (AUTO) 0.1 %; HCT - HEMATOCRIT 42.7 % (37.0-47.0); HGB - HEMOGLOBIN 13.1 g/dL (12.0-16.0); LYMPHOCYTES # (AUTO) 1.2 10^3/uL (1.5-3.5); LYMPHOCYTES % (AUTO) 17.5 %; MEAN CORPUSCULAR HEMOGLOBIN 27.9 pg (27.0-31.0); MEAN CORPUSCULAR HGB CONC 30.7 g/dL (32.0-36.0); MEAN CORPUSCULAR VOLUME 90.9 fL (81.0-99.0); MEAN PLATELET VOLUME 10.3 fL (7.9-10.8); MONOCYTES # (AUTO) 0.5 10^3/uL (0.0-1.0); MONOCYTES % (AUTO) 6.6 %; NEUTROPHILS # (AUTO) 5.3 10^3/uL (1.5-6.6); NEUTROPHILS % (AUTO) 74.5 %; PLT - PLATELET COUNT 219 10^3/uL (130-450); RED CELL DISTRIBUTION WIDTH 15.9 % (12.0-15.0); WHITE BLOOD COUNT 7.1 x10^3/uL (4.8-10.8)
[2021-03-06 21:10] LABS: ALBUMIN 4.4 g/dL (3.2-5.5); ALBUMIN/GLOBULIN RATIO 1.9 (1.0-2.2); BILIRUBIN,TOTAL 0.9 mg/dL (0.2-1.0); CALCIUM 9.7 mg/dL (8.5-10.3); CREATININE 0.9 mg/dL (0.4-1.0); POTASSIUM 3.9 mmol/L (3.5-5.0); TOTAL PROTEIN 6.7 g/dL (6.7-8.2)
[2021-03-06] MEDS ORDERED: KETOROLAC 30 MG/ML VIAL IVP STA (22:23)
--- NOTE | 2021-03-06 22:55 | CT Report ---
PROCEDURE: HEAD WO INDICATIONS: dizzy TECHNIQUE: Noncontrast 4.5 mm thick angled axial sections acquired from the foramen magnum to the vertex. For r adiation dose reduction, the following was used: automated exposure control, adjustment of mA and/or kV according to patient size. COMPARISON: CT angiogram head 09/12/2020 FINDINGS: Image quality: Excellent. CSF spaces: Basal cisterns are patent. No extra-axial fluid collections. Ventricles are normal in size and shape. Brain: No midline shift. No intracranial masses or hemorrhage. Subcortical and periventricular hypo densities are consistent with microvascular ischemic disease. Microvascular ischemic disease and age- related cerebral volume loss. Walsh-white matter interface is normal. Skull and face: Calvarium and visualized facial bones are intact, without suspicious lesions. Sinuses: Visualized sinuses and mastoids are clear. IMPRESSION: 1. No acute intracranial abnormality. 2. Microvascular ischemic disease and age-related cerebral volume loss. Reviewed by: Marcelo Doyle on 03/06/2021 10:53 PM PDT Approved by: Marcelo Doyle on 03/06/2021 10:53 PM PDT Station ID: [id number]
[2021-03-06 23:54] VITALS: BP 173/79
== END 2021-03-06 23:55 | disposition home or self-care (01) ==
LOC: EDUNIT# → ED 20:01
DX: I10 Essential (primary) hypertension (principal); R53.81 Other malaise; T37.0X5A Adverse effect of sulfonamides, initial encounter
CPT/HCPCS: 36415; 70450; 80053; 83690; 85025; 96374; 99284; A9270

== ENCOUNTER 2021-04-06 12:09 | Emergency (ER) | payer MEDICARE, MEDICAID ==
[2021-04-06 12:17] VITALS: BP 179/79
[2021-04-06 12:50] LABS: BASOPHILS # (AUTO) 0.1 10^3/uL (0.0-0.1); BASOPHILS % (AUTO) 0.6 %; EOSINOPHILS % (AUTO) 0.2 %; HCT - HEMATOCRIT 43.8 % (37.0-47.0); LYMPHOCYTES # (AUTO) 1.3 10^3/uL (1.5-3.5); LYMPHOCYTES % (AUTO) 13.4 %; MEAN CORPUSCULAR VOLUME 87.6 fL (81.0-99.0); MEAN PLATELET VOLUME 10.1 fL (7.9-10.8); MONOCYTES # (AUTO) 0.7 10^3/uL (0.0-1.0); MONOCYTES % (AUTO) 6.9 %; NEUTROPHILS # (AUTO) 7.4 10^3/uL (1.5-6.6); NEUTROPHILS % (AUTO) 78.5 %; PLT - PLATELET COUNT 220 10^3/uL (130-450); RED CELL DISTRIBUTION WIDTH 15.4 % (12.0-15.0); WHITE BLOOD COUNT 9.5 x10^3/uL (4.8-10.8)
[2021-04-06] MEDS ORDERED: SODIUM CHLORIDE 0.9% 1,000 ML IV STA (12:53)
[2021-04-06] MEDS ORDERED: PANTOPRAZOLE 40 MG VIAL IVP STA (12:54)
--- NOTE | 2021-04-06 12:57 | ED Physician Documentation ---
History of Present Illness - Stated complaint Stated Complaint: ABD PX/DIZZINESS - Chief complaint Chief Complaint: Abd Pain - History obtained from History obtained from: Patient - History of Present Illness Timing: How many weeks ago Pain level max: 6 Pain level now: 1 - Additonal information Additional information: Patient is a 75-year-old female who comes into the emergency department today complaining of epigastric abdominal pain when she eats or drinks. Worse with taking her prednisone and iron. This been going on for the past several weeks. She had been on Prilosec twice a day but decreased this. No abdominal pain now. States she has had dark stools for the past several days as well. She is scheduled for an endoscopy and colonoscopy in May. She states that she felt lightheaded and dizzy this morning when walking. She states that she talk to her mammography tech who recommended she come here for evaluation. Patient is currently asymptomatic. Patient states that since her prednisone is decreased her hands have begun swelling again as well. Has an appointment with her mammography tech about this tomorrow. Worse with eating and drinking, nothing makes it better. Review of Systems Ten Systems: 10 systems reviewed and negative Constitutional: denies: Fever, Chills Cardiac: denies: Chest pain / pressure Respiratory: denies: Dyspnea, Cough GI: reports: Abdominal Pain (crampy), Bloody / black stool. denies: Nausea, Vomiting, Diarrhea, Hematemesis : denies: Dysuria Skin: denies: Rash Musculoskeletal: denies: Back pain Neurologic: denies: Headache PD PAST MEDICAL HISTORY - Past Medical History Cardiovascular: Hypertension, High cholesterol Respiratory: None Neuro: Other Endocrine/Autoimmune: None GI: GERD, Chronic constipation, Other : None HEENT: Other Psych: None Musculoskeletal: Other Derm: None - Past Surgical History Past Surgical History: Yes General: Appendectomy, Colonoscopy HEENT: Other - Present Medications Home Medications: Ambulatory Orders Medication Instructions Recorded Confirmed Ascorbic Acid [Vitamin C] 1 tab PO DAILY 12/21/15 12/06/20 Multivitamin [Multivitamins] 1 tab PO DAILY 12/21/15 12/06/20 Zolpidem [Ambien] 5 mg PO QPM PRN 12/21/15 12/07/20 B-Complex with Vitamin C [Super B 1 each PO DAILY 05/29/18 12/06/20 Complex-Vitamin C] Cholecalciferol (Vitamin D3) 1 cap PO DAILY 05/29/18 12/06/20 [Vitamin D3] Digestive 8/L.acidoph/Pectin 1 each PO BID 05/29/18 12/06/20 [Digestive Enzymes Tablet] L.acid/L.casei/B.bif/B.wicho/Fos 1 cap PO BID 05/29/18 12/06/20 [Probiotic Blend Capsule] Malic Acid 1 each PO DAILY 05/29/18 12/06/20 [place]-3/Dha/Epa/Fish Oil [Fish Oil 1 cap PO DAILY 05/29/18 12/06/20 500 mg Softgel] Turmeric Root Extract [Turmeric] 500 mg PO DAILY 05/29/18 12/06/20 Oxycodone HCl/Acetaminophen 1 each PO Q4H PRN #10 tablet 11/30/20 12/06/20 [Percocet 10-325 mg Tablet] Aspirin [Aspirin EC] 81 mg PO DAILY 12/07/20 12/07/20 Atorvastatin [Lipitor] 10 mg PO DAILY 12/07/20 12/07/20 predniSONE [Deltasone] 10 - 20 mg PO DAILY 12/07/20 12/07/20 Ibuprofen [Motrin] 800 mg PO BID PRN #30 tablet 12/08/20 predniSONE [Deltasone] 10 mg PO BID #20 tablet 12/08/20 hydroCHLOROthiazide [Hydrodiuril] 25 mg PO DAILY 30 Days #30 tablet 03/04/21 - Allergies Allergies/Adverse Reactions: Allergies Allergy/AdvReac Type Severity Reaction Status Date / Time Penicillins Allergy Unknown Verified 03/06/21 20:13 - Social History Does the pt smoke?: No Smoking Status: Never smoker Does the pt drink ETOH?: No Does the pt have substance abuse?: No - Immunizations Immunizations are current?: Yes - POLST Patient has POLST: No POLST Status: Full Code PD ED PE NORMAL - Vitals Vital signs reviewed: Yes - General General: Alert and oriented X 3, No acute distress, Well developed/nourished - HEENT HEENT: PERRL, Moist mucous membranes, Pharynx benign, Other (Normal conjunctiva) - Neck Neck: Supple, no meningeal sign - Cardiac Cardiac: RRR - Respiratory Respiratory: No respiratory distress, Clear bilaterally - Abdomen Abdomen: Normal bowel sounds, Soft, Non tender, Non distended - Back Back: No spinal TTP - Derm Derm: Warm and dry - Extremities Extremities: No edema - Neuro Neuro: Alert and oriented X 3 - Psych Psych: Normal mood, Normal affect Results - Vitals Vitals: Vital Signs - 24 hr 04/06/21 12:14 Temperature 36.7 C Heart Rate 80 Respiratory 18 Rate Blood Pressure 179/79 H O2 Saturation 97 Oxygen O2 Source Room air - Labs Labs: Laboratory Tests 04/06/21 04/06/21 04/06/21 12:44 12:44 12:44 WBC 9.5 RBC 5.00 Hgb 14.0 Hct 43.8 MCV 87.6 MCH 28.0 MCHC 32.0 RDW 15.4 H Plt Count 220 MPV 10.1 Neut # (Auto) 7.4 H Lymph # (Auto) 1.3 L Dewitt # (Auto) 0.7 Eos # (Auto) 0.0 Baso # (Auto) 0.1 Absolute Nucleated RBC 0.00 Nucleated RBC % 0.0 PT 12.5 INR 1.1 APTT 31.2 Sodium 139 Potassium 3.2 L Chloride 100 L Carbon Dioxide 29 Anion Gap 10.0 BUN 20 Creatinine 0.9 Estimated GFR (MDRD) 61 L Glucose 167 H Calcium 9.4 Total Bilirubin 0.6 AST 43 H ALT 74 H Alkaline Phosphatase 98 Total Protein 6.7 Albumin 3.9 Globulin 2.8 Albumin/Globulin Ratio 1.4 Lipase 31 PD MEDICAL DECISION MAKING - ED course Complexity details: reviewed results, re-evaluated patient, considered differential, d/w patient ED course: Patient is a 75-year-old female concerned about potential GI bleed. Stool not tested due to her iron ingestion. Hemoglobin normal. Vital signs are normal. We will increase her Prilosec from once a day to twice a day. We will also try increasing her steroids from 5 mg p.o. daily to 7.5 mg p.o. daily. Her dizziness seems to occur when the prednisone was decreased. She will follow up with her mammography tech tomorrow. Abdomen is soft, nontender nondistended on serial exam. No evidence of infection. No indication for CT scan. Patient counseled regarding signs and symptoms for which I believe and urgent re- evaluation would be necessary. Patient with good understanding of and agreement to plan and is comfortable going home at this time This document was made in part using voice recognition software. While efforts are made to proofread this document, sound alike and grammatical errors may occur. Departure - Departure Disposition: 01 Home, Self Care Clinical Impression: Gastritis Qualifiers: Gastritis type: unspecified gastritis Chronicity: acute Gastritis bleeding: without bleeding Qualified Code(s): K29.00 - Acute gastritis without bleeding Condition: Good Instructions: ED Gastritis Follow-Up: Mansi Krause MD [Primary Care Provider] - Within 1 week Comments: Please increase your prednisone to 7.5 mg daily. Increase your Prilosec to twice daily. Follow-up with your mammography tech tomorrow as scheduled. Return if you worsen. Your blood counts are normal today. Discharge Date/Time: 04/06/21 15:02
[2021-04-06 12:58] LABS: INR 1.1 (0.8-1.2); PT - PROTHROMBIN TIME 12.5 secs (9.9-12.6)
[2021-04-06 13:03] LABS: ALBUMIN 3.9 g/dL (3.2-5.5); ALBUMIN/GLOBULIN RATIO 1.4 (1.0-2.2); BILIRUBIN,TOTAL 0.6 mg/dL (0.2-1.0); CALCIUM 9.4 mg/dL (8.5-10.3); CREATININE 0.9 mg/dL (0.4-1.0); POTASSIUM 3.2 mmol/L (3.5-5.0); TOTAL PROTEIN 6.7 g/dL (6.7-8.2)
[2021-04-06 13:05] LABS: PARTIAL THROMBOPLASTIN TIME 31.2 secs (24.9-33.3)
[2021-04-06] MEDS ORDERED: predniSONE 5 MG TABLET PO STA (13:38)
[2021-04-06] MEDS ORDERED: ONDANSETRON 4 MG/2 ML VIAL IVP STA (13:45)
== END 2021-04-06 15:02 | disposition home or self-care (01) ==
LOC: ED 12:09
DX: K29.00 Acute gastritis without bleeding (principal); R19.5 Other fecal abnormalities; R42 Dizziness and giddiness; I10 Essential (primary) hypertension; Z79.82 Long term (current) use of aspirin
CPT/HCPCS: 36415; 80053; 83690; 85025; 85610; 85730; 96374; 99282; 99283; J7512

== ENCOUNTER 2021-05-04 11:07 | Outpatient (CLI) | payer MEDICARE, MEDICAID | END 2021-05-04 23:59 | disposition home or self-care (01) | LOC: LAB.R 11:07 | PROVIDERS: ATTEND Internal Medicine | DX: H81.10 Benign paroxysmal vertigo, unspecified ear (principal); R03.0 Elevated blood-pressure reading, without diagnosis of hypertension; I10 Essential (primary) hypertension; I95.1 Orthostatic hypotension | CPT/HCPCS: 36415; 81599 ==

== ENCOUNTER 2021-05-24 13:28 | Outpatient (CLI) | payer MEDICARE, MEDICAID ==
[2021-05-24 20:43] LABS: ESTIMATED AVERAGE GLUCOSE 143 mg/dL (70-100); HEMOGLOBIN A1c% 6.6 % (4.27-6.07)
== END 2021-05-24 23:59 | disposition home or self-care (01) ==
LOC: LAB 13:28 → LAB.R 16:36 → LAB 23:59
PROVIDERS: ATTEND Internal Medicine
DX: Z00.00 Encounter for general adult medical examination without abnormal findings (principal); M25.50 Pain in unspecified joint; H81.10 Benign paroxysmal vertigo, unspecified ear; I63.9 Cerebral infarction, unspecified; K59.09 Other constipation; G89.29 Other chronic pain; Z86.010 Personal history of colon polyps; Z86.73 Personal history of transient ischemic attack (TIA), and cerebral infarction without residual deficits; R73.9 Hyperglycemia, unspecified; E78.5 Hyperlipidemia, unspecified; I10 Essential (primary) hypertension; G47.00 Insomnia, unspecified; K92.1 Melena; S19.9XXS Unspecified injury of neck, sequela; I95.1 Orthostatic hypotension; L82.1 Other seborrheic keratosis
CPT/HCPCS: 83036; 86769

== ENCOUNTER 2021-06-03 14:03 | Day surgery (SDC) | payer MEDICARE, MEDICAID ==
[2021-06-03] MEDS ORDERED: LACTATED RINGERS 1,000 ML IV ONE (14:26)
[2021-06-03] MEDS ORDERED: PROPOFOL 200 MG/20 ML VIAL IVP ONE (14:47)
--- NOTE | 2021-06-03 14:53 | HISTORY & PHYSICAL EXAMINATION ---
Chief Complaint - Chief Complaint Chief Complaint: hystory colon polyp History of Present Illness - History Obtained From Records Reviewed: yes History obtained from: pt Exam Limitations: none - History of Present Illness HPI Comment/Other: history of colon polyp 2016. here for surveillance colonoscopy. History - Past Medical History Cardiovascular: reports: Hypertension, High cholesterol Respiratory: reports: None Neuro: reports: Other Endocrine/Autoimmune: reports: None GI: reports: GERD, Chronic constipation, Other : reports: None HEENT: reports: Other Psych: reports: None Musculoskeletal: reports: Other Derm: reports: None MRSA Hx?: No - Past Surgical History General: reports: Appendectomy, Colonoscopy HEENT: reports: Other - Family & Social History Family History Comment/Other: Father: Hyperlipidemia, Alcoholism, COPD Social History Notes: She lives alone and is independent of activities of daily living. She does not use tobacco products, consume alcohol or use recreational substances - POLST Patient has POLST: No POLST Status: Full Code Meds/Allgy - Home Medications Home Medications: Ambulatory Orders Medication Instructions Recorded Confirmed Ascorbic Acid [Vitamin C] 1 tab PO DAILY 12/21/15 06/02/21 Multivitamin [Multivitamins] 1 tab PO DAILY 12/21/15 06/02/21 Zolpidem [Ambien] 2.5 mg PO QPM PRN 12/21/15 06/02/21 B-Complex with Vitamin C [Super B 1 each PO DAILY 05/29/18 06/02/21 Complex-Vitamin C] Cholecalciferol (Vitamin D3) 1 cap PO DAILY 05/29/18 06/02/21 [Vitamin D3] Digestive 8/L.acidoph/Pectin 1 each PO BID 05/29/18 06/02/21 [Digestive Enzymes Tablet] L.acid/L.casei/B.bif/B.wicho/Fos 1 cap PO BID 05/29/18 06/02/21 [Probiotic Blend Capsule] Malic Acid 1 each PO DAILY 05/29/18 06/02/21 [place]-3/Dha/Epa/Fish Oil [Fish Oil 1 cap PO DAILY 05/29/18 06/02/21 500 mg Softgel] Turmeric Root Extract [Turmeric] 500 mg PO DAILY 05/29/18 06/02/21 Aspirin [Aspirin EC] 81 mg PO DAILY 12/07/20 06/02/21 Atorvastatin [Lipitor] 10 mg PO DAILY 12/07/20 06/02/21 Ibuprofen [Motrin] 800 mg PO BID PRN #30 tablet 12/08/20 06/02/21 hydroCHLOROthiazide [Hydrodiuril] 25 mg PO DAILY 30 Days #30 tablet 03/04/21 06/02/21 Calcium Carbonate [Calcium] 600 mg PO DAILY 06/02/21 06/02/21 Ferrous Sulfate 65 mg PO DAILY 06/02/21 06/02/21 Hydroxychloroquine [Plaquenil] 200 mg PO DAILY 06/02/21 06/02/21 Losartan [Cozaar] 50 mg PO BID 06/02/21 06/02/21 Melatonin 3 mg PO DAILY 06/02/21 06/02/21 Omeprazole Magnesium 20 mg PO BID 06/02/21 06/03/21 Ubidecarenone [Co Q-10] 10 mg PO DAILY 06/02/21 06/02/21 amLODIPine [Norvasc] 5 mg PO DAILY 06/02/21 06/02/21 predniSONE [Deltasone] 5 mg PO DAILY 06/02/21 06/02/21 - Allergies Allergies/Adverse Reactions: Allergies Allergy/AdvReac Type Severity Reaction Status Date / Time Penicillins Allergy Unknown Verified 03/06/21 20:13 Review of Systems - Other Findings Other Findings: 10 pt ros as above otherwise unremarkable Exam - Vital Signs Reviewed Vital Signs: Yes - Physical Exam General Appearance: positive: No acute distress, Alert Eyes Bilateral: positive: PERRL, EOMI ENT: positive: No signs of dehydration Neck: positive: No JVD Respiratory: positive: No respiratory distress, Breath sounds nml Cardiovascular: positive: Regular rate & rhythm Abdomen: positive: Non-tender, No distention Neurologic/Psychiatric: positive: Oriented x3 Conclusion/Plan - Problem List (1) Hx of adenomatous polyp of colon Conclusion/Plan: plan colonoscopy. parq held and consent obtained
--- NOTE | 2021-06-03 14:58 | ANESTHESIA ---
Pre-Anesthesia VS, & Labs - Diagnosis hx of polyps - Procedure colonoscopy Height: 5 ft 3 in Weight (kg): 73 kg Body Mass Index: 28.5 BMI Classification: Overweight - NPO >8 hours - Is Patient ?: No Home Medications and Allergies Home Medications: Ambulatory Orders Calcium Carbonate [Calcium] 600 mg PO DAILY 06/02/21 Ferrous Sulfate 65 mg PO DAILY 06/02/21 Hydroxychloroquine [Plaquenil] 200 mg PO DAILY 06/02/21 Losartan [Cozaar] 50 mg PO BID 06/02/21 Melatonin 3 mg PO DAILY 06/02/21 Omeprazole Magnesium 20 mg PO BID 06/02/21 Ubidecarenone [Co Q-10] 10 mg PO DAILY 06/02/21 amLODIPine [Norvasc] 5 mg PO DAILY 06/02/21 predniSONE [Deltasone] 5 mg PO DAILY 06/02/21 Ascorbic Acid [Vitamin C] 1 tab PO DAILY 12/21/15 Multivitamin [Multivitamins] 1 tab PO DAILY 12/21/15 Zolpidem [Ambien] 2.5 mg PO QPM PRN 12/21/15 B-Complex with Vitamin C [Super B Complex-Vitamin C] 1 each PO DAILY 05/29/18 Cholecalciferol (Vitamin D3) [Vitamin D3] 1 cap PO DAILY 05/29/18 Digestive 8/L.acidoph/Pectin [Digestive Enzymes Tablet] 1 each PO BID 05/29/18 L.acid/L.casei/B.bif/B.wicho/Fos [Probiotic Blend Capsule] 1 cap PO BID 05/29/18 Malic Acid 1 each PO DAILY 05/29/18 [place]-3/Dha/Epa/Fish Oil [Fish Oil 500 mg Softgel] 1 cap PO DAILY 05/29/18 Turmeric Root Extract [Turmeric] 500 mg PO DAILY 05/29/18 Aspirin [Aspirin EC] 81 mg PO DAILY 12/07/20 Atorvastatin [Lipitor] 10 mg PO DAILY 12/07/20 Calcium Carbonate [Calcium] 600 mg PO DAILY 06/02/21 Ferrous Sulfate 65 mg PO DAILY 06/02/21 Hydroxychloroquine [Plaquenil] 200 mg PO DAILY 06/02/21 Losartan [Cozaar] 50 mg PO BID 06/02/21 Melatonin 3 mg PO DAILY 06/02/21 Omeprazole Magnesium 20 mg PO BID 06/02/21 Ubidecarenone [Co Q-10] 10 mg PO DAILY 06/02/21 amLODIPine [Norvasc] 5 mg PO DAILY 06/02/21 predniSONE [Deltasone] 5 mg PO DAILY 06/02/21 Allergies/Adverse Reactions: Allergies Allergy/AdvReac Type Severity Reaction Status Date / Time Penicillins Allergy Unknown Verified 03/06/21 20:13 Anes History & Medical History - Anesthetic History Anesthesia Complications: reports: No previous complications Family history of Anesthesia Complications: Denies Family history of Malignant Hyperthermia: Denies - Medical History Cardiovascular: reports: Hypertension, High cholesterol Pulmonary: reports: None Gastrointestinal: reports: GERD, Chronic constipation, Other Urinary: reports: None Neuro: reports: Other Musculoskeletal: reports: Other Endocrine/Autoimmune: reports: None Blood Disorders: reports: None Skin: reports: None Smoking Status: Never smoker - Surgical History General: reports: Appendectomy, Colonoscopy Eyes Ears Nose Throat (EENT): reports: Other Exam General: Alert, Oriented x3, Cooperative Dental: WNL Mouth Openin Fingerbreadth Neck Mobility: Normal Mallampati classification: II Thyromental Distance: 4-6 cm Respiratory: Lungs clear Cardiovascular: Regular rate Plan Anesthesia Type: Total IV Consent for Procedure(s) Verified and Reviewed: Yes Code Status: Attempt Resuscitation ASA classification: 2-Mild systemic disease Is this case an emergency?: No
[2021-06-03 16:44] VITALS: BP 130/62
--- NOTE | 2021-06-03 16:52 | ANESTHESIA POST OP EVALUATION ---
Anesthesia Post Eval - Post Anesthesia Eval Vitals: Last Vital Signs Temp 36.5 C 06/03/21 16:43 Pulse 82 06/03/21 16:43 Resp 16 06/03/21 16:43 BP 130/62 06/03/21 16:43 Pulse Ox 100 06/03/21 16:43 CV Function Including HR & BP: Stable Pain Control: Satisfactory Nausea & Vomiting: Negative Mental Status: Baseline Respiratory Status: Airway Patent Hydration Status: Satisfactory Anesthesia Complications: None
== END 2021-06-03 14:04 | disposition home or self-care (01) ==
LOC: SDS 14:03
PROVIDERS: ATTEND Surgery
PROC: 0DBL8ZX Excision of Transverse Colon, Via Natural or Artificial Opening Endoscopic, Diagnostic (ICD-10-PCS; 2021-06-03)
PROC: 0DBK8ZX Excision of Ascending Colon, Via Natural or Artificial Opening Endoscopic, Diagnostic (ICD-10-PCS; principal; 2021-06-03 15:30)
DX: Z12.11 Encounter for screening for malignant neoplasm of colon (principal); K51.40 Inflammatory polyps of colon without complications; K59.09 Other constipation; I10 Essential (primary) hypertension; Z79.899 Other long term (current) drug therapy; Z86.010 Personal history of colon polyps; Z87.891 Personal history of nicotine dependence
CPT/HCPCS: 45380; J7120

== ENCOUNTER 2021-06-14 15:39 | Outpatient (CLI) | payer MEDICARE, MEDICAID ==
--- NOTE | 2021-06-15 21:38 | Ultrasound Report ---
PROCEDURE: Arterial Visceral Complete INDICATIONS: HTN TECHNIQUE: Real time scanning was performed of both kidneys, followed by Color and pulsed Doppler in terrogation of the renal vessels. COMPARISON: Ultrasound abdomen 01/03/2012 FINDINGS: Aortic peak systolic velocity: 107 cm/s. Right side: Walsh-scale imaging: Kidney is 9.6 cm long; renal cortical thickness is 1.3 cm. No hydronephrosis. P unctate echogenic focus. Renal cortex is normal in echogenicity. No suspicious solid renal masses. Proximal renal artery peak systolic velocity: 190 cm/s. Mid renal artery peak systolic velocity: 142 cm/s. Distal renal artery peak systolic velocity: 209 cm/s. Renal vein: Patent, without thrombus. Peak renal/aortic ratio (RAR): 2.0. Left side: Walsh-scale imaging: Kidney is 10.0 cm long; renal cortical thickness is 1.2 cm. No hydronephrosis. No punctate echogenic focus. Renal cortex is normal in echogenicity. No suspicious solid renal mass es. Proximal renal artery peak systolic velocity: 99 cm/s. Mid-renal artery peak systolic velocity: 93 cm/s. Distal renal artery peak systolic velocity: 101 cm/s. Renal vein: Patent, without thrombus. Peak renal/aortic ratio (RAR): 0.9. IMPRESSION: 1. No evidence of renal artery stenosis. Reviewed by: Eloisa Grant MD on 06/15/2021 9:37 PM PST Approved by: Eloisa Grant MD on 06/15/2021 9:37 PM PST Station ID: [id number]
== END 2021-06-14 15:40 | disposition home or self-care (01) ==
LOC: DI 15:39
PROVIDERS: ATTEND Internal Medicine
DX: I10 Essential (primary) hypertension (principal)
CPT/HCPCS: 93975

== ENCOUNTER 2021-07-01 14:56 | Outpatient (CLI) | payer MEDICARE, MEDICAID ==
--- NOTE | 2021-07-01 16:37 | Ultrasound Report ---
PROCEDURE: Pelvic w/Transvaginal INDICATIONS: OVARIAN CYST VS MASS TECHNIQUE: Real-time scanning was performed of the pelvic organs, with image documentation. Additional endovagi nal scanning was necessary due to incomplete visualization of the adnexal and endometrial structures by transabdominal scanning. COMPARISON: None. FINDINGS: No pathologic free abdominal or pelvic fluid. Uterus: Uterus is normal in size at 4.4 x 1.4 x 2.3 cm. The endometrium measures 7.5 mm in combined thickness. Ovaries: The left ovary demonstrates 2 cysts, measuring 27 mm each. Right ovary is within normal hinojosa its. IMPRESSION: 1. Left ovarian cysts. Gynecological consultation recommended. Reviewed by: Everton Zamarripa MD on 07/01/2021 4:35 PM PST Approved by: Everton Zamarripa MD on 07/01/2021 4:35 PM PST Station ID: [id number]
== END 2021-07-01 14:57 | disposition home or self-care (01) ==
LOC: DI 14:56
PROVIDERS: ATTEND Internal Medicine
DX: N83.202 Unspecified ovarian cyst, left side (principal)

== ENCOUNTER 2021-07-10 12:20 | Outpatient (CLI) | payer MEDICARE, MEDICAID ==
[2021-07-10 20:40] LABS: ESTIMATED AVERAGE GLUCOSE 114 mg/dL (70-100); HEMOGLOBIN A1c% 5.6 % (4.27-6.07)
== END 2021-07-10 23:59 | disposition home or self-care (01) ==
LOC: LAB.S 12:20
PROVIDERS: ATTEND Internal Medicine
DX: I10 Essential (primary) hypertension (principal); R73.9 Hyperglycemia, unspecified
CPT/HCPCS: 36415; 82088; 82947; 83036; 83835; 84244

== ENCOUNTER 2021-09-12 12:43 | Outpatient (CLI) | payer MEDICARE, MEDICAID ==
--- NOTE | 2021-09-13 16:06 | Mammography Report ---
BILATERAL DIGITAL SCREENING MAMMOGRAM 3D/2D: 09/12/2021 CLINICAL: Routine screening. Comparison is made to exams dated: 07/12/2015 mammogram and 01/07/2014 mammogram - [facility]. The tissue of both breasts is predominantly fatty. No significant masses, calcifications, or other findings are seen in either breast. There has been no significant interval change. IMPRESSION: NEGATIVE There is no mammographic evidence of malignancy. A 1 year screening mammogram is recommended. This exam was interpreted at Station ID: [id number]. NOTE: For mammograms, a report in lay terms will be sent to the patient. Approximately 15% of breast malignancies will not be visualized mammographically. In the management of a palpable breast mass, a negative mammogram must not discourage biopsy of a clinically suspicious lesion. Electronically Signed By: Marcelo Doyle acr/penrad:09/12/2021 14:06:19 ACR BI-RADS Category 1: Negative 3341F PARENCHYMAL PATTERN: (F) - The breast(s) demonstrate(s) diffuse fatty replacement. BI-RADS CATEGORY: (1) - 1 RECOMMENDATION: (ANNUAL) - Recommend routine annual screening mammography. [id number] 1 year screening LATERALITY: (B)
== END 2021-09-12 12:44 | disposition home or self-care (01) ==
LOC: DI.S 12:43
PROVIDERS: ATTEND Internal Medicine
DX: Z12.31 Encounter for screening mammogram for malignant neoplasm of breast (principal)

== ENCOUNTER 2021-10-03 09:04 | Outpatient (CLI) | payer MEDICARE, MEDICAID ==
[2021-10-03 14:45] LABS: BASOPHILS # (AUTO) 0.1 10^3/uL (0.0-0.1); EOSINOPHILS # (AUTO) 0.1 10^3/uL (0.0-0.7); EOSINOPHILS % (AUTO) 0.7 %; HGB - HEMOGLOBIN 13.6 g/dL (12.0-16.0); LYMPHOCYTES # (AUTO) 2.4 10^3/uL (1.5-3.5); MEAN CORPUSCULAR HEMOGLOBIN 28.7 pg (27.0-31.0); MEAN CORPUSCULAR HGB CONC 30.9 g/dL (32.0-36.0); MEAN CORPUSCULAR VOLUME 92.8 fL (81.0-99.0); MEAN PLATELET VOLUME 11.8 fL (7.9-10.8); MONOCYTES # (AUTO) 0.7 10^3/uL (0.0-1.0); MONOCYTES % (AUTO) 9.4 %; NEUTROPHILS # (AUTO) 4.2 10^3/uL (1.5-6.6); NEUTROPHILS % (AUTO) 56.6 %; PLT - PLATELET COUNT 251 10^3/uL (130-450); RED BLOOD COUNT 4.74 10^6/uL (4.20-5.40); WHITE BLOOD COUNT 7.3 x10^3/uL (4.8-10.8)
[2021-10-03 15:11] LABS: BILIRUBIN,URINE NEGATIVE (NEGATIVE); GLUCOSE, URINE (UA) NEGATIVE (NEGATIVE); KETONES,URINE (UA) NEGATIVE (NEGATIVE); LEUKOCYTE ESTERASE, URINE SMALL (NEGATIVE); NITRITE,URINE NEGATIVE (NEGATIVE); OCCULT BLOOD,URINE NEGATIVE (NEGATIVE); PH,URINE 7.5 PH (5.0-7.5); PROTEIN,URINE NEGATIVE (NEGATIVE); UROBILINOGEN,URINE 0.2 (NORMAL) E.U./dL (NORMAL)
[2021-10-03 15:14] LABS: CLARITY,URINE CLEAR (CLEAR)
[2021-10-03 15:24] LABS: BACTERIA,URINE Few /HPF (None Seen); RBC,URINE 0-5 /HPF (0-5); SQUAMOUS EPITHELIAL CELL,UR MOD Squamous (<= Few)
[2021-10-03 15:31] LABS: ALBUMIN 4.4 g/dL (3.2-5.5); ALBUMIN/GLOBULIN RATIO 1.3 (1.0-2.2); ALKALINE PHOSPHATASE 49 IU/L (42-121); ALT ALANINE AMINOTRANSFERASE 26 IU/L (10-60); AST ASPARTATE AMINOTRANSFERASE 28 IU/L (10-42); BILIRUBIN,TOTAL 0.6 mg/dL (0.2-1.0); BUN - BLOOD UREA NITROGEN 24 mg/dL (6-20); CALCIUM 9.8 mg/dL (8.5-10.3); CARBON DIOXIDE - CO2 30 mmol/L (21-32); CHLORIDE 100 mmol/L (101-111); GFR - MDRD 54 (>89); GLUCOSE 84 mg/dL (70-100); POTASSIUM 3.8 mmol/L (3.5-5.0); SODIUM 141 mmol/L (135-145); TOTAL PROTEIN 7.7 g/dL (6.7-8.2)
[2021-10-03 15:46] LABS: CRP - C-REACTIVE PROTEIN < 1.0 mg/dL (0-1.0)
== END 2021-10-03 09:05 | disposition home or self-care (01) ==
LOC: LAB.S 09:04
PROVIDERS: ATTEND Internal Medicine Rheumatology
DX: M02.30 Reiter's disease, unspecified site (principal)
CPT/HCPCS: 36415; 80053; 81001; 81003; 85025; 85651; 86140; 87086

== ENCOUNTER 2022-01-24 18:51 | Outpatient (CLI) | payer MEDICARE, MEDICAID | END 2022-01-24 18:52 | disposition EMS.NT | LOC: EMS 18:51 | DX: I95.9 Hypotension, unspecified (principal) ==

== ENCOUNTER 2022-02-09 07:28 | Outpatient (CLI) | payer MEDICARE ==
[2022-02-09 14:13] LABS: BASOPHILS # (AUTO) 0.1 10^3/uL (0.0-0.1); BASOPHILS % (AUTO) 1.4 %; EOSINOPHILS # (AUTO) 0.4 10^3/uL (0.0-0.7); EOSINOPHILS % (AUTO) 5.9 %; HCT - HEMATOCRIT 43.3 % (37.0-47.0); HGB - HEMOGLOBIN 13.7 g/dL (12.0-16.0); LYMPHOCYTES # (AUTO) 2.4 10^3/uL (1.5-3.5); MEAN CORPUSCULAR HEMOGLOBIN 29.5 pg (27.0-31.0); MEAN CORPUSCULAR HGB CONC 31.6 g/dL (32.0-36.0); MEAN CORPUSCULAR VOLUME 93.3 fL (81.0-99.0); MEAN PLATELET VOLUME 12.2 fL (7.9-10.8); MONOCYTES # (AUTO) 0.6 10^3/uL (0.0-1.0); MONOCYTES % (AUTO) 8.9 %; NEUTROPHILS # (AUTO) 3.1 10^3/uL (1.5-6.6); NEUTROPHILS % (AUTO) 46.5 %; PLT - PLATELET COUNT 233 10^3/uL (130-450); RED BLOOD COUNT 4.64 10^6/uL (4.20-5.40); RED CELL DISTRIBUTION WIDTH 14.2 % (12.0-15.0); WHITE BLOOD COUNT 6.6 x10^3/uL (4.8-10.8)
[2022-02-09 14:18] LABS: BILIRUBIN,URINE NEGATIVE (NEGATIVE); GLUCOSE, URINE (UA) NEGATIVE (NEGATIVE); KETONES,URINE (UA) NEGATIVE (NEGATIVE); LEUKOCYTE ESTERASE, URINE SMALL (NEGATIVE); NITRITE,URINE NEGATIVE (NEGATIVE); OCCULT BLOOD,URINE NEGATIVE (NEGATIVE); PROTEIN,URINE NEGATIVE (NEGATIVE); UROBILINOGEN,URINE 0.2 (NORMAL) E.U./dL (NORMAL)
[2022-02-09 14:27] LABS: BACTERIA,URINE Few /HPF (None Seen); CLARITY,URINE HAZY (CLEAR); RBC,URINE 0-5 /HPF (0-5); SQUAMOUS EPITHELIAL CELL,UR MOD Squamous (<= Few)
[2022-02-09 14:31] LABS: ALBUMIN 4.1 g/dL (3.2-5.5); ALBUMIN/GLOBULIN RATIO 1.4 (1.0-2.2); ALKALINE PHOSPHATASE 58 IU/L (42-121); ALT ALANINE AMINOTRANSFERASE 18 IU/L (10-60); AST ASPARTATE AMINOTRANSFERASE 23 IU/L (10-42); BILIRUBIN,TOTAL 0.5 mg/dL (0.2-1.0); BUN - BLOOD UREA NITROGEN 24 mg/dL (6-20); CALCIUM 9.6 mg/dL (8.5-10.3); CARBON DIOXIDE - CO2 27 mmol/L (21-32); CHLORIDE 106 mmol/L (101-111); GFR - MDRD 54 (>89); GLUCOSE 91 mg/dL (70-100); POTASSIUM 4.4 mmol/L (3.5-5.0); SODIUM 138 mmol/L (135-145)
[2022-02-09 15:56] LABS: CRP - C-REACTIVE PROTEIN < 1.0 mg/dL (0-1.0)
== END 2022-02-09 07:29 | disposition home or self-care (01) ==
LOC: LAB.S 07:28
PROVIDERS: ATTEND Internal Medicine Rheumatology
DX: M02.30 Reiter's disease, unspecified site (principal); Z79.52 Long term (current) use of systemic steroids; R77.8 Other specified abnormalities of plasma proteins
CPT/HCPCS: 36415; 80053; 81001; 85025; 85651; 86140

== ENCOUNTER 2022-02-13 08:00 | Outpatient (CLI) | payer MEDICARE, MEDICAID ==
[2022-02-13 15:42] LABS: CHOL/HDL RATIO 3.3 (<4.4); CHOLESTEROL 186 mg/dL; CK- CREATINE KINASE 77 IU/L (22-269); HDL CHOLESTEROL 57 mg/dL; LDL CHOLESTEROL,CALCULATED 109 mg/dL; LDL/HDL RATIO 1.9 (<4.4); TRIGLYCERIDES 100 mg/dL; VLDL CHOLESTEROL 20 mg/dL
[2022-02-13 21:40] LABS: ESTIMATED AVERAGE GLUCOSE 111 mg/dL (70-100); HEMOGLOBIN A1c% 5.5 % (4.27-6.07)
== END 2022-02-13 23:59 | disposition home or self-care (01) ==
LOC: LAB.R 08:00
PROVIDERS: ATTEND Internal Medicine
DX: Z00.00 Encounter for general adult medical examination without abnormal findings (principal); I63.9 Cerebral infarction, unspecified; R73.9 Hyperglycemia, unspecified; E78.5 Hyperlipidemia, unspecified; I10 Essential (primary) hypertension; M19.90 Unspecified osteoarthritis, unspecified site; G47.00 Insomnia, unspecified; Z86.010 Personal history of colon polyps
CPT/HCPCS: 80061; 82550; 83036; 83721

== ENCOUNTER 2022-04-17 07:12 | Outpatient (CLI) | payer MEDICARE, MEDICAID ==
[2022-04-17 15:39] LABS: T3 UPTAKE 40.7 % (32.0-48.4)
[2022-04-17 15:40] LABS: T4 (THYROXINE) 8.43 ug/dL (6.09-12.23)
[2022-04-17 15:43] LABS: THYROID STIMULATING HORMONE 3.67 uIU/mL (0.34-5.60)
[2022-04-17 15:48] LABS: % IRON SATURATION 17 % (20-50); IRON 65 ug/dL (28-170); TOTAL IRON BINDING CAPACITY 386 ug/dL (250-450); TRANSFERRIN 276 mg/dL (192-382)
[2022-04-18 06:09] LABS: VITAMIN D 25-HYDROXY 56.3 ng/mL (30.0-100.0)
== END 2022-04-17 07:13 | disposition home or self-care (01) ==
LOC: LAB.S 07:12
PROVIDERS: ATTEND Nutritionist
DX: N17.8 Other acute kidney failure (principal); I10 Essential (primary) hypertension; R53.83 Other fatigue; E88.49 Other mitochondrial metabolism disorders
CPT/HCPCS: 36415; 81599; 82172; 82306; 82607; 82746; 83090; 83540; 84436; 84443; 84466; 84479

== ENCOUNTER 2022-06-15 07:00 | Outpatient (CLI) | payer MEDICARE, MEDICAID ==
[2022-06-15 14:30] LABS: BILIRUBIN,URINE NEGATIVE (NEGATIVE); GLUCOSE, URINE (UA) NEGATIVE (NEGATIVE); KETONES,URINE (UA) NEGATIVE (NEGATIVE); LEUKOCYTE ESTERASE, URINE LARGE (NEGATIVE); NITRITE,URINE NEGATIVE (NEGATIVE); OCCULT BLOOD,URINE NEGATIVE (NEGATIVE); PH,URINE 6.5 PH (5.0-7.5); PROTEIN,URINE NEGATIVE (NEGATIVE); UROBILINOGEN,URINE 0.2 (NORMAL) E.U./dL (NORMAL)
[2022-06-15 14:39] LABS: BACTERIA,URINE Moderate /HPF (None Seen); CLARITY,URINE CLEAR (CLEAR); RBC,URINE 0-5 /HPF (0-5); SQUAMOUS EPITHELIAL CELL,UR MOD Squamous (<= Few); WBC,URINE >25 /HPF (0-5)
[2022-06-15 15:10] LABS: % IRON SATURATION 21 % (20-50); ALBUMIN/GLOBULIN RATIO 1.2 (1.0-2.2); ALKALINE PHOSPHATASE 68 IU/L (42-121); ALT ALANINE AMINOTRANSFERASE 20 IU/L (10-60); AST ASPARTATE AMINOTRANSFERASE 25 IU/L (10-42); BILIRUBIN,TOTAL 0.8 mg/dL (0.2-1.0); BUN - BLOOD UREA NITROGEN 26 mg/dL (6-20); CALCIUM 10.4 mg/dL (8.5-10.3); CARBON DIOXIDE - CO2 28 mmol/L (21-32); CHLORIDE 103 mmol/L (101-111); CHOL/HDL RATIO 4.1 (<4.4); CHOLESTEROL 286 mg/dL; GFR - MDRD 54 (>89); GLUCOSE 88 mg/dL (70-100); HDL CHOLESTEROL 69 mg/dL; IRON 77 ug/dL (28-170); LDL CHOLESTEROL,CALCULATED 195 mg/dL; LDL/HDL RATIO 2.8 (<4.4); SODIUM 140 mmol/L (135-145); TOTAL IRON BINDING CAPACITY 364 ug/dL (250-450); TOTAL PROTEIN 7.4 g/dL (6.7-8.2); TRANSFERRIN 260 mg/dL (192-382); TRIGLYCERIDES 109 mg/dL; VLDL CHOLESTEROL 22 mg/dL
[2022-06-15 15:14] LABS: CRP HIGH SENSITIVITY < 0.5 mg/L
[2022-06-15 15:24] LABS: FERRITIN 20.8 ng/mL (11.0-306.8)
[2022-06-15 20:54] LABS: ESTIMATED AVERAGE GLUCOSE 117 mg/dL (70-100); HEMOGLOBIN A1c% 5.7 % (4.27-6.07)
[2022-06-19 08:08] LABS: LYME TOTAL AB CIA Negative (Negative)
== END 2022-06-15 07:01 | disposition home or self-care (01) ==
LOC: LAB.S 07:00
PROVIDERS: ATTEND Nutritionist
DX: N17.8 Other acute kidney failure (principal); R53.83 Other fatigue; E88.49 Other mitochondrial metabolism disorders; I10 Essential (primary) hypertension; R73.09 Other abnormal glucose; M06.4 Inflammatory polyarthropathy; N39.0 Urinary tract infection, site not specified
CPT/HCPCS: 36415; 80053; 80061; 81001; 82607; 82728; 82746; 83036; 83525; 83540; 83721; 84466; 85651; 86141; 86618

== ENCOUNTER 2022-07-31 16:25 | Outpatient (CLI) | payer MEDICARE, MEDICAID | END 2022-07-31 16:26 | disposition critical access hospital (66) | LOC: EMS 16:25 | DX: I10 Essential (primary) hypertension (principal); R53.83 Other fatigue | CPT/HCPCS: A0425; A0427 ==

== ENCOUNTER 2022-07-31 17:05 | Emergency (ER) | payer MEDICARE, MEDICAID ==
[2022-07-31] MEDS ORDERED: METOPROLOL SUCCINATE 50 MG TABLET PO STA (17:18)
[2022-07-31 17:23] VITALS: BP 184/75
[2022-07-31 17:35] LABS: BASOPHILS % (AUTO) 0.9 %; EOSINOPHILS # (AUTO) 0.1 10^3/uL (0.0-0.7); EOSINOPHILS % (AUTO) 1.1 %; HCT - HEMATOCRIT 42.5 % (37.0-47.0); HGB - HEMOGLOBIN 13.5 g/dL (12.0-16.0); LYMPHOCYTES # (AUTO) 1.6 10^3/uL (1.5-3.5); LYMPHOCYTES % (AUTO) 34.9 %; MEAN CORPUSCULAR HEMOGLOBIN 28.5 pg (27.0-31.0); MEAN CORPUSCULAR HGB CONC 31.8 g/dL (32.0-36.0); MEAN CORPUSCULAR VOLUME 89.9 fL (81.0-99.0); MEAN PLATELET VOLUME 10.9 fL (7.9-10.8); MONOCYTES # (AUTO) 0.4 10^3/uL (0.0-1.0); MONOCYTES % (AUTO) 8.1 %; NEUTROPHILS # (AUTO) 2.5 10^3/uL (1.5-6.6); NEUTROPHILS % (AUTO) 54.8 %; PLT - PLATELET COUNT 232 10^3/uL (130-450); RED BLOOD COUNT 4.73 10^6/uL (4.20-5.40); RED CELL DISTRIBUTION WIDTH 13.5 % (12.0-15.0); WHITE BLOOD COUNT 4.6 x10^3/uL (4.8-10.8)
[2022-07-31 17:48] LABS: ALBUMIN 3.8 g/dL (3.2-5.5); ALBUMIN/GLOBULIN RATIO 1.3 (1.0-2.2); BILIRUBIN,TOTAL 0.3 mg/dL (0.2-1.0); CALCIUM 9.4 mg/dL (8.5-10.3); CREATININE 0.9 mg/dL (0.4-1.0); POTASSIUM 3.6 mmol/L (3.5-5.0); TOTAL PROTEIN 6.7 g/dL (6.7-8.2)
--- NOTE | 2022-07-31 18:10 | ED Physician Documentation ---
History of Present Illness - Stated complaint Stated Complaint: NOT FEELING WELL - Chief complaint Chief Complaint: General - History obtained from History obtained from: Patient - Additonal information Additional information: The pt comes to the ED with CC of "high blood pressure" and "feeling off". The pt states she has a h/o HTN and about a week ago, had her Losartan regimen halved from 50mg BID to 50mg qPM. She has been doing fine on this until today, when she took her blood pressure and found it to be over 200 systolic. She took it again and got the same number. The pt states she had no acute sx, including no SOB, CP, or focal neurologic deficits, but based on the number, was afraid she might have a bad outcome, so called EMS. They advised her to be transported, though they do report that their numbers were a little lower (180's). The pt states she has been feeling "off" for a few weeks, and that her doctor is working her up. She states she gets very fatigued in the evenings, and has also been having an intermittent tingling sensation across the skin of her low abdomen. She has also occasionally felt a tightness in her chest. She is not experiencing any of these things at this time. PD PAST MEDICAL HISTORY - Past Medical History Cardiovascular: Hypertension, High cholesterol Respiratory: None Neuro: Other Endocrine/Autoimmune: None GI: GERD, Chronic constipation, Other : None HEENT: Other Psych: None Musculoskeletal: Other Derm: None - Past Surgical History Past Surgical History: Yes General: Appendectomy, Colonoscopy HEENT: Other - Present Medications Home Medications: Ambulatory Orders Medication Instructions Recorded Confirmed Ascorbic Acid [Vitamin C] 1 tab PO DAILY 12/21/15 06/02/21 Multivitamin [Multivitamins] 1 tab PO DAILY 12/21/15 06/02/21 Zolpidem [Ambien] 2.5 mg PO QPM PRN 12/21/15 06/02/21 B-Complex with Vitamin C [Super B 1 each PO DAILY 05/29/18 06/02/21 Complex-Vitamin C] Cholecalciferol (Vitamin D3) 1 cap PO DAILY 05/29/18 06/02/21 [Vitamin D3] Digestive 8/L.acidoph/Pectin 1 each PO BID 05/29/18 06/02/21 [Digestive Enzymes Tablet] L.acid/L.casei/B.bif/B.wicho/Fos 1 cap PO BID 05/29/18 06/02/21 [Probiotic Blend Capsule] Malic Acid 1 each PO DAILY 05/29/18 06/02/21 [place]-3/Dha/Epa/Fish Oil [Fish Oil 1 cap PO DAILY 05/29/18 06/02/21 500 mg Softgel] Turmeric Root Extract [Turmeric] 500 mg PO DAILY 05/29/18 06/02/21 Aspirin [Aspirin EC] 81 mg PO DAILY 12/07/20 06/02/21 Atorvastatin [Lipitor] 10 mg PO DAILY 12/07/20 06/02/21 Ibuprofen [Motrin] 800 mg PO BID PRN #30 tablet 12/08/20 06/02/21 hydroCHLOROthiazide [Hydrodiuril] 25 mg PO DAILY 30 Days #30 tablet 03/04/21 06/02/21 Calcium Carbonate [Calcium] 600 mg PO DAILY 06/02/21 06/02/21 Ferrous Sulfate 65 mg PO DAILY 06/02/21 06/02/21 Hydroxychloroquine [Plaquenil] 200 mg PO DAILY 06/02/21 06/02/21 Losartan [Cozaar] 50 mg PO BID 06/02/21 06/02/21 Melatonin 3 mg PO DAILY 06/02/21 06/02/21 Omeprazole Magnesium 20 mg PO BID 06/02/21 06/03/21 Ubidecarenone [Co Q-10] 10 mg PO DAILY 06/02/21 06/02/21 amLODIPine [Norvasc] 5 mg PO DAILY 06/02/21 06/02/21 predniSONE [Deltasone] 5 mg PO DAILY 06/02/21 06/02/21 - Allergies Allergies/Adverse Reactions: Allergies Allergy/AdvReac Type Severity Reaction Status Date / Time Penicillins Allergy Unknown Verified 03/06/21 20:13 - Social History Does the pt smoke?: No Smoking Status: Never smoker Does the pt drink ETOH?: No Does the pt have substance abuse?: No - Immunizations Immunizations are current?: Yes - POLST Patient has POLST: No POLST Status: Full Code PD ED PE NORMAL - Vitals Vital signs reviewed: Yes - General General: Alert and oriented X 3, No acute distress, Well developed/nourished - HEENT HEENT: Atraumatic, PERRL, EOMI, Moist mucous membranes - Neck Neck: Supple, no meningeal sign - Cardiac Cardiac: RRR, No murmur, Strong equal pulses - Respiratory Respiratory: No respiratory distress, Clear bilaterally - Abdomen Abdomen: Soft, Non tender, Non distended - Derm Derm: Normal color, Warm and dry, No rash - Extremities Extremities: No deformity - Neuro Neuro: Alert and oriented X 3 - Psych Psych: Normal mood, Normal affect Results - Vitals Vitals: Vital Signs - 24 hr 07/31/22 17:21 Temperature 36.7 C Heart Rate 57 L Respiratory 17 Rate Blood Pressure 184/75 H O2 Saturation 97 Oxygen O2 Source Room air - EKG (time done) 7979 EKG releavant findings:: EKG personally interpreted by author of this note. Relevant findings are: Rate: Rate (enter#) (57) Rhythm: NSR [place]: Normal Intervals: Normal [place] QRS: Normal Ischemia: Normal ST segments Compare to prior EKG: Old EKG unavailable Computer interpretation: Agree with computer - Labs Labs: Laboratory Tests 07/31/22 07/31/22 17:28 17:28 WBC 4.6 L RBC 4.73 Hgb 13.5 Hct 42.5 MCV 89.9 MCH 28.5 MCHC 31.8 L RDW 13.5 Plt Count 232 MPV 10.9 H Neut # (Auto) 2.5 Lymph # (Auto) 1.6 [place] # (Auto) 0.4 Eos # (Auto) 0.1 Baso # (Auto) 0.0 Absolute Nucleated RBC 0.00 Nucleated RBC % 0.0 Sodium 139 Potassium 3.6 Chloride 103 Carbon Dioxide 30 Anion Gap 6.0 BUN 11 Creatinine 0.9 Estimated GFR (MDRD) 61 L Glucose 107 H Calcium 9.4 Total Bilirubin 0.3 AST 21 ALT 17 Alkaline Phosphatase 68 Total Protein 6.7 Albumin 3.8 Globulin 2.9 Albumin/Globulin Ratio 1.3 Lipase 31 PD Medical Decision Making - ED course Complexity details: reviewed results, re-evaluated patient, considered differential, d/w patient ED course: The pt was well-appearing, and was not in hypertensive emergency. I have discussed with her that we do not focus on numbers in and of themselves, but rather, the symptoms. The pt's EKG and labs (CBC/ER abd panel ordered reviewed by me) are unremarkable. The pt has been given a dose of metoprolol in the ED and BP is improving. We have discussed taking her Losartan as usual tonight, and then seeing how her BP is in the morning. If SBP is >160, she should take the morning dose as she had previously done. If she finds she is needing a morning dose every day, in addition to the evening dose, she will discuss this with her PCP, whom she will see in 4 days. We have discussed the sx of hypertensive emergency, which should prompt immediate return to the ED. Departure - Departure Disposition: 01 Home, Self Care Clinical Impression: Hypertension Qualifiers: Hypertension type: unspecified Qualified Code(s): I10 - Essential (primary) hypertension Condition: Stable Instructions: ED HTN Established Comments: Your blood pressure has been high today and it is not clear exactly what caused it to spike up. However, you do not have any of the emergent signs or symptoms that would prompt concern for the need to immediately bring your blood pressure down. Your labs and EKG also look good. You have been given an extra dose of blood pressure medicine here in the emergency department, which has brought your blood pressure down some. You should also plan to take the losartan tonight. As such, the most important thing is to determine whether the new dosing regimen for your blood pressure medicine is working or not. At this point in time, you should continue your losartan in the evenings, But check your blood pressure in the morning also to see if it is in the target range. If you find that your blood pressure is running above 160 systolic, then you should take a morning dose of losartan. If your blood pressure is less than 160 for the top number, then just plan to take your evening dose unless you begin to have symptoms. As we have discussed, a high blood pressure number is not concerning per se as long as you are not having symptoms of stroke, heart failure, or heart attack. However, if you begin to feel very unwell and especially, if you develop chest pain, shortness of breath, or loss of use of your face, or one of your arms or legs or one side, then you should return to the emergency department immediately. Please plan to see your primary care provider as soon as possible to determine whether this current medication regimen is appropriate for you. Discharge Date/Time: 07/31/22 18:21
--- OUTSIDE RECORDS SUMMARY | 2022-07-31 18:37 | EXTERNAL MEDICAL SUMMARY RPT | Continuity of Care Document ---
:1945 Author Organization [facility] Address [address] [place] [address] Phone Care Team Providers Name Role Phone Unavailable Unavailable Unavailable Janis Patient Registrar, Ofelia Unavailable Unava luther Krause Md, Mansi Unavailable Unavailable Penny, Provider Unavailable Unavailable Allergies No information. Encounters No information. Functional Status No information. Immunizations No information. Medications date description facility 2022-06-14 00:00 [facility]one [facility] 2022-06-14 00:00 prednisone [facility] 2022-06-15 00:00 prednisone [facility] 2022-06-16 00:00 prednisone [facility] 2022-06-19 00:00 prednisone [facility] 2022-06-21 00:00 prednisone [facility] 2022-07-07 00:00 prednisone [facility] 2022-06-14 00:00 hydrochlorothiazide [facility] 2022-06-14 00:00 hydrochlorothiazide [facility] 2022-06-15 00:00 hydrochlorothiazide [facility] 2022-06-16 00:00 hydrochlorothiazide [facility] 2022-06-19 00:00 hydrochlorothiazide [facility] 2022-06-21 00:00 hydrochlorothiazide [facility] 2022-07-07 00:00 hydrochlorothiazide [facility] 2022-06-14 00:00 hydroxychloroquine [facility] 2022-06-14 00:00 hydroxychloroquine [facility] 2022-06-15 00:00 hydroxychloroquine [facility] 2022-06-16 00:00 hydroxychloroquine [facility] 2022-06-19 00:00 hydroxychloroquine [facility] 2022-06-21 00:00 hydroxychloroquine [facility] 2022-07-07 00:00 hydroxychloroquine [facility] 2022-06-14 00:00 oxycodone-acetaminophen [facility] 2022-06-14 00:00 oxycodone-acetaminophen [facility] 2022-06-15 00:00 oxycodone-acetaminophen [facility] 2022-06-16 00:00 oxycodone-acetaminophen [facility] 2022-06-19 00:00 oxycodone-acetaminophen [facility] 2022-06-21 00:00 oxycodone-acetaminophen [facility] 2022-07-07 00:00 oxycodone-acetaminophen [facility] 2022-06-14 00:00 oxycodone-acetaminophen [facility] 2022-06-14 00:00 oxycodone-acetaminophen [facility] 2022-06-15 00:00 oxycodone-acetaminophen [facility] 2022-06-16 00:00 oxycodone-acetaminophen [facility] 2022-06-19 00:00 oxycodone-acetaminophen [facility] 2022-06-21 00:00 oxycodone-acetaminophen [facility] 2022-07-07 00:00 oxycodone-acetaminophen [facility] 2022-06-14 00:00 methotrexate sodium [facility] 2022-06-14 00:00 methotrexate sodium [facility] 2022-06-15 00:00 methotrexate sodium [facility] 2022-06-16 00:00 methotrexate sodium [facility] 2022-06-19 00:00 methotrexate sodium [facility] 2022-06-21 00:00 methotrexate sodium [facility] 2022-07-07 00:00 methotrexate sodium [facility] 2022-06-14 00:00 prednisone [facility] 2022-06-14 00:00 prednisone [facility] 2022-06-15 00:00 prednisone [facility] 2022-06-16 00:00 prednisone [facility] 2022-06-19 00:00 prednisone [facility] 2022-06-21 00:00 prednisone [facility] 2022-07-07 00:00 prednisone [facility] 2022-06-14 00:00 hydrochlorothiazide [facility] 2022-06-14 00:00 hydrochlorothiazide [facility] 2022-06-15 00:00 hydrochlorothiazide [facility] 2022-06-16 00:00 hydrochlorothiazide [facility] 2022-06-19 00:00 hydrochlorothiazide [facility] 2022-06-21 00:00 hydrochlorothiazide [facility] 2022-07-07 00:00 hydrochlorothiazide [facility] 2022-06-14 00:00 oxycodone-acetaminophen [facility] 2022-06-14 00:00 oxycodone-acetaminophen [facility] 2022-06-15 00:00 oxycodone-acetaminophen [facility] 2022-06-16 00:00 oxycodone-acetaminophen [facility] 2022-06-19 00:00 oxycodone-acetaminophen [facility] 2022-06-21 00:00 oxycodone-acetaminophen [facility] 2022-07-07 00:00 oxycodone-acetaminophen [facility] 2022-06-14 00:00 oxycodone-acetaminophen [facility] 2022-06-14 00:00 oxycodone-acetaminophen [facility] 2022-06-15 00:00 oxycodone-acetaminophen [facility] 2022-06-16 00:00 oxycodone-acetaminophen [facility] 2022-06-19 00:00 oxycodone-acetaminophen [facility] 2022-06-21 00:00 oxycodone-acetaminophen [facility] 2022-07-07 00:00 oxycodone-acetaminophen [facility] 2022-06-14 00:00 ibuprofen [facility] 2022-06-14 00:00 ibuprofen [facility] 2022-06-15 00:00 ibuprofen [facility] 2022-06-16 00:00 ibuprofen [facility] 2022-06-19 00:00 ibuprofen [facility] 2022-06-21 00:00 ibuprofen [facility] 2022-07-07 00:00 ibuprofen [facility] 2022-06-14 00:00 methotrexate sodium [facility] 2022-06-14 00:00 methotrexate sodium [facility] 2022-06-15 00:00 methotrexate sodium [facility] 2022-06-16 00:00 methotrexate sodium [facility] 2022-06-19 00:00 methotrexate sodium [facility] 2022-06-21 00:00 methotrexate sodium [facility] 2022-07-07 00:00 methotrexate sodium [facility] 2022-06-14 00:00 hydroxychloroquine [facility] 2022-06-14 00:00 hydroxychloroquine [facility] 2022-06-15 00:00 hydroxychloroquine [facility] 2022-06-16 00:00 hydroxychloroquine [facility] 2022-06-19 00:00 hydroxychloroquine [facility] 2022-06-21 00:00 hydroxychloroquine [facility] 2022-07-07 00:00 hydroxychloroquine [facility] 2022-06-14 00:00 methotrexate sodium [facility] 2022-06-14 00:00 methotrexate sodium [facility] 2022-06-15 00:00 methotrexate sodium [facility] 2022-06-16 00:00 methotrexate sodium [facility] 2022-06-19 00:00 methotrexate sodium [facility] 2022-06-21 00:00 methotrexate sodium [facility] 2022-07-07 00:00 methotrexate sodium [facility] 2022-06-14 00:00 oxycodone-acetaminophen [facility] 2022-06-14 00:00 oxycodone-acetaminophen [facility] 2022-06-15 00:00 oxycodone-acetaminophen [facility] 2022-06-16 00:00 oxycodone-acetaminophen [facility] 2022-06-19 00:00 oxycodone-acetaminophen [facility] 2022-06-21 00:00 oxycodone-acetaminophen [facility] 2022-07-07 00:00 oxycodone-acetaminophen [facility] 2022-06-14 00:00 prednisone [facility] 2022-06-14 00:00 prednisone [facility] 2022-06-15 00:00 prednisone [facility] 2022-06-16 00:00 prednisone [facility] 2022-06-19 00:00 prednisone [facility] 2022-06-21 00:00 prednisone [facility] 2022-07-07 00:00 prednisone [facility] 2022-06-14 00:00 prednisone [facility] 2022-06-14 00:00 prednisone [facility] 2022-06-15 00:00 prednisone [facility] 2022-06-16 00:00 prednisone [facility] 2022-06-19 00:00 prednisone [facility] 2022-06-21 00:00 prednisone [facility] 2022-07-07 00:00 prednisone [facility] 2022-06-14 00:00 ibuprofen [facility] 2022-06-14 00:00 ibuprofen [facility] 2022-06-15 00:00 ibuprofen [facility] 2022-06-16 00:00 ibuprofen [facility] 2022-06-19 00:00 ibuprofen [facility] 2022-06-21 00:00 ibuprofen [facility] 2022-07-07 00:00 ibuprofen [facility] 2022-06-14 00:00 omeprazole [facility] 2022-06-14 00:00 omeprazole [facility] 2022-06-15 00:00 omeprazole [facility] 2022-06-16 00:00 omeprazole [facility] 2022-06-19 00:00 omeprazole [facility] 2022-06-21 00:00 omeprazole [facility] 2022-07-07 00:00 omeprazole [facility] 2022-06-14 00:00 prednisone [facility] 2022-06-14 00:00 prednisone [facility] 2022-06-15 00:00 prednisone [facility] 2022-06-16 00:00 prednisone [facility] 2022-06-19 00:00 prednisone [facility] 2022-06-21 00:00 prednisone [facility] 2022-07-07 00:00 prednisone [facility] 2022-06-14 00:00 celecoxib [facility] 2022-06-14 00:00 celecoxib [facility] 2022-06-15 00:00 celecoxib [facility] 2022-06-16 00:00 celecoxib [facility] 2022-06-19 00:00 celecoxib [facility] 2022-06-21 00:00 celecoxib [facility] 2022-07-07 00:00 celecoxib [facility] 2022-06-14 00:00 methotrexate sodium [facility] 2022-06-14 00:00 methotrexate sodium [facility] 2022-06-15 00:00 methotrexate sodium [facility] 2022-06-16 00:00 methotrexate sodium [facility] 2022-06-19 00:00 methotrexate sodium [facility] 2022-06-21 00:00 methotrexate sodium [facility] 2022-07-07 00:00 methotrexate sodium [facility] 2022-06-14 00:00 prednisone [facility] 2022-06-14 00:00 prednisone [facility] 2022-06-15 00:00 prednisone [facility] 2022-06-16 00:00 prednisone [facility] 2022-06-19 00:00 prednisone [facility] 2022-06-21 00:00 prednisone [facility] 2022-07-07 00:00 prednisone [facility] 2022-06-14 00:00 prednisone [facility] 2022-06-14 00:00 prednisone [facility] 2022-06-15 00:00 prednisone [facility] 2022-06-16 00:00 prednisone [facility] 2022-06-19 00:00 prednisone [facility] 2022-06-21 00:00 prednisone [facility] 2022-07-07 00:00 prednisone [facility] 2022-06-14 00:00 amlodipine [facility] 2022-06-14 00:00 amlodipine [facility] 2022-06-15 00:00 amlodipine [facility] 2022-06-16 00:00 amlodipine [facility] 2022-06-19 00:00 amlodipine [facility] 2022-06-21 00:00 amlodipine [facility] 2022-07-07 00:00 amlodipine [facility] 2022-06-14 00:00 amlodipine [facility] 2022-06-14 00:00 amlodipine [facility] 2022-06-15 00:00 amlodipine [facility] 2022-06-16 00:00 amlodipine [facility] 2022-06-19 00:00 amlodipine [facility] 2022-06-21 00:00 amlodipine [facility] 2022-07-07 00:00 amlodipine [facility] 2022-06-14 00:00 hydroxychloroquine [facility] 2022-06-14 00:00 hydroxychloroquine [facility] 2022-06-15 00:00 hydroxychloroquine [facility] 2022-06-16 00:00 hydroxychloroquine [facility] 2022-06-19 00:00 hydroxychloroquine [facility] 2022-06-21 00:00 hydroxychloroquine [facility] 2022-07-07 00:00 hydroxychloroquine [facility] 2022-06-14 00:00 amlodipine [facility] 2022-06-14 00:00 amlodipine [facility] 2022-06-15 00:00 amlodipine [facility] 2022-06-16 00:00 amlodipine [facility] 2022-06-19 00:00 amlodipine [facility] 2022-06-21 00:00 amlodipine [facility] 2022-07-07 00:00 amlodipine [facility] 2022-06-14 00:00 amlodipine [facility] 2022-06-14 00:00 amlodipine [facility] 2022-06-15 00:00 amlodipine [facility] 2022-06-16 00:00 amlodipine [facility] 2022-06-19 00:00 amlodipine [facility] 2022-06-21 00:00 amlodipine [facility] 2022-07-07 00:00 amlodipine [facility] 2022-06-14 00:00 hydrochlorothiazide [facility] 2022-06-14 00:00 hydrochlorothiazide [facility] 2022-06-15 00:00 hydrochlorothiazide [facility] 2022-06-16 00:00 hydrochlorothiazide [facility] 2022-06-19 00:00 hydrochlorothiazide [facility] 2022-06-21 00:00 hydrochlorothiazide [facility] 2022-07-07 00:00 hydrochlorothiazide [facility] 2022-06-14 00:00 prednisone [facility] 2022-06-14 00:00 prednisone [facility] 2022-06-15 00:00 prednisone [facility] 2022-06-16 00:00 prednisone [facility] 2022-06-19 00:00 prednisone [facility] 2022-06-21 00:00 prednisone [facility] 2022-07-07 00:00 prednisone [facility] 2022-06-14 00:00 meclizine [facility] 2022-06-14 00:00 meclizine [facility] 2022-06-15 00:00 meclizine [facility] 2022-06-16 00:00 meclizine [facility] 2022-06-19 00:00 meclizine [facility] 2022-06-21 00:00 meclizine [facility] 2022-07-07 00:00 meclizine [facility] 2022-06-14 00:00 amlodipine [facility] 2022-06-14 00:00 amlodipine [facility] 2022-06-15 00:00 amlodipine [facility] 2022-06-16 00:00 amlodipine [facility] 2022-06-19 00:00 amlodipine [facility] 2022-06-21 00:00 amlodipine [facility] 2022-07-07 00:00 amlodipine [facility] 2022-06-14 00:00 amlodipine [facility] 2022-06-14 00:00 amlodipine [facility] 2022-06-15 00:00 amlodipine [facility] 2022-06-16 00:00 amlodipine [facility] 2022-06-19 00:00 amlodipine [facility] 2022-06-21 00:00 amlodipine [facility] 2022-07-07 00:00 amlodipine [facility] 2022-06-14 00:00 losartan [facility] 2022-06-14 00:00 losartan [facility] 2022-06-15 00:00 losartan [facility] 2022-06-16 00:00 losartan [facility] 2022-06-19 00:00 losartan [facility] 2022-06-21 00:00 losartan [facility] 2022-07-07 00:00 losartan [facility] 2022-06-14 00:00 losartan [facility] 2022-06-14 00:00 losartan [facility] 2022-06-15 00:00 losartan [facility] 2022-06-16 00:00 losartan [facility] 2022-06-19 00:00 losartan [facility] 2022-06-21 00:00 losartan [facility] 2022-07-07 00:00 losartan [facility] Services Marcel 2022-06-14 00:00 hydrochlorothiazide [facility] 2022-06-14 00:00 hydrochlorothiazide [facility] 2022-06-15 00:00 hydrochlorothiazide [facility] 2022-06-16 00:00 hydrochlorothiazide [facility] 2022-06-19 00:00 hydrochlorothiazide [facility] 2022-06-21 00:00 hydrochlorothiazide [facility] 2022-07-07 00:00 hydrochlorothiazide [facility] 2022-06-14 00:00 atorvastatin [facility] Marcel 2022-06-14 00:00 atorvastatin [facility] Marcel 2022-06-15 00:00 atorvastatin [facility] Marcel 2022-06-16 00:00 atorvastatin [facility] Marcel 2022-06-19 00:00 atorvastatin [facility] Marcel 2022-06-21 00:00 atorvastatin [facility] Marcel 2022-07-07 00:00 atorvastatin [facility] Marcel 2022-06-14 00:00 losartan [facility] Marcel 2022-06-14 00:00 losartan [facility] Marcel 2022-06-15 00:00 losartan [facility] Marcel 2022-06-16 00:00 losartan [facility] Marcel 2022-06-19 00:00 losartan [facility] Marcel 2022-06-21 00:00 losartan [facility] Marcel 2022-07-07 00:00 losartan [facility] Marcel 2022-06-14 00:00 losartan [facility] Marcel 2022-06-14 00:00 losartan [facility] Marcel 2022-06-15 00:00 losartan [facility] Marcel 2022-06-16 00:00 losartan [facility] Marcel 2022-06-19 00:00 losartan [facility] Marcel 2022-06-21 00:00 losartan [facility] Marcel 2022-07-07 00:00 losartan [facility] Marcel 2022-06-14 00:00 atorvastatin [facility] Marcel 2022-06-14 00:00 atorvastatin [facility] Marcel 2022-06-15 00:00 atorvastatin [facility] Marcel 2022-06-16 00:00 atorvastatin [facility] Marcel 2022-06-19 00:00 atorvastatin [facility] Marcel 2022-06-21 00:00 atorvastatin [facility] Marcel 2022-07-07 00:00 atorvastatin [facility] Marcel 2022-06-14 00:00 omeprazole [facility] Marcel 2022-06-14 00:00 omeprazole [facility] Marcel 2022-06-15 00:00 omeprazole [facility] Marcel 2022-06-16 00:00 omeprazole [facility] Marcel 2022-06-19 00:00 omeprazole [facility] 2022-06-21 00:00 omeprazole [facility] Marcel 2022-07-07 00:00 omeprazole [facility] Marcel 2022-06-14 00:00 meclizine [facility] Marcel 2022-06-14 00:00 meclizine [facility] Marcel 2022-06-15 00:00 meclizine [facility] Marcel 2022-06-16 00:00 meclizine [facility] Marcel 2022-06-19 00:00 meclizine [facility] Marcel 2022-06-21 00:00 meclizine [facility] Marcel 2022-07-07 00:00 meclizine [facility] Marcel 2022-06-14 00:00 celecoxib [facility] Marcel 2022-06-14 00:00 celecoxib [facility] Marcel 2022-06-15 00:00 celecoxib [facility] Marcel 2022-06-16 00:00 celecoxib [facility] Marcel 2022-06-19 00:00 celecoxib [facility] Marcel 2022-06-21 00:00 celecoxib [facility] 2022-07-07 00:00 celecoxib [facility] 2022-06-14 00:00 meclizine [facility] Marcel 2022-06-14 00:00 meclizine [facility] 2022-06-15 00:00 meclizine [facility] 2022-06-16 00:00 meclizine [facility] 2022-06-19 00:00 meclizine [facility] 2022-06-21 00:00 meclizine [facility] 2022-07-07 00:00 meclizine [facility] Marcel 2022-06-14 00:00 celecoxib [facility] 2022-06-14 00:00 celecoxib [facility] 2022-06-15 00:00 celecoxib [facility] Marcel 2022-06-16 00:00 celecoxib [facility] Marcel 2022-06-19 00:00 celecoxib [facility] 2022-06-21 00:00 celecoxib [facility] 2022-07-07 00:00 celecoxib [facility] Marcel 2022-06-14 00:00 amlodipine [facility] Marcel 2022-06-14 00:00 amlodipine [facility] 2022-06-15 00:00 amlodipine [facility] Marcel 2022-06-16 00:00 amlodipine [facility] Marcel 2022-06-19 00:00 amlodipine [facility] 2022-06-21 00:00 amlodipine [facility] 2022-07-07 00:00 amlodipine [facility] Marcel 2022-06-14 00:00 amlodipine [facility] Marcel 2022-06-14 00:00 amlodipine [facility] 2022-06-15 00:00 amlodipine [facility] 2022-06-16 00:00 amlodipine [facility] 2022-06-19 00:00 amlodipine [facility] 2022-06-21 00:00 amlodipine [facility] 2022-07-07 00:00 amlodipine [facility] 2022-06-14 00:00 atorvastatin [facility] 2022-06-14 00:00 atorvastatin [facility] 2022-06-15 00:00 atorvastatin [facility] 2022-06-16 00:00 atorvastatin [facility] 2022-06-19 00:00 atorvastatin [facility] 2022-06-21 00:00 atorvastatin [facility] 2022-07-07 00:00 atorvastatin [facility] 2022-06-14 00:00 omeprazole [facility] 2022-06-14 00:00 omeprazole [facility] Marcel 2022-06-15 00:00 omeprazole [facility] 2022-06-16 00:00 omeprazole [facility] Marcel 2022-06-19 00:00 omeprazole [facility] Marcel 2022-06-21 00:00 omeprazole [facility] Marcel 2022-07-07 00:00 omeprazole [facility] 2022-06-14 00:00 atorvastatin [facility] 2022-06-14 00:00 atorvastatin [facility] 2022-06-15 00:00 atorvastatin [facility] 2022-06-16 00:00 atorvastatin [facility] 2022-06-19 00:00 atorvastatin [facility] 2022-06-21 00:00 atorvastatin [facility] 2022-07-07 00:00 atorvastatin [facility] 2022-06-14 00:00 omeprazole [facility] Marcel 2022-06-14 00:00 omeprazole [facility] Marcel 2022-06-15 00:00 omeprazole [facility] 2022-06-16 00:00 omeprazole [facility] 2022-06-19 00:00 omeprazole [facility] Marcel 2022-06-21 00:00 omeprazole [facility] Marcel 2022-07-07 00:00 omeprazole [facility] 2022-06-14 00:00 ibuprofen [facility] 2022-06-14 00:00 ibuprofen [facility] 2022-06-15 00:00 ibuprofen [facility] 2022-06-16 00:00 ibuprofen [facility] Marcel 2022-06-19 00:00 ibuprofen [facility] 2022-06-21 00:00 ibuprofen [facility] 2022-07-07 00:00 ibuprofen [facility] 2022-06-14 00:00 oxycodone-acetaminophen [facility] 2022-06-14 00:00 oxycodone-acetaminophen [facility] Marcel 2022-06-15 00:00 oxycodone-acetaminophen [facility] 2022-06-16 00:00 oxycodone-acetaminophen [facility] Marcel 2022-06-19 00:00 oxycodone-acetaminophen [facility] Marcel 2022-06-21 00:00 oxycodone-acetaminophen [facility] Marcel 2022-07-07 00:00 oxycodone-acetaminophen [facility] Marcel 2022-06-14 00:00 oxycodone-acetaminophen [facility] Marcel 2022-06-14 00:00 oxycodone-acetaminophen [facility] 2022-06-15 00:00 oxycodone-acetaminophen [facility] Marcel 2022-06-16 00:00 oxycodone-acetaminophen [facility] Marcel 2022-06-19 00:00 oxycodone-acetaminophen [facility] 2022-06-21 00:00 oxycodone-acetaminophen [facility] Marcel 2022-07-07 00:00 oxycodone-acetaminophen [facility] 2022-06-14 00:00 ibuprofen [facility] Marcel 2022-06-14 00:00 ibuprofen [facility] Marcel 2022-06-15 00:00 ibuprofen [facility] Marcel 2022-06-16 00:00 ibuprofen [facility] Marcel 2022-06-19 00:00 ibuprofen [facility] Marcel 2022-06-21 00:00 ibuprofen [facility] Marcel 2022-07-07 00:00 ibuprofen [facility] Marcel 2022-06-14 00:00 celecoxib [facility] Marcel 2022-06-14 00:00 celecoxib [facility] Marcel 2022-06-15 00:00 celecoxib [facility] Marcel 2022-06-16 00:00 celecoxib [facility] Marcel 2022-06-19 00:00 celecoxib [facility] Marcel 2022-06-21 00:00 celecoxib [facility] Marcel 2022-07-07 00:00 celecoxib [facility] Marcel 2022-06-14 00:00 losartan [facility] Marcel 2022-06-14 00:00 losartan [facility] Marcel 2022-06-15 00:00 losartan [facility] Marcel 2022-06-16 00:00 losartan [facility] Marcel 2022-06-19 00:00 losartan [facility] Marcel 2022-06-21 00:00 losartan [facility] Marcel 2022-07-07 00:00 losartan [facility] Marcel 2022-06-14 00:00 losartan [facility] Marcel 2022-06-14 00:00 losartan [facility] Marcel 2022-06-15 00:00 losartan [facility] Marcel 2022-06-16 00:00 losartan [facility] Marcel 2022-06-19 00:00 losartan [facility] Marcel 2022-06-21 00:00 losartan [facility] Marcel 2022-07-07 00:00 losartan [facility] Marcel 2022-06-14 00:00 oxycodone-acetaminophen [facility] Marcel 2022-06-14 00:00 oxycodone-acetaminophen [facility] Marcel 2022-06-15 00:00 oxycodone-acetaminophen [facility] Marcel 2022-06-16 00:00 oxycodone-acetaminophen [facility] Marcel 2022-06-19 00:00 oxycodone-acetaminophen [facility] Marcel 2022-06-21 00:00 oxycodone-acetaminophen [facility] Marcel 2022-07-07 00:00 oxycodone-acetaminophen [facility] Marcle 2022-06-14 00:00 hydroxychloroquine [facility] Marcel 2022-06-14 00:00 hydroxychloroquine [facility] Marcel 2022-06-15 00:00 hydroxychloroquine [facility] Marcel 2022-06-16 00:00 hydroxychloroquine [facility] Marcel 2022-06-19 00:00 hydroxychloroquine [facility] Marcel 2022-06-21 00:00 hydroxychloroquine [facility] Marcel 2022-07-07 00:00 hydroxychloroquine [facility] Marcel 2022-06-14 00:00 losartan [facility] Marcel 2022-06-14 00:00 losartan [facility] Marcel 2022-06-15 00:00 losartan [facility] Marcel 2022-06-16 00:00 losartan [facility] Marcel 2022-06-19 00:00 losartan [facility] Marcel 2022-06-21 00:00 losartan [facility] Marcel 2022-07-07 00:00 losartan [facility] Marcel 2022-06-14 00:00 losartan [facility] Marcel 2022-06-14 00:00 losartan [facility] Marcel 2022-06-15 00:00 losartan [facility] Marcel 2022-06-16 00:00 losartan [facility] Marcel 2022-06-19 00:00 losartan [facility] Marcel 2022-06-21 00:00 losartan [facility] Marcel 2022-07-07 00:00 losartan [facility] Marcel 2022-06-14 00:00 meclizine [facility] Marcel 2022-06-14 00:00 meclizine [facility] Marcel 2022-06-15 00:00 meclizine [facility] Marcel 2022-06-16 00:00 meclizine [facility] Marcel 2022-06-19 00:00 meclizine [facility] Marcel 2022-06-21 00:00 meclizine [facility] Marcel 2022-07-07 00:00 meclizine [facility] Marcel 2022-06-14 00:00 acetaminophen [facility] Marcel 2022-06-14 00:00 acetaminophen [facility] Mracel 2022-06-15 00:00 acetaminophen [facility] Marcel 2022-06-16 00:00 acetaminophen [facility] Marcel 2022-06-19 00:00 acetaminophen [facility] Marcel 2022-06-21 00:00 acetaminophen [facility] Marcel 2022-07-07 00:00 acetaminophen [facility] Marcel Problems date description facility 2022-06-14 00:00 Metabolic syndrome X [facility] Radha carreno 2022-06-14 00:00 Metabolic syndrome X [facility] Radha carreno 2022-06-14 00:00 Headache [facility] Radha carreno 2022-06-14 00:00 Headache [facility] Radha ev 2022-06-14 00:00 Headache [facility] Radha ev 2022-06-14 00:00 Family history of alcoholism Walk[facility] Radha carreno 2022-06-14 00:00 Family history of alcoholism [facility] Radha carreno 2022-06-14 00:00 Dysmetabolic syndrome X [facility] Radha carreno 2022-06-14 00:00 Dysmetabolic syndrome X [facility] Radha carreno 2022-06-14 00:00 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 Ancillary Se rvices Marcel classified elsewhere 2022-06-14 00:00 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 Ancillary Se rvices Marcel classified elsewhere 2022-06-14 00:00 Carpal tunnel syndrome [facility] Radha ev 2022-06-14 00:00 Carpal tunnel syndrome [facility] Radha carreno 2022-06-14 00:00 Pharyngitis [facility] Radha carreno 2022-06-14 00:00 Pharyngitis [facility] Radha carreno 2022-06-14 00:00 Pharyngitis [facility] Radha carreno 2022-06-14 00:00 Cognitive disorder [facility] C ev 2022-06-14 00:00 Cognitive disorder [facility] C ev 2022-06-14 00:00 Acute pharyngitis [facility] C ev 2022-06-14 00:00 Acute pharyngitis [facility] C ev 2022-06-14 00:00 Acute pharyngitis [facility] C ev 2022-06-14 00:00 Nerve root disorder Walk[facility]In [facility] C ev 2022-06-14 00:00 Nerve root disorder [facility] C ev 2022-06-14 00:00 Sciatica [facility] C ev 2022-06-14 00:00 Sciatica [facility] C ev 2022-06-14 00:00 Neuralgia, neuritis, and [facility] & radiculitis, unspecified Ancillary Servi velma Marcel 2022-06-14 00:00 Neuralgia, neuritis, and [facility] & radiculitis, unspecified Ancillary Servi velma Marcel 2022-06-14 00:00 Cholecystitis [facility] C ev 2022-06-14 00:00 Cholecystitis [facility] C ev 2022-06-14 00:00 Metabolic syndrome [facility] C ev 2022-06-14 00:00 Metabolic syndrome [facility] C ev 2022-06-14 00:00 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[facility] & known physiological condition [facility] Services Marcel 2022-06-14 00:00 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[facility] & known physiological condition [facility] Services Marcel 2022-06-14 00:00 Carpal tunnel syndrome, Walk-In [facility] Care & unspecified upper limb Ancillary Service s Marcel 2022-06-14 00:00 Carpal tunnel syndrome, [facility]In [facility] Care & unspecified upper limb Ancillary Service s Marcel 2022-06-14 00:00 Acute pharyngitis, unspecified [facility] C ev 2022-06-14 00:00 Acute pharyngitis, unspecified [facility] Radha carreno 2022-06-14 00:00 Acute pharyngitis, unspecified [facility] Radha carreno 2022-06-14 00:00 Cholecystitis, unspecified [facility] Radha carreno 2022-06-14 00:00 Cholecystitis, unspecified [facility] Radha carreno 2022-06-14 00:00 Radiculopathy, site unspecified [facility] Radha carreno 2022-06-14 00:00 Radiculopathy, site unspecified [facility] Radha carreno 2022-06-14 00:00 Sciatica, unspecified side [facility] Radha carreno 2022-06-14 00:00 Sciatica, unspecified side [facility] Radha carreno 2022-06-14 00:00 Headache, unspecified [facility] Radha carreno 2022-06-14 00:00 Headache, unspecified [facility] Radha carreno 2022-06-14 00:00 Headache, unspecified [facility] Radha carreno 2022-06-14 00:00 Alcoholism in family [facility] Radha carreno 2022-06-14 00:00 Alcoholism in family [facility] Radha carreno 2022-06-14 00:00 Family history of alcohol abuse [facility] Primary Care & and dependence Ancillary Services Radha carreno 2022-06-14 00:00 Family history of alcohol abuse [facility] & and dependence Anc[facility] Services Radha carreno 2022-06-15 00:00 Metabolic syndrome X [facility] C ev 2022-06-15 00:00 Family history of alcoholism Walk[facility]In [facility] Primary Care & Ancillary Services [facility] 2022-06-15 00:00 Dysmetabolic syndrome X Walk[facility]In [facility] 2022-06-15 00:00 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 Ancillary Se rvices Marcel classified elsewhere 2022-06-15 00:00 Carpal tunnel syndrome Walk[facility]In [facility] 2022-06-15 00:00 Cognitive disorder [facility] [place] [facility]:00 Nerve root disorder Walk-In Clinic [facility] Care & Ancillary Services [facility] 2022-06-15 00:00 Sciatica Walk-In Clinic Prim alex Care & Ancillary Services [facility] 2022-06-15 00:00 Neuralgia, neuritis, and Walk-In Clini c Primary Care & radiculitis, unspecified Ancillary Servi velma Marcel 2022-06-15 00:00 Cholecystitis Walk-In Clinic Prim alex Care & Ancillary Services [facility] 2022-06-15 00:00 Metabolic syndrome Walk-In Clinic Prim alex Care & Ancillary Services [facility] 2022-06-15 00:00 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[facility] Primary Care & known physiological condition Ancillary Services Marcel 2022-06-15 00:00 Carpal tunnel syndrome, Walk-In Clinic Primary Care & unspecified upper limb Ancillary Service s Marcel 2022-06-15 00:00 Cholecystitis, unspecified Walk-In Cli erica Primary Care & Ancillary Services [facility] 2022-06-15 00:00 Radiculopathy, site unspecified Walk-I n Clinic Primary Care & Ancillary Services [facility] 2022-06-15 00:00 Sciatica, unspecified side Walk-In Cli erica Primary Care & Ancillary Services [facility] 2022-06-15 00:00 Alcoholism in family Walk-In Clinic Pr imary Care & Ancillary Services Radha ev 2022-06-15 00:00 Family history of alcohol abuse Walk-I n Clinic Primary Care & and dependence Ancillary Services Radha sultanaev 2022-06-16 00:00 Metabolic syndrome X Walk-In Clinic Pr imary Care & Ancillary Services Radha carreno 2022-06-16 00:00 Family history of alcoholism Walk-In C [facility] Primary Care & Ancillary Services C ev 2022-06-16 00:00 Dysmetabolic syndrome X Walk-In Clinic Primary Care & Ancillary Services C ev 2022-06-16 00:00 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 Ancillary Se rvices Marcel classified elsewhere 2022-06-16 00:00 Carpal tunnel syndrome Walk-In Clinic Primary Care & Ancillary Services C ev 2022-06-16 00:00 Cognitive disorder Walk-In Clinic Prim alex Care & Ancillary Services C ev 2022-06-16 00:00 Nerve root disorder Walk-In Clinic [facility] Care & Ancillary Services C ev 2022-06-16 00:00 Sciatica Walk-In Clinic Prim alex Care & Ancillary Services [facility] 2022-06-16 00:00 Neuralgia, neuritis, and Walk-In Clini c Primary Care & radiculitis, unspecified Ancillary Servi velma Marcel 2022-06-16 00:00 Cholecystitis Walk-In Clinic Prim alex Care & Ancillary Services C ev 2022-06-16 00:00 Metabolic syndrome Walk-In Clinic Prim alex Care & Ancillary Services [facility] 2022-06-16 00:00 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[facility] Primary Care & known physiological condition Ancillary Services Marcel 2022-06-16 00:00 Carpal tunnel syndrome, Walk-In Clinic Primary Care & unspecified upper limb Ancillary Service s Marcel 2022-06-16 00:00 Cholecystitis, unspecified Walk-In Cli erica Primary Care & Ancillary Services [facility] 2022-06-16 00:00 Radiculopathy, site unspecified Walk[facility]I n Clinic Primary Care & Ancillary Services Radha ev 2022-06-16 00:00 Sciatica, unspecified side Walk-In Cli er[facility] Primary Care & Ancillary Services Radha ev 2022-06-16 00:00 Alcoholism in family Walk-In Clinic Pr imary Care & Ancillary Services Radha ev 2022-06-16 00:00 Family history of alcohol abuse Walk-I n Clinic Primary Care & and dependence Ancillary Services Radha carreno 2022-06-19 00:00 Metabolic syndrome X Walk-In Clinic Pr imary Care & Ancillary Services Radha ev 2022-06-19 00:00 Family history of alcoholism Walk-In [facility] Primary Care & Ancillary Services [facility] 2022-06-19 00:00 Dysmetabolic syndrome X Walk-In Clinic Primary Care & Ancillary Services [facility] 2022-06-19 00:00 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 Ancillary Se rvices Marcel classified elsewhere 2022-06-19 00:00 Carpal tunnel syndrome Walk-In Clinic Primary Care & Ancillary Services [facility] 2022-06-19 00:00 Cognitive disorder Walk-In Clinic Prim alex Care & Ancillary Services [facility] 2022-06-19 00:00 Nerve root disorder Walk-In Clinic [facility] Care & Ancillary Services [facility] 2022-06-19 00:00 Sciatica Walk-In Clinic Prim alex Care & Ancillary Services [facility] 2022-06-19 00:00 Neuralgia, neuritis, and Walk-In Clini c Primary Care & radiculitis, unspecified Ancillary Servi velma Marcel 2022-06-19 00:00 Cholecystitis Walk-In Clinic Prim alex Care & Ancillary Services [facility] 2022-06-19 00:00 Metabolic syndrome Walk-In Clinic Prim alex Care & Ancillary Services [facility] 2022-06-19 00:00 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[facility] Primary Care & known physiological condition Ancillary Services Marcel 2022-06-19 00:00 Carpal tunnel syndrome, Walk-In Clinic Primary Care & unspecified upper limb Ancillary Service s Marcel 2022-06-19 00:00 Cholecystitis, unspecified Walk[facility]In [facility] 2022-06-19 00:00 Radiculopathy, site unspecified [facility] Primary Care [facility] Services [facility] 2022-06-19 00:00 Sciatica, unspecified side Walk-In Cli [facility] Primary Care & Ancillary Services [facility] 2022-06-19 00:00 Alcoholism in family Walk-In Clinic Pr imary Care & Ancillary Services [facility] 2022-06-19 00:00 Family history of alcohol abuse Walk-I n Clinic Primary Care & and dependence Ancillary Services Radha carreno 2022-06-21 00:00 Metabolic syndrome X Walk-In Clinic Pr imary Care & Ancillary Services [facility] 2022-06-21 00:00 Family history of alcoholism Walk-In [facility] Primary Care & Ancillary Services [facility] 2022-06-21 00:00 Dysmetabolic syndrome X Walk-In Clinic Primary Care & Ancillary Services [facility] 2022-06-21 00:00 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 Ancillary Se rvices Marcel classified elsewhere 2022-06-21 00:00 Carpal tunnel syndrome Walk-In Clinic Primary Care & Ancillary Services [facility] 2022-06-21 00:00 Cognitive disorder Walk-In Clinic Prim alex Care & Ancillary Services [facility] 2022-06-21 00:00 Nerve root disorder Walk[facility]In Clinic [facility] Care & Ancillary Services [facility] 2022-06-21 00:00 Sciatica Walk-In Clinic Prim alex Care & Ancillary Services [facility] 2022-06-21 00:00 Neuralgia, neuritis, and Walk-In Clini c Primary Care & radiculitis, unspecified Ancillary Servi velma Marcel 2022-06-21 00:00 Cholecystitis Walk-In Clinic Prim alex Care & Ancillary Services [facility] 2022-06-21 00:00 Metabolic syndrome Walk-In Clinic Prim alex Care & Ancillary Services [facility] 2022-06-21 00:00 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[facility] Primary Care & known physiological condition Ancillary Services [facility] 2022-06-21 00:00 Carpal tunnel syndrome, Walk-In Clinic Primary Care & unspecified upper limb Ancillary Service s Marcel 2022-06-21 00:00 Cholecystitis, unspecified Walk-In Cli erica Primary Care & Ancillary Services [facility] 2022-06-21 00:00 Radiculopathy, site unspecified Walk[facility]I n Clinic Primary Care & Ancillary Services [facility] 2022-06-21 00:00 Sciatica, unspecified side Walk-In Cli [facility] Primary Care & Ancillary Services [facility] 2022-06-21 00:00 Alcoholism in family Walk-In Clinic Pr imary Care & Ancillary Services [facility] 2022-06-21 00:00 Family history of alcohol abuse Walk-I n Clinic Primary Care & and dependence Ancillary Services [facility] 2022-07-07 00:00 Metabolic syndrome X Walk-In Clinic Pr imary Care & Ancillary Services Radha carreno 2022-07-07 00:00 Family history of alcoholism Walk-In [facility] Primary Care & Ancillary Services Radha carreno 2022-07-07 00:00 Dysmetabolic syndrome X Walk-In Clinic Primary Care & Ancillary Services ev 2022-07-07 00:00 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 Ancillary Se rvices Marcel classified elsewhere 2022-07-07 00:00 Carpal tunnel syndrome Walk-In Clinic Primary Care & Ancillary Services ev 2022-07-07 00:00 Cognitive disorder Walk-In Clinic Prim alex Care & Ancillary Services ev 2022-07-07 00:00 Nerve root disorder Walk[facility]In Clinic [facility] Care & Ancillary Services Radha carreno 2022-07-07 00:00 Sciatica Walk-In Clinic Prim alex Care & Ancillary Services ev 2022-07-07 00:00 Neuralgia, neuritis, and Walk-In Clini c Primary Care & radiculitis, unspecified Ancillary Servi velma Marcel 2022-07-07 00:00 Cholecystitis Walk-In Clinic Prim alex Care & Ancillary Services [facility] 2022-07-07 00:00 Metabolic syndrome Walk-In Clinic Prim alex Care & Ancillary Services Radha sultanaev 2022-07-07 00:00 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[facility] Primary Care & known physiological condition Ancillary Services Marcel 2022-07-07 00:00 Carpal tunnel syndrome, Walk-In Clinic Primary Care & unspecified upper limb Ancillary Service s Marcel 2022-07-07 00:00 Cholecystitis, unspecified Walk-In Cli [facility] Primary Care & Ancillary Services Radha carreno 2022-07-07 00:00 Radiculopathy, site unspecified [facility] n [facility] Primary Care & Ancillary Services Radha carreno 2022-07-07 00:00 Sciatica, unspecified side Walk-In Cli [facility] Primary Care & Ancillary Services Radha carreno 2022-07-07 00:00 Alcoholism in family Walk-In Clinic Pr imary Care & Ancillary Services Radha sultanaev 2022-07-07 00:00 Family history of alcohol abuse Walk-I n Clinic Primary Care & and dependence Ancillary Services Radha carreno Procedures date description facility 2022-06-14 00:00 Visit Code Hold [facility] Care & Ancillary Services Marcel 2022-06-14 00:00 Visit Code Hold Walk-In Clinic [place] [facility] Care & Ancillary Services Marcel 2022-06-14 00:00 Visit Code Hold Walk-In [facility] alex Care & Ancillary Services Marcel Results/Labs test date author facility value unit interpret ation Result panel 1 (unknown) (no date) (unknown) Walk-In (no value) (units (unk nown) Clinic Primary unknown) Care & Ancillary Services Marcel Result panel 2 (unknown) (no date) (unknown) Walk-In (no value) (units (unk nown) Clinic Primary unknown) Care & Ancillary Services Marcel Result panel 3 (unknown) (no date) (unknown) Walk-In (no value) (units (unk nown) Clinic Primary unknown) Care & Ancillary Services Marcel Result panel 4 (unknown) (no date) (unknown) Walk-In (no value) (units (unk nown) Clinic Primary unknown) Care & Ancillary Services Marcel Result panel 5 (unknown) (no date) (unknown) Walk-In (no value) (units (unk nown) Clinic Primary unknown) Care & Ancillary Services Marcel Result panel 6 (unknown) (no date) (unknown) Walk-In (no value) (units (unk nown) Clinic Primary unknown) Care & Ancillary Services Marcel Result panel 7 (unknown) (no date) (unknown) Walk-In (no value) (units (unk nown) Clinic Primary unknown) Care & Ancillary Services Marcel Result panel 8 (unknown) (no date) (unknown) Walk-In (no value) (units (unk nown) Clinic Primary unknown) Care & Ancillary Services Marcel Result panel 9 (unknown) (no date) (unknown) Walk-In (no value) (units (unk nown) Clinic Primary unknown) Care & Ancillary Services Marcel Result panel 10 (unknown) (no date) (unknown) Walk-In (no value) (units (unk nown) Clinic Primary unknown) Care & Ancillary Services Marcel Result panel 11 (unknown) (no date) (unknown) Walk-In (no value) (units (unk nown) Clinic Primary unknown) Care & Ancillary Services Marcel Result panel 12 (unknown) (no date) (unknown) Walk-In (no value) (units (unk nown) Clinic Primary unknown) Care & Ancillary Services Marcel Result panel 13 (unknown) (no date) (unknown) Walk-In (no value) (units (unk nown) Clinic Primary unknown) Care & Ancillary Services Marcel Result panel 14 (unknown) (no date) (unknown) Walk-In (no value) (units (unk nown) Clinic Primary unknown) Care & Ancillary Services Marcel Result panel 15 (unknown) (no date) (unknown) Walk-In (no value) (units (unk nown) Clinic Primary unknown) Care & Ancillary Services Marcel Result panel 16 (unknown) (no date) (unknown) Walk-In (no value) (units (unk nown) Clinic Primary unknown) Care & Ancillary Services Marcel Result panel 17 (unknown) (no date) (unknown) Walk-In (no value) (units (unk nown) Clinic Primary unknown) Care & Ancillary Services Marcel Result panel 18 (unknown) (no date) (unknown) Walk-In (no value) (units (unk nown) Clinic Primary unknown) Care & Ancillary Services Marcel Result panel 19 (unknown) (no date) (unknown) Walk-In (no value) (units (unk nown) Clinic Primary unknown) Care & Ancillary Services Marcel Result panel 20 (unknown) (no date) (unknown) Walk-In (no value) (units (unk nown) Clinic Primary unknown) Care & Ancillary Services Marcel Result panel 21 (unknown) (no date) (unknown) Walk-In (no value) (units (unk nown) Clinic Primary unknown) Care & Ancillary Services Marcel Result panel 22 (unknown) (no date) (unknown) Walk-In (no value) (units (unk nown) Clinic Primary unknown) Care & Ancillary Services Marcel Result panel 23 (unknown) (no date) (unknown) Walk-In (no value) (units (unk nown) Clinic Primary unknown) Care & Ancillary Services Marcel Result panel 24 (unknown) (no date) (unknown) Walk-In (no value) (units (unk nown) Clinic Primary unknown) Care & Ancillary Services Marcel Result panel 25 (unknown) (no date) (unknown) Walk-In (no value) (units (unk nown) Clinic Primary unknown) Care & Ancillary Services Marcel Result panel 26 (unknown) (no date) (unknown) Walk-In (no value) (units (unk nown) Clinic Primary unknown) Care & Ancillary Services Marcel Result panel 27 (unknown) (no date) (unknown) Walk-In (no value) (units (unk nown) Clinic Primary unknown) Care & Ancillary Services Marcel Result panel 28 (unknown) (no date) (unknown) Walk-In (no value) (units (unk nown) Clinic Primary unknown) Care & Ancillary Services Marcel Result panel 29 (unknown) (no date) (unknown) Walk-In (no value) (units (unk nown) Clinic Primary unknown) Care & Ancillary Services Marcel Result panel 30 (unknown) (no date) (unknown) Walk-In (no value) (units (unk nown) Clinic Primary unknown) Care & Ancillary Services Marcel Result panel 31 (unknown) (no date) (unknown) Walk-In (no value) (units (unk nown) Clinic Primary unknown) Care & Ancillary Services Marcel Result panel 32 (unknown) (no date) (unknown) Walk-In (no value) (units (unk nown) Clinic Primary unknown) Care & Ancillary Services Marcel Result panel 33 (unknown) (no date) (unknown) Walk-In (no value) (units (unk nown) Clinic Primary unknown) Care & Ancillary Services Marcel Result panel 34 (unknown) (no date) (unknown) Walk-In (no value) (units (unk nown) Clinic Primary unknown) Care & Ancillary Services Marcel Result panel 35 (unknown) (no date) (unknown) Walk-In (no value) (units (unk nown) Clinic Primary unknown) Care & Ancillary Services Marcel Result panel 36 (unknown) (no date) (unknown) Walk-In (no value) (units (unk nown) Clinic Primary unknown) Care & Ancillary Services Marcel Result panel 37 (unknown) (no date) (unknown) Walk-In (no value) (units (unk nown) Clinic Primary unknown) Care & Ancillary Services Marcel Result panel 38 (unknown) (no date) (unknown) Walk-In (no value) (units (unk nown) Clinic Primary unknown) Care & Ancillary Services Marcel Result panel 39 (unknown) (no date) (unknown) Walk-In (no value) (units (unk nown) Clinic Primary unknown) Care & Ancillary Services Marcel Result panel 40 (unknown) (no date) (unknown) Walk-In (no value) (units (unk nown) Clinic Primary unknown) Care & Ancillary Services Marcel Result panel 41 (unknown) (no date) (unknown) Walk-In (no value) (units (unk nown) Clinic Primary unknown) Care & Ancillary Services Marcel Result panel 42 (unknown) (no date) (unknown) Walk-In (no value) (units (unk nown) Clinic Primary unknown) Care & Ancillary Services Marcel Result panel 43 (unknown) (no date) (unknown) Walk-In (no value) (units (unk nown) Clinic Primary unknown) Care & Ancillary Services Marcel Result panel 44 (unknown) (no date) (unknown) Walk-In (no value) (units (unk nown) Clinic Primary unknown) Care & Ancillary Services Marcel Result panel 45 (unknown) (no date) (unknown) Walk-In (no value) (units (unk nown) Clinic Primary unknown) Care & Ancillary Services Marcel Result panel 46 (unknown) (no date) (unknown) Walk-In (no value) (units (unk nown) Clinic Primary unknown) Care & Ancillary Services Marcel Result panel 47 (unknown) (no date) (unknown) Walk-In (no value) (units (unk nown) Clinic Primary unknown) Care & Ancillary Services Marcel Result panel 48 (unknown) (no date) (unknown) Walk-In (no value) (units (unk nown) Clinic Primary unknown) Care & Ancillary Services Marcel Result panel 49 (unknown) (no date) (unknown) Walk-In (no value) (units (unk nown) Clinic Primary unknown) Care & Ancillary Services Marcel Result panel 50 (unknown) (no date) (unknown) Walk-In (no value) (units (unk nown) Clinic Primary unknown) Care & Ancillary Services Marcel Result panel 51 (unknown) (no date) (unknown) Walk-In (no value) (units (unk nown) Clinic Primary unknown) Care & Ancillary Services Marcel Result panel 52 (unknown) (no date) (unknown) Walk-In (no value) (units (unk nown) Clinic Primary unknown) Care & Ancillary Services Marcel Result panel 53 (unknown) (no date) (unknown) Walk-In (no value) (units (unk nown) Clinic Primary unknown) Care & Ancillary Services Marcel Result panel 54 (unknown) (no date) (unknown) Walk-In (no value) (units (unk nown) Clinic Primary unknown) Care & Ancillary Services Marcel Result panel 55 (unknown) (no date) (unknown) Walk-In (no value) (units (unk nown) Clinic Primary unknown) Care & Ancillary Services Marcel Result panel 56 (unknown) (no date) (unknown) Walk-In (no value) (units (unk nown) Clinic Primary unknown) Care & Ancillary Services Marcel Result panel 57 (unknown) (no date) (unknown) Walk-In (no value) (units (unk nown) Clinic Primary unknown) Care & Ancillary Services Marcel Result panel 58 (unknown) (no date) (unknown) Walk-In (no value) (units (unk nown) Clinic Primary unknown) Care & Ancillary Services Marcel Result panel 59 (unknown) (no date) (unknown) Walk-In (no value) (units (unk nown) Clinic Primary unknown) Care & Ancillary Services Marcel Result panel 60 (unknown) (no date) (unknown) Walk-In (no value) (units (unk nown) Clinic Primary unknown) Care & Ancillary Services Marcel Result panel 61 (unknown) (no date) (unknown) Walk-In (no value) (units (unk nown) Clinic Primary unknown) Care & Ancillary Services Marcel Result panel 62 (unknown) (no date) (unknown) Walk-In (no value) (units (unk nown) Clinic Primary unknown) Care & Ancillary Services Marcel Result panel 63 (unknown) (no date) (unknown) Walk-In (no value) (units (unk nown) Clinic Primary unknown) Care & Ancillary Services Marcel Result panel 64 (unknown) (no date) (unknown) Walk-In (no value) (units (unk nown) Clinic Primary unknown) Care & Ancillary Services Marcel Result panel 65 (unknown) (no date) (unknown) Walk-In (no value) (units (unk nown) Clinic Primary unknown) Care & Ancillary Services Marcel Result panel 66 (unknown) (no date) (unknown) Walk-In (no value) (units (unk nown) Clinic Primary unknown) Care & Ancillary Services Marcel Result panel 67 (unknown) (no date) (unknown) Walk-In (no value) (units (unk nown) Clinic Primary unknown) Care & Ancillary Services Marcel Result panel 68 (unknown) (no date) (unknown) Walk-In (no value) (units (unk nown) Clinic Primary unknown) Care & Ancillary Services Marcel Result panel 69 (unknown) (no date) (unknown) Walk-In (no value) (units (unk nown) Clinic Primary unknown) Care & Ancillary Services Marcel Result panel 70 (unknown) (no date) (unknown) Walk-In (no value) (units (unk nown) Clinic Primary unknown) Care & Ancillary Services Marcel Result panel 71 (unknown) (no date) (unknown) Walk-In (no value) (units (unk nown) Clinic Primary unknown) Care & Ancillary Services Marcel Result panel 72 (unknown) (no date) (unknown) Walk-In (no value) (units (unk nown) Clinic Primary unknown) Care & Ancillary Services Marcel Result panel 73 (unknown) (no date) (unknown) Walk-In (no value) (units (unk nown) Clinic Primary unknown) Care & Ancillary Services Marcel Result panel 74 (unknown) (no date) (unknown) Walk-In (no value) (units (unk nown) Clinic Primary unknown) Care & Ancillary Services Marcel Result panel 75 (unknown) (no date) (unknown) Walk-In (no value) (units (unk nown) Clinic Primary unknown) Care & Ancillary Services Marcel Result panel 76 (unknown) (no date) (unknown) Walk-In (no value) (units (unk nown) Clinic Primary unknown) Care & Ancillary Services Marcel Result panel 77 (unknown) (no date) (unknown) Walk-In (no value) (units (unk nown) Clinic Primary unknown) Care & Ancillary Services Marcel Result panel 78 (unknown) (no date) (unknown) Walk-In (no value) (units (unk nown) Clinic Primary unknown) Care & Ancillary Services Marcel Result panel 79 (unknown) (no date) (unknown) Walk-In (no value) (units (unk nown) Clinic Primary unknown) Care & Ancillary Services Marcel Result panel 80 (unknown) (no date) (unknown) Walk-In (no value) (units (unk nown) Clinic Primary unknown) Care & Ancillary Services Marcel Result panel 81 (unknown) (no date) (unknown) Walk-In (no value) (units (unk nown) Clinic Primary unknown) Care & Ancillary Services Marcel Result panel 82 (unknown) (no date) (unknown) Walk-In (no value) (units (unk nown) Clinic Primary unknown) Care & Ancillary Services Marcel Result panel 83 (unknown) (no date) (unknown) Walk-In (no value) (units (unk nown) Clinic Primary unknown) Care & Ancillary Services Marcel Result panel 84 (unknown) (no date) (unknown) Walk-In (no value) (units (unk nown) Clinic Primary unknown) Care & Ancillary Services Marcel Result panel 85 (unknown) (no date) (unknown) Walk-In (no value) (units (unk nown) Clinic Primary unknown) Care & Ancillary Services Marcel Result panel 86 (unknown) (no date) (unknown) Walk-In (no value) (units (unk nown) Clinic Primary unknown) Care & Ancillary Services Marcel Result panel 87 (unknown) (no date) (unknown) Walk-In (no value) (units (unk nown) Clinic Primary unknown) Care & Anc[facility] Services Marcel Result panel 88 (unknown) (no date) (unknown) Walk-In (no value) (units (unk nown) Clinic Primary unknown) Care & Ancillary Services Marcel Result panel 89 (unknown) (no date) (unknown) Walk-In (no value) (units (unk nown) Clinic Primary unknown) Care & Ancillary Services Marcel Result panel 90 (unknown) (no date) (unknown) Walk-In (no value) (units (unk nown) Clinic Primary unknown) Care & Anc[facility] Services Marcel Result panel 91 (unknown) (no date) (unknown) Walk-In (no value) (units (unk nown) Clinic Primary unknown) Care & Ancillary Services Marcel Result panel 92 (unknown) (no date) (unknown) Walk-In (no value) (units (unk nown) Clinic Primary unknown) Care & Ancillary Services Marcel Result panel 93 (unknown) (no date) (unknown) Walk-In (no value) (units (unk nown) Clinic Primary unknown) Care & Ancillary Services Marcel Result panel 94 (unknown) (no date) (unknown) Walk-In (no value) (units (unk nown) Clinic Primary unknown) Care & Ancillary Services Marcel Result panel 95 (unknown) (no date) (unknown) Walk-In (no value) (units (unk nown) Clinic Primary unknown) Care & Anc[facility] Services Marcel Result panel 96 (unknown) (no date) (unknown) Walk-In (no value) (units (unk nown) Clinic Primary unknown) Care & Ancillary Services Marcel Result panel 97 (unknown) (no date) (unknown) Walk-In (no value) (units (unk nown) Clinic Primary unknown) Care & Ancillary Services Marcel Result panel 98 (unknown) (no date) (unknown) [facility] (no value[facility] Result panel 99 (unknown) (no date) (unknown) [facility] (no value) [facility] Result panel 100 (unknown) (no date) (unknown) [facility] (no value) [facility] Result panel 101 (unknown) (no date) (unknown) [facility] (no value) [facility] Result panel 102 (unknown) (no date) (unknown) [facility] (no value) [facility] Result panel 103 (unknown) (no date) (unknown) [facility] (no value) [facility] Result panel 104 (unknown) (no date) (unknown) [facility] (no value) [facility] Result panel 105 (unknown) (no date) (unknown) [facility] (no value) [facility] Result panel 106 (unknown) (no date) (unknown) [facility] (no value) [facility] Result panel 107 (unknown) (no date) (unknown) [facility] (no value) [facility] Result panel 108 (unknown) (no date) (unknown) [facility] (no value) [facility] Result panel 109 (unknown) (no date) (unknown) [facility] (no value) [facility] Result panel 110 (unknown) (no date) (unknown) [facility] (no value) [facility] Result panel 111 (unknown) (no date) (unknown) [facility] (no value) [facility] Result panel 112 (unknown) (no date) (unknown) [facility] (no value) [facility] Result panel 113 (unknown) (no date) (unknown) [facility] (no value) [facility] Result panel 114 (unknown) (no date) (unknown) [facility] (no value) [facility] Result panel 115 (unknown) (no date) (unknown) [facility] (no value) [facility] Result panel 116 (unknown) (no date) (unknown) [facility] (no value) [facility] Result panel 117 (unknown) (no date) (unknown) [facility] (no value) [facility] Result panel 118 (unknown) (no date) (unknown) [facility] (no value) [facility] Result panel 119 (unknown) (no date) (unknown) [facility] (no value) [facility] Result panel 120 (unknown) (no date) (unknown) [facility] (no value) [facility] Result panel 121 (unknown) (no date) (unknown) [facility] (no value) [facility] Result panel 122 (unknown) (no date) (unknown) [facility] (no value) [facility] Result panel 123 (unknown) (no date) (unknown) [facility] (no value) [facility] Result panel 124 (unknown) (no date) (unknown) [facility] (no value) [facility] Result panel 125 (unknown) (no date) (unknown) [facility] (no value) [facility] Result panel 126 (unknown) (no date) (unknown) [facility] (no value) [facility] Result panel 127 (unknown) (no date) (unknown) [facility] (no value) [facility] Result panel 128 (unknown) (no date) (unknown) [facility] (no value) [facility] Result panel 129 (unknown) (no date) (unknown) [facility] (no value) [facility] Result panel 130 (unknown) (no date) (unknown) [facility] (no value) [facility] Result panel 131 (unknown) (no date) (unknown) [facility] (no value) [facility] Result panel 132 (unknown) (no date) (unknown) [facility] (no value) [facility] Result panel 133 (unknown) (no date) (unknown) [facility] (no value) [facility] Result panel 134 (unknown) (no date) (unknown) [facility] (no value) [facility] Result panel 135 (unknown) (no date) (unknown) [facility] (no value) [facility] Result panel 136 (unknown) (no date) (unknown) [facility] (no value) [facility] Result panel 137 (unknown) (no date) (unknown) [facility] (no value) [facility] Result panel 138 (unknown) (no date) (unknown) [facility] (no value) [facility] Result panel 139 (unknown) (no date) (unknown) [facility] (no value) [facility] Result panel 140 (unknown) (no date) (unknown) [facility] (no value) [facility] Result panel 141 (unknown) (no date) (unknown) [facility] (no value) [facility] Result panel 142 (unknown) (no date) (unknown) [facility] (no value) [facility] Result panel 143 (unknown) (no date) (unknown) [facility] (no value) [facility] Result panel 144 (unknown) (no date) (unknown) [facility] (no value) [facility] Result panel 145 (unknown) (no date) (unknown) [facility] (no value) [facility] Result panel 146 (unknown) (no date) (unknown) [facility] (no value) [facility] Result panel 147 (unknown) (no date) (unknown) [facility] (no value) [facility] Result panel 148 (unknown) (no date) (unknown) [facility] (no value) [facility] Result panel 149 (unknown) (no date) (unknown) [facility] (no value) [facility] Result panel 150 (unknown) (no date) (unknown) [facility] (no value) [facility] Result panel 151 (unknown) (no date) (unknown) [facility] (no value) [facility] Result panel 152 (unknown) (no date) (unknown) [facility] (no value) [facility] Result panel 153 (unknown) (no date) (unknown) [facility] (no value) [facility] Result panel 154 (unknown) (no date) (unknown) [facility] (no value) [facility] Result panel 155 (unknown) (no date) (unknown) [facility] (no value) [facility] Result panel 156 (unknown) (no date) (unknown) [facility] (no value) [facility] Result panel 157 (unknown) (no date) (unknown) [facility] (no value) [facility] Result panel 158 (unknown) (no date) (unknown) [facility] (no value) [facility] Result panel 159 (unknown) (no date) (unknown) [facility] (no value) [facility] Result panel 160 (unknown) (no date) (unknown) [facility] (no value) [facility] Result panel 161 (unknown) (no date) (unknown) [facility] (no value) [facility] Result panel 162 (unknown) (no date) (unknown) [facility] (no value) [facility] Result panel 163 (unknown) (no date) (unknown) [facility] (no value) [facility] Result panel 164 (unknown) (no date) (unknown) [facility] (no value) [facility] Result panel 165 (unknown) (no date) (unknown) [facility] (no value) [facility] Result panel 166 (unknown) (no date) (unknown) [facility] (no value) [facility] Result panel 167 (unknown) (no date) (unknown) [facility] (no value) [facility] Result panel 168 (unknown) (no date) (unknown) [facility] (no value) [facility] Result panel 169 (unknown) (no date) (unknown) [facility] (no value) [facility] Result panel 170 (unknown) (no date) (unknown) [facility] (no value) [facility] Result panel 171 (unknown) (no date) (unknown) [facility] (no value) [facility] Result panel 172 (unknown) (no date) (unknown) [facility] (no value) [facility] Result panel 173 (unknown) (no date) (unknown) [facility] (no value) [facility] Result panel 174 (unknown) (no date) (unknown) [facility] (no value) [facility] Result panel 175 (unknown) (no date) (unknown) [facility] (no value) [facility] Result panel 176 (unknown) (no date) (unknown) [facility] (no value) [facility] Result panel 177 (unknown) (no date) (unknown) [facility] (no value) [facility] Result panel 178 (unknown) (no date) (unknown) [facility] (no value) [facility] Result panel 179 (unknown) (no date) (unknown) [facility] (no value) [facility] Result panel 180 (unknown) (no date) (unknown) [facility] (no value) [facility] Result panel 181 (unknown) (no date) (unknown) [facility] (no value) [facility] Result panel 182 (unknown) (no date) (unknown) [facility] (no value) [facility] Result panel 183 (unknown) (no date) (unknown) [facility] (no value) [facility] Result panel 184 (unknown) (no date) (unknown) [facility] (no value) [facility] Result panel 185 (unknown) (no date) (unknown) [facility] (no value) [facility] Result panel 186 (unknown) (no date) (unknown) [facility] (no value) [facility] Result panel 187 (unknown) (no date) (unknown) [facility] (no value) [facility] Result panel 188 (unknown) (no date) (unknown) [facility] (no value) [facility] Result panel 189 (unknown) (no date) (unknown) [facility] (no value) [facility] Result panel 190 (unknown) (no date) (unknown) [facility] (no value) [facility] Result panel 191 (unknown) (no date) (unknown) [facility] (no value) [facility] Result panel 192 (unknown) (no date) (unknown) [facility] (no value) [facility] Result panel 193 (unknown) (no date) (unknown) [facility] (no value) [facility] Result panel 194 (unknown) (no date) (unknown) [facility] (no value) [facility] Result panel 195 (unknown) (no date) (unknown) [facility] (no value) [facility] Result panel 196 (unknown) (no date) (unknown) [facility] (no value) [facility] Result panel 197 (unknown) (no date) (unknown) [facility] (no value) [facility] Result panel 198 (unknown) (no date) (unknown) [facility] (no value) [facility] Result panel 199 (unknown) (no date) (unknown) [facility] (no value) [facility] Result panel 200 (unknown) (no date) (unknown) [facility] (no value) [facility] Result panel 201 (unknown) (no date) (unknown) [facility] (no value) [facility] Result panel 202 (unknown) (no date) (unknown) [facility] (no value) [facility] Result panel 203 (unknown) (no date) (unknown) [facility] (no value[facility] Result panel 204 (unknown) (no date) (unknown) [facility] (no value) [facility] Result panel 205 (unknown) (no date) (unknown) [facility] (no value) [facility] Result panel 206 (unknown) (no date) (unknown) [facility] (no value) [facility] Result panel 207 (unknown) (no date) (unknown) [facility] (no value) [facility] Result panel 208 (unknown) (no date) (unknown) [facility] (no value) [facility] Result panel 209 (unknown) (no date) (unknown) [facility] (no value) [facility] Result panel 210 (unknown) (no date) (unknown) [facility] (no value) [facility] Result panel 211 (unknown) (no date) (unknown) [facility] (no value) [facility] Result panel 212 (unknown) (no date) (unknown) [facility] (no value) [facility] Result panel 213 (unknown) (no date) (unknown) [facility] (no value) [facility] Result panel 214 (unknown) (no date) (unknown) [facility] (no value) [facility] Result panel 215 (unknown) (no date) (unknown) [facility] (no value) [facility] Result panel 216 (unknown) (no date) (unknown) [facility] (no value) [facility] Result panel 217 (unknown) (no date) (unknown) [facility] (no value) [facility] Result panel 218 (unknown) (no date) (unknown) [facility] (no value) [facility] Result panel 219 (unknown) (no date) (unknown) [facility] (no value) [facility] Result panel 220 (unknown) (no date) (unknown) [facility] (no value) [facility] Result panel 221 (unknown) (no date) (unknown) [facility] (no value) [facility] Result panel 222 (unknown) (no date) (unknown) [facility] (no value) [facility] Result panel 223 (unknown) (no date) (unknown) [facility] (no value) [facility] Result panel 224 (unknown) (no date) (unknown) [facility] (no value) [facility] Result panel 225 (unknown) (no date) (unknown) [facility] (no value) [facility] Result panel 226 (unknown) (no date) (unknown) [facility] (no value) [facility] Result panel 227 (unknown) (no date) (unknown) [facility] (no value) [facility] Result panel 228 (unknown) (no date) (unknown) [facility] (no value) [facility] Result panel 229 (unknown) (no date) (unknown) [facility] (no value) [facility] Result panel 230 (unknown) (no date) (unknown) [facility] (no value) [facility] Result panel 231 (unknown) (no date) (unknown) [facility] (no value) [facility] Result panel 232 (unknown) (no date) (unknown) [facility] (no value) [facility] Result panel 233 (unknown) (no date) (unknown) [facility] (no value) [facility] Result panel 234 (unknown) (no date) (unknown) [facility] (no value) [facility] Result panel 235 (unknown) (no date) (unknown) [facility] (no value) [facility] Result panel 236 (unknown) (no date) (unknown) [facility] (no value) [facility] Result panel 237 (unknown) (no date) (unknown) [facility] (no value) [facility] Result panel 238 (unknown) (no date) (unknown) [facility] (no value) [facility] Result panel 239 (unknown) (no date) (unknown) [facility] (no value) [facility] Result panel 240 (unknown) (no date) (unknown) [facility] (no value) [facility] Result panel 241 (unknown) (no date) (unknown) [facility] (no value) [facility] Result panel 242 (unknown) (no date) (unknown) [facility] (no value) [facility] Result panel 243 (unknown) (no date) (unknown) [facility] (no value) [facility] Result panel 244 (unknown) (no date) (unknown) [facility] (no value) [facility] Result panel 245 (unknown) (no date) (unknown) [facility] (no value) [facility] Result panel 246 (unknown) (no date) (unknown) [facility] (no value) [facility] Result panel 247 (unknown) (no date) (unknown) [facility] (no value) [facility] Result panel 248 (unknown) (no date) (unknown) [facility] (no value) [facility] Result panel 249 (unknown) (no date) (unknown) [facility] (no value) [facility] Result panel 250 (unknown) (no date) (unknown) [facility] (no value) [facility] Result panel 251 (unknown) (no date) (unknown) [facility] (no value) [facility] Result panel 252 (unknown) (no date) (unknown) [facility] (no value) [facility] Result panel 253 (unknown) (no date) (unknown) [facility] (no value) [facility] Result panel 254 (unknown) (no date) (unknown) [facility] (no value) [facility] Result panel 255 (unknown) (no date) (unknown) [facility] (no value) [facility] Result panel 256 (unknown) (no date) (unknown) [facility] (no value) [facility] Result panel 257 (unknown) (no date) (unknown) [facility] (no value) [facility] Result panel 258 (unknown) (no date) (unknown) [facility] (no value) [facility] Result panel 259 (unknown) (no date) (unknown) [facility] (no value) [facility] Result panel 260 (unknown) (no date) (unknown) [facility] (no value) [facility] Result panel 261 (unknown) (no date) (unknown) [facility] (no value) [facility] Result panel 262 (unknown) (no date) (unknown) [facility] (no value) [facility] Result panel 263 (unknown) (no date) (unknown) [facility] (no value) [facility] Result panel 264 (unknown) (no date) (unknown) [facility] (no value) [facility] Result panel 265 (unknown) (no date) (unknown) [facility] (no value) [facility] Result panel 266 (unknown) (no date) (unknown) [facility] (no value) [facility] Result panel 267 (unknown) (no date) (unknown) [facility] (no value) [facility] Result panel 268 (unknown) (no date) (unknown) [facility]no value) [facility] Result panel 269 (unknown) (no date) (unknown) [facility] (no value) [facility] Result panel 270 (unknown) (no date) (unknown) [facility] (no value) [facility] Result panel 271 (unknown) (no date) (unknown) [facility] (no value) [facility] Result panel 272 (unknown) (no date) (unknown) [facility] (no value) [facility] Result panel 273 (unknown) (no date) (unknown) [facility] (no value) [facility] Result panel 274 (unknown) (no date) (unknown) [facility] (no value) [facility] Result panel 275 (unknown) (no date) (unknown) [facility] (no value) [facility] Result panel 276 (unknown) (no date) (unknown) [facility] (no value) [facility] Result panel 277 (unknown) (no date) (unknown) [facility] (no value) [facility] Result panel 278 (unknown) (no date) (unknown) [facility] (no value) [facility] Result panel 279 (unknown) (no date) (unknown) [facility] (no value) [facility] Result panel 280 (unknown) (no date) (unknown) [facility] (no value) [facility] Result panel 281 (unknown) (no date) (unknown) [facility] (no value) [facility] Result panel 282 (unknown) (no date) (unknown) [facility] (no value) [facility] Result panel 283 (unknown) (no date) (unknown) [facility] (no value) [facility] Result panel 284 (unknown) (no date) (unknown) [facility] (no value) [facility] Result panel 285 (unknown) (no date) (unknown) [facility] (no value) [facility] Result panel 286 (unknown) (no date) (unknown) [facility] (no value) [facility] Result panel 287 (unknown) (no date) (unknown) [facility] (no value) [facility] Result panel 288 (unknown) (no date) (unknown) [facility] (no value) [facility] Result panel 289 (unknown) (no date) (unknown) [facility] (no value) [facility] Result panel 290 (unknown) (no date) (unknown) [facility] (no value) [facility] Result panel 291 (unknown) (no date) (unknown) [facility] (no value) [facility] Result panel 292 (unknown) (no date) (unknown) [facility] (no value) [facility] Result panel 293 (unknown) (no date) (unknown) [facility] (no value) [facility] Result panel 294 (unknown) (no date) (unknown) [facility] (no value) [facility] Result panel 295 (unknown) (no date) (unknown) [facility] (no value) [facility] Result panel 296 (unknown) (no date) (unknown) [facility] (no value) [facility] Result panel 297 (unknown) (no date) (unknown) [facility] (no value) [facility] Result panel 298 (unknown) (no date) (unknown) [facility] (no value) [facility] Result panel 299 (unknown) (no date) (unknown) [facility] (no value) [facility] Result panel 300 (unknown) (no date) (unknown) [facility] (no value) [facility] Result panel 301 (unknown) (no date) (unknown) [facility] (no value) [facility] Result panel 302 (unknown) (no date) (unknown) [facility] (no value) [facility] Result panel 303 (unknown) (no date) (unknown) [facility] (no value) [facility] Result panel 304 (unknown) (no date) (unknown) [facility] (no value) [facility] Result panel 305 (unknown) (no date) (unknown) [facility] (no value) [facility] Result panel 306 (unknown) (no date) (unknown) [facility] (no value) [facility] Result panel 307 (unknown) (no date) (unknown) [facility] (no value) [facility] Result panel 308 (unknown) (no date) (unknown) [facility] (no value) [facility] Result panel 309 (unknown) (no date) (unknown) [facility] (no value) [facility] Result panel 310 (unknown) (no date) (unknown) [facility] (no value) [facility] Result panel 311 (unknown) (no date) (unknown) [facility] (no value) [facility] Result panel 312 (unknown) (no date) (unknown) [facility] (no value) [facility] Result panel 313 (unknown) (no date) (unknown) [facility] (no value) [facility] Result panel 314 (unknown) (no date) (unknown) [facility] (no value) [facility] Result panel 315 (unknown) (no date) (unknown) [facility] (no value) [facility] Result panel 316 (unknown) (no date) (unknown) [facility] (no value) [facility] Result panel 317 (unknown) (no date) (unknown) [facility] (no value) [facility] Result panel 318 (unknown) (no date) (unknown) [facility] (no value) [facility] Result panel 319 (unknown) (no date) (unknown) [facility] (no value) [facility] Result panel 320 (unknown) (no date) (unknown) [facility] (no value) [facility] Result panel 321 (unknown) (no date) (unknown) [facility] (no value) [facility] Result panel 322 (unknown) (no date) (unknown) [facility] (no value) [facility] Result panel 323 (unknown) (no date) (unknown) [facility] (no value) [facility] Result panel 324 (unknown) (no date) (unknown) [facility] (no value) [facility] Result panel 325 (unknown) (no date) (unknown) [facility] (no value) [facility] Result panel 326 (unknown) (no date) (unknown) [facility] (no value) [facility] Result panel 327 (unknown) (no date) (unknown) [facility] (no value) [facility] Result panel 328 (unknown) (no date) (unknown) [facility] (no value) [facility] Result panel 329 (unknown) (no date) (unknown) [facility] (no value) [facility] Result panel 330 (unknown) (no date) (unknown) [facility] (no value) [facility] Result panel 331 (unknown) (no date) (unknown) [facility] (no value) [facility] Result panel 332 (unknown) (no date) (unknown) [facility] (no value) [facility] Result panel 333 (unknown) (no date) (unknown) [facility] (no value) [facility] Result panel 334 (unknown) (no date) (unknown) [facility] (no value) [facility] Result panel 335 (unknown) (no date) (unknown) [facility] (no value) [facility] Result panel 336 (unknown) (no date) (unknown) [facility] (no value) [facility] Result panel 337 (unknown) (no date) (unknown) [facility] (no value) [facility] Result panel 338 (unknown) (no date) (unknown) [facility] (no value) [facility] Result panel 339 (unknown) (no date) (unknown) [facility] (no value) [facility] Result panel 340 (unknown) (no date) (unknown) [facility] (no value) [facility] Result panel 341 (unknown) (no date) (unknown) [facility] (no value) [facility] Result panel 342 (unknown) (no date) (unknown) [facility] (no value) [facility] Result panel 343 (unknown) (no date) (unknown) [facility] (no value) [facility] Result panel 344 (unknown) (no date) (unknown) [facility] (no value) [facility] Result panel 345 (unknown) (no date) (unknown) [facility] (no value) [facility] Result panel 346 (unknown) (no date) (unknown) [facility] (no value) [facility] Result panel 347 (unknown) (no date) (unknown) [facility] (no value) [facility] Result panel 348 (unknown) (no date) (unknown) [facility] (no value) [facility] Result panel 349 (unknown) (no date) (unknown) [facility] (no value) [facility] Result panel 350 (unknown) (no date) (unknown) [facility] (no value) [facility] Result panel 351 (unknown) (no date) (unknown) [facility] (no value) [facility] Result panel 352 (unknown) (no date) (unknown) [facility] (no value) [facility] Result panel 353 (unknown) (no date) (unknown) [facility] (no value) [facility] Result panel 354 (unknown) (no date) (unknown) [facility] (no value) [facility] Result panel 355 (unknown) (no date) (unknown) [facility] (no value) [facility] Result panel 356 (unknown) (no date) (unknown) [facility] (no value) [facility] Result panel 357 (unknown) (no date) (unknown) [facility] (no value) [facility] Result panel 358 (unknown) (no date) (unknown) [facility] (no value) [facility] Result panel 359 (unknown) (no date) (unknown) [facility] (no value) [facility] Result panel 360 (unknown) (no date) (unknown) [facility] (no value) [facility] Result panel 361 (unknown) (no date) (unknown) [facility] (no value) [facility] Result panel 362 (unknown) (no date) (unknown) [facility] (no value) [facility] Result panel 363 (unknown) (no date) (unknown) [facility] (no value) [facility] Result panel 364 (unknown) (no date) (unknown) [facility] (no value) [facility] Result panel 365 (unknown) (no date) (unknown) [facility] (no value) [facility] Result panel 366 (unknown) (no date) (unknown) [facility] (no value) [facility] Result panel 367 (unknown) (no date) (unknown) [facility] (no value) [facility] Result panel 368 (unknown) (no date) (unknown) [facility] (no value) [facility] Result panel 369 (unknown) (no date) (unknown) [facility] (no value) [facility] Result panel 370 (unknown) (no date) (unknown) [facility] (no value) [facility] Result panel 371 (unknown) (no date) (unknown) [facility] (no value) [facility] Result panel 372 (unknown) (no date) (unknown) [facility] (no value) [facility] Result panel 373 (unknown) (no date) (unknown) [facility] (no value) [facility] Result panel 374 (unknown) (no date) (unknown) [facility] (no value) [facility] Result panel 375 (unknown) (no date) (unknown) [facility] (no value) [facility] Result panel 376 (unknown) (no date) (unknown) [facility] (no value) [facility] Result panel 377 (unknown) (no date) (unknown) [facility] (no value) [facility] Result panel 378 (unknown) (no date) (unknown) [facility] (no value) [facility] Result panel 379 (unknown) (no date) (unknown) [facility] (no value) [facility] Result panel 380 (unknown) (no date) (unknown) [facility] (no value) [facility] Result panel 381 (unknown) (no date) (unknown) [facility] (no value) [facility] Result panel 382 (unknown) (no date) (unknown) [facility] (no value) [facility] Result panel 383 (unknown) (no date) (unknown) [facility] (no value) [facility] Result panel 384 (unknown) (no date) (unknown) [facility] (no value) [facility] Result panel 385 (unknown) (no date) (unknown) [facility] (no value) [facility] Result panel 386 (unknown) (no date) (unknown) [facility] (no value) [facility] Result panel 387 (unknown) (no date) (unknown) [facility] (no value) [facility] Result panel 388 (unknown) (no date) (unknown) [facility] (no value) [facility] Result panel 389 (unknown) (no date) (unknown) [facility] (no value) [facility] Result panel 390 (unknown) (no date) (unknown) [facility] (no value) [facility] Result panel 391 (unknown) (no date) (unknown) [facility] (no value) [facility] Result panel 392 (unknown) (no date) (unknown) [facility] (no value) [facility] Result panel 393 (unknown) (no date) (unknown) [facility] (no value) [facility] Result panel 394 (unknown) (no date) (unknown) [facility] (no value) [facility] Result panel 395 (unknown) (no date) (unknown) [facility] (no value) [facility] Result panel 396 (unknown) (no date) (unknown) [facility] (no value) [facility] Result panel 397 (unknown) (no date) (unknown) [facility] (no value) [facility] Result panel 398 (unknown) (no date) (unknown) [facility] (no value) [facility] Result panel 399 (unknown) (no date) (unknown) [facility] (no value) [facility] Result panel 400 (unknown) (no date) (unknown) [facility] (no value) [facility] Result panel 401 (unknown) (no date) (unknown) [facility] (no value) [facility] Result panel 402 (unknown) (no date) (unknown) [facility] (no value) [facility] Result panel 403 (unknown) (no date) (unknown) [facility] (no value) [facility] Result panel 404 (unknown) (no date) (unknown) [facility] (no value) [facility] Result panel 405 (unknown) (no date) (unknown) [facility] (no value) [facility] Result panel 406 (unknown) (no date) (unknown) [facility] (no value) [facility] Result panel 407 (unknown) (no date) (unknown) [facility] (no value) [facility] Result panel 408 (unknown) (no date) (unknown) [facility] (no value) [facility] Result panel 409 (unknown) (no date) (unknown) [facility] (no value) [facility] Result panel 410 (unknown) (no date) (unknown) [facility] (no value) [facility] Result panel 411 (unknown) (no date) (unknown) [facility] (no value) [facility] Result panel 412 (unknown) (no date) (unknown) [facility] (no value) [facility] Result panel 413 (unknown) (no date) (unknown) [facility] (no value) [facility] Result panel 414 (unknown) (no date) (unknown) [facility] (no value) [facility] Result panel 415 (unknown) (no date) (unknown) [facility] (no value) [facility] Result panel 416 (unknown) (no date) (unknown) [facility] (no value) [facility] Result panel 417 (unknown) (no date) (unknown) [facility] (no value) [facility] Result panel 418 (unknown) (no date) (unknown) [facility] (no value) [facility] Result panel 419 (unknown) (no date) (unknown) [facility] (no value) [facility] Result panel 420 (unknown) (no date) (unknown) [facility] (no value) [facility] Result panel 421 (unknown) (no date) (unknown) [facility] (no value) [facility] Result panel 422 (unknown) (no date) (unknown) [facility] (no value) [facility] Result panel 423 (unknown) (no date) (unknown) [facility] (no value) [facility] Result panel 424 (unknown) (no date) (unknown) [facility] (no value) [facility] Result panel 425 (unknown) (no date) (unknown) [facility] (no value) [facility] Result panel 426 (unknown) (no date) (unknown) [facility] (no value) [facility] Result panel 427 (unknown) (no date) (unknown) [facility] (no value) [facility] Result panel 428 (unknown) (no date) (unknown) [facility] (no value) [facility] Result panel 429 (unknown) (no date) (unknown) [facility] (no value) [facility] Result panel 430 (unknown) (no date) (unknown) [facility] (no value) [facility] Result panel 431 (unknown) (no date) (unknown) [facility] (no value) [facility] Result panel 432 (unknown) (no date) (unknown) [facility] (no value) [facility] Result panel 433 (unknown) (no date) (unknown) [facility] (no value) [facility] Result panel 434 (unknown) (no date) (unknown) [facility] (no value) [facility] Result panel 435 (unknown) (no date) (unknown) [facility] (no value) [facility] Result panel 436 (unknown) (no date) (unknown) [facility] (no value) [facility] Result panel 437 (unknown) (no date) (unknown) [facility] (no value) [facility] Result panel 438 (unknown) (no date) (unknown) Walk-In (no value) [facility] Result panel 439 (unknown) (no date) (unknown) Walk-In (no value) [facility] Result panel 440 (unknown) (no date) (unknown) Walk-In (no value) [facility] Result panel 441 (unknown) (no date) (unknown) Walk-In (no value) [facility] Result panel 442 (unknown) (no date) (unknown) Walk-In (no value) [facility] Result panel 443 (unknown) (no date) (unknown) [facility] (no value) [facility] Result panel 444 (unknown) (no date) (unknown) [facility] (no value) [facility] Result panel 445 (unknown) (no date) (unknown) Walk-In (no value) [facility] Result panel 446 (unknown) (no date) (unknown) Walk-In (no value) [facility] Result panel 447 (unknown) (no date) (unknown) Walk-In (no value) [facility] Result panel 448 (unknown) (no date) (unknown) Walk-In (no value) [facility] Result panel 449 (unknown) (no date) (unknown) Walk-In (no value) [facility] Result panel 450 (unknown) (no date) (unknown) Walk-In (no value) [facility] Result panel 451 (unknown) (no date) (unknown) Walk-[facility] (no value) [facility] Result panel 452 (unknown) (no date) (unknown) Walk-In (no value) [facility] Result panel 453 (unknown) (no date) (unknown) Walk-In (no value) [facility] Result panel 454 (unknown) (no date) (unknown) Walk-In (no value) [facility] Result panel 455 (unknown) (no date) (unknown) Walk-In (no value) [facility] Result panel 456 (unknown) (no date) (unknown) Walk-In (no value) [facility] Result panel 457 (unknown) (no date) (unknown) Walk-[facility] (no value) [facility] Result panel 458 (unknown) (no date) (unknown) Walk-In (no value) [facility] Result panel 459 (unknown) (no date) (unknown) Walk-In (no value) [facility] Result panel 460 (unknown) (no date) (unknown) Walk-In (no value) [facility] Result panel 461 (unknown) (no date) (unknown) Walk-In (no value) [facility] Result panel 462 (unknown) (no date) (unknown) Walk-In (no value) [facility] Result panel 463 (unknown) (no date) (unknown) Walk-In (no value) [facility] Result panel 464 (unknown) (no date) (unknown) Walk-In (no value) [facility] Result panel 465 (unknown) (no date) (unknown) Walk-In (no value) [facility] Result panel 466 (unknown) (no date) (unknown) Walk-In (no value) [facility] Result panel 467 (unknown) (no date) (unknown) Walk-In (no value) [facility] Result panel 468 (unknown) (no date) (unknown) Walk-In (no value) [facility] Result panel 469 (unknown) (no date) (unknown) Walk-In (no value) [facility] Result panel 470 (unknown) (no date) (unknown) Walk-In (no value) [facility] Result panel 471 (unknown) (no date) (unknown) Walk-In (no value) [facility] Result panel 472 (unknown) (no date) (unknown) Walk-In (no value) [facility] Result panel 473 (unknown) (no date) (unknown) Walk-In (no value) [facility] Result panel 474 (unknown) (no date) (unknown) Walk-In (no value) [facility] Result panel 475 (unknown) (no date) (unknown) Walk-In (no value) [facility] Result panel 476 (unknown) (no date) (unknown) Walk-In (no value) [facility] Result panel 477 (unknown) (no date) (unknown) Walk-In (no value) [facility] Result panel 478 (unknown) (no date) (unknown) Walk-In (no value) [facility] Result panel 479 (unknown) (no date) (unknown) Walk-In (no value) [facility] Result panel 480 (unknown) (no date) (unknown) Walk-In (no value) [facility] Result panel 481 (unknown) (no date) (unknown) Walk-In (no value) [facility] Result panel 482 (unknown) (no date) (unknown) Walk-[facility] (no value) [facility] Result panel 483 (unknown) (no date) (unknown) Walk-In (no value) [facility] Result panel 484 (unknown) (no date) (unknown) Walk-In (no value) [facility] Result panel 485 (unknown) (no date) (unknown) Walk-In (no value) [facility] Result panel 486 (unknown) (no date) (unknown) Walk-[facility] (no value) [facility] Result panel 487 (unknown) (no date) (unknown) Walk-[facility] (no value) [facility] Result panel 488 (unknown) (no date) (unknown) Walk-In (no value) [facility] Result panel 489 (unknown) (no date) (unknown) Walk-In (no value) [facility] Result panel 490 (unknown) (no date) (unknown) Walk-In (no value) [facility] Result panel 491 (unknown) (no date) (unknown) Walk-In (no value) [facility] Result panel 492 (unknown) (no date) (unknown) Walk-In (no value) [facility] Result panel 493 (unknown) (no date) (unknown) Walk-In (no value) [facility] Result panel 494 (unknown) (no date) (unknown) Walk-In (no value) [facility] Result panel 495 (unknown) (no date) (unknown) Walk-In (no value) [facility] Result panel 496 (unknown) (no date) (unknown) Walk-[facility] (no value) [facility] Result panel 497 (unknown) (no date) (unknown) Walk-[facility] (no value) [facility] Result panel 498 (unknown) (no date) (unknown) Walk-[facility] (no value) [facility] Result panel 499 (unknown) (no date) (unknown) Walk-[facility] (no value) [facility] Result panel 500 (unknown) (no date) (unknown) Walk-[facility] (no value) [facility] Result panel 501 (unknown) (no date) (unknown) Walk-[facility] (no value) [facility] Result panel 502 (unknown) (no date) (unknown) Walk-In (no value) [facility] Result panel 503 (unknown) (no date) (unknown) Walk-In (no value) [facility] Result panel 504 (unknown) (no date) (unknown) Walk-In (no value) [facility] Result panel 505 (unknown) (no date) (unknown) Walk-In (no value) [facility] Result panel 506 (unknown) (no date) (unknown) Walk-[facility] (no value) [facility] Result panel 507 (unknown) (no date) (unknown) Walk-In (no value) [facility] Result panel 508 (unknown) (no date) (unknown) [facility] (no value) [facility] Result panel 509 (unknown) (no date) (unknown) Walk-In (no value) [facility] Result panel 510 (unknown) (no date) (unknown) [facility] (no value) [facility] Result panel 511 (unknown) (no date) (unknown) [facility] (no value) [facility] Result panel 512 (unknown) (no date) (unknown) Walk-In (no value) [facility] Result panel 513 (unknown) (no date) (unknown) Walk-In (no value) [facility] Result panel 514 (unknown) (no date) (unknown) Walk-In (no value) [facility] Result panel 515 (unknown) (no date) (unknown) Walk-In (no value) [facility] Result panel 516 (unknown) (no date) (unknown) Walk-In (no value) [facility] Result panel 517 (unknown) (no date) (unknown) Walk-In (no value) [facility] Result panel 518 (unknown) (no date) (unknown) Walk-In (no value) [facility] Result panel 519 (unknown) (no date) (unknown) Walk-In (no value) [facility] Result panel 520 (unknown) (no date) (unknown) Walk-In (no value) [facility] Result panel 521 (unknown) (no date) (unknown) Walk-[facility] (no value) [facility] Result panel 522 (unknown) (no date) (unknown) Walk-In (no value) [facility] Result panel 523 (unknown) (no date) (unknown) Walk-In (no value) [facility] Result panel 524 (unknown) (no date) (unknown) Walk-In (no value) [facility] Result panel 525 (unknown) (no date) (unknown) Walk-In (no value) [facility] Result panel 526 (unknown) (no date) (unknown) Walk-In (no value) [facility] Result panel 527 (unknown) (no date) (unknown) Walk-In (no value) [facility] Result panel 528 (unknown) (no date) (unknown) Walk-In (no value) [facility] Result panel 529 (unknown) (no date) (unknown) Walk-In (no value) [facility] Result panel 530 (unknown) (no date) (unknown) Walk-[facility] (no value) [facility] Result panel 531 (unknown) (no date) (unknown) Walk-In (no value) [facility] Result panel 532 (unknown) (no date) (unknown) Walk-In (no value) [facility] Result panel 533 (unknown) (no date) (unknown) Walk-In (no value) [facility] Result panel 534 (unknown) (no date) (unknown) Walk-[facility] (no value) [facility] Result panel 535 (unknown) (no date) (unknown) Walk-[facility] (no value) [facility] Result panel 536 (unknown) (no date) (unknown) Walk-In (no value) [facility] Result panel 537 (unknown) (no date) (unknown) Walk-In (no value) [facility] Result panel 538 (unknown) (no date) (unknown) Walk-[facility] (no value) [facility] Result panel 539 (unknown) (no date) (unknown) Walk-[facility] (no value) [facility] Result panel 540 (unknown) (no date) (unknown) Walk-[facility] (no value) [facility] Result panel 541 (unknown) (no date) (unknown) Walk-[facility] (no value) [facility] Result panel 542 (unknown) (no date) (unknown) Walk-In (no value) [facility] Result panel 543 (unknown) (no date) (unknown) Walk-[facility] (no value) [facility] Result panel 544 (unknown) (no date) (unknown) Walk-[facility] (no value) [facility] Result panel 545 (unknown) (no date) (unknown) [facility] (no value) [facility] Result panel 546 (unknown) (no date) (unknown) Walk-In (no value) [facility] Result panel 547 (unknown) (no date) (unknown) Walk-In (no value) [facility] Result panel 548 (unknown) (no date) (unknown) Walk-In (no value) [facility] Result panel 549 (unknown) (no date) (unknown) Walk-In (no value) [facility] Result panel 550 (unknown) (no date) (unknown) Walk-[facility] (no value) [facility] Result panel 551 (unknown) (no date) (unknown) Walk-In (no value) [facility] Result panel 552 (unknown) (no date) (unknown) Walk-[facility] (no value) [facility] Result panel 553 (unknown) (no date) (unknown) Walk-In (no value) [facility] Result panel 554 (unknown) (no date) (unknown) Walk-In (no value) [facility] Result panel 555 (unknown) (no date) (unknown) Walk-[facility] (no value) [facility] Result panel 556 (unknown) (no date) (unknown) Walk-In (no value) [facility] Result panel 557 (unknown) (no date) (unknown) Walk-In (no value) [facility] Result panel 558 (unknown) (no date) (unknown) Walk-In (no value) [facility] Result panel 559 (unknown) (no date) (unknown) Walk-[facility] (no value) [facility] Result panel 560 (unknown) (no date) (unknown) Walk-In (no value) [facility] Result panel 561 (unknown) (no date) (unknown) Walk-[facility] (no value) [facility] Result panel 562 (unknown) (no date) (unknown) Walk-In (no value) [facility] Result panel 563 (unknown) (no date) (unknown) Walk-In (no value) [facility] Result panel 564 (unknown) (no date) (unknown) Walk-[facility] (no value) [facility] Result panel 565 (unknown) (no date) (unknown) Walk-In (no value) [facility] Result panel 566 (unknown) (no date) (unknown) Walk-In (no value) [facility] Result panel 567 (unknown) (no date) (unknown) Walk-In (no value) [facility] Result panel 568 (unknown) (no date) (unknown) Walk-[facility] (no value) [facility] Result panel 569 (unknown) (no date) (unknown) Walk-[facility] (no value) [facility] Result panel 570 (unknown) (no date) (unknown) Walk-In (no value) [facility] Result panel 571 (unknown) (no date) (unknown) Walk-[facility] (no value) [facility] Result panel 572 (unknown) (no date) (unknown) Walk-In (no value) [facility] Result panel 573 (unknown) (no date) (unknown) Walk-[facility] (no value) [facility] Result panel 574 (unknown) (no date) (unknown) Walk-[facility] (no value) [facility] Result panel 575 (unknown) (no date) (unknown) Walk-In (no value) [facility] Result panel 576 (unknown) (no date) (unknown) Walk-In (no value) [facility] Result panel 577 (unknown) (no date) (unknown) Walk-In (no value) [facility] Result panel 578 (unknown) (no date) (unknown) Walk-In (no value) [facility] Result panel 579 (unknown) (no date) (unknown) Walk-In (no value) [facility] Result panel 580 (unknown) (no date) (unknown) Walk-[facility] (no value) [facility] Result panel 581 (unknown) (no date) (unknown) Walk-In (no value) [facility] Social History No information. Vital Signs date measurement value units 2022-06-14 00:00 BMI 25.08 kg/m2 2022-06-14 00:00 BP_diastolic 70 mmHg 2022-06-14 00:00 BP_systolic 151 mmHg 2022-06-14 00:00 heart_rate 63 /min 2022-06-14 00:00 height_metric 162.56 cm 2022-06-14 00:00 height_standard 64 in 2022-06-14 00:00 respiration_rate 16 /min 2022-06-14 00:00 temperature_metric 36.44 C 2022-06-14 00:00 temperature_standard 97.6 F 2022-06-14 00:00 weight_metric 66.04 kg 2022-06-14 00:00 weight_standard 145.6 lb
== END 2022-07-31 18:21 | disposition home or self-care (01) ==
LOC: EDUNIT# → ED 17:05
DX: I10 Essential (primary) hypertension (principal); E78.00 Pure hypercholesterolemia, unspecified; K21.9 Gastro-esophageal reflux disease without esophagitis; Z79.899 Other long term (current) drug therapy; Z79.82 Long term (current) use of aspirin
CPT/HCPCS: 36415; 80053; 83690; 85025; 93005; 99283; 99284; A9270

== ENCOUNTER 2022-08-02 23:48 | Outpatient (CLI) | payer MEDICARE, MEDICAID | END 2022-08-02 23:59 | disposition critical access hospital (66) | LOC: EMS 23:48 | DX: I10 Essential (primary) hypertension (principal) | CPT/HCPCS: A0425; A0429 ==

== ENCOUNTER 2022-08-03 00:20 | Emergency (ER) | payer MEDICARE, MEDICAID ==
--- OUTSIDE RECORDS SUMMARY | 2022-08-03 00:33 | EXTERNAL MEDICAL SUMMARY RPT | Continuity of Care Document ---
:1945 Author Organization [facility] Address [address] [place] [address] Phone Care Team Providers Name Role Phone Unavailable Unavailable Unavailable Janis Patient Registrar, Ofelia Unavailable Unava Mansi Hernandez Md Unavailable Unavailable Penny, Provider Unavailable Unavailable Allergies [...] [facility] 2022-07-31 00:00 prednisone [facility] Marcel 2022-08-01 00:00 prednisone Walk-In Clinic [facility] [...] Services Marcel 2022-07-07 00:00 hydrochlorothiazide Walk-In Clinic [facility] Care & Ancillary Services Marcel 2022-07-31 00:00 hydrochlorothiazide Walk-In Clinic [facility] Care & Anc[facility] Services Marcel 2022-08-01 00:00 hydrochlorothiazide Walk-In Clinic [facility] Care & Anc[facility] Services Marcel 2022-06-14 00:00 hydroxychloroquine [facility] [place] Marcel 2022-06-14 00:00 hydroxychloroquine Walk[facility] [place] [facility] Marcel 2022-06-15 00:00 hydroxychloroquine Walk-In Clinic [facility] Care & Ancillary Services Marcel 2022-06-16 00:00 hydroxychloroquine Walk[facility] [place] [facility] Marcel 2022-06-19 00:00 hydroxychloroquine [facility] [place] [facility] Marcel 2022-06-21 00:00 hydroxychloroquine Walk[facility] [place] [facility] Marcel 2022-07-07 00:00 hydroxychloroquine [facility] [place] [facility] Marcel 2022-07-31 00:00 hydroxychloroquine Walk[facility] Marcel 2022-08-01 00:00 hydroxychloroquine Walk-In Clinic [facility] [...] Clinic [facility] Anc[facility] Services Marcel 2022-07-31 00:00 oxycodone-acetaminophen Walk[facility]In [facility] 2022-08-01 00:00 oxycodone-acetaminophen Walk-In Clinic [facility] [...] [facility] Services Marcel 2022-07-31 00:00 oxycodone-acetaminophen Walk[facility]In [facility] Marcel 2022-08-01 00:00 oxycodone-acetaminophen Walk[facility]In [facility] Marcel 2022-06-14 00:00 methotrexate sodium Walk-In Clinic [facility] Care & Ancillary Services Marcel 2022-06-14 00:00 methotrexate sodium Walk-In Clinic [facility] Care & Anc[facility] Services Marcel 2022-06-15 00:00 methotrexate sodium Walk-In Clinic [facility] Care & Anc[facility] Services Marcel 2022-06-16 00:00 methotrexate sodium Walk-In Clinic [facility] Care [facility] Anc[facility] Services Marcel 2022-06-19 00:00 methotrexate sodium Walk-In Clinic [facility] Care [facility] Services Marcel 2022-06-21 00:00 methotrexate sodium Walk-In Clinic [facility] Services Marcel 2022-07-07 00:00 methotrexate sodium Walk-In Clinic [facility] Care [facility] Services Marcel 2022-07-31 00:00 methotrexate sodium Walk-In Clinic [facility] Care [facility] Services Marcel 2022-08-01 00:00 methotrexate sodium Walk-In Clinic [facility] Care [facility] Services Marcel 2022-06-14 00:00 [...] [facility] Marcel 2022-07-31 00:00 prednisone Walk[facility]In [facility] Marcel 2022-08-01 00:00 prednisone [facility] [place] [facility] Amrcel 2022-06-14 00:00 hydrochlorothiazide Walk-In Clinic [facility] Care & Anc[facility] Services Marcel 2022-06-14 00:00 hydrochlorothiazide Walk-In Clinic [facility] Care [facility] Services Marcel 2022-06-15 00:00 hydrochlorothiazide Walk-In Clinic [facility] Care [facility] Anc[facility] Services Marcel 2022-06-16 00:00 hydrochlorothiazide Walk-In Clinic [facility] Care [facility] Services Marcel 2022-06-19 00:00 hydrochlorothiazide Walk-In Clinic [facility] Care [facility] Services Marcel 2022-06-21 00:00 hydrochlorothiazide Walk-In Clinic [facility] Care [facility] Services Marcel 2022-07-07 00:00 hydrochlorothiazide Walk-In Clinic [facility] Care [facility] Services Marcel 2022-07-31 00:00 hydrochlorothiazide Walk-In Clinic [facility] Care [facility] Anc[facility] Services Marcel 2022-08-01 00:00 hydrochlorothiazide Walk-In Clinic [facility] Care [facility] Services Marcel 2022-06-14 00:00 [...] [facility] Services Marcel 2022-07-31 00:00 oxycodone-acetaminophen Walk[facility]In [facility] Marcel 2022-08-01 00:00 oxycodone-acetaminophen Walk[facility]In [facility] Marcel 2022-06-14 00:00 oxycodone-acetaminophen Walk[facility]In [facility] Marcel 2022-06-14 00:00 oxycodone-acetaminophen Walk[facility]In [facility] Marcel 2022-06-15 00:00 oxycodone-acetaminophen Walk[facility]In [facility] Marcel 2022-06-16 00:00 oxycodone-acetaminophen Walk[facility]In [facility] Macrel 2022-06-19 00:00 oxycodone-acetaminophen Walk[facility]In [facility] Marcel 2022-06-21 00:00 oxycodone-acetaminophen Walk[facility]In [facility] Marcel 2022-07-07 00:00 oxycodone-acetaminophen Walk[facility] Marcel 2022-07-31 00:00 oxycodone-acetaminophen Walk[facility]In [facility] Marcel 2022-08-01 00:00 oxycodone-acetaminophen Walk-In Clinic [facility] & [...] [facility] Marcel 2022-07-31 00:00 ibuprofen Walk[facility] Marcel 2022-08-01 00:00 ibuprofen Walk[facility] Marcel 2022-06-14 00:00 methotrexate sodium Walk-In Clinic [facility] Care & Anc[facility] Services Marcel 2022-06-14 00:00 methotrexate sodium Walk-In Clinic [facility] Care [facility] Services Marcel 2022-06-15 00:00 methotrexate sodium Walk-In Clinic [facility] Care [facility] Anc[facility] Services Marcel 2022-06-16 00:00 methotrexate sodium Walk-In Clinic [facility] Care [facility] Anc[facility] Services Marcel 2022-06-19 00:00 methotrexate sodium Walk-In Clinic [facility] Care [facility] Anc[facility] Services Marcel 2022-06-21 00:00 methotrexate sodium Walk-In Clinic [facility] Care [facility] Anc[facility] Services Marcel 2022-07-07 00:00 methotrexate sodium Walk-In Clinic [facility] Care [facility] Anc[facility] Services Marcel 2022-07-31 00:00 methotrexate sodium Walk-In Clinic [facility] Care [facility] Anc[facility] Services Marcel 2022-08-01 00:00 methotrexate sodium Walk-In Clinic [facility] Care [facility] Anc[facility] Services Marcel 2022-06-14 00:00 [...] [facility] Marcel 2022-07-31 00:00 hydroxychloroquine Walk[facility]In [facility] Marcel 2022-08-01 00:00 hydroxychloroquine Walk-In Clinic [facility] Care & Ancillary Services Marcel 2022-06-14 00:00 methotrexate sodium Walk-In Clinic [facility] Care [facility] Anc[facility] Services Marcel 2022-06-14 00:00 methotrexate sodium Walk-In Clinic [facility] Care [facility] Anc[facility] Services Marcel 2022-06-15 00:00 methotrexate sodium Walk-In Clinic [facility] Care [facility] Anc[facility] Services Marcel 2022-06-16 00:00 methotrexate sodium Walk-In Clinic [facility] Care [facility] Anc[facility] Services Marcel 2022-06-19 00:00 methotrexate sodium Walk-In Clinic [facility] Care [facility] Anc[facility] Services Marcel 2022-06-21 00:00 methotrexate sodium Walk-In Clinic [facility] Care [facility] Anc[facility] Services Marcel 2022-07-07 00:00 methotrexate sodium Walk-In Clinic [facility] Care & Anc[facility] Services Marcel 2022-07-31 00:00 methotrexate sodium Walk-In Clinic [facility] & Ancillary Services Marcel 2022-08-01 00:00 methotrexate sodium Walk-In Clinic [facility] Care & Ancillary Services Marcel 2022-06-14 00:00 [...] Clinic Primary [facility] Services Marcel 2022-07-31 00:00 oxycodone-acetaminophen Walk[facility]In [facility] Services Marcel 2022-08-01 00:00 oxycodone-acetaminophen Walk[facility]In [facility] Marcel 2022-06-14 00:00 prednisone Walk-In Clinic [facility] Care & Ancillary Services Marcel 2022-06-14 00:00 [...] [facility] Marcel 2022-07-31 00:00 prednisone Walk[facility] Marcel 2022-08-01 00:00 prednisone Walk-In [facility] [...] [facility] Services Marcel 2022-07-31 00:00 prednisone Walk[facility] Marcel 2022-08-01 00:00 prednisone Walk-In Clinic [facility] [...] [facility] Services Marcel 2022-07-31 00:00 ibuprofen Walk[facility] Marcel 2022-08-01 00:00 ibuprofen Walk-In [facility] [...] [facility] Services Marcel 2022-07-31 00:00 omeprazole Walk[facility] Marcel 2022-08-01 00:00 omeprazole Walk-In [facility] [...] [facility] Services Marcel 2022-07-31 00:00 prednisone Walk[facility] Marcel 2022-08-01 00:00 prednisone Walk-In [facility] [...] [facility] Services Marcel 2022-07-31 00:00 celecoxib Walk[facility] Marcel 2022-08-01 00:00 celecoxib Walk[facility] Marcel 2022-06-14 00:00 methotrexate sodium [facility] Marcel 2022-06-14 00:00 methotrexate sodium [facility] Marcel 2022-06-15 00:00 methotrexate sodium [facility] Marcel 2022-06-16 00:00 methotrexate sodium Walk-In Clinic [facility] Care & Ancillary Services Marcel 2022-06-19 00:00 methotrexate sodium Walk-In Clinic [facility] Care & Anc[facility] Services Marcel 2022-06-21 00:00 methotrexate sodium Walk-In Clinic [facility] Care [facility] Anc[facility] Services Marcel 2022-07-07 00:00 methotrexate sodium Walk-In Clinic [facility] Care & Anc[facility] Services Marcel 2022-07-31 00:00 methotrexate sodium Walk-In [facility] Care [facility] Anc[facility] Services Marcel 2022-08-01 00:00 methotrexate sodium Walk-In [facility] [...] [facility] Services Marcel 2022-07-31 00:00 prednisone Walk[facility] Marcel 2022-08-01 00:00 prednisone Walk-In [facility] [...] [facility] Services Marcel 2022-07-31 00:00 prednisone [facility] Marcel 2022-08-01 00:00 prednisone Walk-In [facility] [...] [facility] Services Marcel 2022-07-31 00:00 amlodipine Walk[facility] Marcel 2022-08-01 00:00 amlodipine Walk[facility] Marcel 2022-06-14 00:00 amlodipine Walk[facility] Marcel 2022-06-14 00:00 amlodipine Walk[facility] Marcel 2022-06-15 00:00 amlodipine Walk[facility] Marcel 2022-06-16 00:00 amlodipine Walk[facility] Marcel 2022-06-19 00:00 amlodipine Walk[facility] Marcel 2022-06-21 00:00 amlodipine Walk[facility] Marcel 2022-07-07 00:00 amlodipine Walk[facility] Marcel 2022-07-31 00:00 amlodipine Walk[facility] Marcel 2022-08-01 00:00 amlodipine Walk-In [facility] [...] [facility] Services Marcel 2022-07-31 00:00 hydroxychloroquine Walk[facility] Marcel 2022-08-01 00:00 hydroxychloroquine Walk-In [facility] [...] [facility] Services Marcel 2022-07-31 00:00 amlodipine Walk[facility] Marcel 2022-08-01 00:00 amlodipine Walk[facility]In [facility] Marecl 2022-06-14 00:00 amlodipine Walk-In Clinic [facility] [...] [facility] Marcel 2022-07-31 00:00 amlodipine Walk[facility] Marcel 2022-08-01 00:00 amlodipine Walk[facility] Marcel 2022-06-14 00:00 hydrochlorothiazide Walk[facility]In [facility] Marcel 2022-06-14 00:00 hydrochlorothiazide Walk[facility] Marcel 2022-06-15 00:00 hydrochlorothiazide Walk[facility] Marcel 2022-06-16 00:00 hydrochlorothiazide Walk-In Clinic [facility] Care & Ancillary Services Marcel 2022-06-19 00:00 hydrochlorothiazide Walk-In Clinic [facility] Care & Anc[facility] Services Marcel 2022-06-21 00:00 hydrochlorothiazide Walk-In Clinic [facility] Care [facility] Anc[facility] Services Marcel 2022-07-07 00:00 hydrochlorothiazide Walk-In Clinic [facility] Care [facility] Anc[facility] Services Marcel 2022-07-31 00:00 hydrochlorothiazide Walk-In Clinic [facility] Care [facility] Anc[facility] Services Marcel 2022-08-01 00:00 hydrochlorothiazide Walk-In Clinic [facility] Care & Anc[facility] Services Marcel 2022-06-14 00:00 [...] [facility] Services Marcel 2022-07-31 00:00 prednisone Walk[facility] Marcel 2022-08-01 00:00 prednisone Walk-In [facility] [...] [facility] Services Marcel 2022-07-31 00:00 meclizine Walk[facility] Marcel 2022-08-01 00:00 meclizine Walk-In [facility] [...] [facility] Services Marcel 2022-07-31 00:00 amlodipine Walk[facility] Marcel 2022-08-01 00:00 amlodipine Walk-In [facility] [...] [facility] Services Marcel 2022-07-31 00:00 amlodipine Walk[facility] Marcel 2022-08-01 00:00 amlodipine Walk-In [facility] [...] [facility] Services Marcel 2022-07-31 00:00 losartan Walk[facility] Marcel 2022-08-01 00:00 losartan Walk-In [facility] [...] [facility] Services Marcel 2022-07-31 00:00 losartan Walk[facility] Marcel 2022-08-01 00:00 losartan Walk[facility] Marcel 2022-06-14 00:00 hydrochlorothiazide Walk-In Clinic [facility] Care & Anc[facility] Services Marcel 2022-06-14 00:00 hydrochlorothiazide Walk-In Clinic [facility] Care [facility] Anc[facility] Services Marcel 2022-06-15 00:00 hydrochlorothiazide Walk-In Clinic [facility] Care [facility] Anc[facility] Services Marcel 2022-06-16 00:00 hydrochlorothiazide Walk-In Clinic [facility] Care [facility] Anc[facility] Services Marcel 2022-06-19 00:00 hydrochlorothiazide Walk-In Clinic [facility] Care [facility] Anc[facility] Services Marcel 2022-06-21 00:00 hydrochlorothiazide Walk-In Clinic [facility] Care [facility] Anc[facility] Services Marcel 2022-07-07 00:00 hydrochlorothiazide Walk-In Clinic [facility] Care [facility] Anc[facility] Services Marcel 2022-07-31 00:00 hydrochlorothiazide Walk-In Clinic [facility] Care [facility] Anc[facility] Services Marcel 2022-08-01 00:00 hydrochlorothiazide Walk-In Clinic [facility] Care [facility] Anc[facility] Services Marcel 2022-06-14 00:00 [...] [facility] Marcel 2022-07-31 00:00 atorvastatin Walk[facility] Marcel 2022-08-01 00:00 atorvastatin Walk-In Clinic [facility] [...] [facility] Services Marcel 2022-07-31 00:00 losartan Walk[facility] Marcel 2022-08-01 00:00 losartan Walk-In Clinic [facility] [...] [facility] Services Marcel 2022-07-31 00:00 losartan Walk[facility] Marcel 2022-08-01 00:00 losartan Walk-In Clinic [facility] [...] [facility] Services Marcel 2022-07-31 00:00 atorvastatin Walk[facility] Marcel 2022-08-01 00:00 atorvastatin Walk-In Clinic [facility] [...] [facility] Services Marcel 2022-07-31 00:00 omeprazole Walk[facility] Marcel 2022-08-01 00:00 omeprazole Walk-In [facility] [...] [facility] Services Marcel 2022-07-31 00:00 meclizine Walk[facility] Marcel 2022-08-01 00:00 meclizine Walk-In [facility] Marcle 2022-06-14 00:00 celecoxib Walk-In Clinic [facility] [...] [facility] Services Marcel 2022-07-31 00:00 celecoxib Walk[facility] Marcel 2022-08-01 00:00 celecoxib Walk-In Clinic [facility] [...] [facility] Services Marcel 2022-07-31 00:00 meclizine Walk[facility] Marcel 2022-08-01 00:00 meclizine Walk-In Clinic [facility] [...] [facility] Services Marcel 2022-07-31 00:00 celecoxib Walk[facility] Marcel 2022-08-01 00:00 celecoxib Walk-In Clinic [facility] [...] Marcel 2022-06-19 00:00 amlodipine Walk[facility] Marcel 2022-06-21 00:00 amlodipine Walk[facility] Marcel 2022-07-07 00:00 amlodipine Walk[facility]In [facility] Marcel 2022-07-31 00:00 amlodipine Walk[facility] Marcel 2022-08-01 00:00 amlodipine Walk-In Clinic [facility] [...] [facility] Services Marcel 2022-07-31 00:00 amlodipine Walk[facility] Marcel 2022-08-01 00:00 amlodipine Walk-In Clinic [facility] [...] [facility] Services Marcel 2022-07-31 00:00 atorvastatin Walk-In [facility] Marcel 2022-08-01 00:00 atorvastatin Walk-In Clinic [facility] [...] [facility] Services Marcel 2022-07-31 00:00 omeprazole Walk[facility] Marcel 2022-08-01 00:00 omeprazole Walk-In Clinic [facility] [...] [facility] Services Marcel 2022-07-31 00:00 atorvastatin Walk[facility]In [facility] Marcel 2022-08-01 00:00 atorvastatin Walk-In Clinic [facility] [...] [facility] Marcel 2022-07-31 00:00 omeprazole Walk[facility] Marcel 2022-08-01 00:00 omeprazole Walk-In Clinic [facility] [...] [facility] Services Marcel 2022-07-31 00:00 ibuprofen [facility] [place] [facility] Marcel 2022-08-01 00:00 ibuprofen Walk[facility]In [facility] Care [facility] Anc[facility] Services Marcel 2022-06-14 00:00 [...] Clinic [facility] Services Marcel 2022-07-31 00:00 oxycodone-acetaminophen Walk-In [facility] Marcel 2022-08-01 00:00 oxycodone-acetaminophen Walk-In Clinic Primary [facility] & [...] [facility] Services Marcel 2022-07-31 00:00 oxycodone-acetaminophen Walk[facility]In [facility] Marcel 2022-08-01 00:00 oxycodone-acetaminophen Walk-In [facility] Primary [facility] & [...] [facility] Marcel 2022-07-31 00:00 ibuprofen Walk[facility] Marcel 2022-08-01 00:00 ibuprofen Walk-In Clinic [facility] [...] [facility] Services Marcel 2022-07-31 00:00 celecoxib Walk[facility] Marcel 2022-08-01 00:00 celecoxib Walk-In Clinic [facility] [...] [facility] Services Marcel 2022-07-31 00:00 losartan Walk[facility] Marcel 2022-08-01 00:00 losartan Walk-In Clinic [facility] [...] [facility] Services Marcel 2022-07-31 00:00 losartan Walk[facility]In [facility] Marcel 2022-08-01 00:00 losartan Walk[facility]In [facility] Marcel 2022-06-14 00:00 oxycodone-acetaminophen Walk[facility]In [facility] Marcel 2022-06-14 00:00 oxycodone-acetaminophen Walk[facility]In [facility] Marcel 2022-06-15 00:00 oxycodone-acetaminophen Walk[facility]In [facility] Amrcel 2022-06-16 00:00 oxycodone-acetaminophen Walk[facility]In [facility] Marcel 2022-06-19 00:00 oxycodone-acetaminophen Walk[facility]In [facility] Marcel 2022-06-21 00:00 oxycodone-acetaminophen Walk[facility]In [facility] Marcel 2022-07-07 00:00 oxycodone-acetaminophen Walk[facility]In [facility] Marcel 2022-07-31 00:00 oxycodone-acetaminophen Walk[facility]In [facility] Marcel 2022-08-01 00:00 oxycodone-acetaminophen Walk-In Clinic Primary [facility] & [...] [facility] Marcel 2022-07-31 00:00 hydroxychloroquine Walk[facility] Marcel 2022-08-01 00:00 hydroxychloroquine Walk[facility] Marcel 2022-06-14 00:00 losartan Walk[facility]In [facility] Marcel 2022-06-14 00:00 losartan Walk-In [facility] Marcel 2022-06-15 00:00 [...] [facility] Marcel 2022-07-31 00:00 losartan Walk[facility] Marcel 2022-08-01 00:00 losartan Walk-In Clinic [facility] Care [...] [facility] Services Marcel 2022-07-31 00:00 losartan Walk[facility] Marcel 2022-08-01 00:00 losartan Walk-In Clinic [facility] Care [...] [facility] Marcel 2022-07-31 00:00 meclizine Walk[facility] Marcel 2022-08-01 00:00 meclizine Walk[facility] Marcel 2022-06-14 00:00 acetaminophen Walk[facility] Marcel 2022-06-14 00:00 acetaminophen [facility] Marcel 2022-06-15 00:00 acetaminophen Walk[facility] Marcel 2022-06-16 00:00 acetaminophen Walk[facility] Marcel 2022-06-19 00:00 acetaminophen Walk[facility] Marcel 2022-06-21 00:00 acetaminophen Walk-In [facility] 2022-07-07 00:00 acetaminophen [facility] 2022-07-31 00:00 acetaminophen [facility] 2022-08-01 00:00 acetaminophen [facility] Problems date description facility 2022-06-14 00:00 Metabolic syndrome X Walk-In [facility] 2022-06-14 00:00 Metabolic syndrome X Walk[facility]In [facility] 2022-06-14 00:00 Headache Walk[facility] 2022-06-14 00:00 Headache Walk[facility] 2022-06-14 00:00 Headache [facility] 2022-06-14 00:00 Family history of alcoholism Walk-In [facility] Primary Care & Ancillary Services C ev 2022-06-14 00:00 Family history of alcoholism Walk-In C [facility] Primary Care & Ancillary Services C ruby 2022-06-14 00:00 Dysmetabolic syndrome X [facility]In [facility] 2022-06-14 00:00 Dysmetabolic syndrome X [facility]In [facility] 2022-06-14 00:00 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 Ancillary Se rvices Marcel classified elsewhere 2022-06-14 00:00 Unspecified persistent mental Walk-In Clinic Primary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 Ancillary Se rvices Marcel classified elsewhere 2022-06-14 00:00 Carpal tunnel syndrome Walk[facility]In [facility] Services Radha carreno 2022-06-14 00:00 Carpal tunnel syndrome Walk[facility]In [facility] Radha carreno 2022-06-14 00:00 Pharyngitis Walk[facility]In [facility] ev 2022-06-14 00:00 Pharyngitis Walk[facility]In [facility] Radha carreno 2022-06-14 00:00 Pharyngitis Walk[facility]In [facility] Radha carreno 2022-06-14 00:00 Cognitive disorder Walk[facility]In [facility] ev 2022-06-14 00:00 Cognitive disorder Walk[facility] Radha carreno 2022-06-14 00:00 Acute pharyngitis Walk[facility]In [facility] Radha carreno 2022-06-14 00:00 Acute pharyngitis Walk[facility]In [facility] Radha carreno 2022-06-14 00:00 Acute pharyngitis Walk[facility]In [facility] Radha carreno 2022-06-14 00:00 Nerve root disorder Walk-In Clinic [facility] Care & Ancillary Services Radha carreno 2022-06-14 00:00 Nerve root disorder Walk-In Clinic [facility] Care & Ancillary Services Radha carreno 2022-06-14 00:00 Sciatica Walk-In [facility] Radha carreno 2022-06-14 00:00 Sciatica Walk-In [facility] Radha carreno 2022-06-14 00:00 Neuralgia, neuritis, and Walk-In Clini c Primary Care & radiculitis, unspecified Ancillary Servi velma Rod 2022-06-14 00:00 Neuralgia, neuritis, and Walk-In Clini c Primary Care & radiculitis, unspecified Ancillary Servi velma Rod 2022-06-14 00:00 Cholecystitis Walk[facility]In [facility] Radha carreno 2022-06-14 00:00 Cholecystitis Walk[facility]In [facility] Radha carreno 2022-06-14 00:00 Metabolic syndrome Walk[facility]In [facility] Radha carreno 2022-06-14 00:00 Metabolic syndrome Walk[facility]In [facility] C ev 2022-06-14 00:00 Unspecified mental disorder due Walk-I n Clinic Primary Care & to known physiological condition Ancilla [facility] Services [place] 2022-06-14 00:00 Unspecified mental disorder due Walk-I n Clinic Primary Care & to known physiological condition Ancilla [facility] [place] 2022-06-14 00:00 Carpal tunnel syndrome, Walk-In Clinic Primary Care & unspecified upper limb Ancillary Service s Marcel 2022-06-14 00:00 Carpal tunnel syndrome, Walk-In Clinic Primary Care & unspecified upper limb Ancillary Service s Marcel 2022-06-14 00:00 Acute pharyngitis, unspecified Walk[facility]In [facility] Services ev 2022-06-14 00:00 Acute pharyngitis, unspecified Walk[facility]In [facility] Services ev 2022-06-14 00:00 Acute pharyngitis, unspecified Walk[facility]In [facility] Services Radha carreno 2022-06-14 00:00 Cholecystitis, unspecified Walk[facility]In [facility] Ancillary Services ev 2022-06-14 00:00 Cholecystitis, unspecified Walk-In Cli erica [...] Clinic [facility] Care [facility] Ancillary Services [facility] 2022-06-14 00:00 Alcoholism in family Walk-In Clinic [facility] Services [facility] 2022-06-14 00:00 Family history of alcohol abuse Walk-I n Clinic Primary Care & and dependence Ancillary Services [facility] 2022-06-14 00:00 Family history of alcohol abuse Walk-I n Clinic Primary Care & and dependence Ancillary Services [facility] 2022-06-15 00:00 Metabolic syndrome X Walk-In Clinic [facility] Anc[facility] Services [facility] 2022-06-15 00:00 Family history of alcoholism Walk-In [facility] Primary Care & Ancillary Services [facility] 2022-06-15 00:00 Dysmetabolic syndrome X Walk-In Clinic Primary Care & Ancillary Services [facility] 2022-06-15 00:00 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 Ancillary Se rvices Marcel classified elsewhere 2022-06-15 00:00 Carpal tunnel syndrome Walk-In Clinic Primary Care & Ancillary Services [facility] 2022-06-15 00:00 Cognitive disorder Walk-In [facility] 2022-06-15 00:00 Nerve root disorder Walk-In Clinic [facility] Care & Ancillary Services [facility] 2022-06-15 00:00 Sciatica Walk-In [facility] 2022-06-15 00:00 Neuralgia, neuritis, and Walk-In Clini c Primary Care & radiculitis, unspecified Ancillary Servi velma Marcel 2022-06-15 00:00 Cholecystitis Walk-In [facility] 2022-06-15 00:00 Metabolic syndrome Walk-In [facility] 2022-06-15 00:00 Unspecified mental disorder due Walk-I n Clinic Primary Care & to known physiological condition Ancilla ry Services [place] 2022-06-15 00:00 Carpal tunnel syndrome, Walk-In Clinic Primary Care & unspecified upper limb Ancillary Service s Marcel 2022-06-15 00:00 Cholecystitis, unspecified Walk-In Cli [facility] Primary Care & Ancillary Services [facility] 2022-06-15 00:00 Radiculopathy, site unspecified Walk[facility]I n [facility] Care [facility] Anc[facility] Services Radha carreno 2022-06-15 00:00 Sciatica, unspecified side Walk-In Cli [facility] Care [facility] Ancillary Services C ev 2022-06-15 00:00 Alcoholism in family Walk-In Clinic [facility] Services C ev 2022-06-15 00:00 Family history of alcohol abuse Walk-I n Clinic Primary Care & and dependence Ancillary Services Radha carreno 2022-06-16 00:00 Metabolic syndrome X Walk-In [facility] Services Radha carreno 2022-06-16 00:00 Family history of alcoholism Walk-In [facility] Primary Care & Ancillary Services ev 2022-06-16 00:00 Dysmetabolic syndrome X Walk-In Clinic Primary Care & Ancillary Services ev 2022-06-16 00:00 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 Ancillary Se rvices Marcel classified elsewhere 2022-06-16 00:00 Carpal tunnel syndrome Walk[facility]In Clinic [facility] Ancillary Services Radha sultanaev 2022-06-16 00:00 Cognitive disorder Walk[facility]In [facility] Radha sultanaev 2022-06-16 00:00 Nerve root disorder Walk-In Clinic [facility] Care & Ancillary Services Radha carreno 2022-06-16 00:00 Sciatica Walk-In [facility] Radha carreno 2022-06-16 00:00 Neuralgia, neuritis, and Walk-In Clini c Primary Care & radiculitis, unspecified Ancillary Servi velma Marcel 2022-06-16 00:00 Cholecystitis Walk-In [facility] Radha carreno 2022-06-16 00:00 Metabolic syndrome Walk[facility]In [facility] Radha sultanaev 2022-06-16 00:00 Unspecified mental disorder due Walk-I n Clinic Primary Care & to known physiological condition Ancilla ry Services Marcel 2022-06-16 00:00 Carpal tunnel syndrome, Walk-In Clinic Primary Care & unspecified upper limb Ancillary Service s Marcel 2022-06-16 00:00 Cholecystitis, unspecified Walk[facility]In [facility] Care & Ancillary Services Radha carreno 2022-06-16 00:00 Radiculopathy, site unspecified Walk[facility]I n [facility] Primary Care & Ancillary Services C ev 2022-06-16 00:00 Sciatica, unspecified side Walk-In [facility] Ancillary Services C ev 2022-06-16 00:00 Alcoholism in family Walk-In Clinic [facility] Services C ev 2022-06-16 00:00 Family history of alcohol abuse Walk-I n Clinic Primary Care & and dependence Ancillary Services ev 2022-06-19 00:00 Metabolic syndrome X Walk-In Clinic [facility] Services ev 2022-06-19 00:00 Family history of alcoholism Walk-In [facility] Primary Care & Ancillary Services ev 2022-06-19 00:00 Dysmetabolic syndrome X Walk-In Clinic Primary Care & Ancillary Services ev 2022-06-19 00:00 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 Ancillary Se rvices Marcel classified elsewhere 2022-06-19 00:00 Carpal tunnel syndrome Walk-In Clinic Primary Care & Ancillary Services C ev 2022-06-19 00:00 Cognitive disorder Walk-In [facility] 2022-06-19 00:00 Nerve root disorder Walk-In Clinic [facility] Care & Ancillary Services [facility] 2022-06-19 00:00 Sciatica Walk-In [facility] 2022-06-19 00:00 Neuralgia, neuritis, and Walk-In Clini c Primary Care & radiculitis, unspecified Ancillary Servi velma Marcel 2022-06-19 00:00 Cholecystitis Walk-In [facility] C ev 2022-06-19 00:00 Metabolic syndrome Walk-In [facility] Services [facility] 2022-06-19 00:00 Unspecified mental disorder due Walk-I n Clinic Primary Care & to known physiological condition Ancilla ry Services Marcel 2022-06-19 00:00 Carpal tunnel syndrome, Walk-In Clinic Primary Care & unspecified upper limb Ancillary Service s Marcel 2022-06-19 00:00 Cholecystitis, unspecified Walk[facility]In [facility] Care & Ancillary Services C ev 2022-06-19 00:00 Radiculopathy, site unspecified Walk[facility]I n [facility] Primary Care & Ancillary Services C ev 2022-06-19 00:00 Sciatica, unspecified side Walk-In [facility] Primary Care & Ancillary Services [facility] 2022-06-19 00:00 Alcoholism in family Walk-In Clinic Pr [facility] Care & Ancillary Services [facility] 2022-06-19 00:00 Family history of alcohol abuse Walk-I n Clinic Primary Care & and dependence Ancillary Services [facility] 2022-06-21 00:00 Metabolic syndrome X Walk-In Clinic Pr [facility] Care & Ancillary Services [facility] 2022-06-21 00:00 Family history of alcoholism Walk-In [facility] Primary Care & Ancillary Services [facility] 2022-06-21 00:00 Dysmetabolic syndrome X Walk-In Clinic Primary Care & Ancillary Services [facility] 2022-06-21 00:00 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 Ancillary Se rvices Marcel classified elsewhere 2022-06-21 00:00 Carpal tunnel syndrome Walk-In Clinic Primary Care & Ancillary Services C ruby 2022-06-21 00:00 Cognitive disorder Walk-In [facility] Services [facility] 2022-06-21 00:00 Nerve root disorder Walk-In Clinic Katy tyson Care & Ancillary Services [facility] 2022-06-21 00:00 Sciatica Walk-In Clinic [facility] Services [facility] 2022-06-21 00:00 Neuralgia, neuritis, and Walk-In Clini c Primary Care & radiculitis, unspecified Ancillary Servi velma Marcel 2022-06-21 00:00 Cholecystitis Walk-In [facility] C ruby 2022-06-21 00:00 Metabolic syndrome Walk-In Clinic [facility] Anc[facility] Services [facility] 2022-06-21 00:00 Unspecified mental disorder due Walk-I n Clinic Primary Care & to known physiological condition Ancilla ry Services Marcel 2022-06-21 00:00 Carpal tunnel syndrome, Walk-In Clinic Primary Care & unspecified upper limb Ancillary Service s Marcel 2022-06-21 00:00 Cholecystitis, unspecified Walk[facility]In [facility] Primary Care & Ancillary Services C ev 2022-06-21 00:00 Radiculopathy, site unspecified Walk-I n Clinic Primary Care & Ancillary Services [facility] 2022-06-21 00:00 Sciatica, unspecified side Walk-In [facility] Primary Care & Ancillary Services [facility] 2022-06-21 00:00 Alcoholism in family Walk-In Clinic Pr im[facility] Care & Ancillary Services [facility] 2022-06-21 00:00 Family history of alcohol abuse Walk-I n Clinic Primary Care & and dependence Ancillary Services [facility] 2022-07-07 00:00 Metabolic syndrome X Walk-In Clinic Pr im[facility] Care & Ancillary Services [facility] 2022-07-07 00:00 Family history of alcoholism Walk-In [facility] Primary Care & Ancillary Services [facility] 2022-07-07 00:00 Dysmetabolic syndrome X Walk-In Clinic Primary Care & Ancillary Services [facility] 2022-07-07 00:00 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 Ancillary Se rvices Marcel classified elsewhere 2022-07-07 00:00 Carpal tunnel syndrome Walk-In Clinic Primary Care & Ancillary Services [facility] 2022-07-07 00:00 Cognitive disorder Walk-In [facility] 2022-07-07 00:00 Nerve root disorder Walk-In Clinic Katy tyson Care & Ancillary Services [facility] 2022-07-07 00:00 Sciatica Walk-In Clinic [facility] Services [facility] 2022-07-07 00:00 Neuralgia, neuritis, and Walk-In Clini c Primary Care & radiculitis, unspecified Ancillary Servi velma [place] 2022-07-07 00:00 Cholecystitis Walk-In Clinic [facility] Anc[facility] Services [facility] 2022-07-07 00:00 Metabolic syndrome Walk-In [facility] 2022-07-07 00:00 Unspecified mental disorder due Walk-I n Clinic Primary Care & to known physiological condition Ancilla ry Services [place] 2022-07-07 00:00 Carpal tunnel syndrome, Walk-In Clinic Primary Care & unspecified upper limb Ancillary Service s [place] 2022-07-07 00:00 Cholecystitis, unspecified Walk[facility]In [facility] Primary Care & Ancillary Services [facility] 2022-07-07 00:00 Radiculopathy, site unspecified Walk[facility]I n Clinic Primary Care & Ancillary Services [facility] 2022-07-07 00:00 Sciatica, unspecified side Walk-In [facility] Primary Care & Ancillary Services [facility] 2022-07-07 00:00 Alcoholism in family Walk-In Clinic Pr im[facility] Care & Ancillary Services [facility] 2022-07-07 00:00 Family history of alcohol abuse Walk-I n Clinic Primary Care & and dependence Ancillary Services [facility] 2022-07-31 00:00 Metabolic syndrome X Walk-In Clinic Pr [facility] Care & Ancillary Services [facility] 2022-07-31 00:00 Family history of alcoholism Walk-In [facility] Primary Care & Ancillary Services [facility] 2022-07-31 00:00 Dysmetabolic syndrome X Walk-In Clinic Primary Care & Ancillary Services [facility] 2022-07-31 00:00 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 Ancillary Se rvices Marcel classified elsewhere 2022-07-31 00:00 Carpal tunnel syndrome Walk-In Clinic Primary Care & Ancillary Services [facility] 2022-07-31 00:00 Cognitive disorder Walk-In [facility] Services [facility] 2022-07-31 00:00 Nerve root disorder Walk-In Clinic Katy tyson Care & Ancillary Services [facility] 2022-07-31 00:00 Sciatica Walk-In Clinic [facility] Services [facility] 2022-07-31 00:00 Neuralgia, neuritis, and Walk-In Clini c Primary Care & radiculitis, unspecified Ancillary Servi velma [place] 2022-07-31 00:00 Cholecystitis Walk-In Clinic [facility] Anc[facility] Services [facility] 2022-07-31 00:00 Metabolic syndrome Walk-In [facility] Services [facility] 2022-07-31 00:00 Unspecified mental disorder due Walk-I n Clinic Primary Care & to known physiological condition Ancilla ry Services [place] 2022-07-31 00:00 Carpal tunnel syndrome, Walk-In Clinic Primary Care & unspecified upper limb Ancillary Service s [place] 2022-07-31 00:00 Cholecystitis, unspecified Walk-In [facility] Primary Care & Ancillary Services [facility] 2022-07-31 00:00 Radiculopathy, site unspecified Walk[facility]I n Clinic Primary Care & Ancillary Services [facility] 2022-07-31 00:00 Sciatica, unspecified side Walk-In [facility] Primary Care & Ancillary Services ev 2022-07-31 00:00 Alcoholism in family Walk-In Clinic Pr imary Care & Ancillary Services ev 2022-07-31 00:00 Family history of alcohol abuse Walk-I n Clinic Primary Care & and dependence Ancillary Services ev 2022-08-01 00:00 Metabolic syndrome X Walk-In Clinic Pr im[facility] Care & Ancillary Services [facility] 2022-08-01 00:00 Family history of alcoholism Walk-In [facility] Primary Care & Ancillary Services [facility] 2022-08-01 00:00 Dysmetabolic syndrome X Walk-In Clinic Primary Care & Ancillary Services [facility] 2022-08-01 00:00 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 Ancillary Se rvices Marcel classified elsewhere 2022-08-01 00:00 Carpal tunnel syndrome Walk-In Clinic Primary Care & Ancillary Services [facility] 2022-08-01 00:00 Cognitive disorder Walk-In Clinic [facility] Ancillary Services [facility] 2022-08-01 00:00 Nerve root disorder Walk-In Clinic Katy tyson Care & Ancillary Services [facility] 2022-08-01 00:00 Sciatica Walk-In Clinic [facility] Ancillary Services [facility] 2022-08-01 00:00 Neuralgia, neuritis, and Walk-In Clini c Primary Care & radiculitis, unspecified Ancillary Servi velma [place] 2022-08-01 00:00 Cholecystitis Walk-In Clinic Prim [facility] Care & Ancillary Services [facility] 2022-08-01 00:00 Metabolic syndrome Walk-In Clinic [facility] Ancillary Services [facility] 2022-08-01 00:00 Unspecified mental disorder due Walk-I n Clinic Primary Care & to known physiological condition Ancilla ry Services [place] 2022-08-01 00:00 Carpal tunnel syndrome, Walk-In Clinic Primary Care & unspecified upper limb Ancillary Service s Marcel 2022-08-01 00:00 Cholecystitis, unspecified Walk[facility]In [facility] Primary Care & Ancillary Services C ev 2022-08-01 00:00 Radiculopathy, site unspecified Walk-I n Clinic Primary Care & Ancillary Services C ev 2022-08-01 00:00 Sciatica, unspecified side Walk-In [facility] Primary Care & Ancillary Services C ev 2022-08-01 00:00 Alcoholism in family Walk-In Clinic Pr imary Care & Ancillary Services C [facility] 2022-08-01 00:00 Family history of alcohol abuse Walk-I n Clinic Primary Care & and dependence Ancillary Services C ev Procedures date description facility 2022-06-14 00:00 Visit Code Hold Walk-In [facility] 2022-06-14 00:00 Visit Code Hold Walk-In [facility] 2022-06-14 00:00 Visit Code Hold Walk-In [facility] Results/Labs [...] Clinic Primary unknown) Care & Ancillary Services Macrel Result panel 21 (unknown) (no date) (unknown) [...] Care & Ancillary Services Mracel Result panel 53 (unknown) (no date) (unknown) [...] Care & Ancillary Services Amrcel Result panel 180 (unknown) (no date) (unknown) [...] Care & Ancillary Services Marcel Result panel 204 (unknown) (no date) (unknown) [...] Care & Ancillary Services Marcel Result panel 316 (unknown) (no date) (unknown) [...] Care & Ancillary Services Marcel Result panel 356 (unknown) (no date) (unknown) [...] Care & Ancillary Services Mracel Result panel 398 (unknown) (no date) (unknown) [...] Care & Ancillary Services Marecl Result panel 404 (unknown) (no date) (unknown) [...] Care & Ancillary Services Am[facility] Result panel 480 (unknown) (no date) (unknown) [...] Care & Ancillary Services Mracel Result panel 560 (unknown) (no date) (unknown) [...] Care & Ancillary Services Marcel Result panel 582 (unknown) (no date) (unknown) Walk-In (no value) (units (unk nown) Clinic Primary unknown) Care & Ancillary Services Marcel Result panel 583 (unknown) (no date) (unknown) Walk-In (no value) (units (unk nown) Clinic Primary unknown) Care & Ancillary Services Marcel Result panel 584 (unknown) (no date) (unknown) Walk-In (no value) (units (unk nown) Clinic Primary unknown) Care & Ancillary Services Marcel Result panel 585 (unknown) (no date) (unknown) Walk-In (no value) (units (unk nown) Clinic Primary unknown) Care & Ancillary Services Marcel Result panel 586 (unknown) (no date) (unknown) Walk-In (no value) (units (unk nown) Clinic Primary unknown) Care & Ancillary Services Marcel Result panel 587 (unknown) (no date) (unknown) Walk-In (no value) (units (unk nown) Clinic Primary unknown) Care & Ancillary Services Marcel Result panel 588 (unknown) (no date) (unknown) Walk-In (no value) (units (unk nown) Clinic Primary unknown) Care & Ancillary Services Marcel Result panel 589 (unknown) (no date) (unknown) Walk-In (no value) (units (unk nown) Clinic Primary unknown) Care & Ancillary Services Marcel Result panel 590 (unknown) (no date) (unknown) Walk-In (no value) (units (unk nown) Clinic Primary unknown) Care & Ancillary Services Marcel Result panel 591 (unknown) (no date) (unknown) Walk-In (no value) (units (unk nown) Clinic Primary unknown) Care & Ancillary Services Marcel Result panel 592 (unknown) (no date) (unknown) Walk-In (no value) (units (unk nown) Clinic Primary unknown) Care & Ancillary Services Marcel Result panel 593 (unknown) (no date) (unknown) Walk-In (no value) (units (unk nown) Clinic Primary unknown) Care & Ancillary Services Marcel Result panel 594 (unknown) (no date) (unknown) Walk-In (no value) (units (unk nown) Clinic Primary unknown) Care & Ancillary Services Marcel Result panel 595 (unknown) (no date) (unknown) Walk-In (no value) (units (unk nown) Clinic Primary unknown) Care & Ancillary Services Marcel Result panel 596 (unknown) (no date) (unknown) Walk-In (no value) (units (unk nown) Clinic Primary unknown) Care & Ancillary Services Marcel Result panel 597 (unknown) (no date) (unknown) Walk-In (no value) (units (unk nown) Clinic Primary unknown) Care & Ancillary Services Marcel Result panel 598 (unknown) (no date) (unknown) Walk-In (no value) (units (unk nown) Clinic Primary unknown) Care & Ancillary Services Marcel Result panel 599 (unknown) (no date) (unknown) Walk-In (no value) (units (unk nown) Clinic Primary unknown) Care & Ancillary Services Marcel Result panel 600 (unknown) (no date) (unknown) Walk-In (no value) (units (unk nown) Clinic Primary unknown) Care & Ancillary Services Marcel Result panel 601 (unknown) (no date) (unknown) Walk-In (no value) [facility] Result panel 602 (unknown) (no date) (unknown) Walk-In (no value) [facility] Result panel 603 (unknown) (no date) (unknown) Walk-In (no value) [facility] Result panel 604 (unknown) (no date) (unknown) Walk-In (no value) [facility] Result panel 605 (unknown) (no date) (unknown) Walk-In (no value) [facility] Result panel 606 (unknown) (no date) (unknown) Walk-In (no value) [facility] Result panel 607 (unknown) (no date) (unknown) Walk-In (no value) [facility] Result panel 608 (unknown) (no date) (unknown) Walk-In (no value) [facility] Result panel 609 (unknown) (no date) (unknown) Walk-In (no value) [facility] Result panel 610 (unknown) (no date) (unknown) Walk-In (no value) [facility] Result panel 611 (unknown) (no date) (unknown) Walk-In (no value) [facility] Result panel 612 (unknown) (no date) (unknown) Walk-In (no value) [facility] Result panel 613 (unknown) (no date) (unknown) Walk-In (no value) [facility] Result panel 614 (unknown) (no date) (unknown) Walk-In (no value) [facility] Result panel 615 (unknown) (no date) (unknown) Walk-In (no value) [facility] Result panel 616 (unknown) (no date) (unknown) Walk-In (no value) [facility] Result panel 617 (unknown) (no date) (unknown) Walk-In (no value) [facility] Result panel 618 (unknown) (no date) (unknown) Walk-In (no value) [facility] Result panel 619 (unknown) (no date) (unknown) Walk-In (no value) [facility] Result panel 620 (unknown) (no date) (unknown) Walk-In (no value) [facility] Result panel 621 (unknown) (no date) (unknown) Walk-In (no value) [facility] Result panel 622 (unknown) (no date) (unknown) Walk-In (no value) [facility] Result panel 623 (unknown) (no date) (unknown) Walk-In (no value) [facility] Result panel 624 (unknown) (no date) (unknown) Walk-In (no value) [facility] Result panel 625 (unknown) (no date) (unknown) Walk-In (no value) [facility] Result panel 626 (unknown) (no date) (unknown) Walk-In (no value) [facility] Result panel 627 (unknown) (no date) (unknown) Walk-In (no value) [facility] Result panel 628 (unknown) (no date) (unknown) Walk-In (no value) [facility] Result panel 629 (unknown) (no date) (unknown) Walk-In (no value) [facility] Result panel 630 (unknown) (no date) (unknown) Walk-In (no value) [facility] Result panel 631 (unknown) (no date) (unknown) Walk-In (no value) [facility] Result panel 632 (unknown) (no date) (unknown) Walk-In (no value) [facility] Result panel 633 (unknown) (no date) (unknown) Walk-In (no value) [facility] Result panel 634 (unknown) (no date) (unknown) Walk-In (no value) [facility] Result panel 635 (unknown) (no date) (unknown) Walk-In (no value) [facility] Result panel 636 (unknown) (no date) (unknown) Walk-In (no value) [facility] Result panel 637 (unknown) (no date) (unknown) Walk-In (no value) [facility] Result panel 638 (unknown) (no date) (unknown) Walk-In (no value) [facility] Result panel 639 (unknown) (no date) (unknown) Walk-In (no value) [facility] Result panel 640 (unknown) (no date) (unknown) Walk-In (no value) [facility] Result panel 641 (unknown) (no date) (unknown) Walk-In (no value) [facility] Result panel 642 (unknown) (no date) (unknown) Walk-In (no value) [facility] Result panel 643 (unknown) (no date) (unknown) Walk-In (no value) [facility] Result panel 644 (unknown) (no date) (unknown) Walk-In (no value) [facility] Result panel 645 (unknown) (no date) (unknown) Walk-In (no value) [facility] Result panel 646 (unknown) (no date) (unknown) Walk-In (no value) [facility] Result panel 647 (unknown) (no date) (unknown) Walk-In (no value) [facility] Result panel 648 (unknown) (no date) (unknown) Walk-In (no value) [facility] Result panel 649 (unknown) (no date) (unknown) Walk-In (no value) [facility] Result panel 650 (unknown) (no date) (unknown) Walk-In (no value) [facility] Result panel 651 (unknown) (no date) (unknown) Walk-In (no value) [facility] Result panel 652 (unknown) (no date) (unknown) Walk-In (no value) [facility] Result panel 653 (unknown) (no date) (unknown) Walk-In (no value) [facility] Result panel 654 (unknown) (no date) (unknown) Walk-In (no value) [facility] Result panel 655 (unknown) (no date) (unknown) Walk-In (no value) [facility] Result panel 656 (unknown) (no date) (unknown) Walk-In (no value) [facility] Result panel 657 (unknown) (no date) (unknown) Walk-In (no value) [facility] Result panel 658 (unknown) (no date) (unknown) Walk-In (no value) [facility] Result panel 659 (unknown) (no date) (unknown) Walk-In (no value) [facility] Result panel 660 (unknown) (no date) (unknown) Walk-In (no value) [facility] Result panel 661 (unknown) (no date) (unknown) Walk-In (no value) [facility] Result panel 662 (unknown) (no date) (unknown) Walk-In (no value) [facility] Result panel 663 (unknown) (no date) (unknown) Walk-In (no value) [facility] Result panel 664 (unknown) (no date) (unknown) Walk-In (no value) [facility] Result panel 665 (unknown) (no date) (unknown) Walk-In (no value) [facility] Result panel 666 (unknown) (no date) (unknown) Walk-In (no value) [facility] Result panel 667 (unknown) (no date) (unknown) Walk-In (no value) [facility] Result panel 668 (unknown) (no date) (unknown) Walk-In (no value) [facility] Result panel 669 (unknown) (no date) (unknown) Walk-In (no value) [facility] Result panel 670 (unknown) (no date) (unknown) Walk-In (no value) [facility] Result panel 671 (unknown) (no date) (unknown) Walk-In (no value) [facility] Result panel 672 (unknown) (no date) (unknown) Walk-In (no value) [facility] Result panel 673 (unknown) (no date) (unknown) Walk-In (no value) [facility] Result panel 674 (unknown) (no date) (unknown) Walk-In (no value) [facility] Result panel 675 (unknown) (no date) (unknown) Walk-In (no value) [facility] Result panel 676 (unknown) (no date) (unknown) Walk-In (no value) [facility] Result panel 677 (unknown) (no date) (unknown) Walk-In (no value) [facility] Result panel 678 (unknown) (no date) (unknown) Walk-In (no value) [facility] Result panel 679 (unknown) (no date) (unknown) Walk-In (no value) [facility] Result panel 680 (unknown) (no date) (unknown) Walk-In (no value) [facility] Result panel 681 (unknown) (no date) (unknown) Walk-In (no value) [facility] Result panel 682 (unknown) (no date) (unknown) Walk-In (no value) [facility] Result panel 683 (unknown) (no date) (unknown) Walk-In (no value) [facility] Result panel 684 (unknown) (no date) (unknown) Walk-In (no value) [facility] Result panel 685 (unknown) (no date) (unknown) Walk-In (no value) [facility] Result panel 686 (unknown) (no date) (unknown) Walk-In (no value) [facility] Result panel 687 (unknown) (no date) (unknown) Walk-In (no value) [facility] Result panel 688 (unknown) (no date) (unknown) Walk-In (no value) [facility] Result panel 689 (unknown) (no date) (unknown) Walk-In (no value) [facility] Result panel 690 (unknown) (no date) (unknown) Walk-In (no value) [facility] Result panel 691 (unknown) (no date) (unknown) Walk-In (no value) [facility] Result panel 692 (unknown) (no date) (unknown) Walk-In (no value) [facility] Result panel 693 (unknown) (no date) (unknown) Walk-In (no value) [facility] Result panel 694 (unknown) (no date) (unknown) Walk-In (no value) [facility] Result panel 695 (unknown) (no date) (unknown) Walk-In (no value) [facility] Result panel 696 (unknown) (no date) (unknown) Walk-In (no value) [facility] Result panel 697 (unknown) (no date) (unknown) Walk-In (no value) [facility] Result panel 698 (unknown) (no date) (unknown) Walk-In (no value) [facility] Result panel 699 (unknown) (no date) (unknown) Walk-In (no value) [facility] Result panel 700 (unknown) (no date) (unknown) Walk-In (no value) [facility] Result panel 701 (unknown) (no date) (unknown) Walk-In (no value) [facility] Result panel 702 (unknown) (no date) (unknown) Walk-In (no value) [facility] Result panel 703 (unknown) (no date) (unknown) Walk-In (no value) [facility] Result panel 704 (unknown) (no date) (unknown) Walk-In (no value) [facility] Result panel 705 (unknown) (no date) (unknown) Walk-In (no value) [facility] Result panel 706 (unknown) (no date) (unknown) Walk-In (no value) [facility] Result panel 707 (unknown) (no date) (unknown) Walk-In (no value) [facility] Result panel 708 (unknown) (no date) (unknown) Walk-In (no value) [facility] Result panel 709 (unknown) (no date) (unknown) Walk-In (no value) [facility] Result panel 710 (unknown) (no date) (unknown) Walk-In (no value) [facility] Result panel 711 (unknown) (no date) (unknown) Walk-In (no value) [facility] Result panel 712 (unknown) (no date) (unknown) Walk-In (no value) [facility] Result panel 713 (unknown) (no date) (unknown) Walk-In (no value) [facility] Result panel 714 (unknown) (no date) (unknown) Walk-In (no value) [facility] Result panel 715 (unknown) (no date) (unknown) Walk-In (no value) [facility] Result panel 716 (unknown) (no date) (unknown) Walk-In (no value) [facility] Result panel 717 (unknown) (no date) (unknown) Walk-In (no value) [facility] Result panel 718 (unknown) (no date) (unknown) Walk-In (no value) [facility] Result panel 719 (unknown) (no date) (unknown) Walk-In (no value) [facility] Result panel 720 (unknown) (no date) (unknown) Walk-In (no value) [facility] Result panel 721 (unknown) (no date) (unknown) Walk-In (no value) [facility] Result panel 722 (unknown) (no date) (unknown) Walk-In (no value) [facility] Result panel 723 (unknown) (no date) (unknown) Walk-In (no value) [facility] Result panel 724 (unknown) (no date) (unknown) Walk-In (no value) [facility] Result panel 725 (unknown) (no date) (unknown) Walk-In (no value) [facility] Result panel 726 (unknown) (no date) (unknown) Walk-In (no value) [facility] Result panel 727 (unknown) (no date) (unknown) Walk-In (no value) [facility] Result panel 728 (unknown) (no date) (unknown) Walk-In (no value) [facility] Result panel 729 (unknown) (no date) (unknown) Walk-In (no value) [facility] Result panel 730 (unknown) (no date) (unknown) Walk-In (no value) [facility] Result panel 731 (unknown) (no date) (unknown) Walk-In (no value) [facility] Result panel 732 (unknown) (no date) (unknown) Walk-In (no value) ([facility] Result panel 733 (unknown) (no date) (unknown) Walk-In (no value) [facility] Result panel 734 (unknown) (no date) (unknown) Walk-In (no value) [facility] Result panel 735 (unknown) (no date) (unknown) Walk-In (no value) [facility] Result panel 736 (unknown) (no date) (unknown) Walk-In (no value) [facility] Result panel 737 (unknown) (no date) (unknown) Walk-In (no value) [facility] Result panel 738 (unknown) (no date) (unknown) Walk-In (no value) [facility] Result panel 739 (unknown) (no date) (unknown) Walk-In (no value) [facility] Result panel 740 (unknown) (no date) (unknown) Walk-In (no value) [facility] Result panel 741 (unknown) (no date) (unknown) Walk-In (no value) [facility] Result panel 742 (unknown) (no date) (unknown) Walk-In (no value) [facility] Result panel 743 (unknown) (no date) (unknown) Walk-In (no value) [facility] Result panel 744 (unknown) (no date) (unknown) Walk-In (no value) [facility] Result panel 745 (unknown) (no date) (unknown) Walk-In (no value) [facility] Result panel 746 (unknown) (no date) (unknown) Walk-In (no value) [facility] Result panel 747 (unknown) (no date) (unknown) Walk-In (no value) [facility] Result panel 748 (unknown) (no date) (unknown) Walk-In (no value) [facility] Result panel 749 (unknown) (no date) (unknown) Walk-In (no value) [facility] Result panel 750 (unknown) (no date) (unknown) [facility] (no value) [facility] Result panel 751 (unknown) (no date) (unknown) Walk-In (no value) [facility] Result panel 752 (unknown) (no date) (unknown) Walk-In (no value) [facility] Result panel 753 (unknown) (no date) (unknown) Walk-In (no value) [facility] Result panel 754 (unknown) (no date) (unknown) Walk-In (no value) [facility] Result panel 755 (unknown) (no date) (unknown) Walk-In (no value) [facility] Result panel 756 (unknown) (no date) (unknown) Walk-In (no value) [facility] Result panel 757 (unknown) (no date) (unknown) Walk-In (no value) [facility] Result panel 758 (unknown) (no date) (unknown) Walk-In (no value) [facility] Result panel 759 (unknown) (no date) (unknown) Walk-In (no value) [facility] Result panel 760 (unknown) (no date) (unknown) Walk-In (no value) [facility] Result panel 761 (unknown) (no date) (unknown) Walk-In (no value) [facility] Result panel 762 (unknown) (no date) (unknown) Walk-In (no value) [facility] Result panel 763 (unknown) (no date) (unknown) Walk-In (no value) [facility] Result panel 764 (unknown) (no date) (unknown) Walk-In (no value) [facility] Result panel 765 (unknown) (no date) (unknown) Walk-In (no value) [facility] Result panel 766 (unknown) (no date) (unknown) Walk-In (no value) [facility] Result panel 767 (unknown) (no date) (unknown) Walk-In (no value) [facility] Result panel 768 (unknown) (no date) (unknown) Walk-In (no value) [facility] Result panel 769 (unknown) (no date) (unknown) Walk-In (no value) [facility] Result panel 770 (unknown) (no date) (unknown) Walk-In (no value) [facility] Result panel 771 (unknown) (no date) (unknown) Walk-In (no value) [facility] Primary unknown) [facility] Result panel 772 (unknown) (no date) (unknown) Walk-[facility] (no value) [facility]units [facility]own[facility] Primary unknown) [facility] Result panel 773 (unknown) (no date) (unknown) Walk-In (no value) (units ([facility]own[facility] Primary unknown) [facility] Result panel 774 (unknown) (no date) (unknown) Walk-In (no value) (units ([facility]own) [facility] Primary unknown) [facility] Result panel 775 (unknown) (no date) (unknown) Walk-In (no value) (units ([facility] nown) [facility] Primary unknown) [facility] Result panel 776 (unknown) (no date) (unknown) Walk-In (no value) (units ([facility] nown) [facility] Primary unknown) [facility] Result panel 777 (unknown) (no date) (unknown) Walk-In (no value) (units ([facility] nown) [facility] Primary unknown) [facility] Result panel 778 (unknown) (no date) (unknown) Walk-In (no value) (units ([facility] nown) [facility] Primary unknown) [facility] Result panel 779 (unknown) (no date) (unknown) Walk-In (no value) (units ([facility] nown) [facility] Primary unknown) [facility] Result panel 780 (unknown) (no date) (unknown) Walk-In (no value) (units ([facility]own) [facility] Primary unknown) [facility] Result panel 781 (unknown) (no date) (unknown) Walk-In (no value) (units ([facility] nown) [facility] Primary unknown) [facility] Result panel 782 (unknown) (no date) (unknown) Walk-In (no value) (units ([facility] nown) [facility] Primary unknown) [facility] Result panel 783 (unknown) (no date) (unknown) Walk-In (no value) (units ([facility]own) Clinic Primary unknown) [facility] Result panel 784 (unknown) (no date) (unknown) Walk-In (no value) [...]
--- NOTE | 2022-08-03 00:58 | ED Physician Documentation ---
History of Present Illness - Stated complaint Stated Complaint: HIGH BP - Chief complaint Chief Complaint: General - History obtained from History obtained from: Patient - Additonal information Additional information: Patient is a 76-year-old female presenting for evaluation of hypertension. Patient has a known history of hypertension and was recently instructed to increase her losartan back to twice a day. She had been previously on this regiment but noted over the past several months I decreased it to once a day as her blood pressure was improving. However over the past few weeks she has just been feeling off, fatigued and groggy. She was seen in the emergency department on Sunday for elevated blood pressure readings. She had an EKG and labs at that time and was instructed to go back to her twice a day dosing. She saw her PCP on Sunday who also agreed that she should continue on the twice a day dosing and they will continue to monitor. Patient states she was in bed tonight when she again was feeling off and went to check her blood pressure as she has been doing several times throughout the days. She reported that it was above 180 and that she was told that if it was above 180 she should return to the emergency department thus called 911. She denies a headache, focal weakness, blurred vision, chest pain, shortness of breath. Review of Systems Constitutional: denies: Fever Cardiac: denies: Chest pain / pressure Respiratory: denies: Dyspnea GI: denies: Abdominal Pain : denies: Dysuria Musculoskeletal: denies: Back pain Neurologic: denies: Headache PD PAST MEDICAL HISTORY - Past Medical History Cardiovascular: Hypertension, High cholesterol Respiratory: None Neuro: Other Endocrine/Autoimmune: None GI: GERD, Chronic constipation, Other : None HEENT: Other Psych: None Musculoskeletal: Other Derm: None - Past Surgical History Past Surgical History: Yes General: Appendectomy, Colonoscopy HEENT: Other - Present Medications Home Medications: Ambulatory Orders Medication Instructions Recorded Confirmed Ascorbic Acid [Vitamin C] 1 tab PO DAILY 12/21/15 06/02/21 Multivitamin [Multivitamins] 1 tab PO DAILY 12/21/15 06/02/21 Zolpidem [Ambien] 2.5 mg PO QPM PRN 12/21/15 08/03/22 B-Complex with Vitamin C [Super B 1 each PO DAILY 05/29/18 06/02/21 Complex-Vitamin C] Cholecalciferol (Vitamin D3) 1 cap PO DAILY 05/29/18 06/02/21 [Vitamin D3] Digestive 8/L.acidoph/Pectin 1 each PO BID 05/29/18 06/02/21 [Digestive Enzymes Tablet] L.acid/L.casei/B.bif/B.wicho/Fos 1 cap PO BID 05/29/18 06/02/21 [Probiotic Blend Capsule] Malic Acid 1 each PO DAILY 05/29/18 06/02/21 [place]-3/Dha/Epa/Fish Oil [Fish Oil 1 cap PO DAILY 05/29/18 06/02/21 500 mg Softgel] Turmeric Root Extract [Turmeric] 500 mg PO DAILY 05/29/18 06/02/21 Aspirin [Aspirin EC] 81 mg PO DAILY 12/07/20 06/02/21 Ibuprofen [Motrin] 800 mg PO BID PRN #30 tablet 12/08/20 06/02/21 Calcium Carbonate [Calcium] 600 mg PO DAILY 06/02/21 06/02/21 Ferrous Sulfate 65 mg PO DAILY 06/02/21 06/02/21 Losartan [Cozaar] 50 mg PO BID 06/02/21 08/03/22 Melatonin 3 mg PO DAILY 06/02/21 06/02/21 Omeprazole Magnesium 20 mg PO BID 06/02/21 06/03/21 Ubidecarenone [Co Q-10] 10 mg PO DAILY 06/02/21 06/02/21 Nitrofurantoin [Macrobid] 100 mg PO BID 08/03/22 08/03/22 - Allergies Allergies/Adverse Reactions: Allergies Allergy/AdvReac Type Severity Reaction Status Date / Time Penicillins Allergy Unknown Verified 08/03/22 00:34 - Social History Does the pt smoke?: No Smoking Status: Never smoker Does the pt drink ETOH?: No Does the pt have substance abuse?: No - Immunizations Immunizations are current?: Yes - POLST Patient has POLST: No POLST Status: Full Code PD ED PE NORMAL - General General: Alert and oriented X 3, No acute distress, Well developed/nourished - HEENT HEENT: Atraumatic, PERRL, EOMI, Moist mucous membranes, Pharynx benign - Neck Neck: Supple, no meningeal sign - Cardiac Cardiac: RRR, No murmur - Respiratory Respiratory: No respiratory distress, Clear bilaterally - Abdomen Abdomen: Soft, Non tender - Derm Derm: Warm and dry - Neuro Neuro: Alert and oriented X 3, lining scrubber 2-12 intact, No motor deficit, No sensory deficit, Normal speech Results - Vitals Vitals: Vital Signs - 24 hr 08/03/22 08/03/22 00:27 01:09 Temperature 36.1 C L Heart Rate 58 L 59 L Respiratory 15 18 Rate Blood Pressure 174/76 H 146/73 H O2 Saturation 99 97 Oxygen O2 Source Room air - EKG (time done) 1224 EKG releavant findings:: EKG personally interpreted by author of this note. Relevant findings are: EKG personally interpreted by author of this note. Relevant findings are: Rate 58, sinus bradycardia, no STEMI, QTc 391 Rate: Rate (enter#) Rhythm: Sinus bradycardia Intervals: No: Prolonged QT Ischemia: No: ST elevation c/w ischemia PD Medical Decision Making - ED course ED course: Patient is presenting for evaluation of Elevated blood pressure readings. She was seen here few days ago with similar symptoms and instructed to increase her losartan back to twice a day dosing which she has been doing. On arrival her systolic is in the 170s. She is asymptomatic with no symptoms to suggest endo rgan damage or Hypertensive emergency. An EKG was obtained which demonstrates a sinus rhythm without signs of acute ischemia. Her blood pressure continued to decrease and upon discharge was systolic of 140.She has asymptomatic hypertension and recommendations are not to treat the numbers alone in this setting. Patient is counseled to continue to have close follow-up with her primary care doctor and is advised on concerning symptoms to return for. Departure - Departure Disposition: 01 Home, Self Care Clinical Impression: Asymptomatic hypertension Condition: Stable Instructions: ED HTN Established Comments: Please continue with taking your losartan twice a day as recommended by your primary care doctor. Although your blood pressure was elevated tonight it is not to the range where we would consider rapidly lowering it in the emergency department or adjusting your medications. Please continue to have close follow- up with your primary care doctor. Return to the ER with worsening symptoms such as headache, feeling off balance, chest pain, difficulty breathing. Discharge Date/Time: 08/03/22 01:19
[2022-08-03 01:09] VITALS: BP 146/73
== END 2022-08-03 01:19 | disposition home or self-care (01) ==
LOC: ED 00:20
DX: I10 Essential (primary) hypertension (principal)
CPT/HCPCS: 93005; 99283

== ENCOUNTER 2022-08-15 07:02 | Outpatient (CLI) | payer MEDICARE, MEDICAID ==
[2022-08-15 15:21] LABS: BASOPHILS # (AUTO) 0.1 10^3/uL (0.0-0.1); BASOPHILS % (AUTO) 1.1 %; EOSINOPHILS # (AUTO) 0.1 10^3/uL (0.0-0.7); EOSINOPHILS % (AUTO) 1.3 %; HCT - HEMATOCRIT 44.1 % (37.0-47.0); HGB - HEMOGLOBIN 13.8 g/dL (12.0-16.0); LYMPHOCYTES # (AUTO) 2.2 10^3/uL (1.5-3.5); LYMPHOCYTES % (AUTO) 39.7 %; MEAN CORPUSCULAR HEMOGLOBIN 28.6 pg (27.0-31.0); MEAN CORPUSCULAR HGB CONC 31.3 g/dL (32.0-36.0); MEAN CORPUSCULAR VOLUME 91.5 fL (81.0-99.0); MEAN PLATELET VOLUME 11.8 fL (7.9-10.8); MONOCYTES # (AUTO) 0.5 10^3/uL (0.0-1.0); MONOCYTES % (AUTO) 8.4 %; NEUTROPHILS # (AUTO) 2.8 10^3/uL (1.5-6.6); NEUTROPHILS % (AUTO) 49.3 %; PLT - PLATELET COUNT 233 10^3/uL (130-450); RED BLOOD COUNT 4.82 10^6/uL (4.20-5.40); RED CELL DISTRIBUTION WIDTH 13.9 % (12.0-15.0); WHITE BLOOD COUNT 5.6 x10^3/uL (4.8-10.8)
[2022-08-15 15:52] LABS: BILIRUBIN,URINE NEGATIVE (NEGATIVE); GLUCOSE, URINE (UA) NEGATIVE (NEGATIVE); KETONES,URINE (UA) NEGATIVE (NEGATIVE); LEUKOCYTE ESTERASE, URINE SMALL (NEGATIVE); NITRITE,URINE NEGATIVE (NEGATIVE); OCCULT BLOOD,URINE NEGATIVE (NEGATIVE); PROTEIN,URINE NEGATIVE (NEGATIVE); UROBILINOGEN,URINE 0.2 (NORMAL) E.U./dL (NORMAL)
[2022-08-15 15:53] LABS: ALBUMIN/GLOBULIN RATIO 1.5 (1.0-2.2); ALKALINE PHOSPHATASE 74 IU/L (42-121); ALT ALANINE AMINOTRANSFERASE 25 IU/L (10-60); AST ASPARTATE AMINOTRANSFERASE 26 IU/L (10-42); BILIRUBIN,TOTAL 0.4 mg/dL (0.2-1.0); BUN - BLOOD UREA NITROGEN 22 mg/dL (6-20); CALCIUM 9.4 mg/dL (8.5-10.3); CARBON DIOXIDE - CO2 26 mmol/L (21-32); CHLORIDE 105 mmol/L (101-111); CREATININE 0.8 mg/dL (0.4-1.0); GFR - MDRD 70 (>89); GLUCOSE 102 mg/dL (70-100); POTASSIUM 4.1 mmol/L (3.5-5.0); SODIUM 139 mmol/L (135-145); TOTAL PROTEIN 6.7 g/dL (6.7-8.2)
[2022-08-15 15:56] LABS: CRP - C-REACTIVE PROTEIN < 1.0 mg/dL (0-1.0)
[2022-08-15 16:00] LABS: BACTERIA,URINE Few /HPF (None Seen); CLARITY,URINE CLEAR (CLEAR); EPITHELIAL CELLS,UR FEW Transitional /HPF (<= Few); RBC,URINE 0-5 /HPF (0-5); SQUAMOUS EPITHELIAL CELL,UR FEW Squamous (<= Few); WBC CLUMPS,URINE PRESENT
== END 2022-08-15 14:43 | disposition home or self-care (01) ==
LOC: LAB.S 07:02
PROVIDERS: ATTEND Internal Medicine Rheumatology
DX: M02.30 Reiter's disease, unspecified site (principal)
CPT/HCPCS: 36415; 80053; 81001; 85025; 85651; 86140; 87086

== ENCOUNTER 2022-09-08 13:44 | Outpatient (CLI) | payer MEDICARE, MEDICAID ==
[2022-09-08 19:55] LABS: CALCIUM 9.7 mg/dL (8.5-10.3); CREATININE 0.8 mg/dL (0.4-1.0); PHOSPHORUS 3.9 mg/dL (2.5-4.6); POTASSIUM 4.3 mmol/L (3.5-5.0)
== END 2022-09-08 13:45 | disposition home or self-care (01) ==
LOC: LAB.S 13:44
PROVIDERS: ATTEND Internal Medicine Nephrology
DX: N18.31 Chronic kidney disease, stage 3a (principal)
CPT/HCPCS: 36415; 80069; 84156

== ENCOUNTER 2022-09-20 08:00 | Outpatient (CLI) | payer MEDICARE, MEDICAID | END 2022-09-20 08:01 | disposition home or self-care (01) | LOC: LAB 08:00 | PROVIDERS: ATTEND Internal Medicine Endocrinology, Diabetes & Metabolism | DX: I10 Essential (primary) hypertension (principal) | CPT/HCPCS: 81599; 82384 ==

== ENCOUNTER 2022-09-21 07:06 | Outpatient (CLI) | payer MEDICARE, MEDICAID ==
[2022-09-21 15:37] LABS: CREATININE,URINE 64.1 mg/dL
[2022-09-26 13:10] LABS: 5-HIAA URINE 6.8 mg/L (Undefined); 5-HIAA URINE 24HR 6.8 mg/24 hr (0.0-14.9)
== END 2022-09-21 07:07 | disposition home or self-care (01) ==
LOC: LAB.S 07:06
PROVIDERS: ATTEND Internal Medicine Endocrinology, Diabetes & Metabolism
DX: I10 Essential (primary) hypertension (principal)
CPT/HCPCS: 81599; 82088; 82530; 82570; 83497; 83835; 84244

== ENCOUNTER 2022-10-13 08:00 | Outpatient (CLI) | payer MEDICARE, MEDICAID | END 2022-10-13 23:59 | disposition home or self-care (01) | LOC: LAB.R 08:00 | PROVIDERS: ATTEND Nutritionist | DX: E27.9 Disorder of adrenal gland, unspecified (principal) | CPT/HCPCS: 81599; 82533 ==

== ENCOUNTER 2022-10-17 09:05 | Outpatient (CLI) | payer MEDICARE, MEDICAID ==
--- NOTE | 2022-10-17 17:09 | Ultrasound Report ---
PROCEDURE: Arterial Visceral Complete INDICATIONS: HYPERTENSION TECHNIQUE: Real time scanning was performed of both kidneys, followed by Color and pulsed Doppler in terrogation of the renal vessels. COMPARISON: None FINDINGS: Aortic peak systolic velocity: 102.5 cm/s. Right side: Walsh-scale imaging: Kidney is 9.8 cm long. No hydronephrosis. No nephrolithiasis. Renal cortex is normal in echogenicity. No suspicious solid renal masses. Proximal renal artery peak systolic velocity: 62.9 cm/s. Mid renal artery peak systolic velocity: 149.4 cm/s. Distal renal artery peak systolic velocity: 105.1 cm/s. Renal vein: Patent, without thrombus. Peak renal/aortic ratio (RAR): 1.5. Left side: Walsh-scale imaging: Kidney is 9.6 cm long. No hydronephrosis. No nephrolithiasis. Renal cortex is normal in echogenicity. No suspicious solid renal masses. Proximal renal artery peak systolic velocity: 57.3 cm/s. Mid-renal artery peak systolic velocity: 96.7 cm/s. Distal renal artery peak systolic velocity: 56.6 cm/s. Renal vein: Patent, without thrombus. Peak renal/aortic ratio (RAR): 0.9. IMPRESSION: No visualized renal artery hypertension. Reviewed by: Eloisa Grant MD on 10/17/2022 5:08 PM PDT Approved by: Eloisa Grant MD on 10/17/2022 5:08 PM PDT Station ID: [id number]
== END 2022-10-17 09:06 | disposition home or self-care (01) ==
LOC: DI 09:05
PROVIDERS: ATTEND Internal Medicine Nephrology
DX: I15.9 Secondary hypertension, unspecified (principal); I10 Essential (primary) hypertension
CPT/HCPCS: 36415; 84443; 84481; 93975

== ENCOUNTER 2022-10-17 09:09 | Outpatient (CLI) | payer MEDICARE, MEDICAID ==
[2022-10-17 10:39] LABS: THYROID STIMULATING HORMONE 1.48 uIU/mL (0.34-5.60)
[2022-10-17 10:40] LABS: FREE T3 2.5 pg/mL (2.5-3.9)
== END 2022-10-17 09:10 | disposition home or self-care (01) ==
LOC: LAB 09:09
PROVIDERS: ATTEND Internal Medicine Endocrinology, Diabetes & Metabolism
DX: I10 Essential (primary) hypertension (principal)
CPT/HCPCS: 36415; 84443; 84481

== ENCOUNTER 2022-12-28 21:22 | Outpatient (CLI) | payer MEDICARE, MEDICAID | END 2022-12-28 23:59 | disposition short-term general hospital (02) | LOC: EMS 21:22 | DX: R07.9 Chest pain, unspecified (principal); M54.9 Dorsalgia, unspecified | CPT/HCPCS: A0425; A0429 ==

== ENCOUNTER 2022-12-31 01:19 | Outpatient (CLI) | payer MEDICARE, MEDICAID | END 2022-12-31 01:20 | disposition critical access hospital (66) | LOC: EMS 01:19 | DX: R07.9 Chest pain, unspecified (principal) | CPT/HCPCS: A0425; A0427 ==

== ENCOUNTER 2022-12-31 02:00 | Emergency (ER) | payer MEDICARE, MEDICAID ==
--- OUTSIDE RECORDS SUMMARY | 2022-12-31 02:56 | EXTERNAL MEDICAL SUMMARY RPT | Continuity of Care Document ---
Author Name Unknown Address [address] [place] [address] Phone Organization [facility] Address [address] [place] [address] Phone Care Team Providers Care Certified Family Mediator Name Role Phone Unavailable Unavailable Unavailable Jaswant Johnson Pa-C Unavailable Unavailable Kris Patient Registrar, Rogelio Unavailable U navailable Penny, Provider Unavailable Unavailable Medications date description facility 2022-10-17 00:00 [facility]one [facility] 2022-10-24 00:00 [facility]nisone [facility] 2022-12-11 00:00 prednisone [facility] 2022-12-12 00:00 prednisone [facility] 2022-10-17 00:00 [facility]othiazide [facility] 2022-10-24 00:00 hydrochlorothiazide [facility] [place] 2022-12-11 00:00 hydrochlorothiazide [facility] 2022-12-12 00:00 hydrochlorothiazide [facility] 2022-10-17 00:00 hydroxychloroquine [facility] 2022-10-24 00:00 hydroxychloroquine [facility] 2022-12-11 00:00 hydroxychloroquine [facility] 2022-12-12 00:00 hydroxychloroquine [facility] 2022-10-17 00:00 oxycodone-acetaminophen [facility] 2022-10-24 00:00 oxycodone-acetaminophen [facility] 2022-12-11 00:00 oxycodone-acetaminophen [facility] 2022-12-12 00:00 oxycodone-acetaminophen [facility] 2022-10-17 00:00 oxycodone-acetaminophen [facility] 2022-10-24 00:00 oxycodone-acetaminophen [facility] 2022-12-11 00:00 oxycodone-acetaminophen [facility] 2022-12-12 00:00 oxycodone-acetaminophen [facility] 2022-10-17 00:00 methotrexate sodium [facility] 2022-10-24 00:00 methotrexate sodium [facility] 2022-12-11 00:00 methotrexate sodium [facility] 2022-12-12 00:00 methotrexate sodium [facility] 2022-10-17 00:00 prednisone [facility] 2022-10-24 00:00 prednisone [facility] 2022-12-11 00:00 prednisone [facility] 2022-12-12 00:00 prednisone [facility] 2022-10-17 00:00 hydrochlorothiazide [facility] 2022-10-24 00:00 hydrochlorothiazide [facility] 2022-12-11 00:00 hydrochlorothiazide [facility] 2022-12-12 00:00 hydrochlorothiazide [facility] 2022-10-17 00:00 oxycodone-acetaminophen [facility] 2022-10-24 00:00 oxycodone-acetaminophen [facility] 2022-12-11 00:00 oxycodone-acetaminophen [facility] 2022-12-12 00:00 oxycodone-acetaminophen [facility] 2022-10-17 00:00 oxycodone-acetaminophen [facility] 2022-10-24 00:00 oxycodone-acetaminophen [facility] 2022-12-11 00:00 oxycodone-acetaminophen [facility] 2022-12-12 00:00 oxycodone-acetaminophen [facility] 2022-10-17 00:00 ibuprofen [facility] 2022-10-24 00:00 ibuprofen [facility] 2022-12-11 00:00 ibuprofen [facility] 2022-12-12 00:00 ibuprofen [facility] 2022-10-17 00:00 methotrexate sodium [facility] 2022-10-24 00:00 methotrexate sodium [facility] 2022-12-11 00:00 methotrexate sodium [facility] 2022-12-12 00:00 methotrexate sodium [facility] 2022-10-17 00:00 hydroxychloroquine [facility] 2022-10-24 00:00 hydroxychloroquine [facility] 2022-12-11 00:00 hydroxychloroquine [facility] 2022-12-12 00:00 hydroxychloroquine [facility] 2022-10-17 00:00 methotrexate sodium [facility] 2022-10-24 00:00 methotrexate sodium [facility] [place] 2022-12-11 00:00 methotrexate sodium [facility] [place] 2022-12-12 00:00 methotrexate sodium [facility] [place] 2022-10-17 00:00 oxycodone-acetaminophen [facility] [place] 2022-10-24 00:00 oxycodone-acetaminophen [facility] [place] 2022-12-11 00:00 oxycodone-acetaminophen [facility] [place] 2022-12-12 00:00 oxycodone-acetaminophen [facility] [place] 2022-10-17 00:00 prednisone [facility] [place] 2022-10-24 00:00 prednisone [facility] [place] 2022-12-11 00:00 prednisone [facility] [place] 2022-12-12 00:00 prednisone [facility] [place] 2022-10-17 00:00 prednisone [facility] [place] 2022-10-24 00:00 prednisone [facility] [place] 2022-12-11 00:00 prednisone [facility] [place] 2022-12-12 00:00 prednisone [facility] [place] 2022-10-17 00:00 ibuprofen [facility] [place] 2022-10-24 00:00 ibuprofen [facility] [place] 2022-12-11 00:00 ibuprofen [facility] [place] 2022-12-12 00:00 ibuprofen [facility] [place] 2022-10-17 00:00 omeprazole [facility] [place] 2022-10-24 00:00 omeprazole [facility] [place] 2022-12-11 00:00 omeprazole [facility] [place] 2022-12-12 00:00 omeprazole [facility] [place] 2022-10-17 00:00 prednisone [facility] [place] 2022-10-24 00:00 prednisone [facility] [place] 2022-12-11 00:00 prednisone [facility] [place] 2022-12-12 00:00 prednisone [facility] [place] 2022-10-17 00:00 celecoxib [facility] 2022-10-24 00:00 celecoxib [facility] [place] 2022-12-11 00:00 celecoxib [facility] 2022-12-12 00:00 celecoxib [facility] 2022-10-17 00:00 methotrexate sodium [facility] 2022-10-24 00:00 methotrexate sodium [facility] 2022-12-11 00:00 methotrexate sodium [facility] [place] 2022-12-12 00:00 methotrexate sodium [facility] [place] 2022-10-17 00:00 prednisone [facility] [place] 2022-10-24 00:00 prednisone [facility] [place] 2022-12-11 00:00 prednisone [facility] [place] 2022-12-12 00:00 prednisone [facility] [place] 2022-10-17 00:00 prednisone [facility] [place] 2022-10-24 00:00 prednisone [facility] [place] 2022-12-11 00:00 prednisone [facility] [place] 2022-12-12 00:00 prednisone [facility] [place] 2022-10-17 00:00 amlodipine [facility] 2022-10-24 00:00 amlodipine [facility] 2022-12-11 00:00 amlodipine [facility] 2022-12-12 00:00 amlodipine [facility] 2022-10-17 00:00 amlodipine [facility] 2022-10-24 00:00 amlodipine [facility] 2022-12-11 00:00 amlodipine [facility] 2022-12-12 00:00 amlodipine [facility] 2022-10-17 00:00 hydroxychloroquine [facility] 2022-10-24 00:00 hydroxychloroquine [facility] 2022-12-11 00:00 hydroxychloroquine [facility] [place] 2022-12-12 00:00 hydroxychloroquine [facility] 2022-10-17 00:00 amlodipine [facility] 2022-10-24 00:00 amlodipine [facility] 2022-12-11 00:00 amlodipine [facility] 2022-12-12 00:00 amlodipine [facility] 2022-10-17 00:00 amlodipine [facility] 2022-10-24 00:00 amlodipine [facility] 2022-12-11 00:00 amlodipine [facility] 2022-12-12 00:00 amlodipine [facility] 2022-10-17 00:00 hydrochlorothiazide [facility] 2022-10-24 00:00 hydrochlorothiazide [facility] 2022-12-11 00:00 hydrochlorothiazide [facility] 2022-12-12 00:00 hydrochlorothiazide [facility] 2022-10-17 00:00 prednisone [facility] [place] 2022-10-24 00:00 prednisone [facility] [place] 2022-12-11 00:00 prednisone [facility] [place] 2022-12-12 00:00 prednisone [facility] [place] 2022-12-12 00:00 latanoprost [facility] [place] 2022-10-17 00:00 meclizine [facility] [place] 2022-10-24 00:00 meclizine [facility] [place] 2022-12-11 00:00 meclizine [facility] [place] 2022-12-12 00:00 meclizine [facility] [place] 2022-10-17 00:00 amlodipine [facility] [place] 2022-10-24 00:00 amlodipine [facility] [place] 2022-12-11 00:00 amlodipine [facility] [place] 2022-12-12 00:00 amlodipine [facility] [place] 2022-10-17 00:00 amlodipine [facility] [place] 2022-10-24 00:00 amlodipine [facility] [place] 2022-12-11 00:00 amlodipine [facility] [place] 2022-12-12 00:00 amlodipine [facility] [place] 2022-10-17 00:00 losartan [facility] [place] 2022-10-24 00:00 losartan [facility] [place] 2022-12-11 00:00 losartan [facility] [place] 2022-12-12 00:00 losartan [facility] [place] 2022-10-17 00:00 losartan [facility] [place] 2022-10-24 00:00 losartan [facility] [place] 2022-12-11 00:00 losartan [facility] [place] 2022-12-12 00:00 losartan [facility] [place] 2022-10-17 00:00 hydrochlorothiazide [facility] 2022-10-24 00:00 hydrochlorothiazide [facility] 2022-12-11 00:00 hydrochlorothiazide [facility] 2022-12-12 00:00 hydrochlorothiazide [facility] 2022-10-17 00:00 atorvastatin [facility] 2022-10-24 00:00 atorvastatin [facility] 2022-12-11 00:00 atorvastatin [facility] 2022-12-12 00:00 atorvastatin [facility] 2022-10-17 00:00 losartan [facility] 2022-10-24 00:00 losartan [facility] 2022-12-11 00:00 losartan [facility] 2022-12-12 00:00 losartan [facility] 2022-10-17 00:00 losartan [facility] 2022-10-24 00:00 losartan [facility] 2022-12-11 00:00 losartan [facility] 2022-12-12 00:00 losartan [facility] 2022-12-12 00:00 latanoprost [facility] 2022-10-17 00:00 atorvastatin [facility] 2022-10-24 00:00 atorvastatin [facility] 2022-12-11 00:00 atorvastatin [facility] 2022-12-12 00:00 atorvastatin [facility] 2022-10-17 00:00 omeprazole [facility] [place] 2022-10-24 00:00 omeprazole [facility] [place] 2022-12-11 00:00 omeprazole [facility] [place] 2022-12-12 00:00 omeprazole [facility] [place] 2022-10-17 00:00 meclizine [facility] [place] 2022-10-24 00:00 meclizine [facility] [place] 2022-12-11 00:00 meclizine [facility] [place] 2022-12-12 00:00 meclizine [facility] [place] 2022-10-17 00:00 celecoxib [facility] [place] 2022-10-24 00:00 celecoxib [facility] [place] 2022-12-11 00:00 celecoxib [facility] [place] 2022-12-12 00:00 celecoxib [facility] [place] 2022-10-17 00:00 meclizine [facility] [place] 2022-10-24 00:00 meclizine [facility] [place] 2022-12-11 00:00 meclizine [facility] [place] 2022-12-12 00:00 meclizine [facility] [place] 2022-10-17 00:00 celecoxib [facility] [place] 2022-10-24 00:00 celecoxib [facility] [place] 2022-12-11 00:00 celecoxib [facility] [place] 2022-12-12 00:00 celecoxib [facility] [place] 2022-10-17 00:00 amlodipine [facility] [place] 2022-10-24 00:00 amlodipine [facility] [place] 2022-12-11 00:00 amlodipine [facility] [place] 2022-12-12 00:00 amlodipine [facility] [place] 2022-10-17 00:00 amlodipine [facility] [place] 2022-10-24 00:00 amlodipine [facility] [place] 2022-12-11 00:00 amlodipine [facility] [place] 2022-12-12 00:00 amlodipine [facility] [place] 2022-12-12 00:00 amlodipine [facility] [place] 2022-12-12 00:00 latanoprost [facility] [place] 2022-10-17 00:00 atorvastatin [facility] [place] 2022-10-24 00:00 atorvastatin [facility] [place] 2022-12-11 00:00 atorvastatin [facility] [place] 2022-12-12 00:00 atorvastatin [facility] [place] 2022-10-17 00:00 omeprazole [facility] [place] 2022-10-24 00:00 omeprazole [facility] [place] 2022-12-11 00:00 omeprazole [facility] [place] 2022-12-12 00:00 omeprazole [facility] [place] 2022-10-17 00:00 atorvastatin [facility] [place] 2022-10-24 00:00 atorvastatin [facility] [place] 2022-12-11 00:00 atorvastatin [facility] [place] 2022-12-12 00:00 atorvastatin [facility] [place] 2022-10-17 00:00 omeprazole [facility] [place] 2022-10-24 00:00 omeprazole [facility] [place] 2022-12-11 00:00 omeprazole [facility] [place] 2022-12-12 00:00 omeprazole [facility] [place] 2022-10-17 00:00 ibuprofen [facility] [place] 2022-10-24 00:00 ibuprofen [facility] [place] 2022-12-11 00:00 ibuprofen [facility] [place] 2022-12-12 00:00 ibuprofen [facility] [place] 2022-10-17 00:00 oxycodone-acetaminophen [facility] [place] 2022-10-24 00:00 oxycodone-acetaminophen [facility] [place] 2022-12-11 00:00 oxycodone-acetaminophen [facility] [place] 2022-12-12 00:00 oxycodone-acetaminophen [facility] [place] 2022-10-17 00:00 oxycodone-acetaminophen [facility] [place] 2022-10-24 00:00 oxycodone-acetaminophen [facility] [place] 2022-12-11 00:00 oxycodone-acetaminophen [facility] [place] 2022-12-12 00:00 oxycodone-acetaminophen [facility] [place] 2022-10-17 00:00 ibuprofen [facility] [place] 2022-10-24 00:00 ibuprofen [facility] [place] 2022-12-11 00:00 ibuprofen [facility] [place] 2022-12-12 00:00 ibuprofen [facility] [place] 2022-10-17 00:00 celecoxib [facility] [place] 2022-10-24 00:00 celecoxib [facility] [place] 2022-12-11 00:00 celecoxib [facility] [place] 2022-12-12 00:00 celecoxib [facility] [place] 2022-12-12 00:00 hydroxychloroquine [facility] [place] 2022-10-17 00:00 losartan [facility] [place] 2022-10-24 00:00 losartan [facility] [place] 2022-12-11 00:00 losartan [facility] [place] 2022-12-12 00:00 losartan [facility] [place] 2022-10-17 00:00 losartan [facility] [place] 2022-10-24 00:00 losartan [facility] [place] 2022-12-11 00:00 losartan [facility] [place] 2022-12-12 00:00 losartan [facility] [place] 2022-10-17 00:00 oxycodone-acetaminophen [facility] [place] 2022-10-24 00:00 oxycodone-acetaminophen [facility] [place] 2022-12-11 00:00 oxycodone-acetaminophen [facility] [place] 2022-12-12 00:00 oxycodone-acetaminophen [facility] [place] 2022-12-12 00:00 latanoprost [facility] [place] 2022-10-17 00:00 hydroxychloroquine [facility] [place] 2022-10-24 00:00 hydroxychloroquine [facility] [place] 2022-12-11 00:00 hydroxychloroquine [facility] [place] 2022-12-12 00:00 hydroxychloroquine [facility] [place] 2022-10-17 00:00 losartan [facility] [place] 2022-10-24 00:00 losartan [facility] [place] 2022-12-11 00:00 losartan [facility] [place] 2022-12-12 00:00 losartan [facility] [place] 2022-10-17 00:00 losartan [facility] [place] 2022-10-24 00:00 losartan [facility] [place] 2022-12-11 00:00 losartan [facility] [place] 2022-12-12 00:00 losartan Walk-In [facility] [place] 2022-12-11 00:00 meclizine [facility] [place] 2022-12-12 00:00 meclizine [facility] [place] 2022-10-17 00:00 acetaminophen [facility] [place] 2022-10-24 00:00 acetaminophen [facility] [place] 2022-12-11 00:00 acetaminophen [facility] [place] 2022-12-12 00:00 acetaminophen Walk[facility]In [facility] [place] Problems date description facility 2022-10-17 00:00 Metabolic syndrome X Walk[facility]In [facility] [place] 2022-10-17 00:00 Family history of alcoholism Wa lk-In [facility] [place] 2022-10-17 00:00 Dysmetabolic syndrome X [facility] [place] 2022-10-17 00:00 Unspecified persiste nt mental 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 classified elsewhere [facility] [place] 2022-10-17 00:00 Carpal tunnel syndrome [facility] [place] 2022-10-17 00:00 Cognitive disorder [facility] [place] 2022-10-17 00:00 Nerve root disorder [facility] [place] 2022-10-17 00:00 Sciatica [facility] [place] 2022-10-17 00:00 Neuralgia, neuritis, and radiculitis, unspecified [facility] [place] 2022-10-17 00:00 Cholecystitis [facility] [place] 2022-10-17 00:00 Metabolic syndrome [facility] [place] 2022-10-17 00:00 Unspecified mental d isorder due to known physiological condition [facility] [place] 2022-10-17 00:00 Carpal tunnel syndro me, unspecified upper limb [facility] [place] 2022-10-17 00:00 Cholecystitis, unspecified [facility] [place] 2022-10-17 00:00 Radiculopathy, site unspecified [facility] [place] 2022-10-17 00:00 Sciatica, unspecified side [facility] [place] 2022-10-17 00:00 Alcoholism in family [facility] [place] 2022-10-17 00:00 Family history of al cohol abuse and dependence [facility] [place] 2022-10-24 00:00 Metabolic syndrome X [facility] [place] 2022-10-24 00:00 Family history of alcoholism Wa l[facility] [place] 2022-10-24 00:00 Dysmetabolic syndrome X [facility] [place] 2022-10-24 00:00 Unspecified persiste nt mental 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 classified elsewhere [facility] [place] 2022-10-24 00:00 Carpal tunnel syndrome [facility] [place] 2022-10-24 00:00 Cognitive disorder [facility] [place] 2022-10-24 00:00 Nerve root disorder [facility] [place] 2022-10-24 00:00 Sciatica [facility] [place] 2022-10-24 00:00 Neuralgia, neuritis, and radiculitis, unspecified [facility] [place] 2022-10-24 00:00 Cholecystitis [facility] [place] 2022-10-24 00:00 Metabolic syndrome [facility] [place] 2022-10-24 00:00 Unspecified mental d isorder due to known physiological condition [facility] [place] 2022-10-24 00:00 Carpal tunnel syndro me, unspecified upper limb [facility] [place] 2022-10-24 00:00 Cholecystitis, unspecified [facility] [place] 2022-10-24 00:00 Radiculopathy, site unspecified [facility] [place] 2022-10-24 00:00 Sciatica, unspecified side [facility] [place] 2022-10-24 00:00 Alcoholism in family [facility] [place] 2022-10-24 00:00 Family history of al cohol abuse and dependence [facility] [place] 2022-11-16 10:14 Other chest pain [facility] 2022-11-16 10:22 Other chest pain [facility] 2022-12-11 00:00 Metabolic syndrome X [facility] [place] 2022-12-11 00:00 Burst blood vessel [facility] [place] 2022-12-11 00:00 Family history of alcoholism Wa [facility] [place] 2022-12-11 00:00 Dysmetabolic syndrome X [facility] [place] 2022-12-11 00:00 Unspecified persiste nt mental 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 classified elsewhere [facility] [place] 2022-12-11 00:00 Carpal tunnel syndrome [facility] [place] 2022-12-11 00:00 Cognitive disorder [facility] [place] 2022-12-11 00:00 Hemorrhage, unspecified [facility] [place] 2022-12-11 00:00 Nerve root disorder [facility] [place] 2022-12-11 00:00 Sciatica [facility] [place] 2022-12-11 00:00 Neuralgia, neuritis, and radiculitis, unspecified [facility] [place] 2022-12-11 00:00 Cholecystitis [facility] [place] 2022-12-11 00:00 Metabolic syndrome [facility] [place] 2022-12-11 00:00 Unspecified mental d isorder due to known physiological condition [facility] [place] 2022-12-11 00:00 Carpal tunnel syndro me, unspecified upper limb [facility] [place] 2022-12-11 00:00 Cholecystitis, unspecified [facility] [place] 2022-12-11 00:00 Radiculopathy, site unspecified [facility] [place] 2022-12-11 00:00 Sciatica, unspecified side [facility] [place] 2022-12-11 00:00 Hemorrhage, not elsewhere class ified [facility] [place] 2022-12-11 00:00 Alcoholism in family [facility] [place] 2022-12-11 00:00 Family history of al cohol abuse and dependence [facility] [place] 2022-12-12 00:00 Metabolic syndrome X [facility] [place] 2022-12-12 00:00 Family history of alcoholism [facility] [place] 2022-12-12 00:00 Dysmetabolic syndrome X [facility] [place] 2022-12-12 00:00 Unspecified persiste nt mental 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 classified elsewhere [facility] [place] 2022-12-12 00:00 Carpal tunnel syndrome [facility] [place] 2022-12-12 00:00 Cognitive disorder [facility] [place] 2022-12-12 00:00 Nerve root disorder [facility] [place] 2022-12-12 00:00 Sciatica [facility] [place] 2022-12-12 00:00 Neuralgia, neuritis, and radiculitis, unspecified [facility] [place] 2022-12-12 00:00 Cholecystitis [facility] [place] 2022-12-12 00:00 Metabolic syndrome [facility] [place] 2022-12-12 00:00 Unspecified mental d isorder due to known physiological condition [facility] [place] 2022-12-12 00:00 Carpal tunnel syndro me, unspecified upper limb [facility] [place] 2022-12-12 00:00 Cholecystitis, unspecified [facility] [place] 2022-12-12 00:00 Radiculopathy, site unspecified [facility] [place] 2022-12-12 00:00 Sciatica, unspecified side [facility] [place] 2022-12-12 00:00 Alcoholism in family [facility] [place] 2022-12-12 00:00 Family history of al cohol abuse and dependence [facility] [place] Procedures date description facility 2022-12-11 00:00 Visit Code Hold [facility] [place] Results/Labs test date facility value unit notes Social History date description facility 2022-12-11 00:00 Former smoker [facility] [place] Vital Signs date measurement value units 2022-12-11 00:00 BMI 25.12 kg/m2 2022-12-11 00:00 BP_diastolic 76 mmHg 2022-12-11 00:00 BP_systolic 139 mmHg 2022-12-11 00:00 heart_rate 64 /min 2022-12-11 00:00 height_metric 162.56 cm 2022-12-11 00:00 height_standard 64 in 2022-12-11 00:00 respiration_rate 17 /min 2022-12-11 00:00 weight_metric 66.13 kg 2022-12-11 00:00 weight_standard 145.8 lb
[2022-12-31 03:24] LABS: BASOPHILS # (AUTO) 0.1 10^3/uL (0.0-0.1); BASOPHILS % (AUTO) 0.5 %; EOSINOPHILS % (AUTO) 0.2 %; HCT - HEMATOCRIT 35.6 % (37.0-47.0); HGB - HEMOGLOBIN 11.3 g/dL (12.0-16.0); LYMPHOCYTES # (AUTO) 0.8 10^3/uL (1.5-3.5); LYMPHOCYTES % (AUTO) 7.3 %; MEAN CORPUSCULAR HGB CONC 31.7 g/dL (32.0-36.0); MEAN CORPUSCULAR VOLUME 91.3 fL (81.0-99.0); MEAN PLATELET VOLUME 11.1 fL (7.9-10.8); MONOCYTES # (AUTO) 0.8 10^3/uL (0.0-1.0); MONOCYTES % (AUTO) 7.1 %; NEUTROPHILS # (AUTO) 9.6 10^3/uL (1.5-6.6); NEUTROPHILS % (AUTO) 84.6 %; PLT - PLATELET COUNT 190 10^3/uL (130-450); RED CELL DISTRIBUTION WIDTH 13.1 % (12.0-15.0); WHITE BLOOD COUNT 11.4 x10^3/uL (4.8-10.8)
[2022-12-31 03:46] LABS: ALBUMIN 3.9 g/dL (3.2-5.5); ALBUMIN/GLOBULIN RATIO 1.6 (1.0-2.2); ALKALINE PHOSPHATASE 75 IU/L (42-121); ALT ALANINE AMINOTRANSFERASE 12 IU/L (10-60); AST ASPARTATE AMINOTRANSFERASE 15 IU/L (10-42); BILIRUBIN,TOTAL 0.4 mg/dL (0.2-1.0); BUN - BLOOD UREA NITROGEN 25 mg/dL (6-20); CALCIUM 9.5 mg/dL (8.5-10.3); CARBON DIOXIDE - CO2 27 mmol/L (21-32); CHLORIDE 106 mmol/L (101-111); CREATININE 0.8 mg/dL (0.6-1.3); GFR - MDRD 70 (>89); GLUCOSE 134 mg/dL (74-104); LIPASE < 10 U/L (11-82); POTASSIUM 4.3 mmol/L (3.5-4.5); SODIUM 139 mmol/L (135-145); TOTAL PROTEIN 6.4 g/dL (6.4-8.9)
--- NOTE | 2022-12-31 04:36 | ED Physician Documentation ---
PD HPI CHEST PAIN - Stated complaint Stated Complaint: CHEST PX - Chief complaint Chief Complaint: Cardiac - History obtained from History obtained from: Patient, EMS - Additional information Additional information: BIBA. HPI from patient. On Sunday (12/27/22), patient had PPM placed at [facility] for "pauses" (per patient). She was kept overnight, discharged following day. Patient says that prior to d/c home, she developed episodic left chest pain, described as sharp and cramping, distinct pleuritic component although also exacerbated with movement. She says the episodes became increasingly intense and frequent but responded to IV morphine. She says that by the end of the day on (day of discharge home), the pain became unbearable and she was taken back to [facility] by ambulance. She says she had extensive testing without diagnostic results. She was discharged yesterday (12/30/22) and was prescribed percocet. She again experienced left pleuritic chest pain with episodes becoming increasingly severe, persistent, and with increasing frequency. She has had no improvement despite taking the maximum dose of the percocet. Denies dyspnea, fever, cough. The pain is left of midline chest radiating to left lateral chest and LUQ. Review of Systems Constitutional: denies: Fever, Chills, Sweats Cardiac: reports: Chest pain / pressure. denies: Palpitations, Pedal edema, Calf pain Respiratory: denies: Dyspnea, Cough, Hemoptysis GI: reports: Constipation. denies: Abdominal Pain, Nausea, Vomiting : denies: Dysuria, Frequency Musculoskeletal: reports: Reviewed and negative Neurologic: reports: Reviewed and negative PD PAST MEDICAL HISTORY - Past Medical History Past Medical History: Yes Cardiovascular: Hypertension, High cholesterol Respiratory: None Neuro: Other Endocrine/Autoimmune: None GI: GERD, Chronic constipation, Other : None HEENT: Glaucoma, Other Psych: None Musculoskeletal: Other Derm: None Other Past Medical History: Heart pauses - Past Surgical History Past Surgical History: Yes General: Appendectomy, Colonoscopy HEENT: Other - Present Medications Home Medications: Ambulatory Orders Medication Instructions Recorded Confirmed Verdon-3/Dha/Epa/Fish Oil [Fish Oil 1 cap PO DAILY 05/29/18 12/31/22 500 mg Softgel] Turmeric Root Extract [Turmeric] 500 mg PO DAILY 05/29/18 12/31/22 Losartan [Cozaar] 50 mg PO BID 06/02/21 12/31/22 Amlodipine Besylate [Norvasc] 2.5 mg PO BID 12/31/22 12/31/22 Latanoprost 0.005% Ophth Drops 1 drops EACHEYE QPM 12/31/22 12/31/22 [Xalatan Ophth Drops] - Allergies Allergies/Adverse Reactions: Allergies Allergy/AdvReac Type Severity Reaction Status Date / Time Penicillins Allergy Unknown Verified 12/31/22 02:23 - Social History Does the pt smoke?: No Smoking Status: Never smoker Does the pt drink ETOH?: No Does the pt have substance abuse?: No - Immunizations Immunizations are current?: Yes - POLST Patient has POLST: No POLST Status: Full Code PD ED PE NORMAL - Vitals Vital signs reviewed: Yes - General General: Alert and oriented X 3, No acute distress (mostly NAD but developed rapid onset of obvious painful distress towards end of H+P due to left chest pain), Well developed/nourished - Cardiac Cardiac: RRR, No murmur - Respiratory Respiratory: No respiratory distress, Clear bilaterally (suboptimal inspiratory effort due to pleuritic chest pain) - Abdomen Abdomen: Soft, Non distended, Other (LUQ tenderness with voluntary guarding but no rebound) - Back Back: No CVA TTP - Derm Derm: Normal color, Warm and dry - Extremities Extremities: No edema - Neuro Neuro: Alert and oriented X 3 Results - Vitals Vitals: Vital Signs - 24 hr 12/31/22 12/31/22 12/31/22 01:55 02:57 04:50 Temperature 36.6 C 37.6 C Heart Rate 73 78 83 Respiratory 20 24 21 Rate Blood Pressure 127/58 L 124/55 L 137/74 H O2 Saturation 95 97 100 12/31/22 12/31/22 12/31/22 05:25 05:50 06:46 Temperature 36.3 C L Heart Rate 71 77 74 Respiratory 23 17 19 Rate Blood Pressure 132/94 H 132/94 H 115/64 O2 Saturation 94 97 94 12/31/22 12/31/22 12/31/22 08:57 10:28 12:23 Temperature Heart Rate 87 64 75 Respiratory 16 20 24 Rate Blood Pressure 119/84 H 115/47 L 112/54 L O2 Saturation 95 96 96 12/31/22 12/31/22 12/31/22 14:57 17:05 20:00 Temperature Heart Rate 77 85 73 Respiratory 20 19 20 Rate Blood Pressure 135/70 H 130/70 133/71 H O2 Saturation 97 97 94 Oxygen O2 Source Patient supplied BIPAP - EKG (time done) No standard instances EKG releavant findings:: EKG personally interpreted by author of this note. Relevant findings are: Rate: Rate (enter#) (76) Rhythm: NSR Minetto: Normal Intervals: Normal MT, RBBB Ischemia: Normal ST segments, T wave inversion (III, aVF; biphasic T V3) Compare to prior EKG: Other (RBBB noted on previous EKG (09/12/20) ) Computer interpretation: Disagree with computer (no ST changes to suggest pericarditis) - Labs Labs: Laboratory Tests 12/31/22 12/31/22 12/31/22 03:05 03:05 03:05 WBC 11.4 H RBC 3.90 L Hgb 11.3 L Hct 35.6 L MCV 91.3 MCH 29.0 MCHC 31.7 L RDW 13.1 Plt Count 190 MPV 11.1 H Neut # (Auto) 9.6 H Lymph # (Auto) 0.8 L [place] # (Auto) 0.8 Eos # (Auto) 0.0 Baso # (Auto) 0.1 Absolute Nucleated RBC 0.00 Nucleated RBC % 0.0 ESR Sodium 139 Potassium 4.3 Chloride 106 Carbon Dioxide 27 Anion Gap 6.0 BUN 25 H Creatinine 0.8 Estimated GFR (MDRD) 70 L Glucose 134 H Calcium 9.5 Total Bilirubin 0.4 AST 15 ALT 12 Alkaline Phosphatase 75 Troponin I High Sens 10.4 C-Reactive Protein Total Protein 6.4 Albumin 3.9 Globulin 2.5 Albumin/Globulin Ratio 1.6 Lipase < 10 L 12/31/22 12/31/22 12/31/22 03:05 03:05 20:17 WBC RBC Hgb 10.2 L Hct 31.7 L MCV MCH MCHC RDW Plt Count MPV Neut # (Auto) Lymph # (Auto) [place] # (Auto) Eos # (Auto) Baso # (Auto) Absolute Nucleated RBC Nucleated RBC % ESR 25 Sodium Potassium Chloride Carbon Dioxide Anion Gap BUN Creatinine Estimated GFR (MDRD) Glucose Calcium Total Bilirubin AST ALT Alkaline Phosphatase Troponin I High Sens C-Reactive Protein 5.3 Total Protein Albumin Globulin Albumin/Globulin Ratio Lipase - Rads (name of study) CT A/P with IV contrast Relevant Findings:: Prelim report reviewed, See rad report PD Medical Decision Making - ED course Complexity details: reviewed results, re-evaluated patient, considered differential, d/w patient ED course: No concerning nor diagnostic findings on EKG, CBC (WBC 11.4, hgb 11.3), ER abdominal panel (mildly elevated BUN (25) with normal creatinine (0.8), mildly elevated blood glucose (134)). Normal ESR , CRP, hs-cTn. She was given IV morphine 2 mg by EMS en route with good relief of pain, although pain reoccurred early in stay, responded to 4mg IV morphine. Records are requested from [facility] early in her ED stay but at the time of the end of my shift, records still had not been received despite repeat request for the discharge summary of her recent inpatient stay. Patient tells me she had extensive workup including CT of her chest without notable abnormalities. Given patient's report of ongoing symptoms that had extensive testing as recently as less than 12 hours prior to kaity's ED visit, I did not order any thoracic imaging , anticipating records would be faxed from [place]. I did order CT A/P due to unexpected and significant LUQ tenderness on abdominal exam. Results of this study are pending at the end of my shift. Care of this patient is turned over to oncoming ED physician (Dr. Diaz) pending CT results, reevaluation, and disposition. Departure - Departure Disposition: 02 Transfer Acute Care Hosp Clinical Impression: Pleural effusion, Status post biventricular cardiac pacemaker insertion Chest pain Qualifiers: Chest pain type: unspecified Qualified Code(s): R07.9 - Chest pain, unspecified Condition: Stable Forms: PCP List
[2022-12-31] MEDS ORDERED: MORPHINE 2 MG/ML CARPUJECT IVP STA (05:06)
[2022-12-31] MEDS ORDERED: GLYCERIN ADULT SUPP PR STA (05:13)
[2022-12-31] MEDS ORDERED: iohexoL-300 100 ML VIAL IVP ONE (07:03)
--- NOTE | 2022-12-31 08:31 | CT Report ---
PROCEDURE: ABDOMEN/PELVIS W INDICATIONS: pleuritic left chest pain; LUQ pain and tenderness CONTRAST: 100 ML OMNI 300 TECHNIQUE: After the administration of intravenous contrast, 5 mm thick sections acquired from the diaphragms to the symphysis. 5 mm thick coronal and sagittal reformats were acquired. For radiation dose reducti on, the following was used: automated exposure control, adjustment of mA and/or kV according to rama ent size. COMPARISON: None FINDINGS: Image quality: Excellent. Lung bases and heart: Partially visualized left pleural fluid collection. Within this is dense materi al which could represent hemothorax. Total extent of this is not fully assessed on the abdomen and pe lvis CT. No similar finding is present on the right. No pericardial hemorrhage or pericardial effusio n is appreciated. The heart size is within normal limits. Atrial-ventricular lead wires pacemaker are in unremarkable position. Liver: No solid mass. Gallbladder and biliary tree: Unremarkable Spleen: No splenomegaly. Pancreas: No pancreatic ductal dilation. Adrenals: No adrenal nodule. Kidneys and ureters: No hydronephrosis. No renal cystic lesion which requires follow up. No solid mas s. Bowel and peritoneum: No bowel distension. No pathologic free fluid. Lymph nodes: No central or retroperitoneal adenopathy. Vessels: No infrarenal aortic aneurysm. PELVIS Reproductive organs: There is a well-circumscribed fluid-filled lesion left side of the pelvis, possi annmarie ovarian in origin. This is thin trejo, without calcification. It measures 2.5 x 3.5 x 4.7 cm. No similar finding is seen on the right. The uterus and urinary bladder are normal appearing. No free fl uid is seen in the pelvis.. Bladder: No abnormal wall thickening, accounting for underdistension. Pelvic lymph nodes: No pelvic adenopathy by size criteria. Bones: No aggressive osseous abnormality. Other: No significant ventral or inguinal hernia. IMPRESSION: 1. Large complex left pleural fluid collection. The density within the fluid collection suggests eith er exudate or hemothorax. 2. No splenic injury or upper abdominal abnormalities appreciated. 3. Cystic left adnexal lesion. Without an a prior study for comparison is not possible to rule out cy stic ovarian neoplasm. Comparison to any previous imaging studies the pelvis is recommended. Otherwis e this may require follow-up, such as with pelvic ultrasound. Findings are concordant with preliminary interpretation provided by [facility]. Reviewed by: Mirella Carpio MD on 12/31/2022 8:29 AM PDT Approved by: Mirella Carpio MD on 12/31/2022 8:29 AM PDT Station ID: [id number]
[2022-12-31] MEDS ORDERED: KETOROLAC 15 MG/ML VIAL IVP STA (08:41)
--- NOTE | 2022-12-31 09:10 | XRAY Report ---
PROCEDURE: Chest 1 View X-Ray INDICATIONS: chest pain; left effusion TECHNIQUE: One view of the chest was acquired. COMPARISON: Same day CT abdomen pelvis 12/31/2022. FINDINGS: Surgical changes and devices: None. Lungs and pleura: Left pleural effusion, better evaluated on recent CT. Low lung volumes. Lungs are otherwise clear. Mediastinum: Mediastinal contours appear normal. Heart size is normal. Bones and chest wall: No suspicious bony lesions. Overlying soft tissues appear unremarkable. IMPRESSION: Moderate left pleural effusion, better evaluated on recent CT. Low lung volumes without focal airspac e consolidation. Reviewed by: Mirella Carpio MD on 12/31/2022 9:09 AM PDT Approved by: Mirella Carpio MD on 12/31/2022 9:09 AM PDT Station ID: [id number]
--- NOTE | 2022-12-31 12:02 | ED Physician Documentation ---
ED Addendum - Addendum Addendum: 12/31/22 11:[address] Walton who is on-call for cardiology and also familiar with the patient. I reviewed the x-ray finding with him with a left-sided effusion. He describes a minimal left effusion on their chest x-rays from 2 days ago. I also relayed to him the EKG findings with diffuse nonspecific changes concerning for pericarditis. I sent him a image of the EKG without any identifying factors. Dr. Walton was concerned about the changes, particularly the effusion that has developed. He feels the patient should be evaluated better and would like her on his service and transferred over. However there were no beds available per the transfer center. The patient will be placed on the wait list with Dr. Walton accepting. At this point Dr. Walton suggested we look for other facilities that would have space available. Otherwise if any changes in the patient's status or for unable to find other disposition, then consideration could be for ER to ER transfer but the transfer center for [facility] at this point was prohibiting that without more emergent status.
[2022-12-31] MEDS: COLCHICINE 0.6 MG TABLET PO SCH ×2 (13:49→21:30)
--- NOTE | 2022-12-31 16:31 | CT Report ---
PROCEDURE: CHEST WO INDICATIONS: recent pacer placement; check leads, new L eff. TECHNIQUE: Noncontrast 1mm axial images were acquired from the pulmonary apices to the posterior costophrenic an gles. Axial 5 mm soft tissue kernel reconstructions were performed as well as 8 mm axial MIP and cor onal and sagittal 5 mm reformations. For radiation dose reduction, the following was used: automate d exposure control, adjustment of mA and/or kV according to patient size. COMPARISON: Correlation is made with chest radiograph, 12/31/2022. Correlation is made with abdomen p regina CT performed earlier in the day. FINDINGS: Image quality: There is artifact associated with the metallic hardware. Lungs and pleura: There is a moderate left-sided pleural effusion, with consolidation at the left isaiah g base. The right lung is relatively clear, with a mild degree of atelectasis seen. No pneumothorax i s seen. Mediastinum: Patient leads are seen, with one lead seen within the right atrium and a second lead see n within the right ventricle. The left ventricular lead potentially emanates the on the myometrium, y et this is not well seen. Heart size is normal. No pericardial effusion. No large vessel abnormality. No mediastinal adenopathy by size criteria. Chest wall and lower neck: Thyroid is unremarkable. No axillary or supraclavicular adenopathy by size . Bones: No aggressive osseous abnormality. Upper Abdomen: Unremarkable. IMPRESSION: There is a moderately sized left-sided pleural effusion, with consolidated lung at the le ft lung base, which is most likely related to atelectasis, although differential diagnosis includes i nfiltrate. 2 pacer leads seen. The ventricular lead potentially emanates beyond the myometrium, yet this is not well seen, secondary to streak artifact. No pericardial effusion is seen. Reviewed by: Francisco Rose MD on 12/31/2022 3:30 PM LINO Approved by: Francisco Rose MD on 12/31/2022 3:30 PM LINO Station ID: [id number]
[2022-12-31] MEDS ORDERED: HYDROmorphone 1 MG/ML CARPUJECT IVP STA (17:32)
--- NOTE | 2022-12-31 18:20 | ED Physician Documentation ---
ED Addendum - Addendum Addendum: 12/31/22 18:[address] of the chest as requested by Dr. Walton showed the pacer leads noted in the atria and ventricle. The ventricular lead appears to extend beyond the myometrium. There is an effusion noted in the left lung field as previously noted. No pericardial effusion. I talked with Dr. Walton about the findings. We are also in the process of doing an interrogation of the pacemaker as requested. The findings on the CT would correspond with the patient's symptoms. Unclear why this had not been visible necessarily on imaging done at [facility] when she was hospitalized there a couple of days ago. However at this point it does seem to be the situation. Dr. Walton said they do not do EPS or pacemaker interventions during the weekend and have no on-call ability. He felt the patient was stable timing kirk to be able to do this tomorrow. He states they are able to correct the problem by pulling back the wire for the lead and replacing it into a different position. The [facility] does not have any beds available at this time for transfer for monitoring. We are to check back with him tomorrow morning and the patient is on higher priority for transfer and bed assignment. However if we were to find other hospital facilities to take the patient, then that is still reasonable per Dr. Walton. At this point there is no other facilities showing availability. At this point the patient seems stable vital signs. I wrote for some scheduled pain medications and to continue some anti-inflammatories presuming an element of pericardial irritation. This was per Dr. Walton. We are to contact [facility] in the morning and see on their bed availability. Dr. Walton said it potentially can also be handled as a ER to ER transfer and then to the pacemaker procedure lab though the patient will need to be watched for at least 24 hours after that because of the complication.
--- NOTE | 2022-12-31 18:52 | ED Physician Documentation ---
ED Addendum - Addendum Addendum: 12/31/22 18:[address] Diaz at 6 PM shift change. Briefly 77-year-old woman with recent pacemaker placement and concern for lead rupturing ventricle. [facility] cannot take her back tonight due to bed capability. Given the diagnosis, I feel like we need to start calling other places that have the ability to care for this, as if she were to worsen in this critical access hospital, I would have nothing to offer her and I spoke with [facility] at [phone] and they will call me back with CT surgery. 12/31/22 18:56 She quickly called me back and had spoken with the cardiothoracic surgeon, Dr. Hastings in the interim and Dr. Hastings declined the patient stating that she needed to go back to [facility]. I have asked the ADMINISTRATIVE FELLOW to call the [facility]. 12/31/22 20:50 [facility] contacted multiple facilities all of which were full. [place] called me back and they are associated with [facility] and they are going to call [facility] as they feel like transfer back to [facility] is the best thing for her. Patient seen and examined at bedside and she is appropriately frustrated but appears stable. Given the potential for ventricular rupture I have canceled the scheduled Toradol. I did a repeat H&H which dropped from 11.3 down to 10.2. 12/31/22 21:[address] Reece
[2022-12-31] MEDS ORDERED: HYDROmorphone 1 MG/ML CARPUJECT IVP SCH (20:00)
[2022-12-31 20:21] LABS: HCT - HEMATOCRIT 31.7 % (37.0-47.0); HGB - HEMOGLOBIN 10.2 g/dL (12.0-16.0)
[2022-12-31] MEDS ORDERED: HYDROmorphone 0.5 MG/0.5 ML SYRINGE IVP PRN (20:49)
[2022-12-31] MEDS ORDERED: KETOROLAC 15 MG/ML VIAL IVP SCH (21:00)
--- NOTE | 2022-12-31 22:24 | ED Physician Documentation ---
ED Addendum - Addendum Addendum: 12/31/22 22:22 d/w [facility] transfer center RN at [facility]. patient is accepted by his data specialist Dr. Walton who did pacer on 12/27. There is a plan in place with RN supervisors who will take the patient in transfer. Plan is to do procedure tomorrow before 3pm. Nursing supervisors are aware. If there are no beds then patient will go straight to pre-op prior to procedure. 12/31/22 22:34 d/w Dr. Walton who is going to contact ED provider to attempt ED-ED transfer. 12/31/22 22:[address] Delaney accepts the patient for ED-ED transfer. life flight called. Disposition transfer Condition serious Impression 1. ventricular rupture 2. pleural effusion 3. chest pain
[2022-12-31] MEDS ORDERED: polyethylene glycoL 3350 17 GM PACKET PO STA (22:43)
[2022-12-31] MEDS ORDERED: HYDROmorphone 0.5 MG/0.5 ML SYRINGE IVP STA (22:59)
[2022-12-31 23:34] VITALS: O2SAT 95
[2023-01-01 00:10] VITALS: BP 149/66
== END 2022-12-31 23:59 | disposition short-term general hospital (02) ==
LOC: EDUNIT# → ED 02:00
DX: J90 Pleural effusion, not elsewhere classified (principal); R07.89 Other chest pain; Z95.0 Presence of cardiac pacemaker; I10 Essential (primary) hypertension; E78.00 Pure hypercholesterolemia, unspecified; Z79.899 Other long term (current) drug therapy
CPT/HCPCS: 36415; 71045; 71250; 74177; 80053; 83690; 84484; 85014; 85018; 85025; 85651; 86140; 93005; 96374; 96375; 96376; 99285; A9270; J1170; Q9967

== ENCOUNTER 2023-01-06 22:36 | Outpatient (CLI) | payer MEDICARE, MEDICAID | END 2023-01-06 23:59 | disposition short-term general hospital (02) | LOC: EMS 22:36 | DX: R07.89 Other chest pain (principal); M25.512 Pain in left shoulder; Z95.0 Presence of cardiac pacemaker | CPT/HCPCS: A0425; A0427 ==

== ENCOUNTER 2023-01-17 12:25 | Outpatient (CLI) | payer MEDICARE, MEDICAID ==
--- NOTE | 2023-01-18 11:36 | XRAY Report ---
PROCEDURE: Chest 2 View X-Ray INDICATIONS: HEMOTHORAX,DYSPNEA, UNSPECIFIED TECHNIQUE: 2 views of the chest were acquired. COMPARISON: Chest radiograph and CT chest 12/31/2022 FINDINGS: Surgical changes and devices: Left chest pacemaker. Lungs and pleura: Resolution of the prior left pleural effusion. Curvilinear and hazy left basilar o pacities are present. No pneumothorax. Mediastinum: Mediastinal contours appear normal. Heart size is normal. Bones and chest wall: No suspicious bony lesions. Overlying soft tissues appear unremarkable. IMPRESSION: Resolution of the prior left pleural effusion. Curvilinear and hazy left basilar opacities, nonspecific, likely at least in part related to atelecta sis and/or scarring, underlying aspiration or pneumonia are not excludable. Reviewed by: Amado Payton MD on 01/18/2023 11:34 AM PDT Approved by: Amado Payton MD on 01/18/2023 11:34 AM PDT Station ID: [id number]
== END 2023-01-17 12:26 | disposition home or self-care (01) ==
LOC: DI 12:25
PROVIDERS: ATTEND Internal Medicine
DX: Z09 Encounter for follow-up examination after completed treatment for conditions other than malignant neoplasm (principal); J94.2 Hemothorax; R06.00 Dyspnea, unspecified; Z87.09 Personal history of other diseases of the respiratory system

== ENCOUNTER 2023-02-07 07:10 | Outpatient (CLI) | payer MEDICARE, MEDICAID ==
[2023-02-07 14:38] LABS: BILIRUBIN,URINE NEGATIVE (NEGATIVE); GLUCOSE, URINE (UA) NEGATIVE (NEGATIVE); KETONES,URINE (UA) NEGATIVE (NEGATIVE); LEUKOCYTE ESTERASE, URINE MODERATE (NEGATIVE); NITRITE,URINE NEGATIVE (NEGATIVE); OCCULT BLOOD,URINE NEGATIVE (NEGATIVE); PROTEIN,URINE NEGATIVE (NEGATIVE); UROBILINOGEN,URINE 0.2 (NORMAL) E.U./dL (NORMAL)
[2023-02-07 14:50] LABS: ALBUMIN 4.2 g/dL (3.2-5.5); ALBUMIN/GLOBULIN RATIO 1.6 (1.0-2.2); BILIRUBIN,TOTAL 0.4 mg/dL (0.2-1.0); CALCIUM 9.9 mg/dL (8.5-10.3); CREATININE 0.8 mg/dL (0.6-1.3); POTASSIUM 4.5 mmol/L (3.5-4.5); TOTAL PROTEIN 6.9 g/dL (6.4-8.9)
[2023-02-07 14:51] LABS: CLARITY,URINE CLOUDY (CLEAR)
[2023-02-07 15:14] LABS: BACTERIA,URINE None Seen /HPF (None Seen); RBC,URINE None Seen /HPF (0-5); SQUAMOUS EPITHELIAL CELL,UR RARE Squamous (<= Few)
[2023-02-07 15:15] LABS: AMORPHOUS SEDIMENT,UR Marked /LPF
== END 2023-02-07 07:11 | disposition home or self-care (01) ==
LOC: LAB.S 07:10
PROVIDERS: ATTEND Nutritionist
DX: N39.0 Urinary tract infection, site not specified (principal); I12.9 Hypertensive chronic kidney disease with stage 1 through stage 4 chronic kidney disease, or unspecified chronic kidney disease
CPT/HCPCS: 36415; 80053; 81001; 87086; 87181

== ENCOUNTER 2023-02-15 01:34 | Outpatient (CLI) | payer MEDICARE, MEDICAID | END 2023-02-15 23:59 | disposition critical access hospital (66) | LOC: EMS 01:34 | DX: I10 Essential (primary) hypertension (principal); R42 Dizziness and giddiness; R51.9 Headache, unspecified | CPT/HCPCS: A0425; A0429 ==

== ENCOUNTER 2023-02-15 02:09 | Emergency (ER) | payer MEDICARE, MEDICAID ==
--- NOTE | 2023-02-15 02:25 | ED Physician Documentation ---
PD HPI CHEST PAIN - Stated complaint Stated Complaint: CHEST PX - Chief complaint Chief Complaint: Cardiac - History obtained from History obtained from: Patient, EMS - Additional information Additional information: 77-year-old woman with history of arrhythmia with pacemaker placed a few weeks ago complicated by pneumothorax, high blood pressure, presents with chest pain radiating to the neck since 10 AM yesterday as well as wheeziness and dizziness since 8 PM worse with position changes in addition to headache. Patient also has had persistently high blood pressures despite taking the max dose of her home blood pressure medications. She reports blood pressure 180/100 at home. Denies nausea or vomiting, shortness of breath, tearing back pain. Review of Systems Constitutional: denies: Fever, Chills Throat: denies: Sore throat Cardiac: reports: Chest pain / pressure. denies: Palpitations Respiratory: denies: Dyspnea, Cough GI: denies: Abdominal Pain, Nausea, Vomiting, Diarrhea Musculoskeletal: denies: Back pain PD PAST MEDICAL HISTORY - Past Medical History Cardiovascular: Hypertension, High cholesterol Respiratory: None Neuro: Other Endocrine/Autoimmune: None GI: GERD, Chronic constipation, Other : None HEENT: Glaucoma, Other Psych: None Musculoskeletal: Other Derm: None - Past Surgical History Past Surgical History: Yes General: Appendectomy, Colonoscopy HEENT: Other - Present Medications Home Medications: Ambulatory Orders Medication Instructions Recorded Confirmed [place]-3/Dha/Epa/Fish Oil [Fish Oil 1 cap PO DAILY 05/29/18 02/15/23 500 mg Softgel] Turmeric Root Extract [Turmeric] 500 mg PO DAILY 05/29/18 02/15/23 Losartan [Cozaar] 50 mg PO BID 06/02/21 02/15/23 Amlodipine Besylate [Norvasc] 2.5 mg PO BID 12/31/22 02/15/23 Latanoprost 0.005% Ophth Drops 1 drops EACHEYE QPM 12/31/22 02/15/23 [Xalatan Ophth Drops] Nitrofurantoin Monohyd/M-Cryst 100 mg PO BID 02/15/23 02/15/23 [Nitrofurantoin Hughes-Mcr 100 mg] - Allergies Allergies/Adverse Reactions: Allergies Allergy/AdvReac Type Severity Reaction Status Date / Time Penicillins Allergy Unknown Verified 02/15/23 02:21 - Social History Does the pt smoke?: No Smoking Status: Never smoker Does the pt drink ETOH?: No Does the pt have substance abuse?: No - Immunizations Immunizations are current?: Yes - POLST Patient has POLST: No POLST Status: Full Code PD ED PE NORMAL - Vitals Vital signs reviewed: Yes - General General: Alert and oriented X 3, No acute distress, Well developed/nourished - HEENT HEENT: Atraumatic, PERRL, EOMI, Moist mucous membranes, Pharynx benign - Neck Neck: Supple, no meningeal sign - Cardiac Cardiac: RRR - Respiratory Respiratory: No respiratory distress, Clear bilaterally - Abdomen Abdomen: Non tender, Non distended - Derm Derm: Normal color, Warm and dry - Neuro Neuro: Alert and oriented X 3, refrigerator glazier 2-12 intact, No motor deficit, No sensory deficit, Normal speech Eye Opening: Spontaneous Motor: Obeys Commands Verbal: Oriented GCS Score: 15 Results - Vitals Vitals: Vital Signs - 24 hr 02/15/23 02/15/23 02/15/23 02:10 02:17 03:25 Temperature 36.0 C L Heart Rate 75 73 72 Respiratory 12 14 21 Rate Blood Pressure 141/125 H 152/66 H 139/64 H O2 Saturation 97 100 96 02/15/23 02/15/23 02/15/23 03:30 04:00 04:37 Temperature Heart Rate 74 65 68 Respiratory 21 16 19 Rate Blood Pressure 140/58 H 147/65 H 135/58 H O2 Saturation 97 97 95 Oxygen O2 Source Room air - EKG (time done) 0218 EKG releavant findings:: EKG personally interpreted by author of this note. Relevant findings are: Rate: Rate (enter#) (79) Rhythm: NSR Intervals: Normal W[place], RBBB ( old RBBB) Ischemia: Normal ST segments Compare to prior EKG: Unchanged from prior EKG (12/31/22) - Labs Labs: Laboratory Tests 02/15/23 02/15/23 02/15/23 02:38 02:38 03:36 WBC 6.4 RBC 4.29 Hgb 12.1 Hct 38.3 MCV 89.3 MCH 28.2 MCHC 31.6 L RDW 14.3 Plt Count 260 MPV 10.3 Neut # (Auto) 4.4 Lymph # (Auto) 1.2 L Hughes # (Auto) 0.5 Eos # (Auto) 0.2 Baso # (Auto) 0.1 Absolute Nucleated RBC 0.00 Nucleated RBC % 0.0 Sodium 142 Potassium 4.3 Chloride 107 Carbon Dioxide 27 Anion Gap 8.0 BUN 18 Creatinine 0.9 Estimated GFR (MDRD) 61 L Glucose 101 Calcium 10.0 Magnesium 2.4 H Total Bilirubin 0.4 AST 21 ALT 13 Alkaline Phosphatase 93 Troponin I High Sens 4.3 4.2 Total Protein 7.0 Albumin 4.3 Globulin 2.7 Albumin/Globulin Ratio 1.6 Lipase 15 PD Medical Decision Making - ED course ED course: 77-year-old woman with history of arrhythmia status post pacemaker placement presents with dizziness and wooziness tonight as well as elevated blood pressure readings and intermittent chest pain since 10 AM yesterday. Plan to obtain CBC, abdominal panel, troponin, EKG, chest x-ray, and interrogate her pacemaker. Note patient has been wearing ekg monitor ([employer] body guardian mini plus - I called [employer] and patient has been in NSR. no cardiac events yesterday, no ectopy or abnormal changes in rate (02/14/23). Specifically around the time patient was feeling lightheaded at 8pm she did not have any cardiac events. Her HR was about 56 and in NSR around 8pm 02/14/23, going up to about 80 when she said she was feeling woozy/dizzy. HR went up to 100 bpm around 9pm but was still NSR. [employer] rep faxed the findings to us. 2 sets of troponins negative. CXR showed L basilar atelectasis but otherwise unremarkable. Patient well appearing. ekg without acute ST or T waves changes. advised outpatient follow up with her cardiac exercise physiologist. return precautions given. Departure - Departure Disposition: 01 Home, Self Care Clinical Impression: Atypical chest pain, Hypertension Condition: Stable Instructions: ED Chest Pain Atypical Unkn Cause Comments: You were seen in the emergency department for dizziness, high blood pressure, headache and chest pain. Your lab work, EKG, chest x-ray uncovered no emergent cause for your symptoms. After calling [employer], your cardiac monitoring showed no acute events in the past 24 hours. Please follow-up with your cardiac exercise physiologist outpatient. Return to the emergency department for new or worsening symptoms or other concerns. Forms: PCP List Discharge Date/Time: 02/15/23 04:50
[2023-02-15] MEDS ORDERED: ACETAMINOPHEN 325 MG TABLET PO STA (02:34)
[2023-02-15 02:45] LABS: BASOPHILS # (AUTO) 0.1 10^3/uL (0.0-0.1); BASOPHILS % (AUTO) 1.1 %; EOSINOPHILS # (AUTO) 0.2 10^3/uL (0.0-0.7); EOSINOPHILS % (AUTO) 3.4 %; HCT - HEMATOCRIT 38.3 % (37.0-47.0); HGB - HEMOGLOBIN 12.1 g/dL (12.0-16.0); LYMPHOCYTES # (AUTO) 1.2 10^3/uL (1.5-3.5); LYMPHOCYTES % (AUTO) 19.2 %; MEAN CORPUSCULAR HEMOGLOBIN 28.2 pg (27.0-31.0); MEAN CORPUSCULAR HGB CONC 31.6 g/dL (32.0-36.0); MEAN CORPUSCULAR VOLUME 89.3 fL (81.0-99.0); MEAN PLATELET VOLUME 10.3 fL (7.9-10.8); MONOCYTES # (AUTO) 0.5 10^3/uL (0.0-1.0); MONOCYTES % (AUTO) 7.6 %; NEUTROPHILS # (AUTO) 4.4 10^3/uL (1.5-6.6); NEUTROPHILS % (AUTO) 68.4 %; PLT - PLATELET COUNT 260 10^3/uL (130-450); RED BLOOD COUNT 4.29 10^6/uL (4.20-5.40); RED CELL DISTRIBUTION WIDTH 14.3 % (12.0-15.0); WHITE BLOOD COUNT 6.4 x10^3/uL (4.8-10.8)
[2023-02-15 03:06] LABS: TROPONIN I HIGH SENSITIVITY 4.3 ng/L (2.3-14.8)
[2023-02-15 03:41] LABS: ALBUMIN 4.3 g/dL (3.2-5.5); ALBUMIN/GLOBULIN RATIO 1.6 (1.0-2.2); BILIRUBIN,TOTAL 0.4 mg/dL (0.2-1.0); CREATININE 0.9 mg/dL (0.6-1.3); MAGNESIUM 2.4 mg/dL (1.7-2.3); POTASSIUM 4.3 mmol/L (3.5-4.5)
[2023-02-15 04:51] VITALS: BP 135/58; O2SAT 95
--- NOTE | 2023-02-15 08:24 | XRAY Report ---
PROCEDURE: Chest 1 View X-Ray INDICATIONS: Chest Pain TECHNIQUE: One view of the chest was acquired. COMPARISON: Chest x-ray 01/17/2023 FINDINGS: Surgical changes and devices: Left chest wall pacemaker. Electronic device overlying the mid thorax. Lungs and pleura: No pleural effusions or pneumothorax. Left lung base opacity which is favored repr esent atelectasis. Mediastinum: Mediastinal contours appear normal. Heart size is normal. Bones and chest wall: No suspicious bony lesions. Overlying soft tissues appear unremarkable. IMPRESSION: Left lung base opacity, favored to represent atelectasis. Otherwise, no acute cardiopulmonary process . Findings are concordant with preliminary interpretation provided by [facility]. Reviewed by: Jose Juarez MD on 02/15/2023 8:23 AM PDT Approved by: Jose Juarez MD on 02/15/2023 8:23 AM PDT Station ID: [id number]
== END 2023-02-15 04:50 | disposition home or self-care (01) ==
LOC: ED 02:09
DX: R07.89 Other chest pain (principal); I10 Essential (primary) hypertension; Z95.0 Presence of cardiac pacemaker; Z97.8 Presence of other specified devices
CPT/HCPCS: 36415; 71045; 80053; 83690; 83735; 84484; 85025; 93005; 99284; A9270

== ENCOUNTER 2023-02-18 08:05 | Outpatient (CLI) | payer MEDICARE, MEDICAID | END 2023-02-18 08:06 | disposition short-term general hospital (02) | LOC: EMS 08:05 | DX: R51.9 Headache, unspecified (principal); I10 Essential (primary) hypertension; R21 Rash and other nonspecific skin eruption | CPT/HCPCS: A0425; A0429 ==

== ENCOUNTER 2023-03-16 07:01 | Outpatient (CLI) | payer MEDICARE, MEDICAID ==
[2023-03-16 14:41] LABS: BASOPHILS % (AUTO) 0.1 %; EOSINOPHILS % (AUTO) 0.1 %; HCT - HEMATOCRIT 44.6 % (37.0-47.0); HGB - HEMOGLOBIN 13.5 g/dL (12.0-16.0); LYMPHOCYTES # (AUTO) 1.6 10^3/uL (1.5-3.5); LYMPHOCYTES % (AUTO) 20.5 %; MEAN CORPUSCULAR HEMOGLOBIN 27.4 pg (27.0-31.0); MEAN CORPUSCULAR HGB CONC 30.3 g/dL (32.0-36.0); MEAN CORPUSCULAR VOLUME 90.7 fL (81.0-99.0); MEAN PLATELET VOLUME 11.3 fL (7.9-10.8); MONOCYTES # (AUTO) 0.5 10^3/uL (0.0-1.0); MONOCYTES % (AUTO) 5.9 %; NEUTROPHILS # (AUTO) 5.6 10^3/uL (1.5-6.6); NEUTROPHILS % (AUTO) 72.7 %; PLT - PLATELET COUNT 206 10^3/uL (130-450); RED BLOOD COUNT 4.92 10^6/uL (4.20-5.40); RED CELL DISTRIBUTION WIDTH 15.4 % (12.0-15.0); WHITE BLOOD COUNT 7.7 x10^3/uL (4.8-10.8)
[2023-03-16 15:03] LABS: BILIRUBIN,URINE NEGATIVE (NEGATIVE); GLUCOSE, URINE (UA) NEGATIVE (NEGATIVE); KETONES,URINE (UA) NEGATIVE (NEGATIVE); LEUKOCYTE ESTERASE, URINE NEGATIVE (NEGATIVE); NITRITE,URINE NEGATIVE (NEGATIVE); OCCULT BLOOD,URINE NEGATIVE (NEGATIVE); PH,URINE 7.5 PH (5.0-7.5); PROTEIN,URINE NEGATIVE (NEGATIVE); UROBILINOGEN,URINE 0.2 (NORMAL) E.U./dL (NORMAL)
[2023-03-16 15:08] LABS: ALBUMIN 4.3 g/dL (3.2-5.5); ALBUMIN/GLOBULIN RATIO 1.9 (1.0-2.2); ALKALINE PHOSPHATASE 63 IU/L (42-121); ALT ALANINE AMINOTRANSFERASE 19 IU/L (10-60); AST ASPARTATE AMINOTRANSFERASE 17 IU/L (10-42); BILIRUBIN,TOTAL 0.5 mg/dL (0.2-1.0); BUN - BLOOD UREA NITROGEN 28 mg/dL (6-20); CALCIUM 9.9 mg/dL (8.5-10.3); CARBON DIOXIDE - CO2 31 mmol/L (21-32); CHLORIDE 104 mmol/L (101-111); CHOL/HDL RATIO 2.6 (<4.4); CHOLESTEROL 273 mg/dL; CRP - C-REACTIVE PROTEIN < 0.5 mg/dL (<0.5); GFR - MDRD 54 (>89); GLUCOSE 64 mg/dL (74-104); HDL CHOLESTEROL 105 mg/dL; LDL CHOLESTEROL,CALCULATED 155 mg/dL; LDL/HDL RATIO 1.5 (<4.4); POTASSIUM 3.7 mmol/L (3.5-4.5); SODIUM 140 mmol/L (135-145); TOTAL PROTEIN 6.6 g/dL (6.4-8.9); TRIGLYCERIDES 64 mg/dL (48-352); VLDL CHOLESTEROL 13 mg/dL
[2023-03-16 15:09] LABS: AMORPHOUS SEDIMENT,UR Marked /LPF; BACTERIA,URINE Rare /HPF (None Seen); CASTS, URINE 3-5 Hyaline Casts /LPF; CLARITY,URINE SL. CLOUDY (CLEAR); MUCUS,URINE Few Strands; RBC,URINE 0-5 /HPF (0-5); SQUAMOUS EPITHELIAL CELL,UR FEW Squamous (<= Few); WBC,URINE 0-3 /HPF (0-5)
[2023-03-16 15:18] LABS: ESTIMATED AVERAGE GLUCOSE 117 mg/dL (70-100); HEMOGLOBIN A1c% 5.7 % (4.27-6.07)
== END 2023-03-16 07:02 | disposition home or self-care (01) ==
LOC: LAB.S 07:01
PROVIDERS: ATTEND Nutritionist
DX: K90.9 Intestinal malabsorption, unspecified (principal); E78.5 Hyperlipidemia, unspecified; N39.0 Urinary tract infection, site not specified; M02.30 Reiter's disease, unspecified site
CPT/HCPCS: 36415; 80053; 80061; 81001; 81003; 81599; 83036; 83721; 85025; 86003; 86140

== ENCOUNTER 2023-04-04 06:59 | Outpatient (CLI) | payer MEDICARE, MEDICAID ==
[2023-04-04 14:58] LABS: BILIRUBIN,URINE NEGATIVE (NEGATIVE); GLUCOSE, URINE (UA) NEGATIVE (NEGATIVE); KETONES,URINE (UA) NEGATIVE (NEGATIVE); LEUKOCYTE ESTERASE, URINE NEGATIVE (NEGATIVE); NITRITE,URINE NEGATIVE (NEGATIVE); OCCULT BLOOD,URINE NEGATIVE (NEGATIVE); PH,URINE 7.5 PH (5.0-7.5); PROTEIN,URINE NEGATIVE (NEGATIVE); UROBILINOGEN,URINE 0.2 (NORMAL) E.U./dL (NORMAL)
[2023-04-04 15:19] LABS: CLARITY,URINE CLEAR (CLEAR)
[2023-04-04 15:20] LABS: BACTERIA,URINE Moderate /HPF (None Seen); RBC,URINE None Seen /HPF (0-5); SQUAMOUS EPITHELIAL CELL,UR RARE Squamous (<= Few); WBC,URINE 0-3 /HPF (0-5)
== END 2023-04-04 07:00 | disposition home or self-care (01) ==
LOC: LAB.S 06:59
PROVIDERS: ATTEND Internal Medicine
DX: Z00.00 Encounter for general adult medical examination without abnormal findings (principal); M19.90 Unspecified osteoarthritis, unspecified site; I67.9 Cerebrovascular disease, unspecified; M31.6 Other giant cell arteritis; I45.9 Conduction disorder, unspecified; Z86.010 Personal history of colon polyps; E78.5 Hyperlipidemia, unspecified; G47.33 Obstructive sleep apnea (adult) (pediatric); R26.89 Other abnormalities of gait and mobility; R35.0 Frequency of micturition
CPT/HCPCS: 81001; 87086

== ENCOUNTER 2023-05-10 07:04 | Outpatient (CLI) | payer MEDICARE, MEDICAID ==
[2023-05-10 14:38] LABS: BASOPHILS # (AUTO) 0.1 10^3/uL (0.0-0.1); BASOPHILS % (AUTO) 0.8 %; EOSINOPHILS # (AUTO) 0.1 10^3/uL (0.0-0.7); EOSINOPHILS % (AUTO) 0.8 %; HCT - HEMATOCRIT 44.7 % (37.0-47.0); HGB - HEMOGLOBIN 13.4 g/dL (12.0-16.0); LYMPHOCYTES # (AUTO) 2.8 10^3/uL (1.5-3.5); MEAN CORPUSCULAR HEMOGLOBIN 26.7 pg (27.0-31.0); MEAN CORPUSCULAR VOLUME 89.2 fL (81.0-99.0); MEAN PLATELET VOLUME 10.7 fL (7.9-10.8); MONOCYTES # (AUTO) 0.6 10^3/uL (0.0-1.0); MONOCYTES % (AUTO) 6.2 %; NEUTROPHILS # (AUTO) 5.9 10^3/uL (1.5-6.6); NEUTROPHILS % (AUTO) 61.2 %; PLT - PLATELET COUNT 302 10^3/uL (130-450); RED BLOOD COUNT 5.01 10^6/uL (4.20-5.40); RED CELL DISTRIBUTION WIDTH 16.2 % (12.0-15.0); WHITE BLOOD COUNT 9.6 x10^3/uL (4.8-10.8)
[2023-05-10 15:37] LABS: ALBUMIN/GLOBULIN RATIO 1.6 (1.0-2.2); ALKALINE PHOSPHATASE 53 IU/L (42-121); ALT ALANINE AMINOTRANSFERASE 18 IU/L (10-60); AST ASPARTATE AMINOTRANSFERASE 16 IU/L (10-42); BILIRUBIN,TOTAL 0.5 mg/dL (0.2-1.0); BUN - BLOOD UREA NITROGEN 25 mg/dL (6-20); CALCIUM 9.8 mg/dL (8.5-10.3); CARBON DIOXIDE - CO2 30 mmol/L (21-32); CHLORIDE 103 mmol/L (101-111); CREATININE 1.1 mg/dL (0.6-1.3); CRP - C-REACTIVE PROTEIN < 0.5 mg/dL (<0.5); GFR - MDRD 48 (>89); GLUCOSE 88 mg/dL (74-104); POTASSIUM 3.9 mmol/L (3.5-4.5); SODIUM 140 mmol/L (135-145); TOTAL PROTEIN 6.5 g/dL (6.4-8.9)
== END 2023-05-10 07:05 | disposition home or self-care (01) ==
LOC: LAB.S 07:04
PROVIDERS: ATTEND Internal Medicine Rheumatology
DX: M31.6 Other giant cell arteritis (principal); Z79.52 Long term (current) use of systemic steroids
CPT/HCPCS: 36415; 80053; 85025; 85651; 86140

== ENCOUNTER 2023-05-28 14:41 | Outpatient (CLI) | payer MEDICARE, MEDICAID ==
[2023-05-28 20:03] LABS: BASOPHILS # (AUTO) 0.1 10^3/uL (0.0-0.1); BASOPHILS % (AUTO) 0.5 %; EOSINOPHILS % (AUTO) 0.1 %; HCT - HEMATOCRIT 45.1 % (37.0-47.0); HGB - HEMOGLOBIN 13.8 g/dL (12.0-16.0); LYMPHOCYTES # (AUTO) 1.2 10^3/uL (1.5-3.5); LYMPHOCYTES % (AUTO) 10.3 %; MEAN CORPUSCULAR HEMOGLOBIN 27.4 pg (27.0-31.0); MEAN CORPUSCULAR HGB CONC 30.6 g/dL (32.0-36.0); MEAN CORPUSCULAR VOLUME 89.5 fL (81.0-99.0); MEAN PLATELET VOLUME 11.2 fL (7.9-10.8); MONOCYTES # (AUTO) 0.2 10^3/uL (0.0-1.0); MONOCYTES % (AUTO) 1.7 %; NEUTROPHILS # (AUTO) 9.9 10^3/uL (1.5-6.6); NEUTROPHILS % (AUTO) 85.8 %; PLT - PLATELET COUNT 261 10^3/uL (130-450); RED BLOOD COUNT 5.04 10^6/uL (4.20-5.40); RED CELL DISTRIBUTION WIDTH 16.7 % (12.0-15.0); WHITE BLOOD COUNT 11.6 x10^3/uL (4.8-10.8)
== END 2023-05-28 14:42 | disposition home or self-care (01) ==
LOC: LAB.S 14:41
PROVIDERS: ATTEND Internal Medicine Rheumatology
DX: M31.6 Other giant cell arteritis (principal); E16.2 Hypoglycemia, unspecified
CPT/HCPCS: 36415; 85025; 85651

== ENCOUNTER 2023-06-01 10:02 | Outpatient (CLI) | payer MEDICARE, MEDICAID | END 2023-06-01 10:03 | disposition critical access hospital (66) | LOC: EMS 10:02 | DX: R79.89 Other specified abnormal findings of blood chemistry (principal); R42 Dizziness and giddiness; R20.0 Anesthesia of skin | CPT/HCPCS: A0425; A0429 ==

== ENCOUNTER 2023-06-01 10:38 | Emergency (ER) | payer MEDICARE, MEDICAID ==
[2023-06-01 11:32] LABS: BASOPHILS # (AUTO) 0.1 10^3/uL (0.0-0.1); BASOPHILS % (AUTO) 0.6 %; EOSINOPHILS % (AUTO) 0.3 %; HCT - HEMATOCRIT 42.6 % (37.0-47.0); HGB - HEMOGLOBIN 13.2 g/dL (12.0-16.0); LYMPHOCYTES # (AUTO) 1.5 10^3/uL (1.5-3.5); LYMPHOCYTES % (AUTO) 12.3 %; MEAN CORPUSCULAR HEMOGLOBIN 27.3 pg (27.0-31.0); MEAN CORPUSCULAR VOLUME 88.2 fL (81.0-99.0); MEAN PLATELET VOLUME 10.8 fL (7.9-10.8); MONOCYTES # (AUTO) 0.7 10^3/uL (0.0-1.0); MONOCYTES % (AUTO) 5.2 %; NEUTROPHILS % (AUTO) 80.4 %; PLT - PLATELET COUNT 244 10^3/uL (130-450); RED BLOOD COUNT 4.83 10^6/uL (4.20-5.40); RED CELL DISTRIBUTION WIDTH 16.2 % (12.0-15.0); WHITE BLOOD COUNT 12.5 x10^3/uL (4.8-10.8)
[2023-06-01 11:41] LABS: ALBUMIN/GLOBULIN RATIO 1.6 (1.0-2.2); BILIRUBIN,TOTAL 0.5 mg/dL (0.2-1.0); CALCIUM 10.1 mg/dL (8.5-10.3); CREATININE 1.1 mg/dL (0.6-1.3); POTASSIUM 4.3 mmol/L (3.5-4.5); TOTAL PROTEIN 6.5 g/dL (6.4-8.9)
[2023-06-01] MEDS ORDERED: SODIUM CHLORIDE 0.9% 1,000 ML IV STA (11:52)
--- NOTE | 2023-06-01 12:35 | XRAY Report ---
PROCEDURE: Chest 1V INDICATIONS: near syncope TECHNIQUE: One view of the chest was acquired. COMPARISON: 02/15/2023. FINDINGS: Surgical changes and devices: Left chest wall pacemaker lead is in the region of right ventricle. Lungs and pleura: No pleural effusions or pneumothorax. Lungs are clear. Mediastinum: Mediastinal contours appear normal. Heart size is normal. Bones and chest wall: No suspicious bony lesions. Overlying soft tissues appear unremarkable. IMPRESSION: No acute cardiopulmonary process. Reviewed by: Kushal Martinez MD on 06/01/2023 12:34 PM PST Approved by: Kushal Martinez MD on 06/01/2023 12:34 PM PST Station ID: [id number]
--- NOTE | 2023-06-01 12:39 | ED Physician Documentation ---
History of Present Illness - Stated complaint Stated Complaint: DIZZINESS/ ABN LABS - Chief complaint Chief Complaint: Neuro - History obtained from History obtained from: Patient - Additonal information Additional information: Patient is a 77-year-old female presenting for evaluation of lightheadedness which has been present for the past few days. Patient states that her symptoms are not worse with standing or changing positions. She denies vertigo. She denies headache. No chest pain or shortness of air. She thought it could be related to having issues with her blood sugar and has been trying to eat but still states that she has these episodes where she feels lightheaded even when her blood sugar is normal. She has recently seen her PCP who did some outpatient labs and noted that her insulin levels were high. Patient does have a pacemaker. Denies syncope. Review of Systems Constitutional: denies: Fever Cardiac: denies: Chest pain / pressure Respiratory: denies: Dyspnea GI: denies: Abdominal Pain : denies: Dysuria Neurologic: reports: Generalized weakness. denies: Headache PD PAST MEDICAL HISTORY - Past Medical History Past Medical History: Yes Cardiovascular: Hypertension, High cholesterol Respiratory: None Neuro: Other Endocrine/Autoimmune: None GI: GERD, Chronic constipation, Other : None HEENT: Glaucoma, Other Psych: None Musculoskeletal: Other Derm: None - Past Surgical History Past Surgical History: Yes General: Appendectomy, Colonoscopy HEENT: Other - Present Medications Home Medications: Ambulatory Orders Medication Instructions Recorded Confirmed [place]-3/Dha/Epa/Fish Oil [Fish Oil 1 cap PO DAILY 05/29/18 06/01/23 500 mg Softgel] Turmeric Root Extract [Turmeric] 500 mg PO DAILY 05/29/18 06/01/23 Losartan [Cozaar] 50 mg PO BID 06/02/21 06/01/23 Amlodipine Besylate [Norvasc] 2.5 mg PO BID 12/31/22 06/01/23 Latanoprost 0.005% Ophth Drops 1 drops EACHEYE QPM 12/31/22 06/01/23 [Xalatan Ophth Drops] Nitrofurantoin Monohyd/M-Cryst 100 mg PO BID 02/15/23 06/01/23 [Nitrofurantoin [place]-Mcr 100 mg] Oxycodone HCl/Acetaminophen 1 each PO Q6HR PRN 06/01/23 06/01/23 [Oxycodone-Acetaminophen 5-325] Prednisone [Hilario] 15 mg PO DAILY 06/01/23 06/01/23 - Allergies Allergies/Adverse Reactions: Allergies Allergy/AdvReac Type Severity Reaction Status Date / Time Penicillins Allergy Unknown Verified 06/01/23 10:49 - Social History Does the pt smoke?: No Smoking Status: Never smoker Does the pt drink ETOH?: No Does the pt have substance abuse?: No - Immunizations Immunizations are current?: Yes - POLST Patient has POLST: No POLST Status: Full Code PD ED PE NORMAL - General General: Alert and oriented X 3, No acute distress, Well developed/nourished - HEENT HEENT: Atraumatic, Moist mucous membranes, Pharynx benign - Neck Neck: Supple, no meningeal sign - Cardiac Cardiac: RRR, Other - Respiratory Respiratory: No respiratory distress, Clear bilaterally - Abdomen Abdomen: Normal bowel sounds, Soft, Non tender, Non distended - Derm Derm: Warm and dry - Extremities Extremities: No edema - Neuro Neuro: Alert and oriented X 3, pocket operator 2-12 intact, No motor deficit, No sensory deficit, Normal speech Results - Vitals Vitals: Vital Signs - 24 hr 06/01/23 06/01/23 06/01/23 10:45 11:02 13:00 Temperature 36.9 C Heart Rate 64 66 60 Heart Rate [ Sitting] Heart Rate [ Standing] Heart Rate [ Supine] Respiratory 19 20 20 Rate Blood Pressure 133/117 H 136/62 H 131/81 H Blood Pressure [Sitting] Blood Pressure [Standing] Blood Pressure [Supine] O2 Saturation 97 98 97 06/01/23 06/01/23 14:19 15:00 Temperature Heart Rate 74 Heart Rate [ 71 Sitting] Heart Rate [ 77 Standing] Heart Rate [ 64 Supine] Respiratory 18 Rate Blood Pressure 130/64 Blood Pressure 130/65 [Sitting] Blood Pressure 133/64 H [Standing] Blood Pressure 133/67 H [Supine] O2 Saturation 99 Oxygen O2 Source Room air - EKG (time done) 1052 EKG releavant findings:: EKG personally interpreted by author of this note. Relevant findings are: Rate 61, atrial paced rhythm, right bundle branch block, no STEMI - Labs Labs: Laboratory Tests 06/01/23 06/01/23 11:00 11:00 WBC 12.5 H RBC 4.83 Hgb 13.2 Hct 42.6 MCV 88.2 MCH 27.3 MCHC 31.0 L RDW 16.2 H Plt Count 244 MPV 10.8 Neut # (Auto) 10.0 H Lymph # (Auto) 1.5 [place] # (Auto) 0.7 Eos # (Auto) 0.0 Baso # (Auto) 0.1 Absolute Nucleated RBC 0.00 Nucleated RBC % 0.0 Sodium 139 Potassium 4.3 Chloride 106 Carbon Dioxide 29 Anion Gap 4.0 L BUN 37 H Creatinine 1.1 Estimated GFR (MDRD) 48 L Glucose 95 Calcium 10.1 Total Bilirubin 0.5 AST 19 ALT 16 Alkaline Phosphatase 44 Total Protein 6.5 Albumin 4.0 Globulin 2.5 Albumin/Globulin Ratio 1.6 Lipase 17 PD Medical Decision Making - ED course Complexity details: reviewed results, re-evaluated patient, d/w patient ED course: Patient is a 77-year-old female presenting for evaluation of feeling lightheaded for the last several days. She denies headache, vertigo-like symptoms, chest pain, difficulty breathing, Nominal symptoms. Her neuroexam is normal. She has no deficits to suggest a stroke. She again denies vertigo. She reports feeling worse with standing. Her EKG is reviewed which shows an atrial paced rhythm. We did have her pacemaker interrogated from [employer] and per the report there have been no events. No symptoms to suggest acute coronary syndrome. Patient has no events on the regulatory affairs analyst. CBC, chemistries were obtained and reviewed. Patient had a urine test yesterday by her PCP that was negative for infection. Chest x-ray which I reviewed also is negative for consolidation. She did receive IV fluids here. Her orthostatics are negative. She has been ambulatory here.Patient was counseled on need for close follow-up with primary care provider as well as concerning symptoms to return for. 1435 - Patient has been ambulating with her walker from bed 1 to the restroom and back without difficulty several times per the RN. Departure - Departure Disposition: 01 Home, Self Care Clinical Impression: Episodic lightheadedness Condition: Stable Instructions: ED Dizziness UK[facility] Follow-Up: Mansi Krause MD [Provider Admit Priv/Credential] - Comments: Your pacemaker was interrogated and there have been no events recently to explain your symptoms. Your labs including a CBC and chemistry panel were obtained and reviewed and without significant findings. Your chest x-ray here is clear. Your vital signs have been stable. I would recommend close follow-up with Dr. Krause regarding your recent outpatient labs as well as your symptoms. If you develop any worsening symptoms such as fainting, pain or any other concerns please return to the ER. Forms: PCP List Discharge Date/Time: 06/01/23 15:37
[2023-06-01 15:12] VITALS: BP 130/64; O2SAT 99
== END 2023-06-01 15:37 | disposition home or self-care (01) ==
LOC: EDUNIT# → ED 10:38 → SUPCPDRO 10:38 → ED 15:37
DX: R42 Dizziness and giddiness (principal); Z95.0 Presence of cardiac pacemaker; I10 Essential (primary) hypertension
CPT/HCPCS: 36415; 80053; 83690; 85025; 93005; 99283; 99284

== ENCOUNTER 2023-06-04 13:50 | Outpatient (CLI) | payer MEDICARE, MEDICAID | END 2023-06-04 23:59 | disposition short-term general hospital (02) | LOC: EMS 13:50 | DX: R42 Dizziness and giddiness (principal); H53.8 Other visual disturbances; R20.0 Anesthesia of skin | CPT/HCPCS: A0425; A0429 ==

== ENCOUNTER 2023-06-22 14:33 | Outpatient (CLI) | payer MEDICARE, MEDICAID ==
[2023-06-22 20:18] LABS: BASOPHILS # (AUTO) 0.1 10^3/uL (0.0-0.1); BASOPHILS % (AUTO) 0.5 %; HCT - HEMATOCRIT 43.9 % (37.0-47.0); HGB - HEMOGLOBIN 13.1 g/dL (12.0-16.0); LYMPHOCYTES % (AUTO) 8.6 %; MEAN CORPUSCULAR HEMOGLOBIN 27.3 pg (27.0-31.0); MEAN CORPUSCULAR HGB CONC 29.8 g/dL (32.0-36.0); MEAN CORPUSCULAR VOLUME 91.6 fL (81.0-99.0); MEAN PLATELET VOLUME 11.5 fL (7.9-10.8); MONOCYTES # (AUTO) 0.2 10^3/uL (0.0-1.0); NEUTROPHILS % (AUTO) 87.2 %; PLT - PLATELET COUNT 263 10^3/uL (130-450); RED BLOOD COUNT 4.79 10^6/uL (4.20-5.40); RED CELL DISTRIBUTION WIDTH 16.3 % (12.0-15.0); WHITE BLOOD COUNT 11.5 x10^3/uL (4.8-10.8)
[2023-06-22 20:21] LABS: ALBUMIN 4.2 g/dL (3.2-5.5); ALBUMIN/GLOBULIN RATIO 1.8 (1.0-2.2); ALKALINE PHOSPHATASE 51 IU/L (42-121); ALT ALANINE AMINOTRANSFERASE 18 IU/L (10-60); AST ASPARTATE AMINOTRANSFERASE 16 IU/L (10-42); BILIRUBIN,TOTAL 0.5 mg/dL (0.2-1.0); BUN - BLOOD UREA NITROGEN 29 mg/dL (6-20); CALCIUM 10.6 mg/dL (8.5-10.3); CARBON DIOXIDE - CO2 30 mmol/L (21-32); CHLORIDE 104 mmol/L (101-111); CREATININE 0.9 mg/dL (0.6-1.3); CRP - C-REACTIVE PROTEIN < 0.5 mg/dL (<0.5); GFR - MDRD 61 (>89); GLUCOSE 133 mg/dL (74-104); POTASSIUM 4.7 mmol/L (3.5-4.5); SODIUM 138 mmol/L (135-145); TOTAL PROTEIN 6.6 g/dL (6.4-8.9)
[2023-06-26 13:10] LABS: A/G RATIO 1.5 (0.7-1.7); ALBUMIN 3.7 g/dL (2.9-4.4); ALPHA-1-GLOBULIN 0.2 g/dL (0.0-0.4); ALPHA-2-GLOBULIN 0.6 g/dL (0.4-1.0); GAMMA GLOBULIN 0.7 g/dL (0.4-1.8); GLOBULIN, TOTAL 2.5 g/dL (2.2-3.9); PROTEIN TOTAL 6.2 g/dL (6.0-8.5)
[2023-06-26 16:08] LABS: IGF-1 331 ng/mL (48-191)
== END 2023-06-22 14:34 | disposition home or self-care (01) ==
LOC: LAB.S 14:33
PROVIDERS: ATTEND Psychiatry & Neurology Neurology
DX: M31.6 Other giant cell arteritis (principal); E16.2 Hypoglycemia, unspecified; R20.0 Anesthesia of skin; R20.2 Paresthesia of skin; R42 Dizziness and giddiness; I65.02 Occlusion and stenosis of left vertebral artery; I67.9 Cerebrovascular disease, unspecified
CPT/HCPCS: 36415; 80053; 82607; 82746; 82784; 83525; 84155; 84165; 84207; 84305; 85025; 85651; 86140; 86334

== ENCOUNTER 2023-06-27 13:46 | Outpatient (CLI) | payer MEDICARE, MEDICAID | END 2023-06-27 13:47 | disposition home or self-care (01) | LOC: LAB.S 13:46 | PROVIDERS: ATTEND Internal Medicine Rheumatology | DX: M31.6 Other giant cell arteritis (principal) | CPT/HCPCS: 81599 ==

== ENCOUNTER 2023-08-04 08:00 | Outpatient (CLI) | payer MEDICARE, MEDICAID ==
[2023-08-04 19:02] LABS: BILIRUBIN,URINE NEGATIVE (NEGATIVE); GLUCOSE, URINE (UA) NEGATIVE (NEGATIVE); KETONES,URINE (UA) NEGATIVE (NEGATIVE); LEUKOCYTE ESTERASE, URINE NEGATIVE (NEGATIVE); NITRITE,URINE NEGATIVE (NEGATIVE); OCCULT BLOOD,URINE NEGATIVE (NEGATIVE); PROTEIN,URINE NEGATIVE (NEGATIVE); UROBILINOGEN,URINE 0.2 (NORMAL) E.U./dL (NORMAL)
[2023-08-04 19:03] LABS: CLARITY,URINE CLEAR (CLEAR)
[2023-08-04 19:10] LABS: BACTERIA,URINE None Seen /HPF (None Seen); RBC,URINE None Seen /HPF (0-5); SQUAMOUS EPITHELIAL CELL,UR NONE SEEN (<= Few); WBC,URINE 0-3 /HPF (0-5)
== END 2023-08-04 23:59 | disposition home or self-care (01) ==
LOC: LAB.R 08:00
PROVIDERS: ATTEND Nutritionist
DX: M31.5 Giant cell arteritis with polymyalgia rheumatica (principal); N39.0 Urinary tract infection, site not specified
CPT/HCPCS: 81001; 87086

== ENCOUNTER 2023-08-07 07:07 | Outpatient (CLI) | payer MEDICARE, MEDICAID ==
[2023-08-07 15:08] LABS: BILIRUBIN,TOTAL 0.3 mg/dL (0.2-1.0); CALCIUM 10.9 mg/dL (8.5-10.3); CREATININE 1.1 mg/dL (0.6-1.3); POTASSIUM 3.9 mmol/L (3.5-4.5)
== END 2023-08-07 07:08 | disposition home or self-care (01) ==
LOC: LAB.S 07:07
PROVIDERS: ATTEND Nutritionist
DX: M31.5 Giant cell arteritis with polymyalgia rheumatica (principal); N39.0 Urinary tract infection, site not specified
CPT/HCPCS: 36415; 80053; 81001; 83735; 87086

== ENCOUNTER 2023-09-26 09:57 | Outpatient (CLI) | payer MEDICARE, MEDICAID ==
[2023-09-26 14:32] LABS: BASOPHILS # (AUTO) 0.1 10^3/uL (0.0-0.1); BASOPHILS % (AUTO) 0.9 %; EOSINOPHILS % (AUTO) 0.5 %; HCT - HEMATOCRIT 44.6 % (37.0-47.0); HGB - HEMOGLOBIN 14.2 g/dL (12.0-16.0); LYMPHOCYTES # (AUTO) 1.5 10^3/uL (1.5-3.5); LYMPHOCYTES % (AUTO) 17.4 %; MEAN CORPUSCULAR HEMOGLOBIN 28.2 pg (27.0-31.0); MEAN CORPUSCULAR HGB CONC 31.8 g/dL (32.0-36.0); MEAN CORPUSCULAR VOLUME 88.7 fL (81.0-99.0); MEAN PLATELET VOLUME 11.2 fL (7.9-10.8); MONOCYTES # (AUTO) 0.5 10^3/uL (0.0-1.0); NEUTROPHILS # (AUTO) 6.3 10^3/uL (1.5-6.6); NEUTROPHILS % (AUTO) 74.6 %; PLT - PLATELET COUNT 241 10^3/uL (130-450); RED BLOOD COUNT 5.03 10^6/uL (4.20-5.40); RED CELL DISTRIBUTION WIDTH 15.2 % (12.0-15.0); WHITE BLOOD COUNT 8.4 x10^3/uL (4.8-10.8)
[2023-09-26 15:05] LABS: ALBUMIN 4.2 g/dL (3.2-5.5); ALBUMIN/GLOBULIN RATIO 1.8 (1.0-2.2); ALKALINE PHOSPHATASE 48 IU/L (42-121); ALT ALANINE AMINOTRANSFERASE 19 IU/L (10-60); AST ASPARTATE AMINOTRANSFERASE 19 IU/L (10-42); BILIRUBIN,TOTAL 0.5 mg/dL (0.2-1.0); BUN - BLOOD UREA NITROGEN 24 mg/dL (6-20); CALCIUM 10.4 mg/dL (8.5-10.3); CARBON DIOXIDE - CO2 28 mmol/L (21-32); CHLORIDE 105 mmol/L (101-111); CREATININE 1.1 mg/dL (0.6-1.3); CRP - C-REACTIVE PROTEIN < 0.5 mg/dL (<0.5); GFR - MDRD 48 (>89); GLUCOSE 81 mg/dL (74-104); LIPASE 17 U/L (11-82); POTASSIUM 4.4 mmol/L (3.5-4.5); SODIUM 139 mmol/L (135-145); TOTAL PROTEIN 6.6 g/dL (6.4-8.9)
== END 2023-09-26 09:58 | disposition home or self-care (01) ==
LOC: LAB.S 09:57
PROVIDERS: ATTEND Registered Nurse
DX: R10.9 Unspecified abdominal pain (principal); R82.79 Other abnormal findings on microbiological examination of urine
CPT/HCPCS: 36415; 80053; 83690; 85025; 85651; 86140; 87086

== ENCOUNTER 2023-11-19 14:27 | Outpatient (CLI) | payer MEDICARE, MEDICAID ==
[2023-11-19 20:05] LABS: BASOPHILS # (AUTO) 0.1 10^3/uL (0.0-0.1); BASOPHILS % (AUTO) 0.8 %; EOSINOPHILS % (AUTO) 0.3 %; HCT - HEMATOCRIT 45.4 % (37.0-47.0); HGB - HEMOGLOBIN 14.2 g/dL (12.0-16.0); LYMPHOCYTES % (AUTO) 26.3 %; MEAN CORPUSCULAR HEMOGLOBIN 28.1 pg (27.0-31.0); MEAN CORPUSCULAR HGB CONC 31.3 g/dL (32.0-36.0); MEAN CORPUSCULAR VOLUME 89.9 fL (81.0-99.0); MEAN PLATELET VOLUME 11.8 fL (7.9-10.8); MONOCYTES # (AUTO) 0.5 10^3/uL (0.0-1.0); MONOCYTES % (AUTO) 6.2 %; NEUTROPHILS # (AUTO) 4.9 10^3/uL (1.5-6.6); NEUTROPHILS % (AUTO) 65.9 %; PLT - PLATELET COUNT 220 10^3/uL (130-450); RED BLOOD COUNT 5.05 10^6/uL (4.20-5.40); RED CELL DISTRIBUTION WIDTH 15.3 % (12.0-15.0); WHITE BLOOD COUNT 7.4 x10^3/uL (4.8-10.8)
[2023-11-19 20:30] LABS: ALBUMIN 4.4 g/dL (3.2-5.5); ALBUMIN/GLOBULIN RATIO 1.8 (1.0-2.2); ALKALINE PHOSPHATASE 51 IU/L (42-121); ALT ALANINE AMINOTRANSFERASE 16 IU/L (10-60); AST ASPARTATE AMINOTRANSFERASE 20 IU/L (10-42); BILIRUBIN,TOTAL 0.5 mg/dL (0.2-1.0); BUN - BLOOD UREA NITROGEN 25 mg/dL (6-20); CALCIUM 10.3 mg/dL (8.5-10.3); CARBON DIOXIDE - CO2 29 mmol/L (21-32); CHLORIDE 105 mmol/L (101-111); CREATININE 0.9 mg/dL (0.6-1.3); CRP - C-REACTIVE PROTEIN < 0.5 mg/dL (<0.5); GFR - MDRD 61 (>89); GLUCOSE 96 mg/dL (74-104); POTASSIUM 4.2 mmol/L (3.5-4.5); SODIUM 140 mmol/L (135-145); TOTAL PROTEIN 6.9 g/dL (6.4-8.9)
== END 2023-11-19 14:28 | disposition home or self-care (01) ==
LOC: LAB.S 14:27
PROVIDERS: ATTEND Internal Medicine Rheumatology
DX: M81.0 Age-related osteoporosis without current pathological fracture (principal); Z79.52 Long term (current) use of systemic steroids; M31.6 Other giant cell arteritis
CPT/HCPCS: 36415; 80053; 83970; 85025; 85651; 86140